=== PATIENT | female | born 1945 | race Caucasian/White ===

== ENCOUNTER 2022-03-02 09:37 | Outpatient (CLI) | payer MEDICARE, SELFPAY ==
--- NOTE | ~2022-03-02 | US_ITS ---
EXAMINATION: US FNA w image guidance DATE: 03/02/2022 10:35 INDICATION: Left thyroid nodule TECHNIQUE: A time-out was performed to verify the patient's name, date of , and procedure to be performed . The procedure and its benefits and risks were discussed with the patient. Risks specifically discus sed included bleeding and infection. The patient understood the risks and agreed to proceed. The neck was prepped and draped in the usual sterile manner. 3 mL 1% lidocaine was used for local anesthesia . 6 passes were made with a 25G needle into the lesion. Appropriate needle location was documented with continuous sonographic guidance. A sterile bandage was applied. There were no immediate compli cations. FINDINGS: Grayscale ultrasound images demonstrate biopsy needles advanced into a 1.8 x 1.7 x 1.8 cm solid heter ogeneous isoechoic hypoechoic mass with smooth and ill-defined margins and with shadowing coarse calc ification (TI-RADS 4) at the inferior left thyroid. IMPRESSION: 1. Successful ultrasound-guided fine needle aspiration of a 1.8 cm TI RADS 4 left thyroid mass. Reviewed, dictated and finalized at location [facility]. IMPRESSION: 1. Successful ultrasound-guided fine needle aspiration of a 1.8 cm TI RADS 4 l eft thyroid mass.
== END 2022-03-02 09:38 | disposition home or self-care (01) ==
LOC: ANHIMG 09:43
PROVIDERS: PCP Internal Medicine; Visit Provider Otolaryngology
DX: E04.2 Nontoxic multinodular goiter (principal)
CPT/HCPCS: 10005; 88173; 88305

== ENCOUNTER 2023-04-12 14:05 | Outpatient (CLI) | payer MEDICARE, SELFPAY ==
--- NOTE | 2023-04-13 12:51 | WPDPFTINT ---
PFT Procedure Performed PFT Procedure Performed Spirometry with Pre/Post Bronchodilator Plethysmography (Lung Vol) Diffusing Cap (DLCO) Flow Vol Loop PFT Interpretation This is a pulmonary function test with pre and post-bronchodilator spirometry, plethysmography and diffusing capacity. The test was performed and results interpreted in accordance with the 2019 and 2005 ATS/ERS Task Force guidelines respectively using the Global Lung Function Initiative-2012 reference equations. Patient demonstrated good effort and cooperation. Reproducibility criteria were met. The quality of the pre bronchodilator spirometry maneuver was Grade A and post bronchodilator spirometry maneuver was Grade A. Of note the patient was only able to perform 1 acceptable plethysmography maneuver. Findings: Spirometry: There is decreased maximal expiratory airflow at all lung volumes with a concave expiratory flow tracing. The contour the inspiratory flow tracing is normal. The pre bronchodilator FVC is 2.44 L, 99% predicted. The pre bronchodilator FEV1 is 1.24 L, 66% predicted. The pre bronchodilator FEV1: FVC ratio is 51%. The post bronchodilator FVC is 2.49 L, representing a 2% increase. The post bronchodilator FEV1 is 1.35 L, representing a 9% increase. The post bronchodilator FEV1: FVC ratio is 54%. Plethysmography: The total lung capacity is 4.88 L, 100% predicted. The functional residual capacity is 1.78 L, 63% predicted. The residual volume is 1.76 L, 75% predicted. Diffusing capacity: The diffusing capacity unadjusted for hemoglobin and carboxyhemoglobin is 9.7, 51% predicted. The diffusing capacity adjusted for alveolar volume is 3.19, 76% predicted. Impression: There is a moderate obstructive abnormality without significant improvement after inhaling a single dose of albuterol. The total lung capacity and residual volume are normal with a decreased functional residual capacity. This is an abnormal but nonspecific lung volume pattern. The diffusing capacity unadjusted for hemoglobin and carboxyhemoglobin is moderately decreased and normalizes when adjusted for alveolar volume. There are no prior studies for comparison
== END 2023-04-12 14:06 | disposition home or self-care (01) ==
PROVIDERS: PCP Internal Medicine; Visit Provider Internal Medicine Pulmonary Disease
DX: R06.09 Other forms of dyspnea (principal); R05.9 Cough, unspecified; D89.9 Disorder involving the immune mechanism, unspecified; T78.40XS Allergy, unspecified, sequela; J84.9 Interstitial pulmonary disease, unspecified; J47.9 Bronchiectasis, uncomplicated; R94.2 Abnormal results of pulmonary function studies
CPT/HCPCS: 94060; 94726; 94729

== ENCOUNTER 2023-05-29 12:14 | Outpatient (CLI) | payer MEDICARE, SELFPAY ==
--- NOTE | ~2023-05-29 | CT_ITS ---
EXAMINATION: CT abdomen pelvis w con DATE: 05/29/2023 13:27 INDICATION: Right lower quadrant abdominal pain for 3 days TECHNIQUE: Computed tomography (CT) of the abdomen and pelvis was performed with 100 CC Omnipaque 350 intravenous contrast. Automated exposure control and iterative reconstruction technique were employe d. Exam dose: 627.45 mGy-cm total exam DLP. COMPARISON: None. FINDINGS: Minimal atelectasis or scarring at the lung bases and peripheral honeycombing, right lower lobe. Borderline heart size. Coronary artery calcification. No pericardial or pleural effusion. Small sliding hiatal hernia. There are 2 large calcified gallstones. No bile duct or pancreatic duct dilatation. No hepatic, pancr eatic or splenic space-occupying mass lesion or splenomegaly. Approximately 11 x 14.7 mm probable right adrenal adenoma. Scattered bilateral renal cysts, the large st approximately 11 mm, on the left. Approximately 2.2 x 2.8 cm calcification is noted within an approximately 2.9 cm dilated bowel struct ure. Differential diagnosis includes gallstone ileus versus much less likely large calcified appendic olith and appendicitis. There are numerous diverticula of the sigmoid and descending and to a lesser extent transverse and ri ght colon. No CT evidence of diverticulitis. No intraperitoneal free air is detected. Small fat containing umbilical hernia. Moderate anterior wedge compression fracture deformity at T11. Likely chronic cupping of the superior vertebral endplate of L5. There is very prominent degenerative change at at the apophyseal joints in the lumbar and lumbosacral area with associated grade 1 anterolisthesis at L4-5. 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 Hurtado telephoned the result to [employer] [employer]. at Dr. Chambers's office on 05/29/2023 at 135 5 hours Reviewed, dictated and finalized at [facility]. Reviewed, dictated and finalized at location B. 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 Hurtado telephoned the result to [employer]. at Dr. Chambers's offi ce on 05/29/2023 at 1355 hours
[2023-05-29 12:59] LABS: Estimated Glomerular Filt Rate > 60
== END 2023-05-29 12:15 | disposition home or self-care (01) ==
PROVIDERS: PCP Internal Medicine; Visit Provider Internal Medicine
DX: R10.9 Unspecified abdominal pain (principal); K80.20 Calculus of gallbladder without cholecystitis without obstruction; K57.30 Diverticulosis of large intestine without perforation or abscess without bleeding; K44.9 Diaphragmatic hernia without obstruction or gangrene; M48.54XA Collapsed vertebra, not elsewhere classified, thoracic region, initial encounter for fracture; M48.56XA Collapsed vertebra, not elsewhere classified, lumbar region, initial encounter for fracture; M47.896 Other spondylosis, lumbar region; M47.897 Other spondylosis, lumbosacral region
CPT/HCPCS: 74177; Q9967

== ENCOUNTER 2024-12-13 12:17 | Inpatient (IN) | payer MEDICARE, SELFPAY ==
[2024-12-13] VITALS (24 sets, daily range): BP systolic 89–114; BP diastolic 54–77; PULSE 80–127; RESP 18–24; TEMP 36.3–36.5; O2SAT 91–99; BMI 31.5
--- NOTE | ~2024-12-13 | XR_ITS ---
XR chest 1V portable 12/13/2024 13:49 Indication: Low oxygen saturation Procedure: AP portable chest Comparison: No prior studies for comparison. Findings: Heart size normal. There is atherosclerosis. Right basilar airspace disease, compatible wit h pneumonia. Small right pleural effusion. Osteopenia. No acute osseous abnormality. No pneumothorax. Impression: 1: Right basilar airspace disease, compatible with pneumonia. Reviewed, dictated and finalized at location B. Impression: 1: Right basilar airspace disease, compatible with pneumonia.
--- NOTE | ~2024-12-13 | XR_ITS ---
XR chest 1V portable Ordering provider: Caleb Kelly MD History: 79 years Female with . Pneumonia . Comparison: December 13, 2024 FINDINGS: MEDIASTINUM: The cardiac silhouette is slightly enlarged. Very Prominent right hilum. Further evaluation advised. Soft tissue density seen in the lower mediastinum suggestive of sliding hiatus hernia unchanged. LUNGS: No effusions or pneumothorax. Opacification in the right lower lobe area suggestive of atelect asis versus pneumonia. Underlying fibrotic changes are not excluded. OTHER: No free air under the diaphragm. IMPRESSION: Right basilar atelectasis versus pneumonia. Prominent right hilum. Further evaluation advised. Reviewed, dictated and finalized at location A.
--- NOTE | ~2024-12-13 | CT_ITS ---
CTA brain carotid Ordering provider: Jonathan Kauffman MD History: . weakness . Comparison: None. Technique: CT angiogram head and neck was performed following timed intravenous injection of contrast . Thin slice axial images and reformatted coronal images were obtained. Three dimensional reformatted images of the brain were also obtained using a [employer] workstation. Radiation reduction technique ut ilized.The dose-length product was 1533.29 mGy-cm. 100 mL Omnipaque 350 was given IV. FINDINGS: HEAD: --ANTERIOR AND MIDDLE CEREBRAL ARTERIES AND BRANCHES: Normal caliber and contour. --INTERNAL CAROTID ARTERIES: Mild atheromatous disease but no significant stenosis. No occlusion. --BASILAR ARTERY AND BRANCHES: Normal caliber and contour. No atheromatous disease. Dominant intracranial left vertebral artery. --POSTERIOR CEREBRAL ARTERIES: Normal caliber and contour --POSTERIOR COMMUNICATING ARTERIES: Not visualized which is probably related to congenital absence or small size. --ANEURYSM: None visualized. --BRAIN: Mild brain atrophy with deep white matter ischemic changes. Otherwise normal. --BONES AND SUPERFICIAL SOFT TISSUES: Normal. --PARANASAL SINUSES AND MASTOIDS: Right maxillary and ethmoid sinus disease. NECK: --RIGHT CERVICAL CAROTID SYSTEM: Normal caliber and contour. Percent stenosis per NASCET criteria is 0%. No carotid dissection. Otherwise, no significant atheromatous disease or stenosis of the cervica l carotid system. --LEFT CERVICAL CAROTID SYSTEM: Mild atheromatous disease of the carotid bulb and proximal internal c arotid artery without significant stenosis. Percent stenosis per NASCET criteria is 0%. No carotid d issection. Otherwise, no significant atheromatous disease or stenosis of the cervical carotid system. --VERTEBRAL ARTERIES: Dominant left vertebral artery. Otherwise, Normal caliber and contour. --VISUALIZED AORTIC ARCH AND BRANCHING VESSELS: Mild atheromatous disease but no significant stenosis . Right atelectasis versus pneumonia in the upper lobes with right pleural effusion. Underlying emphyse matous changes. --SOFT TISSUES: Left Thyroid Nodule. Ultrasound evaluation advised. --CERVICAL SPINE: Age appropriate degenerative changes. Compression fracture of T4 which may be acute or chronic. IMPRESSION: 1. Normal CTA head and neck. Percent stenosis per NASCET criteria is 0%. 2. Right atelectasis versus pneumonia with pleural effusion. Reviewed, dictated and finalized at location A.
--- OUTSIDE RECORDS SUMMARY | 2024-12-13 12:19 | XMS_ITS | Clinical Summary ---
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 Gender Identity Not on file Sexual Orientation [...] 2:07 PM CDT Height 160 cm (5' 3 ) 03/30/2023 2:07 PM CDT Body Mass Index [...] Td or Tdap) 03/04/2026 03/04/2016 Insurance MEDICARE [facility]UE [facility] CHOICE OOS MEDICARE [facility] CHOICE OOS Member Subscriber Plan / Payer ( fective 2008-Present) Name:Leatha Kaba Relation to Subscriber:Self Name:Leatha Kaba Payer ID:[id number] (NAIC) Type:[employer] Address: [address] MEDICARE [facility] Care Teams Bilingual Branch Manager Relationship Specialty Start Date End Date Leydi Chambers MD [address] [facility] [address] [place] [address] PCP - General Internal Medicine 10/08/21
--- OUTSIDE RECORDS SUMMARY | 2024-12-13 12:19 | XMS_ITS | Clinical Summary ---
Author Organization [facility] Address [address] [place] [id number] Care Team Providers Care Tender Coordinator Name Role Phone Unavailable Primary Care Provider [...]
--- OUTSIDE RECORDS SUMMARY | 2024-12-13 12:19 | XMS_ITS | Referral Summary ---
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
--- OUTSIDE RECORDS SUMMARY | 2024-12-13 12:20 | XMS_ITS | CONTINUITY OF CARE DOCUMENT ---
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 Jade Fenton MD LEG PAIN- Abnl [place] below the knee 01/2021 active Jade Fenton MD HTN-12/30 CAROTID NEG completed - Jade Fenton MD Hyperlipidemia active Jade Fenton MD COPD active Jade Fenton MD [...] In-person encounter Office Visit Jade Fenton MD [facility] HTN--echo ef nl, stress test nl, 09/2024 1 - 1 In-person encounter Office Visit Jade Fenton MD [facility] Cough 1 - 1 In-person encounter Office Visit Jade Fenton MD [facility] Mass,esophagus ? seen on CT - work up in progressCardiology examination 0 - 0 In-person encounter Office Visit Gage Munoz MD [facility] 7 - 7 In-person encounter Office Visit Jade Fenton MD [facility] HTN--echo ef nl, stress test nl, 09/2024 1 - 1 In-person encounter Office Visit Jade Fenton MD [facility] Mass,esophagus ? seen on CT - work up in progress 1 - 1 In-person encounter Office Visit Jade Fenton MD [facility] 5 - 1 In-person encounter Office Visit Rodney Hernandez MD [facility] Venous insufficiency 4 - 4 In-person encounter Office Visit Jade Fenton MD [facility] 8 - 8 In-person encounter Office Visit Rodney Hernandez MD [facility] Leg edema, bilateral 9 - 9 In-person encounter Office Visit Jade Fenton MD [facility] Lung mass, - being worked up 1 - 1 In-person encounter Office Visit Jade Fenton MD [facility] HTN--echo ef nl, stress test nl, 09/2024Shortness of breathSARS-associated coronavirus--07/2021 3 - 3 In-person encounter Office Visit Jade Fenton MD [facility] CAD -03/10 Patent stent RCA, 20% lesion LAD EF of 60%, Nl stress nuc 04/2020LEG PAIN- Abnl [place] below the knee 01/2021 6 - 6 In-person encounter Office Visit Jade Fenton MD [facility] 8 - 8 In-person encounter Office Visit Jade Fenton MD [facility] 8 - 8 In-person encounter Office Visit Jade Fenton MD [facility] 8 - 8 In-person encounter Office Visit Jade Fenton MD [facility] 7 - 7 In-person encounter Office Visit Jade Fenton MD [facility] 6 - 6 In-person encounter Office Visit Jade Fenton MD [facility] 9 - 9 In-person encounter Office Visit Jade Fenton MD [facility] COPDARTHRITIS 7 - 7 In-person encounter Office Visit Jade Fenton MD [facility] 2 - 2 In-person encounter Office Visit Jade Fenton MD [facility] 4 - 4 In-person encounter Office Visit Jade Fenton MD [facility] HYPERCHOLESTEROLEMIAHyperlipidemia 9 - 9 In-person encounter Office Visit Jade Fenton MD [facility] BRADYCARDIA, SINUS 0 - 0 In-person encounter Office Visit Jade Fenton MD [facility] 5 - 5 In-person encounter Office Visit Jade Fenton MD [facility] 7 - 7 In-person encounter Office Visit Jade Fenton MD [facility] HTN--echo ef nl, stress test nl, 5CHEST PAIN-01/07 NUC EF 52CAD -03/10 Patent stent RCA, 20% lesion LAD EF of 60%, Nl stress nuc 04/2020HTN-12/30 CAROTID NEG 5 - 5 In-person encounter Office Visit Jade Fenton MD [facility] 4 - 4 In-person encounter Office Visit Jade Fenton MD [facility] 1 - 1 In-person encounter Office Visit Jade Fenton MD [facility] 7 - 7 In-person encounter Office Visit Jade Fenton MD [facility] 2 - 2 In-person encounter Office Visit Jade Fenton MD [facility] 2 - 2 In-person encounter Office Visit Jade Fenton MD [facility] 1 - 2 In-person encounter Office Visit Jade Fenton MD [facility] 9 - 9 In-person encounter Office Visit Jade Fenton MD [facility] 2 - 2 In-person encounter Office Visit Jade Fenton MD [facility] 4 - 4 In-person encounter Office Visit Jade Fenton MD [facility] HTN--echo ef nl, stress test nl, 5CHEST PAIN-01/07 NUC EF 52CAD -03/10 Patent stent RCA, 20% lesion LAD EF of 60%, Nl stress nuc 04/2020TOBACCO ABUSELEG PAIN- Abnl [place] below the knee 01/2021 3 - 3 In-person encounter Office Visit Jade Fenton MD [facility] HYPERCHOLESTEROLEMIA VITAL SIGNS Date Observation Value Provider Body Mass Index (Ratio) 30.35 kg/m2 Dexter Fenton MD blood pressure, diastolic 91 mm[Hg] Nidia Medley blood pressure, systolic 145 mm[Hg] Josette Medley blood pressure, cuff size regular Nidia Medley pulse rate 81 /min Trinidad Kendall s oxygen saturation, oximetry 96 % Trinidad Medley weight E&M 173 [lb_av] Trinidad Kendall s height E&M 63.3 [in_i] Trinidad zhang Body Mass Index (Ratio) 30.18 kg/m2 Dexter Fenton MD blood pressure, diastolic 77 mm[Hg] Coby stern Carey blood pressure, systolic 139 mm[Hg] Nay cruz Carey oxygen saturation, oximetry 94 % [facility] 58 [facility] rate E&M 12 /min [facility] weight E&M 172 [lb_av] [facility] height E&M 63.3 [in_i] [facility] blood pressure, cuff size regular [facility] Body Mass Index (Ratio) 30.11 kg/m2 [...] Fenton MD blood pressure, cuff size regular [facility] blood pressure, diastolic 87 mm[Hg] Ja rret [...] blood pressure, systolic 140 mm[Hg] Jude helloy [place] oxygen saturation, oximetry 98 % Loni Delgado pulse rate 60 /min Loni carrington blood pressure, cuff size large Marina booth [place] respiratory rate E&M 16 /min Fariba vega [...] Merle Lively height E&M 63.3 [in_i] [facility]le [facility] Body Mass Index (Ratio) 29.30 kg/m2 Dexter Fenton MD blood pressure, diastolic 75 mm[Hg] Marina booth Delgado blood pressure, systolic 138 mm[Hg] Jude helle [place] oxygen saturation, oximetry 97 % Loni Delgado pulse rate 76 /min Loni carrington weight E&M 167 [lb_av] Loni carrington respiratory rate E&M 16 /min Fariba Delgado blood pressure, cuff size large Marina Delgado height E&M 63.3 [in_i] Loni Violet carrington Body Mass Index (Ratio) 29.90 kg/m2 Eda rangel Elle blood pressure, diastolic 81 mm[Hg] Li nkLogic blood pressure, systolic 149 mm[Hg] Kelly kLogic blood pressure, cuff size large Ta alec Van blood pressure, diastolic 81 mm[Hg] Ta alec Van blood pressure, systolic 149 mm[Hg] [facility] weight E&M 170.4 [lb_av] Yasmine Weimar respiratory rate E&M 18 /min [facility] oxygen saturation, oximetry 96 % [facility] pulse rate 83 /min [facility] height E&M 63.3 [in_i] [facility] Body Mass Index (Ratio) 30.00 kg/m2 [...] MD blood pressure, diastolic 66 mm[Hg] To [facility] blood pressure, systolic 134 mm[Hg] Ton [facility] oxygen saturation, oximetry 95 % [facility] respiratory rate E&M 16 /min [facility] pulse rate 57 /min [facility] weight E&M 162 [lb_av] [facility] height E&M 63.3 [in_i] [facility] Body Mass Index (Ratio) 28.60 kg/m2 Dexter Fenton MD blood pressure, diastolic 74 mm[Hg] To [facility] blood pressure, systolic 129 mm[Hg] Ton [facility] oxygen saturation, oximetry 96 % [facility] pulse rate 64 /min [facility] respiratory rate E&M 16 /min [facility] weight E&M 163 [lb_av] [facility] height E&M 63.3 [in_i] [facility] Body Mass Index (Ratio) 29.48 kg/m2 Dexter Fenton MD blood pressure, diastolic 85 mm[Hg] To gloria Fenton MD blood pressure, systolic 153 mm[Hg] Ton jose Fenton MD oxygen saturation, oximetry 95 % [facility] respiratory rate E&M 16 /min [facility] pulse rate 60 /min [facility] weight E&M 168 [lb_av] [facility] height E&M 63.3 [in_i] [facility] Body Mass Index (Ratio) 29.83 kg/m2 Dexter [...] Leticia Parr pulse rate 66 /min Janes chauhan weight E&M 86.8 [lb_av] Janes chauhan height E&M 63.3 [in_i] Janes Keen nson Body Mass Index (Ratio) 32.98 kg/m2 Dexter Fenton MD blood pressure, cuff size regular Ke rri Shamirdonna blood pressure, diastolic 94 mm[Hg] Ke rri Shamiroctavioer blood pressure, systolic 157 mm[Hg] Rebeca narayan Yoselyn oxygen saturation, oximetry 94 % Saamra Barksdaledonna respiratory rate E&M 16 /min Samara [...] Aldana oxygen saturation, oximetry 96 % Faye [place] respiratory rate E&M 16 /min Faye Aldana [...] Mass Index (Ratio) 32.81 kg/m2 Asher stone [facility] blood pressure, diastolic 77 mm[Hg] An ludy [facility] blood pressure, systolic 121 mm[Hg] Ane hammads [facility] pulse rate 80 /min Aneatris [facility] oxygen saturation, oximetry 94 % [facility] respiratory rate E&M 16 /min Aneatri s [facility] weight E&M 187 [lb_av] [facility] blood pressure, diastolic 70 mm[Hg] An ludy [facility] blood pressure, systolic 135 mm[Hg] Ane atris [facility] Body Mass Index (Ratio) 34.21 kg/m2 [facility] pulse rate 72 /min [facility] oxygen saturation, oximetry 97 % [facility] respiratory rate E&M 16 /min [facility] weight E&M 195 [lb_av] Adamis [facility] Body Mass Index (Ratio) 33.11 kg/m2 [...] Carvalho Body Mass Index (Ratio) 32.05 kg/m2 Prisclia celina Carvalho blood pressure, diastolic 96 mm[Hg] [...] Celestina O'Chas oxygen saturation, oximetry 93 % [facility] respiratory rate E&M 18 /min [facility] weight E&M 174 [lb_av] Celestina O'[facility]as [...] /min Todd Manacop weight E&M 186 [lb_av] [facility] ALL[facility]GIES Allergy Name Onset Date Reaction Criticality [...] - 1.2 urea nitrogen, blood 13.0 mg/dL [facility] 8[facility] - 23.0 blood glucose, random 87.0 mg/dL [facility] 74.0 - 99.0 red blood cell distribution width, size density 45.8 fL [facility] - immature granulocytes, percentage of total cells, blood 0.2 % [facility] - nucleated red blood cells as percent of blood leukocytes 0.0 % [facility] - red blood cell (erythrocyte) count, per high power field 0.0 10*3/UL [facility] - eosinophils as percent of blood leukocytes 4.4 % [facility] neutrophils as percent of blood leukocytes 59.0 % [facility] - Absolute Neutrophils 3.5 CELLS/UL [facility] 1.5 - 7.8 basophils as percent of blood leukocytes 0.5 % [facility] - Absolute Basophils 0.0 CELLS/UL [facility] [...] 1.0 Bettye Boyer platelet count 242 10*3/mm3 [facility] hematocrit, blood 40.2 % [facility] creatinine, serum 0.54 mg/dL [facility] potassium, serum 4.5 mmol/L [facility] sodium, serum 137 mmol/L [facility] lipoprotein, beta, serum, point, quantitative, calculated 107 mg/dL [facility] cholesterol, serum 191 mg/dL [facility] thyroid stimulating hormone, serum 0.425 u[IU]/mL [facility] alanine aminotransferase (SGPT), serum 35 1/L [facility] aspartate aminotransferase (SGOT), serum 31 1/L [facility] creatinine, serum 0.8 mg/dL [facility] potassium, serum 4.4 mmol/L [facility] sodium, serum 140 mmol/L [facility] platelet count 180 10*3/mm3 [facility] hematocrit, blood 13.9 % [facility] basophils as percent of blood leukocytes 0.4 [...] Normal Absolute Neutrophil count 2615 cells/mcL [facility] ([id number]) Normal platelet count 177 THOUSAND/ UL [facility] [...] MG ORAL TABLET completed po daily - Margueirte Carvalho PROAIR HFA AEROSOL SOLUTION completed 2 [...] Date Observation Value Provider drug [facility] none [facility] passive cigarette sm janet exposure yes [facility] smoking/tobacco cess ation, patient education and counseling yes [facility] number of years as a smoker 60 a [facility], date started 1962 Thanh [...] smoking history, tot al pack/year 53 Thanhnery Elilsi smoking history, tot al pack/day 1 Thanhnery [...] smoking status Current every day smoker R winery Alvin drug use none Gage Munoz MD [...] P danis has been counseled to quit. hTanh Esquivel seatbelt usage 100 % Loni Castle [...] E&M revi ewed - no changes required Jaed Fenton MD seatbelt usage 100 % Sarah [...] required Shaheenolyaadrian Lentz seatbelt usage 100 % [facility] physical exercise, f requency, days per week yes [facility] caffeine use, averag e drinks per day 5+ Tonsha Romero passive cigarette sm janet exposure yes [facility] smoking/tobacco cess ation, patient education and counseling yes [facility] chewing tobacco use no [facility] cigar use no [facility] number of years as a smoker 10 years or m ore [facility] smoking, date started 1963 [facility] smoking history, tot al pack/year 53 [facility] smoking history, tot al pack/day 1 [facility] cigarette use yes [facility] smoking status Current every day smoker T [facility] social history E&M Marital Statu s: L susan with family/friends E thnicity: Smoking History: P danis currently smokes every day. P danis has been counseled to quit. Jade Fenton MD social history reviewed E&M revi ewed - no changes required Abhishek Saini seatbelt usage 100 % [facility], f requency, days per week yes Tonsha Mcallister caffeine use, averag e drinks per day 5+ Tonsha Romero passive cigarette sm janet exposure yes [facility] smoking/tobacco cess ation, patient education and counseling yes [facility] chewing tobacco use no [facility]ons [facility] cigar use no [facility] number of years as a smoker 10 years or m ore [facility] smoking, date started 1962 [facility] smoking history, tot al pack/year 53 [facility] smoking history, tot al pack/day 1 [facility] cigarette use yes [facility] smoking status Current every day smoker T [facility] social history E&M Marital Statu s: L [...] Jade Fenton MD seatbelt usage 100 % [facility] e physical exercise, f requency, days per week yes [facility] alcohol use, average drinks per day none [facility] alcohol use no [facility] caffeine use, averag e drinks per day 5+ [facility] drug use none [facility] smoking/tobacco cess ation, patient education and counseling yes [facility] passive cigarette sm janet exposure yes [facility] chewing tobacco use no [facility] cigar use no [facility] number of years as a smoker 10 years or m ore [facility] smoking, date started 1963 [facility] smoking history, tot al pack/year 53 [facility] smoking history, tot al pack/day 1 [facility] cigarette use yes [facility] smoking status Current every day smoker C janel Jacquelin Underweight no Jade Fenton MD seatbelt usage 100 % [facility] physical exercise, f requency, days per week [...] exercise, f requency, days per week yes Jnaes Parr alcohol use, average drinks per day [...] m ore Janes Parr smoking, date started 1962 Rosamaria flori [...] Samara Topete alcohol use no Samara Orozco [facility] caffeine use, averag e drinks per day 5+ Samara Topete drug use none Samara Orozco [facility] smoking/tobacco cess ation, patient education and counseling yes Samara Topete passive cigarette sm janet exposure yes Samara Topete chewing tobacco use no Samara pineda cigar use no Samara Orozco [facility] number of years as a smoker 10 years or m ore Samara Topete smoking, date started 1962 Samara Topete smoking history, tot al pack/year 53 Samara Topete smoking history, tot al pack/day 1 Samara Topete cigarette use yes Samara Barksdale [facility] smoking status Current every day smoker K [...] no Sybil angelica Keshav cigar use no Jaens Keen jacintoadrian number of years as a [...] use, averag e drinks per day 5+ [facility] passive cigarette sm janet exposure yes [facility] smoking history, tot al pack/year 50 [facility] seatbelt usage 100 % Maximo Marrero RN [...] Payer name Policy type / Coverage type Saxon red green party ID [facility] [id number] [place] Medicare [id number] ADVANCE DIRECTIVES Name Date DISCUSSED - NO DECISION MADE TREATMENT PLAN Date Name Performer [id number],Jade Segovia MD [id number],Thanh Zhang i [id number],SThanh i [id number],Thanh Zhang i [id number],Thanh Zhang i [id number],Thanh Zhang i [id number],Thanh Zhang i [id number],Thanh Zhang i [id number],S, Thanh Ellis i [id number],S, Thanh Ellis i [id number],S, Thanh Ellis i [id number],S, Thanh Ellis i [id number],S, Thanh Ellis i [id number],C,V endous duplex showed venous insufficiency bilaterally. She has crhonic swelling and some numbness. We discussed support stockings vs. venography with IVUS and Venaseal. She would like to try conservative treatment with the stockings and she will let us know if she would like to proceed with further intervention. Rodney Hernandez MD [id number],C, H er updated medication list for this problem includes: Lisinopril 40 Mg Tablet (Lisinopril) ..... Take 1 tablet by mouth every day Atenolol 25 Mg Tablet (Atenolol) ..... Take 1 tablet by mouth every day Rodney Hernandez MD [id number],C,V endous duplex showed venous insufficiency bilaterally. She has crhonic swelling and some numbness. We discussed support stockings vs. venography with IVUS and Venaseal. She would like to try conservative treatment with the stockings and she will let us know if she would like to proceed with further intervention. Rodney Hernandez MD [id number],C,T he Patient was reencouraged to stop smoking. Rodney Hernandez MD [id number],C, H er updated medication list for this problem includes: Simvastatin 40 Mg Tablet (Simvastatin) ..... Take 1 tablet by mouth every day Rodney Hernandez MD [id number],C, B P today: 141/73 P rior BP: [...] by mouth every day Rodney Hernandez MD [id number],B, Jade Fenton MD [id number],B, Jade Fneton MD [id number],B, Jade Fenton MD [id number],S, Thanh Ahmedza i [id number],S, Thanh Ahmedza i [id number],S, Thanh Ahmedza i [id number],S, Thanh Ahmedza i [id number],S, Thanh Ahmedza i [id number],S, Thanh Ahmedza i [id number],S, Thanh Ahmedza i [id number],S, Thanh Ahmedza i [id number],S, Thanh Ahmedza i [id number],B, Thanh Ahmedza i [id number],S, Thanh Ahmedza i [id number],C,T he Patient was reencouraged to stop smoking. Radha Almeida [id number],C, H er updated medication list for this problem includes: Simvastatin 40 Mg Tablet (Simvastatin) ..... Take 1 tablet by mouth every day aRdha Almeida [id number],C, B P today: 149/81 P rior BP: [...] 1 tablet once a day Radha Maravillamagy [id number],C,P t denies any chest pain. Her updated medication list for this problem includes: Atenolol 50 Mg Tablet (Atenolol) ..... Take 1 tablet by mouth every day Lisinopril 40 Mg Tablet (Lisinopril) ..... Take 1 tablet by mouth every day Amlodipine 5 Mg Tablet (Amlodipine) ..... Take 1 tablet by mouth once a day Radha Maravillamagy [id number],C,P t complains of leg swelling. Worse in the evening after she stands. She has erythema and pigmentation in both legs, most likely venous insufficiency. Will obtain venous duplex. She had arterial duplex last year in the hospital and we will obtain the results. Depending on the results will proceed to venography with IVUS and Venaseal. Radha Elle [id number],SThanh i [id number],S, Thanh Ellis i [id number],S, Thahn Ellis i [id number],S, Thanh Ellis i [id number],S, Thanh Ellis i [id number],S, Jade Fenton MD [id number],B, Jade Fenton MD [id number],W, Jade Fenton MD [id number],C, Jade Fenton MD [id number],B, Jade Fenton MD [id number],W, Thanh isadora talamantes [id number],S, [facility]h [facility] [id number],S, [facility] [id number],S, [facility] [id number],S, [facility] [id number],S, [facility] [id number],B, Jade Fenton MD [id number],S, Jade Fenton MD [id number],S, Jade Fenton MD [id number],S, Jade Fenton MD [id number],S, Jade Fenton MD [id number],S, Jade Fenton MD [id number],S, Jade Fenton MD Cardiology Jade Fenton MD [...] MD Cardiology: O rders: C XR- PA/Lat ([id number]) Jade Fenton MD Cardiology: H er updated medication list for this problem includes: Atenolol 25 Mg Tablet (Atenolol) ..... Take 1 tablet by mouth every day Lisinopril 40 Mg Tablet (Lisinopril) ..... Take 1 tablet by mouth every day Hydrochlorothiazide 12.5 Mg Capsule (Hydrochlorothiazide) ..... Take 1 capsule by mouth every day Orders: S tress Regadenoson ([id number]) C omplete Echo ([id number]) Jade Fenton MD Cardiology: B P today: [...] mouth every day Orders: S tress Regadenoson ([id number]) C omplete Echo ([id number]) Jade Fenton MD Cardiology:......... ................................. .........................Jade Fenton MD September 17, 2024 4:30 PM Her updated medication list for this problem includes: Atenolol 25 Mg Tablet (Atenolol) ..... Take 1 tablet by mouth every day Lisinopril 40 Mg Tablet (Lisinopril) ..... Take 1 tablet by mouth every day Orders: S tress Regadenoson ([id number]) C omplete Echo ([id number]) Jade Fenton MD Cardiology:Cessation reviewed Ambrocio Esquivel [...] Ahmedzai Cardiology Thanh Ahmedzai Cardiology Thanh Ahmedzai Cardiology:Vendous d uplex showed venous insufficiency [...] 1 tablet by mouth every day Rodney Henrandez MD Telehealth- f/up feb 6 at 11 15- cx nov appt Jade Fenton MD Telehealth- f/up b 6 at 11 15- cx nov appt Jade Fenton MD Telehealth- f/up feb 6 at 11 15- cx nov appt Jade Fenton MD Cardiology Thanh Esquivel Cardiology Thanh Esquivel Cardiology Thanh Ahmedzai Cardiology Thanh Ahmedzai Cardiology Thanh Ahmedzai Cardiology Thanh Ahmedzai [facility] Cardiology:The Patie nt was reencouraged to stop [...] Fenton MD Cardiology Jade Fenton MD Cardiology Jdae Fenton MD Cardiology Jade Fenton MD Cardiology [...] nml. Jade Fenton MD Cardiology Follow up Tonjose randle MD Cardiology Follow up Tonjose randle MD Cardiology Follow up Tonipeewee randle MD Cardiology Follow up Jade randle [...] tablet by mouth daily Orders: E KG ([id number]) BP today: 144/82 P rior BP: 130/74 [...] pressure of 32mmHg. (08/06/2007) Orders: E KG ([id number]) Jade Fenton MD 1 year visit with [...] tatus Complex e/m visit add on Jade Fenton MD completed Complex e/m visit [...] is used Jade Fenton MD completed SNOMED-CT: 132288104 [id number] Current Medications Documented Jade Fenton MD completed SNOMED-CT: 54545007 Physical Exam, Performed: Pulse Exam of Foot Jade Fenton MD completed EKG Jade Fenton MD completed SNOMED-CT: 880065774 977710 Current Medications Documented Jade Fenton MD completed SNOMED-CT: 03875419 Physical Exam, Performed: Pulse Exam of Foot Jade Fenton MD completed SNOMED-CT: 389323868 964021 Current Medications Documented Jade Fenton MD completed Stress EKG Blue Pham MD complet ed Regadenoson, 4 units Jade Fenton MD completed Cardiolite, 2 units Jade Fenton MD completed SPECT Images Blue Pham MD compl eted SNOMED-CT: [id number] Physical Exam, Performed: Pulse Exam of Foot Jade Fenton MD completed SNOMED-CT: 270139235 481222 Current Medications Documented Jade Fenton MD completed EKG Jade Fenton MD completed SNOMED-CT: 421416432 244488 Current Medications Documented Jade Fenton MD completed EKG Jade Fenton MD completed EKG Jade Fenton MD completed EKG Jade Fenton MD completed EKG Jade Fenton MD completed
--- OUTSIDE RECORDS SUMMARY | 2024-12-13 12:20 | XMS_ITS | Clinical Summary ---
Author Organization [facility] Address [address] [place] [address] Care Team Providers Care Oncology Coordinator Name Role Phone Unavailable Primary Care Provider Unavailabl e Source Comments [facility],non-owned Affiliates and Associated Physician Practices is amultiple site organization consisting of ambulatory clinics and hospital sitesin [place], [place], [place] and [place]. This disclosure is being madepursuant to the Care Everywhere program and may not contain all information available regarding this patient. Last updated 18.[facility] [employer] Allergies Active Allergy Reactions Criticality Noted Date [...] age to complete this topic Insurance MEDICARE [facility] Address: [facility] [id number] [place] [address] MEDICARE FOR[facility] Address: [address] [place] [address]
--- OUTSIDE RECORDS SUMMARY | 2024-12-13 12:20 | XMS_ITS | Data Portability ---
Author Organization [facility] Project 2020, Main Office Address [address] [place] [address] Care Team Providers Care Cast Shell Grinder Name Role Phone FRED CHAMBERS Primary Care Provider [phone] JADE IVAN Pull Through Hooker DANNI PATEL [employer] Engineer Assessment Encounter Date Assessment Date Assessment LastModified [...] Not available Lab culture, sputum 2024 025 [facility] (Lab), [address] [place], [address], 11/17/2024 08:38:30 alpha-1-a ntitrypsi n (aat) phenotype , serum 2024 025 [facility] (Lab), [address] [place], [address], 11/20/2024 12:49:26 BNP (B-type natriuret ic peptide), serum or plasma 2024 025 [facility] (Lab), [address] [place], [address], 11/18/2024 17:05:59 ige, total, serum [address] (Lab), [address] [place], [address], 11/26/2024 12:03:08 tb (M tuberculo sis), ifn-gamma silvia, blood [address] (Lab), [address] [place], [address], 11/26/2024 12:03:08 [address] subclasse s 1+2+3+4, serum [address] (Lab), [address] [place], [address], 11/26/2024 12:03:08 respirato ry allergen panel, [facility] A, serum [address] (Lab), [address] [place], [address], 11/26/2024 12:03:09 respirato ry allergen panel - [facility] b [address] (Lab), [address] [place], [address], 11/26/2024 12:03:09 eosinophi ls, quant, blood 2024 025 [facility] (Lab), [address] [place], [address], 11/26/2024 12:03:09 lipid panel, serum 2023 024 [facility] (Lab), [address] [place], [address], 12/06/2024 10:23:53 CBC w/ auto diff 2023 024 [facility] (Lab), [address] [place], [address], 12/06/2024 10:23:52 CMP, serum or plasma 2023 024 [facility] (Lab), [address] [place], [address], 12/06/2024 10:23:54 TSH, serum or plasma 2023 024 [facility] (Lab), [address] [place], [address], 12/06/2024 10:23:55 vitamin D, 25-hydrox y, total, serum [address] (Lab), [address] [place], [address], 07/11/2024 12:01:26 vitamin D3, 25-hydrox y, serum 2023 024 [facility] (Lab), [address] [place], [address], 12/06/2024 10:23:54 lipid panel, serum [address] (Lab), [address] [place], [address], 11/13/2024 07:54:25 CBC w/ auto diff [address] (Lab), [address] [place], [address], 11/13/2024 07:54:25 CMP, serum or plasma [address] (Lab), [address] [place], [address], 11/13/2024 07:54:25 TSH, serum or plasma [address] (Lab), [address] [place], [address], 11/13/2024 07:54:25 vitamin D, 25-hydrox y, total, serum [address] (Lab), [address] [place], [address], 11/13/2024 07:54:25 vitamin D3, 25-hydrox y, serum [address] (Lab), [address] [place], [address], 11/13/2024 07:54:25 Referral pulmonolo gist referral - Please call patient to schedule an appointme nt. Thank you. 2024 025 [email or web address] Michoacano Zavala MD, [address] [place], [address], 11/12/2024 09:31:21 gastroent erologist referral - Please call patient to schedule. 2023 024 [email or web address] Андрей Mackay MD, [address] [facility] [address], [address], [place], [address], 11/13/2024 08:02:06 cardiolog ist referral 2023 024 [place], [address], [address], [place], [address], 07/15/2024 12:43:19 cardiolog ist referral 2023 024 [place] [address] [place], [address], [address], [place], [address], 05/16/2024 16:40:27 Procedures None recorded. Surgeries None recorded. Imaging DEXA, axial skeleton [address] ([facility]), [address] [place], [address], 07/15/2024 10:50:51 CT, abdomen + pelvis, w/o contrast - Please call patient to schedule. [address] ([facility]), [address] [place], [address], 06/11/2024 12:35:11 XR, lumbosacr al spine, 2 or 3 view [address] ([facility]), [address] [place], [address], 12/02/2024 12:14:47 CT, chest, w/o contrast - Please call patient to schedule. [address] ([facility]), [address] [place], [address], 06/19/2024 08:16:02 DEXA, axial skeleton [address] ([facility]), [address] [place], [address], 11/12/2024 13:14:01 Medication Orders esomepraz ole magnesium 40 mg capsule,d elayed release 2024 025 [facility] [address] [facility], [address] [place] [address], [address], 11/07/2024 15:29:15 Airsupra 90 mcg-80 mcg/actua tion HFA aerosol inhaler 2024 025 [facility] [address] In [facility], [address] [place] [address], [address], 11/07/2024 17:33:26 tramadol 50 mg tablet 2023 024 [facility] [address] In [facility], [address] [place] [address], [address], 07/11/2024 12:01:06 cyclobenz aprine 10 mg tablet 2023 024 [facility] [address], [address], 05/16/2024 12:57:11 albuterol sulfate HFA 90 mcg/actua tion aerosol inhaler 2023 024 [facility] [address], [address], 05/16/2024 12:57:10 Patient TargetsNo targets recorded. Patient Instructions Encounter Date Encounter Id Patient Instructions Last Modified By Organization Details Last Modified Time 11/12/2024 [id number] complete PFT w/ post bronchodilator spirometry* - Please call patient to schedule. FRANKIE [id number] w/ Medicare. [facility] Not available 12/02/2024 11:19:04 Reason for Referral Pull Through Hooker Referral for Co ronary arteriosclerosis Referring Physician: Fred Chambers, Internal Medicine, Encounter Date: 05/16/2024 Pull Through Hooker Referral for Co ronary arteriosclerosis Referring Physician: Fred Chambers Internal Medicine, Encounter Date: 07/11/2024 Horse Exerciser Referral for Esophageal mass Please call patient to schedule. Referring Physician: Fred Chambers, Internal Medicine, Encounter Date: 07/11/2024 Pain Management Nurse Referral for C hronic obstructive pulmonary disease Please call patient to schedule an appointment. Thank you. Referring Physician: Fred Chambers, Internal Medicine, Encounter Date: 11/07/2024 Results Created Date Observation Date Name Description Value Unit Range Abnormal Flag Note LastModifiedBy Organization Detail LastModifiedTime 07/11/20 24 07/11/2024 CBC/C OMPLE TE BLD COUNT W/DIF F white blood cells 6.0 x10'3 /uL 4.2-10 .8 Not Available [facility] (Lab) [address] [place], [address], 07/11/2024 10:41:28 07/11/20 24 07/11/2024 CBC/C OMPLE TE BLD COUNT W/DIF F red blood cells 4.46 x10'6 /uL 3.80-5 .20 Not Available [facility] (Lab) [address] [place], [address], 07/11/2024 10:41:28 07/11/20 24 07/11/2024 CBC/C OMPLE TE BLD COUNT W/DIF F hemoglobin 15.1 g/dL 12.0-1 5.6 Not Available [facility] (Lab) [address] [place], [address], 07/11/2024 10:41:28 07/11/20 24 07/11/2024 CBC/C OMPLE TE BLD COUNT W/DIF F hematocrit 43.9 % 35.7-4 5.7 Not Available [facility] (Lab) [address] [place], [address], 07/11/2024 10:41:28 07/11/20 24 07/11/2024 CBC/C OMPLE TE BLD COUNT W/DIF F mean red cell volume 98.4 fL 82.0-9 9.0 Not Available [facility] (Lab) [address] [place], [address], 07/11/2024 10:41:28 07/11/20 24 07/11/2024 CBC/C OMPLE TE BLD COUNT W/DIF F mean red cell hemoglobin 33.9 pg 27.0-3 3.0 high Not Available [facility] (Lab) [address] [place], [address], 07/11/2024 10:41:28 07/11/20 24 07/11/2024 CBC/C OMPLE TE BLD COUNT W/DIF F mean RBC HGB concentratio n 34.4 g/dL 31.0-3 6.0 Not Available [facility] (Lab) [address] [facility], [address], 07/11/2024 10:41:28 07/11/20 24 07/11/2024 CBC/C OMPLE TE BLD COUNT W/DIF F red cell distribution width 12.2 % 11.8-1 5.5 Not Available [facility] (Lab) [address] [place], [address], 07/11/2024 10:41:28 07/11/20 24 07/11/2024 CBC/C OMPLE TE BLD COUNT W/DIF F platelets 194 x10'3 /uL 150-40 0 Not Available [facility] (Lab) [address] [place], [address], 07/11/2024 10:41:28 07/11/20 24 07/11/2024 CBC/C OMPLE TE BLD COUNT W/DIF F mean platelet volume 11.4 fL 9.0-12 .4 Not Available [facility] (Lab) [address] [place], [address], 07/11/2024 10:41:28 07/11/20 24 07/11/2024 CBC/C OMPLE TE BLD COUNT W/DIF F neutrophils 62.6 % 39.0-7 2.0 Not Available [facility] (Lab) [address] [place], [address], 07/11/2024 10:41:28 07/11/20 24 07/11/2024 CBC/C OMPLE TE BLD COUNT W/DIF F lymphocytes 27.7 % 16.0-4 7.0 Not Available [facility] (Lab) [address] [place], [address], 07/11/2024 10:41:28 07/11/20 24 07/11/2024 CBC/C OMPLE TE BLD COUNT W/DIF F monocytes 5.8 % 5.0-12 .0 Not Available [facility] (Lab) [address] [place], [address], 07/11/2024 10:41:28 07/11/20 24 07/11/2024 CBC/C OMPLE TE BLD COUNT W/DIF F eosinophils 3.3 % 1.0-7. 0 Not Available [facility] (Lab) [address] [place], [address], 07/11/2024 10:41:28 07/11/20 24 07/11/2024 CBC/C OMPLE TE BLD COUNT W/DIF F basophils 0.3 % 0.0-2. 0 Not Available [facility] (Lab) [address] [place], [address], 07/11/2024 10:41:28 07/11/20 24 07/11/2024 CBC/C OMPLE TE BLD COUNT W/DIF F immature granulocytes 0.3 % 0.00-0 .50 Not Available [facility] (Lab) [address] [place], [address], 07/11/2024 10:41:28 07/11/20 24 07/11/2024 CBC/C OMPLE TE BLD COUNT W/DIF F neutrophils, absolute count 3.75 x10'3 /uL 1.5-8. 0 Not Available [facility] (Lab) [address] [place], [address], 07/11/2024 10:41:28 07/11/20 24 07/11/2024 CBC/C OMPLE TE BLD COUNT W/DIF F lymphocytes, absolute count 1.66 x10'3 /uL 1.07-3 .43 Not Available [facility] (Lab) [address] [place], [address], 07/11/2024 10:41:28 07/11/20 24 07/11/2024 CBC/C OMPLE TE BLD COUNT W/DIF F monocytes, absolute count 0.35 x10'3 /uL 0.29-0 .99 Not Available [facility] (Lab) [address] [place], [address], 07/11/2024 10:41:28 07/11/20 24 07/11/2024 CBC/C OMPLE TE BLD COUNT W/DIF F eosinophils, absolute count 0.20 x10'3 /uL 0.02-0 .53 Not Available [facility] (Lab) [address] [place], [address], 07/11/2024 10:41:28 07/11/20 24 07/11/2024 CBC/C OMPLE TE BLD COUNT W/DIF F basophils, absolute count 0.02 x10'3 /uL 0.01-0 .08 Not Available [facility] (Lab) [address] [place], [address], 07/11/2024 10:41:28 07/11/20 24 07/11/2024 CBC/C OMPLE TE BLD COUNT W/DIF F immature granulocytes ,absolute 0.02 x10'3 /uL 0.00-0 .05 Not Available [facility] (Lab) [address] [place], [address], 07/11/2024 10:41:28 07/11/20 24 07/11/2024 CBC/C OMPLE TE BLD COUNT W/DIF F nucleated red blood cells 0.0 % -0 Not Available [facility] (Lab) [address] [place], [address], 07/11/2024 10:41:28 07/11/20 24 07/11/2024 CBC/C OMPLE TE BLD COUNT W/DIF F NRBC# 0.00 x10'3 /uL Not Available [facility] (Lab) [address] [place], [address], 07/11/2024 10:41:28 07/11/20 24 07/11/2024 LIPID PANEL cholesterol 186 mg/dL 140-19 9 NIH DARREN NSUS RECOM MENDA TION FOR ALEX STERO L: ADULT CHILD LOW RISK: <200 <170 BORDE RLINE : <200- 239 ----- HIGH RISK: >240 >200 Not Available [facility] (Lab) [address] [place], [address], 07/11/2024 11:33:30 07/11/20 24 07/11/2024 LIPID PANEL triglyceride s 72 mg/dL 0-150 NIH DARREN NSUS REPOR T RECOM MENDA TION FOR TRIGL YCERI MIKEL: ADULT CHILD LOW RISK: <150 ----- BODER LINE: 150-1 99 ----- HIGH RISK: >200 ----- Not Available [facility] (Lab) [address] [place], [address], 07/11/2024 11:33:30 07/11/20 24 07/11/2024 LIPID PANEL HDL cholesterol 89 mg/dL 40- Not Available [facility] (Lab) [address] [place], [address], 07/11/2024 11:33:30 07/11/20 24 07/11/2024 LIPID PANEL [...] WILL NOT BE REPOR NICOLAS. Not Available [facility] (Lab) [address] [place], [address], 07/11/2024 11:33:30 07/11/20 24 07/11/2024 COMPR EHENS ADELINE METAB OLIC PANEL sodium 133 mmol/ L 137-14 5 low Not Available [facility] (Lab) [address] [place], [address], 07/11/2024 11:33:33 07/11/20 24 07/11/2024 COMPR EHENS ADELINE METAB OLIC PANEL potassium 4.0 mmol/ L 3.5-5. 1 Not Available [facility] (Lab) [address] [place], [address], 07/11/2024 11:33:33 07/11/20 24 07/11/2024 COMPR EHENS ADELINE METAB OLIC PANEL chloride 100 mmol/ L 98-107 Not Available [facility] (Lab) [address] [place], [address], 07/11/2024 11:33:33 07/11/20 24 07/11/2024 COMPR EHENS ADELINE METAB OLIC PANEL carbon dioxide 29 mmol/ L 22-30 Not Available [facility] (Lab) [address] [place], [address], 07/11/2024 11:33:33 07/11/20 24 07/11/2024 COMPR EHENS ADELINE METAB OLIC PANEL anion gap 8.0 mmol/ L 14-22 low Not Available [facility] (Lab) [address] [place], [address], 07/11/2024 11:33:33 07/11/20 24 07/11/2024 COMPR EHENS ADELINE METAB OLIC PANEL glucose 98 mg/dL 70-99 Not Available [facility] (Lab) [address] [place], [address], 07/11/2024 11:33:33 07/11/20 24 07/11/2024 COMPR EHENS ADELINE METAB OLIC PANEL BUN 15 mg/dL 8-19 Not Available [facility] (Lab) [address] [place], [address], 07/11/2024 11:33:33 07/11/20 24 07/11/2024 COMPR EHENS ADELINE METAB OLIC PANEL creatinine 0.52 mg/dL 0.66-1 .25 low Not Available [facility] (Lab) [address] [place], [address], 07/11/2024 11:33:33 07/11/20 24 07/11/2024 COMPR EHENS ADELINE METAB OLIC PANEL GFR >60 Refer ence Range : [place] ge GFR Healt hy Adult : >60 [...] calcu lator is avail able on the [facility] websi te: https :[email or web address] boston.[email or web address] zaidi/pr ofess ional s/kdo qi/gf r_cal culat or Not Available [facility] (Lab) [address] [place], [address], 07/11/2024 11:33:33 07/11/20 24 07/11/2024 COMPR EHENS ADELINE METAB OLIC PANEL alkaline phosphatase 64 U/L 38-126 Not Available [facility] (Lab) [address] [place], [address], 07/11/2024 11:33:33 07/11/20 24 07/11/2024 COMPR EHENS ADELINE METAB OLIC PANEL alanine aminotransfe rase 20 U/L 0-35 Not Available [facility] (Lab) [address] [place], [address], 07/11/2024 11:33:33 07/11/20 24 07/11/2024 COMPR EHENS ADELINE METAB OLIC PANEL aspartate aminotransfe rase 25 U/L 15-37 Not Available [facility] (Lab) [address] [place], [address], 07/11/2024 11:33:33 07/11/20 24 07/11/2024 COMPR EHENS ADELINE METAB OLIC PANEL bilirubin, total 0.70 mg/dL 0.20-1 .30 Not Available [facility] (Lab) [address] [place], [address], 07/11/2024 11:33:33 07/11/20 24 07/11/2024 COMPR EHENS ADELINE METAB OLIC PANEL calcium 10.1 mg/dL 8.4-10 .2 Not Available [facility] (Lab) [address] [place], [address], 07/11/2024 11:33:33 07/11/20 24 07/11/2024 COMPR EHENS ADELINE METAB OLIC PANEL total protein 6.8 g/dL 6.3-8. 2 Not Available [facility] (Lab) [address] [place], [address], 07/11/2024 11:33:33 07/11/20 24 07/11/2024 COMPR EHENS ADELINE METAB OLIC PANEL albumin 4.2 g/dL 3.0-4. 4 Not Available [facility] (Lab) [address] [place], [address], 07/11/2024 11:33:33 07/11/20 24 07/11/2024 COMPR EHENS ADELINE METAB OLIC PANEL globulin 2.6 g/dL 2.6-4. 2 Not Available [facility] (Lab) [address] [place], [address], 07/11/2024 11:33:33 07/11/20 24 07/11/2024 COMPR EHENS ADELINE METAB OLIC PANEL A/G ratio 1.6 ratio 1.0-2. 0 Not Available [facility] (Lab) [address] [place], [address], 07/11/2024 11:33:33 07/11/20 24 07/11/2024 VITAM IN D 25-HY DROXY [id number] 35.4 NG/mL 30-100 Vitam in D Statu s: Defic ient: <20 ng/mL Insuf ficie nt: 20-29 ng/mL Suffi cient : 30-10 0 ng/mL Not Available [facility] (Lab) [address] [place], [address], 07/11/2024 11:46:37 07/11/20 24 07/11/2024 TSH W/REF ASHLEY FT4 TSH with reflex free T4 0.355 uIU/m L 0.465- 4.680 low Not Available [facility] (Lab) [address] [facility], [place], [address], 07/11/2024 11:57:32 07/11/20 24 07/11/2024 T4 FREE free T4 1.43 NG/dL 0.78-2 .19 Not Available [facility] (Lab) [address] [facility], [place], [address], 07/11/2024 12:30:17 06/06/20 24 06/06/2024 CT, chest + abdom en, w/o contr ast [facility] [address] [facility] [place] [address] Patien t Name: VAZQUEZ LAINEZ Access ion #: [id number] Sex: F : 1944 8 Dictat [...] med by the techno logist on a [employer] workst ation. Radiat ion Dose Inform ation: [...] signif icant pneumo thorax . Page 1 [facility] [place] [address] [facility] [address] [facility], [place] [address] Patien t Name: VAZQUEZ LAINEZ Access ion #: [id number] Sex: F : 1944 8 Dictat ed By: Femi Perez ms Attend ing Physic suzanne: [facility] Physic suzanne: ARMIDA AGUIRRE Exam Date: 2023 [...] ious pulmon ant nodule s. Page 2 [facility] [place] [address] Patien t Name: VAZQUEZ LAINEZ [place] Access ion #: [id number] Sex: F : 1944 8 Dictat [...] 2023 11:28: 18 AM Page 4 INTERFACE [facility] (Imaging) [address] [place], [address], 06/06/2024 12:31:14 08/28/19 25 08/28/2024 XR, chest , 2 view No observ ation record ed. [email or web address] [facility] [address] [place], [address], 11/04/2024 10:58:17 09/17/19 25 09/17/2024 XR, chest , 2 view No observ ation record ed. [email or web address] [facility] [address] [place], [address], 11/04/2024 10:59:59 12/03/19 25 11/28/2024 compl ete PFT w/ post [facility] hodil ator lisa metry * No observ ation record ed. [email or web address] [facility] ([facility]) [address] [place], [address], 12/04/2024 09:21:24 Result Notes None recorded. 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 Active 2022 Not Available [facility] 3 07:03:27 Bronchiec tasis 15375702 Active 2022 Not Available [facility] 3 07:03:27 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 2022 Not Available [facility] 3 07:03:27 Mild chronic obstructi ve pulmonary disease 263564950 Active 2022 [facility] Available [facility] 3 07:03:27 CT of chest abnormal 21965141794 623717 Active 2022 Not Available [facility] 3 07:03:27 Acute bronchiti s 47495955 Active 2022 Not Available [facility] 3 07:03:27 Skin lesion 13590576 Active 2022 Not Available [facility] 3 07:03:28 Open wound of right ankle 21008753405 264941 Active 2022 Not Available [facility] 3 07:03:27 Lung mass 510487182 Active 2022 Not Available [facility] 3 07:03:27 Edema of lower extremity 832506165 Active 2022 Not Available [facility] 3 07:03:27 Onychomyc osis 579716674 Active 2022 Not Available [facility] 3 07:03:27 Pain of left ankle joint 88140437751 991193 Active 2022 Not Available [facility] 3 07:03:27 Acute urinary tract infection 564095830 Active 2022 Not Available [facility] 3 07:03:27 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 2022 Not Available [facility] 3 07:03:28 Pain in toe 257269763 Active 2022 Not Available [facility] 3 07:03:27 Unable to cut own toenails 764387595 Active 2022 Not Available [facility] 3 07:03:27 Abdominal pain 08344816 Active 2022 Not Available [facility] 3 07:03:27 Gallstone 456672996 Active 2022 Not Available [facility] 3 07:03:27 Cholelith iasis without obstructi on 58644434 Active 2022 Not Available [facility] 3 07:03:28 Bursitis of olecranon of left elbow 00043932779 9101 Active 2022 Fred calix MD [address], [address], [place], [address] , [facility] [employer] [facility] [employer] [facility] 3 11:27:57 Occult blood detected in feces 08314311 Active 2023 Marisela Rivera MA null, [employer] [facility] [employer] [facility] 4 17:12:56 Pain in toe 656304297 Active 2023 Danni Patel DPM [address], [address], [place], [address] , [facility] 4 13:34:06 Low back pain 897771849 Active 2023 Fred calix MD [address], [address], [place], [address] , [facility] [employer] [facility] [employer] [facility] 4 12:44:52 Disorder of eye 411618797 Active 2023 Jessi Whitney null, [facility] 4 11:33:12 Arthritis 9425901 Active 2023 Jessi Devonte null, [facility] 4 11:33:28 CT of abdomen abnormal 36912471598 481064 Active 2023 CELSO Palomares null, [facility] 4 14:47:32 Hypothyro idism 98520441 Active 2023 Travis Alba REGISTERED NURSE CARDIAC null, [facility] 4 10:05:23 Cough 73577084 Active 2023 Travis Alba REGISTERED NURSE CARDIAC null, [place] - [facility] 4 17:11:58 Insomnia 577372207 Active 2024 Fred calix MD [address], [address], [place], [address] , [facility] 5 18:27:24 Cigarette smoker 23531764 Active 2024 Fred calix MD [address], [address], [place], [address] , [facility] 5 15:30:38 Dyspnea on exertion 30136871 Active 2024 Charlee Gomez NP [address], [address], [place], [address] , [facility] 5 12:12:44 Acute low back pain 110757224 Active 2024 Rachael Noel MA null, [facility] 5 14:49:54 Hammer toe 424376258 Active 2017 Not Available [facility] 3 07:03:27 Chronic obstructi ve pulmonary disease 28560111 Active Not Available [facility] 3 07:03:27 Localized , 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 137666265 Active 2021 Not Available [facility] 3 07:03:27 Thyroid nodule 833371622 Active 2021 Not Available [facility] 3 07:03:27 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 Not Available [facility] 3 07:03:27 Vitamin D deficienc y 02462046 Active 2021 Not Available [facility] 3 07:03:27 Onychomyc osis of toenails 094639670 Active 2017 Not Available [facility] 3 07:03:27 Eczema 50731627 Active 2021 Not Available [facility] 3 07:03:27 Coronary arteriosc lerosis 92953946 Active Not Available [facility] 3 07:03:27 Hyperlipi demia 92795212 Active 2021 Not Available [facility] 3 07:03:27 Essential hypertens ion 65190791 Active Not Available [facility] 3 07:03:28 Tinea pedis 7245170 Completed 201802/18/2020 Not Available [facility] 3 04:52:31 Osteoporo sis 94756380 Active 2021 Not Available [facility] 3 07:03:28 Smoker 72537939 Active Not Available [facility] 3 07:03:28 Notes:PFT 11/04/21 FEV1 1.69 L [...] Patel DPM [address], [address], [place], [address], [employer] 08/01/2024 16:30:01 03/28/20 24 Nail Debridement completed Danni Patel DPM [address], [address], [place], [address], [employer] 03/28/2024 13:59:13 01/04/20 24 Medicare Wellness CPT Code, Initial completed Ariel Robins LPN [employer] [facility] Project 2020 01/04/2024 13:04:53 10/12/19 24 Nail Debridement completed Danni Patel DPM [address], [address], [place], [address], [employer] [facility] Project 2020 10/12/2023 13:33:53 05/04/20 23 Nail Debridement completed Danni Patel DPM [address], [address], [place], [address], [facility] 05/04/2023 17:38:45 Cardiac Stent Placement completed Not Available [facility] 10/26/2022 04:42:09 replacement of bilateral knee joints completed Jessi Whitney [employer] [facility] Project 2020 03/27/2024 11:34:13 Imaging Results Imaging Date Name Status LastModified by Organization Details LastModified Time 06/06/2024 CT, chest + abdomen, w/o contrast active [facility]FACE [facility] (Imaging) [address] [place], [address], 06/06/2024 12:31:14 08/28/2024 XR, chest, 2 view completed [address] [place], [address], 11/04/2024 10:58:17 09/17/2024 XR, chest, 2 view completed [address] [place], [address], 11/04/2024 10:59:59 11/28/2024 complete PFT w/ post bronchodilator spirometry* completed anal5 [facility] ([facility] Scheduling) [address] [facility], [address], 12/04/2024 09:21:24 Procedure Notes None recorded. Medical Equipment None Reported. Allergies Allergen ID Allergen Name Allergen Category Reaction Reaction Severity Criticality Documentation Date Start Date Code Code System Note Provider Name and Address Organization Details Recorded Time 91 Plavix medicatio n rash Not available Not available 10/26/2022 55740 2 RxNorm Not Available [facility] 05:07:50 Medications Name Sig Start [...] Updated DateTime 4 160.02 cm 30.3 kg/m2 79860.3 g 98.7 [degF] 67 /min 95 % 95 % 0 163 mm[Hg] 73 mm[Hg] Sandy Leonardo MA [place] - [facility] 2020 4 12:14:13 Date Recorded Body height Body mass index (BMI) Body weight Body temperature Heart rate Oxygen saturation Oxygen saturation in Arterial blood by Pulse oximetry Systolic blood pressure Diastolic blood pressure Provider Name and Address Organization Details Last Updated DateTime 4 160.02 cm 29.4 kg/m2 55458.3 3 g 97.6 [degF] 102 /min 93 % 93 % 138 mm[Hg] 80 mm[Hg] Rachael Noel MA [facility] [employer] [facility] 4 11:29:18 Date Recorded Body height Body mass index (BMI) Body weight Heart rate Respiratory rate Oxygen saturation Oxygen saturation in Arterial blood by Pulse oximetry Systolic blood pressure Diastolic blood pressure Provider Name and Address Organization Details Last Updated DateTime 4 160.02 cm 29.4 kg/m2 23349.3 3 g 65 /min 14 /min 98 % 98 % 172 mm[Hg] 92 mm[Hg] Sherlyn Castellon [employer] [facility] [employer] [facility] 4 11:40:45 Date Recorded Body height Body mass index (BMI) Body weight Heart rate Oxygen saturation Oxygen saturation in Arterial blood by Pulse oximetry Body temperature Systolic blood pressure Diastolic blood pressure Provider Name and Address Organization Details Last Updated DateTime 5 160.02 cm 30.8 kg/m2 00842.0 7 g 69 /min 96 % 96 % 97.7 [degF] 114 mm[Hg] 64 mm[Hg] CELSO Palomares [facility] [employer] [facility] 5 14:57:54 Date Recorded Body height Body mass index (BMI) Body weight Body temperature Heart rate Oxygen saturation Oxygen saturation in Arterial blood by Pulse oximetry Systolic blood pressure Diastolic blood pressure Provider Name and Address Organization Details Last Updated DateTime 5 160.02 cm 31 kg/m2 48580.6 6 g 96.6 [degF] 57 /min 93 % 93 % 116 mm[Hg] 68 mm[Hg] Rachael Noel MA [facility] [employer] [facility] 5 11:56:25 Social History Question Answer Notes LastModified by Organization Details LastModified Time Tobacco Smoking Status Current Every Day Smoker Not Available [facility] 10/26/2022 04:22:06 Do You Have An Advance Directive? Yes MIGRATION.0301 [id number] Information not available 10/26/2022 What Is Your Level Of Alcohol Consumption? None [email or web address] Information not available 01/04/2024 Do You Wear A Helmet When Biking? No Does Not Bike [email or web address] Information not available 01/04/2024 Are You Blind Or Do You Have Difficulty Seeing? Yes MIGRATION.030 224076 Information not available 10/26/2022 What Is Your Level Of Caffeine Consumption? Heavy MIGRATION.030 977101 Information not available 10/26/2022 In The 14 Days Before Symptom Onset, Have You Had Close Contact With A Laboratory-confi rmed COVID-19 While That Case Was Ill? No MIGRATION.030 990064 Information not available 10/26/2022 In The 14 Days Before Symptom Onset, Have You Had Close Contact With A Person Who Is Under Investigation For COVID-19 While That Person Was Ill? No MIGRATION.030 814553 Information not available 10/26/2022 Are You Currently Employed? No Information not available 01/04/2024 Are You Deaf Or Do You Have Serious Difficulty Hearing? No MIGRATION.030 668438 Information not available 10/26/2022 What Type Of Diet Are You Following? REGULAR MIGRATION.030 411069 Information not available 10/26/2022 Do You Or Have You Ever Used E-cigarettes Or Vape? Current User Of Electronic Cigarettes Information not available 11/07/2024 What Is The Highest Grade Or Level Of School You Have Completed Or The Highest Degree You Have Received? [id number] MIGRATION.300026 Information not available 10/26/2022 Do You Have An Electrostatic Air Filter? No Information not available 11/12/2024 What Is Your Occupation? N/a MIGRATION.030 260137 Information not available 10/26/2022 Have There Been Any Changes To Your Family Or Social Situation? No MIGRATION.030 701532 Information not available 10/26/2022 What Is The Fluoride Status Of Your Home? Unknown MIGRATION.030 579897 Information not available 10/26/2022 Are There Any Guns Present In Your Home? Yes [email or web address] Information not available 01/04/2024 Do You Have A Humidifier? Yes Information not available 11/12/2024 Do You Use Insect Repellent Routinely? No MIGRATION.030 031671 Information not available 10/26/2022 Where Do You Live? SingleLevelHouse MIGRATION.030 450460 Information not available 10/26/2022 Presence Of Domestic Violence No [email or web address] Information not available 01/04/2024 Are You Able To Care For Yourself? Yes [email or web address] Information not available 01/04/2024 Are You Blind Or Do Yo Have Difficulty Seeing? No [email or web address] Information not available 01/04/2024 Are You Deaf Or Do You Have Serious Difficulty Hearing? No [email or web address] Information not available 01/04/2024 General Stress Level? Moderate [email or web address] Information not available 01/04/2024 Live Alone Of With Others? Alone [email or web address] Information not available 01/04/2024 Do You Have A Medical Power Of Braiding Machine Tender? Yes MIGRATION.0301 057827 Information not available 10/26/2022 Do You Have Moisture Problems In Your Home? No Information not available 11/12/2024 What Was The Date Of Your Most Recent Tobacco Screening? 11/12/2024 Information not available 11/12/2024 How Many Children Do You Have? 3 Information not available 01/04/2024 Do You Have Any Pets? No MIGRATION.0301 [id number] Information not available 10/26/2022 What Is Your Relationship Status? MIGRATION.0301 477512 Information not available 10/26/2022 Do You Use Your Seat Belt Or Car Seat Routinely? Yes MIGRATION.0301 210365 Information not available 10/26/2022 Do You Have Smoke And Carbon Monoxide Detectors In Your Home? Yes MIGRATION.0301 659035 Information not available 10/26/2022 At What Age Did You Start Smoking Tobacco? 17 MIGRATION.0301 711052 Information not available 10/26/2022 Are You Passively Exposed To Smoke? Yes MIGRATION.0301 274259 Information not available 10/26/2022 Do You Or Have You Ever Used Smokeless Tobacco? Never Used Smokeless Tobacco Information not available 11/07/2024 Are There Any Smokers In Your House? Yes MIGRATION.0301 087624 Information not available 10/26/2022 How Much Tobacco Do You Smoke? 0.5 PPD Down Fom 1ppd Information not available 11/07/2024 Do You Feel Stressed (tense, Restless, Nervous, Or Anxious, Or Unable To Sleep At Night)? [id number] MIGRATION.0301 498074 Information not available 10/26/2022 Do You Use Any Illicit Or Recreational Drugs? No MIGRATION.0301 611203 Information not available 10/26/2022 Do You Use Sunscreen Routinely? Yes MIGRATION.0301 484675 Information not available 10/26/2022 Has Tobacco Cessation Counseling Been Provided? Yes Information not available 01/04/2024 On What Date Was Tobacco Cessation Counseling Provided? 01/04/2024 [email or web address] Information not available 01/04/2024 How Many Years Have You Smoked Tobacco? 60 [email or web address] Information not available 01/04/2024 Have You Recently Traveled Abroad? No MIGRATION.0301 069093 Information not available 10/26/2022 Do You Have Any Dietary Restrictions? No MIGRATION.0301 375305 Information not available 10/26/2022 Do You Or Have You Ever Used Any Other Forms Of Tobacco Or Nicotine? Yes Information not available 11/07/2024 Sex: Female Functional Status Question Answer Note LastModified by Organizat ion Details LastModified Time Do you have difficulty walking or climbing stairs? No MIGRATION.[id number] 026 Information not available 10/26/2022 Do you have transportation difficulties? No MIGRATION.1541223 026 Information not available 10/26/2022 Are you able to walk? YESWOREST MIGRATION.6253274 026 Information not available 10/26/2022 Do you have difficulty doing errands alone? No MIGRATION.6166477 026 Information not available 10/26/2022 Are you able to care for yourself? Yes MIGRATION.9762094 026 Information not available 10/26/2022 Do you have difficulty dressing or bathing? No MIGRATION.3515219 026 Information not available 10/26/2022 What is your exercise level? None MIGRATION.2346750 026 Information not available 10/26/2022 Mental Status Question Answer Note LastModified by Organizat ion Details LastModified Time Do you have difficulty concentrating, remembering or making decisions? No MIGRATION.[id number] 6 Information not available 10/26/2022 Family History Relationship Description Onset Age of this Age Resolved Age Notes LastModified by Organization Details LastModified Time Father Heart disease [email or web address] Not available 02/2023 16:52:03 Medical History Condition Response NERVE DISEASE N BLINDNESS N RHEUMATIC FEVER N KIDNEY STONES N BLADDER PROBLEMS N MRSA N OTHER # 1 Y POLIO N LUNG DISEASE/DISORDER N HISTORY OF DRUG ABUSE N RADIATION / CHEMOTHERAPY N COPD Y Other # 2 Y BLOOD DISEASES N EAR OR HEARING PROBLEMS N MUMPS N SHINGLES N DEPRESSION (INCLUDING POST ) N BOWEL PROBLEMS N STROKE/TIA N ULCERS N BENIGN PROSTATIC [...] N CHRONIC PAIN SYNDROME N HYPOTHYROIDISM N CAROTID BLOCKAGE N CONSTIPATION N BACK / NECK PROBLEMS N HAVE YOU BEEN HOSPITALIZED OR SEEN IN [facility] ER IN THE PAST YEAR ? N ATHEROSCLEROSIS [...] high-dose, quadrivalent, PF 0 completed CELSO Palomares, [facility] 11/07/2024 14:54:55 Influenza, adjuvanted, quadrivalent, PF 2 completed CELSO Palomares, [facility] 11/07/2024 14:54:55 Influenza, adjuvanted, quadrivalent, PF [facility] 14:54:56 RSV, bivalent, protein subunit RSVpreF, diluent reconstituted, 0.5 mL, PF 4 [facility] 11/07/2024 14:55:11 COVID-19, mRNA, LNP-S, PF, bertha-sucrose, 30 mcg/0.3 mL 4 [facility] 11/07/2024 14:55:11 Influenza, high-dose, trivalent, PF 2 completed Not Available [facility] 07/03/2023 07:03:28 Influenza, high-dose, trivalent, PF 9 completed NAHUM PalomaresA lili, [facility] 11/07/2024 14:54:56 Influenza, high-dose, trivalent, PF 8 completed CELSO Palomares, [facility] 11/07/2024 14:54:56 pneumococcal polysaccharide PPV23 7 completed Not Available [facility] 07/03/2023 07:03:28 COVID-19, mRNA, LNP-S, PF, 100 mcg/0.5mL dose or 50 mcg/0.25mL dose 1 completed Maddie Landa RMA lili, [facility] 11/07/2024 14:54:56 COVID-19, mRNA, LNP-S, PF, 100 mcg/0.5mL dose or 50 mcg/0.25mL dose 1 completed Maddie Landa RMA lili, [facility] 11/07/2024 14:54:56 COVID-19, mRNA, LNP-S, PF, 100 mcg/0.5mL dose or 50 mcg/0.25mL dose 1 completed CELSO Palomares, [facility] 11/07/2024 14:54:56 Influenza, high-dose, trivalent, PF 0 completed CELSO Palomares, [employer] 11/07/2024 14:54:56 Influenza, high-dose, trivalent, PF 9 completed Not Available [facility] 07/03/2023 07:03:28 Influenza, high-dose, trivalent, PF 8 completed Not Available [facility] 07/03/2023 07:03:28 Tdap 6 completed Not Available [facility] 07/03/2023 07:03:28 Influenza, high-dose, trivalent, PF 7 completed Not Available [facility] 07/03/2023 07:03:28 Influenza, split virus, trivalent, PF 3 completed CELSO Palomares, [facility] 11/07/2024 14:54:56 Past Encounters Encounter ID Performer Location Encounter Start Date Encounter Closed Date Diagnosis/Indication Diagnosis SNOMED-CT Code Diagnosis ICD10 Code Diagnosis Note [id number] [facility] [address], [address] [address] 02/09/2021 00:00:00 02/09/2021 15:11:47 [id number] [facility] General Surgery [address] [address] 04/20/2021 00:00:00 04/20/2021 13:26:11 [id number] [facility] [address] [address] 05/04/2021 00:00:00 05/04/2021 13:15:37 [id number] [facility] [place] [address] [facility], [address] [address] 06/17/2021 00:00:00 06/17/2021 12:16:46 [id number] [facility] [place] [address] [place] [address], [address] [place] [address] 10/04/2021 00:00:00 10/05/2021 15:45:00 [id number] [facility] [place] [address], [address] [place] [address] 10/14/2021 00:00:00 10/14/2021 13:11:31 [id number] [facility] Internal [facility] [address] [facility] [address] [place] [address] 12/28/2021 00:00:00 02/17/2022 14:00:22 [id number] [facility] [place] [address], [facility] [address] [place] [address] 02/17/2022 00:00:00 02/17/2022 14:34:30 [id number] [facility] [address] [address] 05/03/2022 00:00:00 05/03/2022 12:56:02 [id number] [facility] [place] [address], [facility] [address] [place] [address] 05/30/2022 00:00:00 05/30/2022 11:23:19 [id number] [facility] [address] [address] 08/10/2022 00:00:00 08/10/2022 11:27:05 [id number] [facility] [place] [address], [facility] [address] [place] [address] 10/11/2022 00:00:00 10/11/2022 13:06:37 [id number] Fred calix MD [facility] [address] [facility] [address] [place] [address] 02/07/2023 10:55:01 02/07/2023 12:04:15 Screening - NAD 572413354 Z13.9 C-scope: Cologuard 06/26/18,C ologuard 01/17/2022 : [...] understand ing of the above Skin lesion 56805174 L98 .[address] Mccartney and diagnosed with actinic keratosis, no surgery or procedure was done Coronary arteriosclerosis 78939855 I25.10 ECHO 09/28/2021 : EF 60%PFT 11/04/[address] [facility] 03/14/2022 On amlodipine 5mg dailyOn HCTZOn atenolol 50mg dailyOn lisinopril 40mg dailyGet labs Hyperlipidemia 53267840 E78.5 On simvastati n 40mg dailyGet labs Smoker 46098239 F17.200 Declines any imaging Does wellNow on chantix, given by Dr Ivan [facility] Open wound of right ankle 3930432785 8955524 S91.001A S/p insect biteDr Ellen, next OV 10/03/2022 Vitamin D deficiency 347 95094 E55.9 COVID-19 306115311 U07.1 +ve in 08/19/2021 Does well now Chronic ob structive pulmonary disease 56849902 J44.9 XRay Chest: 12/04/2021 : [facility] ER: EmphysemaN eeds to see Dr Zavala pulmonary, declined see case 01/04/2022 Lung mass 949614726 R91. 8 LDCT 09/28/2021 : Unclear if [...] one year Edema of l ower extremity 464706068 R60.0 Eats a lot of TV dinners and chips, advised to cut back, and elevate her legsShe is to see Dr Hernandez Onychomycosis 583453937 B35.[address] Patel next 06/23/2022 Eruption noted, refill her triamcinol one, add nystatin Thyroid nodule 502976477 E04.1 US thyroid 01/26/2022 : 1.8cm nodule, L lobe ENT Dr Ravinder Gusman 02/15/2022 : Bx to be doneBx 03/02/2022 : NegUS thyroid ordered 02/07/2023 Pain of le ft ankle joint 7905597085 7714303 M25.572 S/p xrays 04/28/2022 Dr Patel 05/30/2022 , next 10/03/2022 Eczema 07817207 L30.9 Not satisfied with care with Dr Patel, will refer to Dr Thomas Neuropathy 551724692 G62 .9 C/o N/T in both her feet, states that she is to see Dr Hernandez, agreeable to start on gabapentin , all side effects explained Allergic rhinitis 653488 04 J30.9 Advised to use flonase and zyrtec, she does have flonase at homeFeels her cough is d/t her allergies Screening mammography 24 042179 Z12.31 [id number] Michoacano Zavala MD [facility] Pulmonolo [facility] [place] [address] [facility] [address] [place] [address] 02/22/2023 13:58:49 02/22/2023 15:21:24 Dyspnea on exertion 18022341 R06.09 R05.9 T78.40XS D89.9 J84.9 J47.9 Interstiti al lung disease 819093249 J84.9 Mild chron ic obstructive pulmonary disease 536392439 J44.9 Smoker 38850287 F17.218 F17.219 Z87.549 [id number] Danni Patel DPM [facility] [address], [address] [place] [address] 05/04/2023 16:45:07 05/04/2023 17:50:28 Dystrophia unguium 75182792 L60.3 Nails 1 through 10 were debrided with sharp mechanical debridemen t without incident. Nails were debrided and greater than 50% length and thickness where needed. Pain in toe 805113161 M7 9.674 M79.675 secondary to above Unable to cut own toenails 848287985 Z74.1 [id number] Fred calix MD [facility] Internal Med [address] , [facility] [place] [address] 05/29/2023 11:50:52 05/29/2023 13:05:18 Abdominal pain 92482893 R10.[address] abd/pelvis , may need [...] that, ER if her symptoms worsen Gallstone 742235294 K80. 20 [id number] Victor Hugo medeiros MD [facility] General Surgery [address] [address] 06/01/2023 11:24:24 06/01/2023 16:08:07 Abdominal pain 60528003 R10.9 Cholelithi asis without obstruction 06169703 K80.20 [id number] Victor Hugo medeiros MD [facility] General Surgery [address] [address] 06/15/2023 11:33:01 06/28/2023 13:53:39 Gallstone 621925841 K80.20 Ileal Gallstone [id number] Victor Hugo medeiros MD [facility] General Surgery [address] [place] [address] 06/29/2023 11:38:48 06/29/2023 17:18:00 [id number] Fred calix MD [facility] Internal Med [facility] [address] [place] [address] 08/08/2023 10:57:57 08/08/2023 11:28:50 Abdominal pain 79035401 R10.[address] abd/pelvis , may need [...] see Dr Mccartney and f/u PRN Gallstone 492980472 K80. [address] Mccartney 06/29/2023 , f/u PRN Screening - NAD 59641072 3 Z13.9 C-scope: Cologuard 06/26/18,C ologuard 01/17/2022 [...] understand ing of the above Skin lesion 35425626 L98 [address] Mccartney and diagnosed with actinic keratosis, no surgery or procedure was done Coronary arteriosclerosis 75304482 I25.10 ECHO 09/28/2021 : EF 60%PFT 11/04/[address] Ivan [facility] 07/24/2023 Dr Hernandez [facility] 03/14/2022 On amlodipine 5mg dailyOn HCTZOn atenolol 50mg dailyOn lisinopril 40mg dailyGet labs Hyperlipidemia 16589306 E78.5 On simvastati n 40mg dailyGet labs Smoker 96677621 F17.200 Declines any imaging Does wellNow on chantix, given by Dr Ivan [facility] Open wound of right ankle 9154383752 9039553 S91.001A S/p insect biteDr Patel Vitamin D deficiency 347 45840 E55.9 COVID-19 617942598 U07.1 +ve in 08/19/2021 Does well now Chronic ob structive pulmonary disease 73849980 J44.9 XRay Chest: 12/04/2021 : [facility] ER: Emphysema Needs to see Dr Zavala pulmonary, declined see case 01/04/2022 PFT 04/12/2023 : Moderate obstructio n, declines referral Lung mass 390822760 R91. 8 LDCT 09/28/2021 : Unclear if [...] case 02/23/2023 Edema of l ower extremity 214821206 R60.0 Eats a lot of TV dinners and chips, advised to cut back, and elevate her legsShe is to see Dr Hernandez Onychomycosis 149408586 B35.[address] Patel, next 08/31/2023 Eruption noted, refill her triamcinol one, add nystatin Thyroid nodule 411697011 E04.1 US thyroid 01/26/2022 : 1.8cm nodule, L lobe ENT Dr Ravinder Gusman 02/15/2022 : Bx to be doneBx 03/02/2022 : NegUS thyroid ordered 02/07/2023 Pain of le ft ankle joint 5996446884 2034824 M25.572 S/p xrays 04/28/2022 Dr Patel 05/30/2022 , next 10/03/2022 Eczema 71973541 L30.9 Not satisfied with care with Dr Patel, will refer to Dr Thomas Neuropathy 616460203 G62 .9 C/o N/T in both her feet, states that she is to see Dr Hernandez, agreeable to start on gabapentin , all side effects explained Allergic rhinitis 098968 04 J30.9 Advised to use flonase and zyrtec, she does have flonase at homeFeels her cough is d/t her allergies Screening mammography 24 827779 Z12.31 Bursitis o f olecranon of left elbow 7036170906 13021 M70.22 Non tender, declines any referrals, 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 thread puller, want to 'leave it alone', notify if worse or any symptoms, she is agreeable to that [id number] Danni Patel DPM [facility] [place] [address] [facility], [address] [place] [address] 10/12/2023 11:02:23 10/12/2023 13:55:45 Dystrophia unguium 27902392 L60.3 Nails 1 through 10 were debrided with sharp mechanical debridemen t without incident. Nails were debrided and greater than 50% length and thickness where needed. Pain in toe 526897135 M7 9.674 M79.675 secondary to above [id number] Fred calix MD [facility] Internal Med [address] [place] [address] 01/04/2024 11:57:38 01/04/2024 12:45:12 Screening - NAD 216725140 Z13.9 C-scope: Cologuard 06/26/18,C ologuard 01/17/2022 : [...] understand ing of the above Abdominal pain 50714513 R10.[address] abd/pelvis , may need [...] see Dr Mccartney and f/u PRN Gallstone 697637214 K80. [address] Mccartney 06/29/2023 , f/u PRN Skin lesion 34523205 L98 [address] Mccartney and diagnosed with actinic keratosis, no surgery or procedure was done Coronary arteriosclerosis 68232868 I25.10 ECHO 09/28/2021 : EF 60%PFT 11/04/[address] Ivan SL 07/24/2023 Dr Hernandez SL 03/14/2022 Dr Hernandez SL 09/15/2023 Not on amlodipine 5mg dailyOn HCTZ 12.5mg daiyOn atenolol 50mg dailyOn lisinopril 40mg dailyGet labs Hyperlipidemia 82360258 E78.5 On simvastati n 40mg dailyGet labs Smoker 72316040 F17.200 Declines any imaging Does wellNow on chantix, given by Dr Ivan SLCan do nicotine gum Open wound of right ankle 1782473438 1089291 S91.001A S/p insect biteDr Ellen Vitamin D deficiency 347 86016 E55.9 COVID-19 844234789 U07.1 +ve in 08/19/2021 Does well now Chronic ob structive pulmonary disease 84197758 J44.9 XRay Chest: 12/04/2021 : [facility] ER: Emphysema Needs to see Dr Zavala pulmonary, declined see case 01/04/2022 PFT 04/12/2023 : Moderate obstructio n, declines referralGe t CT Chest Lung mass 439162059 R91. 8 LDCT 09/28/2021 : Unclear if [...] case 02/23/2023 Edema of l ower extremity 936374823 R60.0 Eats a lot of TV dinners and chips, advised to cut back, and elevate her legsShe is to see Dr Hernandez Onychomycosis 312118740 B35.[address] Patel, next 08/31/2023 Eruption noted, refill her triamcinol one, add nystatin Thyroid nodule 043960858 E04.1 US thyroid 01/26/2022 : 1.8cm nodule, L lobeUS thyroid 12/18/2023 : Next in one year ENT Dr Ravinder Gusman 02/15/2022 : Bx to be doneBx 03/02/2022 : Neg Pain of le ft ankle joint [id number] 3387767 M25.572 S/p xrays 04/28/2022 Dr Patel 05/30/2022 , next 10/03/2022 Eczema 07572796 L30.9 Not satisfied with care with Dr Patel, will refer to Dr Thomas Neuropathy 678240378 G62 .9 C/o N/T in both her feet, states that she is to see Dr Vardi, agreeable to start on gabapentin , all side effects explained Allergic rhinitis 792021 04 J30.9 Advised to use flonase and zyrtec, she does have flonase at homeFeels her cough is d/t her allergies Bursitis o f olecranon of left elbow [id number] 52947 M70.22 Non tender, declines any referrals, 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 thread puller, want to 'leave it alone', notify if worse or any symptoms, she is agreeable to that Screening for osteoporosis 647803162 Z13.820 Low back pain 973996572 M54.50 Feels that she needs to be [...] explained to her Adult heal th examination 779318839 Z00.00 Screening for disorder 249631583 Z13.9 [id number] Danni Patel DPM [facility] Podiatry [place] [address] [facility], [address] [place] [address] 03/28/2024 11:03:59 03/29/2024 08:05:27 Pain in toe 318131099 M79.674 M79.675 secondary to above Dystrophia unguium 42580 009 L60.3 Nails 1 through 10 were debrided with sharp mechanical debridemen t without incident. Nails were debrided and greater than 50% length and thickness where needed. [id number] [facility] Internal Med [facility] [address], [address] [place] [address] 05/16/2024 12:01:18 05/16/2024 12:59:43 Abdominal pain 17488425 R10.[address] abd/pelvis , may need [...] to see Dr Mccartney Screening - NAD 16026510 3 Z13.9 C-scope: Cologuard 06/26/18,C ologuard 01/17/2022 [...] her understand ing of the above Gallstone 394813090 K80. [address] Mccartney 06/29/2023 , f/u PRNSee case 05/14/2024 , will get US liver again, may need to see G Surgery Skin lesion 65831918 L98 [address] Mccartney and diagnosed with actinic keratosis, no surgery or procedure was done Coronary arteriosclerosis 57490814 I25.10 ECHO 09/28/2021 : EF 60%PFT 11/04/[address] Ivan [facility] 07/24/2023 Dr Hernandez [facility] 03/14/2022 Dr Hernandez [facility] 09/15/2023 Not on amlodipine 5mg dailyOn HCTZ 12.5mg daiyOn atenolol 50mg dailyOn lisinopril 40mg dailyGet labs Hyperlipidemia 50052206 E78.5 On simvastati n 40mg dailyGet labs Smoker 63078465 F17.200 Declines any imaging Does wellNow on chantix, given by Dr Ivan SLHVCan do nicotine gumLDCT 02/07/2024 Open wound of right ankle 1215911773 9025436 S91.001A S/p insect biteDr Patel Vitamin D deficiency 347 44745 E55.9 COVID-19 544636818 U07.1 +ve in 08/19/2021 Does well now Chronic ob structive pulmonary disease 94411902 J44.9 On albuterol, renewed 05/16/2024 XRay Chest: 12/04/2021 : [facility] ER: Emphysema Needs to see Dr Zavala pulmonary, declined see case 01/04/2022 PFT 04/12/2023 : Moderate obstructio n, declines referralLD CT 02/07/2024 Lung mass 439660481 R91. 8 LDCT 09/28/2021 : Unclear if [...] case 02/23/2023 Edema of l ower extremity 201331394 R60.0 Eats a lot of TV dinners and chips, advised to cut back, and elevate her legsShe is to see Dr Hernandez Onychomycosis 628808124 B35.[address] Patel, next 08/31/2023 Eruption noted, refill her triamcinol one, add nystatin Thyroid nodule 395871953 E04.1 US thyroid 01/26/2022 : 1.8cm nodule, L lobeUS thyroid 12/18/2023 : Next in one year ENT Dr Ravinder Gusman 02/15/2022 : Bx to be doneBx 03/02/2022 : Neg Pain of le ft ankle joint 4569082089 0682391 M25.572 S/p xrays 04/28/2022 Dr Patel 05/30/2022 , next 10/03/2022 Eczema 46259044 L30.9 Not satisfied with care with Dr Patel, will refer to Dr Thomas Neuropathy 091417394 G62 .9 C/o N/T in both her feet, states that she is to see Dr Hernandez, agreeable to start on gabapentin , all side effects explained Allergic rhinitis 258225 04 J30.9 Advised to use flonase and zyrtec, she does have flonase at homeFeels her cough is d/t her allergies Bursitis o f olecranon of left elbow 9967754510 78669 M70.22 Non tender, declines any referrals, 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 thread puller, want to 'leave it alone', notify if worse or any symptoms, she is agreeable to that Screening for osteoporosis 533540109 Z13.820 Low back pain 068239268 M54.50 Feels that she needs to be [...] can do flexerill as needed Esophageal mass 01713035 [address] Benson 03/30/[address] chest [id number] Fred calix MD [facility] Internal Med [facility] [address] [facility], [address] [place] [address] 07/11/2024 10:54:28 07/11/2024 12:01:37 Abdominal pain 70739155 R10.[address] abd/pelvis , may need [...] needs to see GI Screening - NAD 59287042 3 Z13.9 C-scope: Cologuard 06/26/18,C ologuard 01/17/2022 [...] her understand ing of the above Gallstone 088359927 K80. [address] Mccartney 06/29/2023 , f/u PRNSee case 05/14/2024 , will get US liver again, may need to see G Surgery Skin lesion 66262017 L98 .[address] Mccartney and diagnosed with actinic keratosis, no surgery or procedure was done Coronary arteriosclerosis 58912063 I25.10 ECHO 09/28/2021 : EF 60%PFT 11/04/[address] Ivan SL 07/24/2023 Dr Hernandez SL 03/14/2022 Dr Hernandez SL 09/15/2023 Not on amlodipine 5mg dailyOn HCTZ 12.5mg daiyOn atenolol 50mg dailyOn lisinopril 40mg dailyGet labs Hyperlipidemia 39159371 E78.5 On simvastati n 40mg dailyGet labs Smoker 45542095 F17.200 Declines any imaging Does wellNow on chantix, given by Dr Ivan SLHVCan do nicotine gumLDCT 02/07/2024 Open wound of right ankle 7378620840 8121361 S91.001A S/p insect biteDr Patel Vitamin D deficiency 347 07170 E55.9 COVID-19 300315943 U07.1 +ve in 08/19/2021 Does well now Chronic ob structive pulmonary disease 66769363 J44.9 On albuterol, renewed 05/16/2024 XRay Chest: 12/04/2021 : [facility] ER: Emphysema Needs to see Dr Zavala pulmonary, declined see case 01/04/2022 PFT 04/12/2023 : Moderate obstructio n, declines referralLD CT 02/07/2024 Lung mass 516281906 R91. 8 LDCT 09/28/2021 : Unclear if [...] case 02/23/2023 Edema of l ower extremity 696763518 R60.0 Eats a lot of TV dinners and chips, advised to cut back, and elevate her legsShe is to see Dr Hernandez Onychomycosis 757564986 B35.[address] Patel, next 08/31/2023 Eruption noted, refill her triamcinol one, add nystatin Thyroid nodule 959358928 E04.1 US thyroid 01/26/2022 : 1.8cm nodule, L lobeUS thyroid 12/18/2023 : Next in one year ENT Dr Ravinder Gusman 02/15/2022 : Bx to be doneBx 03/02/2022 : Neg Pain of le ft ankle joint 7218191926 6102519 M25.572 S/p xrays 04/28/2022 Dr Patel, next apt 08/01/2024 Eczema 78756258 L30.9 Not satisfied with care with Dr Patel, will refer to Dr Thomas Neuropathy 461286411 G62 .9 C/o N/T in both her feet, states that she is to see Dr Hernandez, agreeable to start on gabapentin , all side effects explained Allergic rhinitis 143988 04 J30.9 Advised to use flonase and zyrtec, she does have flonase at homeFeels her cough is d/t her allergies Bursitis o f olecranon of left elbow 0555787869 59454 M70.22 Non tender, declines any referrals, 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 thread 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3 Nails 1 through 10 were debrided with sharp mechanical debridemen t without incident. Nails were debrided and greater than 50% length and thickness where needed. Pain in toe 130625875 M7 9.674 M79.675 secondary to above Unable to cut own toenails 988296128 Z74.1 [id number] Fred calix MD [facility] Internal Med [facility] [address] [facility], [address] [place] [address] 11/07/2024 14:46:41 11/07/2024 15:43:55 Abdominal pain 21398033 R10.[address] abd/pelvis , may need [...] for EGD as per her history in [facility] t on nexium 40mg daily and see if this will helpShe has not wanted any CT A/P today Chronic ob structive pulmonary disease 56538682 J44.9 On albuterol, renewed 05/16/2024 XRay Chest: 12/04/2021 : [facility] ER: Emphysema Needs to see Dr Sally borges, declined see case 01/04/2022 PFT 04/12/2023 : Moderate obstructio n, declines referralLD CT 02/07/2024 OV 11/07/2024 :Has noted a cough, is agreeable to see pulmonary now, referred to Dr Shepherd give airsupra instead of albuterol Lung mass 845200926 R91. 8 LDCT 09/28/2021 : Unclear if [...] Has an apt with GI Esophageal mass 81860375 [address] Benson 03/30/2024 CT C/A/P 06/06/2024 Needs to see GI referred but she states that she will 'think' about it OV 11/07/2024 : Now has a GI apt on 12/12/2024 Cigarette smoker 2369527 7 F17.210 1 PPD and also vapesAdvis ed to quit!Get a referral to Dr Zavala pulmonary [id number] Charlee Gomez, ESTEPHANIA [facility] Pulmonolo gy [address] [place] [address] 11/12/2024 11:27:18 11/15/2024 14:57:48 Chronic obstructive pulmonary disease 85056324 J44.9 J43.9 Use Albuterol inhaler as neededCAT- [...] use of Albuterol- severe symptoms ER Bronchiectasis 26429319 J47.9 Dyspnea on exertion 6084 5006 R06.09 Lab work todayCAT-2 4Mmrc-3PFT for baselineAw are to use Albuterol inhaler as needed-ok to use when sobEncoura ge patient to remain activefoll ow-up once testing is complete-s ooner for any changes in breathing and increase use of inhaler Smoker 64382193 F17.200 Patient is a smoker and has [...] 05/16/2024 1 [place] Leatha E Sendy [id number] 65 Leatha Ethal Sendy 05/16/2024 2 [place] [id number] Leatha E Sendy [id number] Leatha Ethal Sendy 07/11/2024 1 [place] Leatha E Sendy [id number] 65 Leatha Ethal Sendy 07/11/2024 2 [place] [id number] Leatha E Sendy [id number] 13 Leatha Ethal Sendy 08/01/2024 1 [place] Leatha E Sendy [id number] 65 Leatha Ethal Sendy 08/01/2024 2 [place] [id number] Leatha E Sendy [id number] 13 Leatha Ethal Sendy 11/07/2024 1 [place] Leatha E Sendy [id number] 65 Leatha Ethal Sendy 11/07/2024 2 [place] [id number] Leatha E Sendy [id number] 13 Leatha Ethal Sendy 11/12/2024 1 [place] Leatha E Sendy [id number] 65 Leatha Ethal Sendy 11/12/2024 2 [place] [id number] Leatha E Sendy [id number] 13 Leatha Ethal Sendy Notes Date Note [...] N/T in elo feetShe also sees a receiving worker now for foot nail fungusShe also has [...] pain in the Murtuza MD Trish [address], [address], [place], [address], [place] [facility] 05/27/2024 19:03:54 07/11/2024 text/html [...] N/T in elo feetShe also sees a receiving worker now for foot nail fungusShe also has [...] Chambers MD [address], [address], [place], [address], [employer] 07/15/2024 19:20:03 08/01/2024 text/html . Patient is a 79-year-old female she returns for routine foot care she denies any new complaints and would like her nails cut as she has difficulty cutting them in her nails are painful. Danni Patel DPM [address], [address], [place], [address], [facility] 08/01/2024 16:30:30 11/07/2024 text/html 03/30/17Here to establish [...] N/T in elo feetShe also sees a receiving worker now for foot nail fungusShe also has [...] Chambers MD [address], [address], [place], [address], [facility] [employer] 12/06/2024 10:29:32 11/12/2024 text/html COPDReported bypatient.Severity:use s [...] Gomez NP [address], [address], [place], [address], [place] [facility] 11/12/2024 15:10:36 OBGyn Episode No OBEpisode recorded.
--- NOTE | 2024-12-13 12:35 | ECG_ITS ---
Test Date: 2024-12-13 12:40:11 Measurements Intervals [place] Rate: 127 P: 0 FL: 0 QRS: 10 QRSD: 81 T: 44 QT: 277 QTc: 403 Interpretive Statements ATRIAL FIBRILLATION WITH RAPID VENTRICULAR RESPONSE VOLTAGE CRITERIA FOR LVH CONSIDER INFERIOR INFARCT, AGE INDETERMINATE NONSPECIFIC ST & T-WAVE ABNORMALITY- ANTEROLATERAL LEADS BASELINE ARTIFACT- I, II, III, V1-V2 ABNORMAL ECG No previous ECG available for comparison Electronically Signed On 12-13-2024 12:56:06 CDT by Rudi Smith D.O.
--- NOTE | 2024-12-13 12:45 | PC.NURSE ---
this Rn gets vitals on patient in triage and notes patients O2 in 86-87% on RA. pt is no cyanotic or in resp. distress. denies sob and states they have COPD but doesn't wear O2 or take any daily medications. notified hemodialysis charge nurse and ER provider and applied 3L NC which brings patient up to 92%
[2024-12-13 13:07] LABS: Hematocrit 43.2 % (37.0-47.0); Hemoglobin 14.3 g/dL (12.0-15.0); Mean Corpuscular HGB Conc 33.1 g/dl (32-36); Mean Corpuscular Hemoglobin 32.2 pg (26-34); Mean Corpuscular Volume 97.3 fl (80-100); Mean Platelet Volume 12.2 fl (7.4-10.4); Platelet Count Result 214 k/mm3 (150-375); Red Blood Count 4.44 M/mm3 (4.2-5.4); Red Cell Distribution Width 12.8 % (11.5-14.5); White Blood Count 15.9 K/mm3 (4.5-10.0)
[2024-12-13 13:17] LABS: Alanine Aminotransferase 22 U/L (6-35); Albumin Level 3.6 g/dL (3.5-5.1); Alkaline Phosphatase 70 U/L (38-126); Anion Gap 9 mmol/L (4-12); Aspartate Amino Transferase 27 U/L (14-36); Bilirubin,Total 1.3 mg/dL (0.2-1.3); Blood Urea Nitrogen 36 mg/dL (7-17); Calcium 10.1 mg/dL (8.4-10.2); Carbon Dioxide 24 mmol/L (22-30); Chloride 97 mmol/L (98-107); Estimated Glomerular Filt Rate > 60; Glucose 129 mg/dL (65-110); INR 1.2; Potassium 3.9 mmol/L (3.4-5.0); Prothrombin Time 15.2 Seconds (11.1-14.7); Sodium 130 mmol/L (137-145)
[2024-12-13 13:27] LABS: Partial Thromboplastin Time 27.8 Seconds (22.3-36.8)
[2024-12-13 13:33] LABS: Band Neutrophils Percent 13 % (0-6); Lymphocytes Absolute Manual 0.79 K/mm3 (1.1-4.5); Monocytes Absolute Manual 0.31 K/mm3 (0.1-0.90); Monocytes Percent Manual 2 % (3-9); Neutrophils Absolute Manual 14.78 K/mm3 (1.7-7.2); Neutrophils Percent Manual 80 % (46-73); Platelet Estimate Adequate (Adequate); Schistocytes None Seen; Total Cells Counted 100
[2024-12-13 13:34] LABS: NT Pro B Type Natriuretic Pept 3730 pg/mL (19.9-100); Troponin I 0.107 ng/mL (0.000-0.034)
[2024-12-13 14:06] LABS: Influenza A QL RT-PCR Negative (Negative); Influenza B QL RT-PCR Negative (Negative); RSV RNA, RT-PCR Negative (Negative); SARS-CoV-2 RNA PCR Negative (Negative)
--- OUTSIDE RECORDS SUMMARY | 2024-12-13 14:59 | XMS_ITS | Clinical Summary ---
Author Organization [facility] Address [address] [place] [address] Care Team Providers Care Location Analyst Name Role Phone Unavailable Primary Care Provider [...]
--- OUTSIDE RECORDS SUMMARY | 2024-12-13 14:59 | XMS_ITS | Clinical Summary ---
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 Gender Identity Not on file Sexual Orientation [...] Td or Tdap) 03/04/2026 03/04/2016 Insurance MEDICARE [facility] BLUE [facility] CHOICE OOS MEDICARE [facility] CHOICE OOS Member Subscriber Plan / Payer ( fective 2008-Present) Name:Leatha Kaba Relation to Subscriber:Self Name:Leatha Kaba Payer ID:[id number] (NAIC) Type:[employer] Address: [address] MEDICARE [facility] Care Teams Servicer Relationship Specialty Start Date End Date Leydi Chambers MD [address] [facility] [address] [place] [address] PCP - General Internal Medicine 10/08/21
--- OUTSIDE RECORDS SUMMARY | 2024-12-13 14:59 | XMS_ITS | Referral Summary ---
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
--- OUTSIDE RECORDS SUMMARY | 2024-12-13 14:59 | XMS_ITS | Clinical Summary ---
Author Organization [facility] Address [address] [place] [address] Care Team Providers Care Cone Operator Name Role Phone Unavailable Primary Care Provider Unavailabl e Source Comments [facility],non-owned Affiliates and Associated Physician Practices is amultiple site organization consisting of ambulatory clinics and hospital sitesin [place], [place], [place]. This disclosure is being madepursuant to the Care Everywhere program and may not contain all information available regarding this patient. Last updated 18.[facility] [email or web address] Allergies Active Allergy Reactions Criticality Noted Date [...] age to complete this topic Insurance [facility]ICARE [facility]
--- OUTSIDE RECORDS SUMMARY | 2024-12-13 14:59 | XMS_ITS | CONTINUITY OF CARE DOCUMENT ---
Author Name lena paredes Address Unknown Organization [facility] Address [address] [address] [place] [address] Phone [phone] Care Team Providers Care Bus Greaser Name Role Phone Eliceo SIMPSON, Jade Unavailable FRED TELLO MD Unavailable FRED TELLO MD Unavailable [phone] PROBLEMS Condition Status Date Provider Notes HTN--echo [...] In-person encounter Office Visit Jade Fenton MD [facility] HTN--echo ef nl, stress test nl, 09/2024 1 - 1 In-person encounter Office Visit Jade Fenton MD [facility] Cough 1 - 1 In-person encounter Office Visit Jade Fenton MD [facility] Mass,esophagus ? seen on CT - work up in progressCardiology examination 0 - 0 In-person encounter Office Visit Gage Munoz MD [facility] 7 - 7 In-person encounter Office Visit Jade Fenton MD [facility] HTN--echo ef nl, stress test nl, 09/2024 1 - 1 In-person encounter Office Visit Jade Fenton MD [facility] Mass,esophagus ? seen on CT - work up in progress 1 - 1 In-person encounter Office Visit Jade Fenton MD [facility] 5 - 1 In-person encounter Office Visit Rodney Hernandez MD [facility] Venous insufficiency 4 - 4 In-person encounter Office Visit Jade Fenton MD [facility] 8 - 8 In-person encounter Office Visit Rodney Hernandez MD [facility] Leg edema, bilateral 9 - 9 In-person encounter Office Visit Jade Fenton MD [facility] Lung mass, - being worked up 1 - 1 In-person encounter Office Visit Jade Fenton MD [facility] HTN--echo ef nl, stress test nl, 09/2024Shortness of breathSARS-associated coronavirus--07/2021 3 - 3 In-person encounter Office Visit Jade Fenton MD [facility] CAD -03/10 Patent stent RCA, 20% lesion LAD EF of 60%, Nl stress nuc 04/2020LEG PAIN- Abnl [place] below the knee 01/2021 6 - 6 In-person encounter Office Visit Jade Fenton MD [facility] 8 - 8 In-person encounter Office Visit Jade Fenton MD [facility] 8 - 8 In-person encounter Office Visit Jade Fenton MD [facility] 8 - 8 In-person encounter Office Visit Jade Fenton MD [facility] 7 - 7 In-person encounter Office Visit Jade Fenton MD [facility] 6 - 6 In-person encounter Office Visit Jade Fenton MD [facility] 9 - 9 In-person encounter Office Visit Jade Fenton MD [facility] COPDARTHRITIS 7 - 7 In-person encounter Office Visit Jade Fenton MD [facility] 2 - 2 In-person encounter Office Visit Jade Fenton MD [facility] 4 - 4 In-person encounter Office Visit Jade Fenton MD [facility] HYPERCHOLESTEROLEMIAHyperlipidemia 9 - 9 In-person encounter Office Visit Jade Fenton MD [facility] BRADYCARDIA, SINUS 0 - 0 In-person encounter Office Visit Jade Fenton MD [facility] 5 - 5 In-person encounter Office Visit Jade Fenton MD [facility] 7 - 7 In-person encounter Office Visit Jade Fenton MD [facility] HTN--echo ef nl, stress test nl, 5CHEST PAIN-01/07 NUC EF 52CAD -03/10 Patent stent RCA, 20% lesion LAD EF of 60%, Nl stress nuc 04/2020HTN-12/30 CAROTID NEG 5 - 5 In-person encounter Office Visit Jade Fenton MD [facility] 4 - 4 In-person encounter Office Visit Jade Fenton MD [facility] 1 - 1 In-person encounter Office Visit Jade Fenton MD [facility] 7 - 7 In-person encounter Office Visit Jade Fenton MD [facility] 2 - 2 In-person encounter Office Visit Jade Fenton MD [facility] 2 - 2 In-person encounter Office Visit Jade Fenton MD [facility] 1 - 2 In-person encounter Office Visit Jade Fenton MD [facility] 9 - 9 In-person encounter Office Visit Jade Fenton MD [facility] 2 - 2 In-person encounter Office Visit Jade Fenton MD [facility] 4 - 4 In-person encounter Office Visit Jade Fenton MD [facility] HTN--echo ef nl, stress test nl, 5CHEST PAIN-01/07 NUC EF 52CAD -03/10 Patent stent RCA, 20% lesion LAD EF of 60%, Nl stress nuc 04/2020TOBACCO ABUSELEG PAIN- Abnl [place] below the knee 01/2021 3 - 3 In-person encounter Office Visit Jade Fenton MD [facility] HYPERCHOLESTEROLEMIA VITAL SIGNS Date Observation Value [...] cruz Carey oxygen saturation, oximetry 94 % [facility] 58 [facility]min [facility] respiratory rate E&M 12 /min [facility] weight E&M 172 [lb_av] [facility] height E&M 63.3 [in_i] [facility] blood pressure, cuff size regular [facility] Body Mass Index (Ratio) 30.11 kg/m2 Dexter [...] Fenton MD blood pressure, cuff size regular [facility] blood pressure, diastolic 87 mm[Hg] Ja rret blood pressure, systolic 158 mm[Hg] Jar ret pulse rate 84 /min Michael respiratory rate E&M 16 /min Michael oxygen saturation, oximetry 95 % Michael weight E&M 173 [lb_av] Michael height E&M 63.3 [in_i] Michael Body Mass Index (Ratio) 30.53 kg/m2 Dexter Fenton MD oxygen saturation, oximetry 96 % Thanh Esquivle pulse rate 63 /min Thanh Esquivel blood pressure, diastolic 89 mm[Hg] Ambrocio Esquivel blood pressure, systolic 168 mm[Hg] Rocío nery Esquivel weight E&M 174 [lb_av] Thanh Mar[place] Body Mass Index (Ratio) 28.95 kg/m2 Dexter Fenton MD blood pressure, diastolic 76 mm[Hg] Marina booth Delgado blood pressure, systolic 140 mm[Hg] Jude helloy [place] oxygen saturation, oximetry 98 % Loni Delgado pulse rate 60 /min Loni carrington blood pressure, cuff size large Marina booth [place] respiratory rate E&M 16 /min Fariba vega [...] Merle Lively height E&M 63.3 [in_i] [facility] Body [facility] Index (Ratio) 29.30 kg/m2 Dexter Fenton MD blood pressure, diastolic 75 mm[Hg] Marina booth Delgado blood pressure, systolic 138 mm[Hg] Jude helle [place] oxygen saturation, oximetry 97 % Loni Delgado [...] alec Van blood pressure, systolic 149 mm[Hg] [facility] weight E&M 170.4 [lb_av] Yasmine Os[place] respiratory rate E&M 18 /min [facility] oxygen saturation, oximetry 96 % [facility] pulse rate 83 /min [facility] height E&M 63.3 [in_i] [facility] Body Mass Index (Ratio) 30.00 kg/m2 Dexter [...] MD blood pressure, diastolic 66 mm[Hg] To [facility] blood pressure, systolic 134 mm[Hg] Ton [facility] oxygen saturation, oximetry 95 % [facility] respiratory rate E&M 16 /min [facility] pulse rate 57 /min [facility] weight E&M 162 [lb_av] [facility] height E&M 63.3 [in_i] [facility] Body Mass Index (Ratio) 28.60 kg/m2 Dexter Fenton MD blood pressure, diastolic 74 mm[Hg] To [facility] blood pressure, systolic 129 mm[Hg] Ton [facility] oxygen saturation, oximetry 96 % [facility] pulse rate 64 /min [facility] respiratory rate E&M 16 /min [facility] weight E&M 163 [lb_av] [facility] height E&M 63.3 [in_i] [facility] Body Mass Index (Ratio) 29.48 kg/m2 Dexter Fenton MD blood pressure, diastolic 85 mm[Hg] To gloria Fenton MD blood pressure, systolic 153 mm[Hg] Ton jose Fenton MD oxygen saturation, oximetry 95 % [facility] respiratory rate E&M 16 /min [facility] pulse rate 60 /min [facility] weight E&M 168 [lb_av] [facility] height E&M 63.3 [in_i] [facility] Body Mass Index (Ratio) 29.83 kg/m2 Dexter [...] Aldana oxygen saturation, oximetry 96 % Faye Marlow respiratory rate E&M 16 /min Faye Aldana [...] Mass Index (Ratio) 32.81 kg/m2 [facility]her [address] [facility] blood pressure, diastolic 77 mm[Hg] An ludy [facility] blood pressure, systolic 121 mm[Hg] Ane hammads [facility] pulse rate 80 /min Aneatris [facility] oxygen saturation, oximetry 94 % [facility] respiratory rate E&M 16 /min Aneatri s [facility] weight E&M 187 [lb_av] [facility] blood pressure, diastolic 70 mm[Hg] An ludy [facility] blood pressure, systolic 135 mm[Hg] Ane atris [facility] Body Mass Index (Ratio) 34.21 kg/m2 [facility] pulse rate 72 /min [facility] oxygen saturation, oximetry 97 % [facility] respiratory rate E&M 16 /min [facility] weight E&M 195 [lb_av] Adamis [facility] Body Mass Index (Ratio) 33.11 kg/m2 [...] Celestina O'Chas oxygen saturation, oximetry 93 % [facility] respiratory rate E&M 18 /min [facility] weight E&M 174 [lb_av] [...] /min Todd Manacop weight E&M 186 [lb_av] [facility] ALL[facility] Allergy Name Onset Date Reaction Criticality [...] - 1.2 urea nitrogen, blood 13.0 mg/dL [facility] 8.[facility] - 23.0 blood glucose, random 87.0 mg/dL [facility] 74.0 - 99.0 red blood cell distribution width, size density 45.8 fL [facility] - immature granulocytes, percentage of total cells, blood 0.2 % [facility] - nucleated red blood cells as percent of blood leukocytes 0.0 % [facility] - red blood cell (erythrocyte) count, per high power field 0.0 10*3/UL [facility] - eosinophils as percent of blood leukocytes 4.4 % [facility] neutrophils as percent of blood leukocytes 59.0 % [facility] - Absolute Neutrophils 3.5 CELLS/UL [facility] 1.5 - 7.8 basophils as percent of blood leukocytes 0.5 % [facility] - Absolute Basophils 0.0 CELLS/UL [facility] [...] 1.0 Bettye Boyer platelet count 242 10*3/mm3 [facility] hematocrit, blood 40.2 % [facility] creatinine, serum 0.54 mg/dL [facility] potassium, serum 4.5 mmol/L [facility] sodium, serum 137 mmol/L [facility] lipoprotein, beta, serum, point, quantitative, calculated 107 mg/dL [facility] cholesterol, serum 191 mg/dL [facility] thyroid stimulating hormone, serum 0.425 u[IU]/mL [facility] alanine aminotransferase (SGPT), serum 35 1/L [facility] aspartate aminotransferase (SGOT), serum 31 1/L [facility] creatinine, serum 0.8 mg/dL [facility] potassium, serum 4.4 mmol/L [facility] sodium, serum 140 mmol/L [facility] platelet count 180 10*3/mm3 [facility] hematocrit, blood 13.9 % [facility] basophils as percent of blood leukocytes [...] Normal Absolute Neutrophil count 2615 cells/mcL [facility] ([id number]) Normal platelet count 177 THOUSAND/ UL [facility] [...] - 05/23 Thanh Esquivel CHANTIX STARTING MONTH DLAIA 0.5 MG X 11 & 1 MG [...] Date Observation Value Provider drug use none [facility] passive cigarette sm janet exposure yes [facility] smoking/tobacco cess ation, patient education and counseling yes [facility] number of years as a smoker 60 a [facility], date started 1962 Thanh Elmore poppy [...] smoking status Current every day smoker R denery Alvin drug use none Gage Munoz MD [...] P danis has been counseled to quit. Fasrhad Lentz social history reviewed E&M revi ewed - no changes required Shaheenolyaadrian eLntz seatbelt usage 100 % [facility] physical exercise, f requency, days per week yes [facility] caffeine use, averag e drinks per day 5+ Tonsha Romero passive cigarette sm janet exposure yes [facility] smoking/tobacco cess ation, patient education and counseling yes [facility] chewing tobacco use no [facility] cigar use no [facility] number of years as a smoker 10 years or m ore [facility] smoking, date started 1963 [facility] smoking history, tot al pack/year 53 [facility] smoking history, tot al pack/day 1 [facility] cigarette use yes [facility] smoking status Current every day smoker [facility] social history E&M Marital Statu s: L susan with family/friends E thnicity: Smoking History: P danis currently smokes every day. P danis has been counseled to quit. Jade Fenton MD social history reviewed E&M revi ewed - no changes required Abhishek Saini seatbelt usage 100 % [facility], f requency, days per week yes Tonsha [place] caffeine use, averag e drinks per day 5+ Tonsha Romero passive cigarette sm janet exposure yes [facility] smoking/tobacco cess ation, patient education and counseling yes [facility] chewing tobacco use no Tons M [facility] cigar use no [facility] number of years as a smoker 10 years or m ore [facility] smoking, date started 1962 [facility] smoking history, tot al pack/year 53 [facility] smoking history, tot al pack/day 1 [facility] cigarette use yes [facility] smoking status Current every day smoker T [facility] social history E&M Marital Statu s: [...] Jade Fenton MD seatbelt usage 100 % [facility] e physical exercise, f requency, days per week yes [facility] alcohol use, average drinks per day none [facility] alcohol use no [facility] caffeine use, averag e drinks per day 5+ [facility] drug use none [facility] smoking/tobacco cess ation, patient education and counseling yes [facility] passive cigarette sm janet exposure yes [facility] chewing tobacco use no [facility] cigar use no [facility] number of years as a smoker 10 years or m ore [facility] smoking, date started 1963 [facility] smoking history, tot al pack/year 53 [facility] smoking history, tot al pack/day 1 [facility] cigarette use yes [facility] smoking status Current every day smoker C janel Jacquelin Underweight no Jade Fenton MD seatbelt usage 100 % [facility] physical exercise, f requency, days per [...] Samara Topete alcohol use no Samara Orozco [facility] caffeine use, averag e drinks per day 5+ Samara Topete drug use none Samara Orozco [facility] smoking/tobacco cess ation, patient education and counseling yes Samara Topete passive cigarette sm janet exposure yes Samara Topete chewing tobacco use no Samara pineda cigar use no Samara Orozco [facility] number of years as a smoker 10 years or m ore Samara Topete smoking, date started 1962 Samara Topete smoking history, tot al pack/year 53 Samara Topete smoking history, tot al pack/day 1 Samara Topete cigarette use yes Samara [facility] smoking status Current every day smoker [...] use, averag e drinks per day 5+ [facility] passive cigarette sm janet exposure yes [facility] smoking history, tot al pack/year 50 [facility] seatbelt usage 100 % Maximo Marrero RN drug use no Maximo Marrero RN passive cigarette sm janet exposure no Maximo Marrero RN smoking/tobacco cess ation, patient education and counseling yes Jade Fenton MD chewing tobacco use no Maximo moses RN cigar use no Maximo Marrero RN smoking history, tot al pack/day 1 Maximo Marrero RN smoking history, tot al pack/year 49 Maximo aMrrero RN cigarette use yes Maximo Marrero RN [...] Payer name Policy type / Coverage type [place] red green party ID [facility] [id number] [place] [employer] Medicare [id number] ADVANCE DIRECTIVES Name Date DISCUSSED - NO DECISION MADE TREATMENT PLAN Date Name Performer [id number],Jade Segovia MD [id number],Thanh Zhang i [id number],SThanh i [id number],Thanh Zhang i [id number],Thanh Zhang i [id number],Thanh Zhang i [id number],Thanh Zhang i [id number],Thanh Zhang i [id number],S, Thanh Ellis i [id number],S, Thanh Ellis i [id number],S, Thanh Ellis i [id number],S, Thanh Ellis i [id number],S, Thanh Ellis i [id number],C,V endous duplex showed venous insufficiency bilaterally. She has crhonic swelling and some numbness. We discussed support stockings vs. venography with IVUS and Venaseal. She would like to try conservative treatment with the stockings and she will let us know if she would like to proceed with further intervention. Rodney Hernandez MD [id number],C, H er updated medication list for this problem includes: Lisinopril 40 Mg Tablet (Lisinopril) ..... Take 1 tablet by mouth every day Atenolol 25 Mg Tablet (Atenolol) ..... Take 1 tablet by mouth every day Rodney Hernandez MD [id number],C,V endous duplex showed venous insufficiency bilaterally. She has crhonic swelling and some numbness. We discussed support stockings vs. venography with IVUS and Venaseal. She would like to try conservative treatment with the stockings and she will let us know if she would like to proceed with further intervention. Rodney Hernandez MD [id number],C,T he Patient was reencouraged to stop smoking. Rodney Hernandez MD [id number],C, H er updated medication list for this problem includes: Simvastatin 40 Mg Tablet (Simvastatin) ..... Take 1 tablet by mouth every day Rodney Hernandez MD [id number],C, B P today: 141/73 P rior BP: [...] by mouth every day Rodney Hernandez MD [id number],B, Jade Fenton MD [id number],B, Jade Fenton MD [id number],B, Jade Fenton MD [id number],S, Thanh Ahmedza i [id number],S, Thanh Ahmedza i [id number],S, Thanh Ahmedza i [id number],S, Thanh Ahmedza i [id number],S, Thanh Ahmedza i [id number],S, Thanh Ahmedza i [id number],S, Thanh Ahmedza i [id number],S, Thanh Ahmedza i [id number],S, Thanh Ahmedza i [id number],B, Thanh Ahmedza i [id number],S, Thanh Ahmedza i [id number],C,T he Patient was reencouraged to stop smoking. Radha Almeida [id number],C, H er updated medication list for this problem includes: Simvastatin 40 Mg Tablet (Simvastatin) ..... Take 1 tablet by mouth every day Radha Almeida [id number],C, B P today: 149/81 P rior BP: [...] ..... 1 tablet once a day Radha Maravillaamgy [id number],C,P t denies any chest pain. Her updated medication list for this problem includes: Atenolol 50 Mg Tablet (Atenolol) ..... Take 1 tablet by mouth every day Lisinopril 40 Mg Tablet (Lisinopril) ..... Take 1 tablet by mouth every day Amlodipine 5 Mg Tablet (Amlodipine) ..... Take 1 tablet by mouth once a day Radha Maravillamagy [id number],C,P t complains of leg swelling. Worse in the evening after she stands. She has erythema and pigmentation in both legs, most likely venous insufficiency. Will obtain venous duplex. She had arterial duplex last year in the hospital and we will obtain the results. Depending on the results will proceed to venography with IVUS and Venaseal. Radha Elle [id number],SThanh i [id number],S, Thanh Ellis i [id number],S, Thanh Ellis i [id number],S, Thanh Ellis i [id number],S, Thanh Ellis i [id number],S, Jade Fenton MD [id number],B, Jade Fenton MD [id number],W, Jade Fenton MD [id number],C, Jade Fenton MD [id number],B, Jade Fenton MD [id number],W, Thanh isadora talamantes [id number],S, [facility] [id number],S, [facility] [id number],S, [facility] [id number],S, [facility] [id number],S, [facility] [id number],B, Jade Fenton MD [id number],S, Jade Fenton MD [id number],S, Jade Fenton MD [id number],S, Jade Fenton MD [id number],S, Jade Fenton MD [id number],S, Jade Fenton MD [id number],S, Jade Fenton MD Cardiology Jade Fenton MD [...] MD Cardiology: O rders: C XR- PA/Lat (CPT-33799) Jade Fenton MD Cardiology: H er updated medication list for this problem includes: Atenolol 25 Mg Tablet (Atenolol) ..... Take 1 tablet by mouth every day Lisinopril 40 Mg Tablet (Lisinopril) ..... Take 1 tablet by mouth every day Hydrochlorothiazide 12.5 Mg Capsule (Hydrochlorothiazide) ..... Take 1 capsule by mouth every day Orders: S tress Regadenoson (CPT-00820) C omplete Echo (97900) Jade Fenton MD Cardiology: B P today: [...] mouth every day Orders: S tress Regadenoson (CPT-83838) C omplete Echo (40629) Jade Fenton MD Cardiology:......... ................................. .........................Jade Fenton MD September 17, 2024 4:30 PM Her updated medication list for this problem includes: Atenolol 25 Mg Tablet (Atenolol) ..... Take 1 tablet by mouth every day Lisinopril 40 Mg Tablet (Lisinopril) ..... Take 1 tablet by mouth every day Orders: S tress Regadenoson (CPT-27752) C omplete Echo (02243) Jade Fenton MD Cardiology:Cessation reviewed Ambrocio Esquivel [...] Cardiology Thanh Ahmedzai Cardiology Thanh Ahmedzai [facility] Cardiology:The Patie nt was reencouraged to stop [...] 1.0 (01/25/2013) T SH: 0.425 (11/22/2011) Jade eFnton MD follow up : H er updated [...] tablet by mouth daily Orders: E KG (CPT-67097) BP today: 144/82 P rior BP: 130/74 [...] pressure of 32mmHg. (08/06/2007) Orders: E KG (CPT-20650) Jade Fenton MD 1 year visit with [...] is used Jade Fenton MD completed SNOMED-CT: 976840760 [id number] Current Medications Documented Jade Fenton MD completed SNOMED-CT: 53445109 Physical Exam, Performed: Pulse Exam of Foot Jade Fenton MD completed EKG Jade Fenton MD completed SNOMED-CT: 188035462 399569 Current Medications Documented Jade Fenton MD completed SNOMED-CT: 81109934 Physical Exam, Performed: Pulse Exam of Foot Jade Fenton MD completed SNOMED-CT: 502506378 231613 Current Medications Documented Jade Fenton MD completed Stress EKG Blue Pham MD complet ed Regadenoson, 4 units Jade Fenton MD completed Cardiolite, 2 units Jade Fenton MD completed SPECT Images Blue Pham MD compl eted SNOMED-CT: 92052984 Physical Exam, Performed: Pulse Exam of Foot Jade Fenton MD completed SNOMED-CT: 642300983 375453 Current Medications Documented Jade Fenton MD completed EKG Jade Fenton MD completed SNOMED-CT: 850399572 615383 Current Medications Documented Jade Fenton MD completed EKG Jade Fenton MD completed EKG Jade Fenton MD completed EKG Jade Fenton MD completed EKG Jade Fenton MD completed
--- NOTE | 2024-12-13 15:18 | ED_ITS ---
HPI - General Adult General Chief complaint: Unspecified Stated complaint: cant walk Time Seen by Provider: 12/13/24 14:22 History of Present Illness HPI narrative: 79-year-old female presenting to the emergency department for evaluation for worsening cough and congestion that is been ongoing for greater than 1 week. Patient is a smoker and does have history of COPD but is not on oxygen. Patient does follow-up with pulmonology. Patient has had a follow-up with [facility] but felt her symptoms were worsening. Related Data Home Medications ?Medication ?Instructions ?Recorded ?Confirmed ?Last Taken ?Type albuterol sulfate 90 mcg/actuation 1 inh inhalation Q4-6H PRN 09/30/24 12/13/24 12/13/24 15:30 History breath activated powder inhaler shortness of breath 1 inh atenolol 25 mg tablet 25 mg PO DAILY 09/30/24 12/13/24 12/12/24 09:00 History 25 mg cetirizine 10 mg capsule 10 mg PO DAILY PRN allergic 09/30/24 12/13/24 12/12/24 09:00 History symptoms 10 mg ergocalciferol (vitamin D2) 50 mcg 50 mcg PO DAILY 09/30/24 12/13/24 12/12/24 09:00 History (2,000 unit) capsule 50 mcg hydrochlorothiazide 12.5 mg capsule 12.5 mg PO DAILY 09/30/24 12/13/24 12/11/24 09:00 History 12.5 mg lisinopril 40 mg tablet 40 mg PO DAILY 09/30/24 12/13/24 12/12/24 09:00 History 40 mg psyllium husk 0.4 gram capsule 0.4 g PO DAILY 09/30/24 12/13/24 12/12/24 17:00 History (Daily Fiber) 0.4 grams simvastatin 40 mg tablet 40 mg PO DAILY 09/30/24 12/13/24 12/12/24 09:00 History 40 mg aspirin 81 mg tablet,delayed 81 mg PO DAILY 12/03/24 12/13/24 12/12/24 09:00 History release (Adult Low Dose Aspirin) 81 mg Allergies Allergy/AdvReac Type Severity Reaction Status Date / Time clopidogrel (From Plavix) Allergy Mild Rash Verified 12/13/24 15:33 Review of Systems 2 Review of Systems: All systems reviewed & are unremarkable except as noted in HPI and below [facility] Family History Family History (Updated 09/30/24 @ 15:22 by Martha Wong MA) Father Heart disease Social History Social History (Updated 09/30/24 @ 15:22 by Martha Wong MA) Smoking packs per day: 0.5 Smoking cigarettes per day: 10.0 Years smoked: 60 Smoking pack-years: 30.00 Smoking status: Current every day smoker Tobacco type: cigarettes Alcohol intake: never Substance use: never Substance use type: does not use Do You Feel Safe in your Home?: Yes Lack of Transportation: No Lack of Food: Never True Current Housing: I Have Housing Concerned About Future Housing: No Difficulty Paying Gas/Electric Bills: No Difficulty Paying for Meds: No Currently Unemployed: No Education: Decline to Answer Difficulty w/ Childcare or Family Care: No Living arrangements: with family Spiritual care concerns: No Exam 2 Narrative: APPEARANCE: Well appearing, no pain, no distress, well-nourished. HEAD: normocephalic, atraumatic. EYES: PERRLA/EOMI, conjunctivae clear. NOSE: Normal no drainage EARS:TMS clear with good light reflex. THROAT: Pharynx clear, no exudate. NECK: Supple. No adenopathy, no masses. RESPIRATORY: Airway patent, respirations nonlabored. Clear to auscultation bilaterally, no rales, rhonchi, wheezing. CARDIOVASCULAR: Regular rate and rhythm without murmurs rubs or gallops. ABDOMINAL: Soft, nontender, nondistended, normal bowel sounds MUSCULOSKELETAL: Moves all extremities. Strength/ROM intact, No edema, No calf tenderness. NEURO: Alert. Cranial nerves II through XII intact. Good gait. Good coordination SKIN: Warm, dry. Normal Color Course Vital Signs Vital signs: Vital Signs Temperature 97.7 F 12/13/24 12:31 Pulse Rate 115 H 12/13/24 12:31 Respiratory Rate 18 12/13/24 12:31 Blood Pressure 100/54 L 12/13/24 12:31 Pulse Oximetry 92 12/13/24 12:31 Temperature 97.4 F L 12/13/24 19:19 Pulse Rate 80 12/13/24 20:56 Respiratory Rate 20 12/13/24 20:56 Blood Pressure 111/61 12/13/24 19:19 Pulse Oximetry 94 04/18/25 20:56 Oxygen Delivery Nasal Cannula 12/13/24 20:56 Oxygen Flow Rate 2 12/13/24 20:56 Fraction of Inspired Oxygen 28 12/13/24 20:56 Medical Decision Making MDM Narrative Medical decision making narrative: 79-year-old female present to the emergency department for evaluation for worsening cough congestion has been ongoing for the last 10 days. Patient denies any prior history CHF or atrial fibrillation. Patient is an AFib with RVR with heart rate 90-127. Patient does have some lower extremity edema. Chest x-ray shows no evidence of pulmonary edema but does show evidence of pneumonia. Does have history of COPD. Patient was treated with albuterol to help with her shortness of breath along with being started on Rocephin and azithromycin, blood cultures were also ordered. Patient is being treated with a small bolus of fluids along with a dose 5 mg of IV Lopressor. Patient does have a mildly elevated troponin and elevated BNP at 3700. I feel the troponin is related to her AFib with RVR. Patient will not be aggressively diuresed in the emergency department until she is improved blood pressure. Case was discussed with hospitalist patient will be admitted to the IMU. Patient was not treated with the 30 mL/kg IV fluids due to potential fluid overload. Differential Diagnosis Differential Diagnosis: Pneumonia, COVID, RSV, influenza, CHF, AFib with RVR Vital Signs Vital Signs: Vital Signs Temperature 97.7 F 12/13/24 12:31 Pulse Rate 115 H 12/13/24 12:31 Respiratory Rate 18 12/13/24 12:31 Blood Pressure 100/54 L 12/13/24 12:31 Pulse Oximetry 92 12/13/24 12:31 Temperature 97.4 F L 12/13/24 19:19 Pulse Rate 80 12/13/24 20:56 Respiratory Rate 20 12/13/24 20:56 Blood Pressure 111/61 12/13/24 19:19 Pulse Oximetry 94 12/13/24 20:56 Oxygen Delivery Nasal Cannula 12/13/24 20:56 Oxygen Flow Rate 2 12/13/24 20:56 Fraction of Inspired Oxygen 28 12/13/24 20:56 Lab Data Lab results reviewed: Yes I reviewed the patient's lab results. 12/13/24 13:02 12/13/24 13:02 Labs: Lab Results 12/13/24 12/13/24 12/13/24 Range/Units 13:02 13:23 15:51 WBC 15.9 H (4.5-10.0) K/mm3 RBC 4.44 (4.2-5.4) M/mm3 Hgb 14.3 (12.0-15.0) g/dL Hct 43.2 (37.0-47.0) % MCV 97.3 (80-100) fl MCH 32.2 (26-34) pg MCHC 33.1 (32-36) g/dl RDW 12.8 (11.5-14.5) % Plt Count 214 (150-375) k/mm3 MPV 12.2 H (7.4-10.4) fl Immature Gran % (Auto) Not Reportable Neut % (Auto) Not Reportable Lymph % (Auto) Not Reportable [place] % (Auto) Not Reportable Eos % (Auto) Not Reportable Baso % (Auto) Not Reportable Lymph # (Auto) Not Reportable [place] # (Auto) Not Reportable Eos # (Auto) Not Reportable Baso # (Auto) Not Reportable Abs Immat Gran (auto) Not Reportable Absolute Neuts (auto) Not Reportable Absolute Nucleated RBC Not Reportable Total Counted 100 Neutrophils % (Manual) 80 H (46-73) % Band Neutrophils % 13 H (0-6) % Lymphocytes % (Manual) 5.0 L (18-44) % Monocytes % (Manual) 2 L (3-9) % Nucleated RBC % Not Reportable Abs Neuts (Manual) 14.78 H (1.7-7.2) K/mm3 Abs Lymphs (Manual) 0.79 L (1.1-4.5) K/mm3 Abs Monocytes (Manual) 0.31 (0.1-0.90) K/mm3 Platelet Estimate Adequate (Adequate) Schistocytes None seen PT 15.2 H (11.1-14.7) Seconds INR 1.2 APTT 27.8 (22.3-36.8) Seconds Sodium 130 L (137-145) mmol/L Potassium 3.9 (3.4-5.0) mmol/L Chloride 97 L (98-107) mmol/L Carbon Dioxide 24 (22-30) mmol/L Anion Gap 9 (4-12) mmol/L BUN 36 H (7-17) mg/dL Creatinine 0.66 L (0.7-1.0) mg/dL Estim Creat Clear Calc Not Reportable Estimated GFR > 60 (59 - ) Glucose 129 H (65-110) mg/dL Calcium 10.1 (8.4-10.2) mg/dL Total Bilirubin 1.3 (0.2-1.3) mg/dL AST 27 (14-36) U/L ALT 22 (6-35) U/L Alkaline Phosphatase 70 (38-126) U/L Troponin I 0.107 H* 0.092 H* (0.000-0.034) ng/mL NT-Pro-B Natriuret Pep 3730 H (19.9-100) pg/mL Total Protein 7.0 (6.3-8.2) g/dL Albumin 3.6 (3.5-5.1) g/dL Influenza A (RT-PCR) Negative (Negative) Influenza B (RT-PCR) Negative (Negative) RSV (RT-PCR) Negative (Negative) SARS-CoV-2 RNA (RT-PCR) Negative (Negative) Imaging Data Radiologist's impression: Impressions Chest X-Ray 12/13/24 13:50 Impression: 1: Right basilar airspace disease, compatible with pneumonia. Head/Neck CTA 12/13/24 15:25 IMPRESSION: 1. Normal CTA head and neck. Percent stenosis per NASCET criteria is 0%. 2. Right atelectasis versus pneumonia with pleural effusion. Critical Care Time Critical Care Time Critical Care Time: Yes Total Critical Care Time: 35 Discharge Plan Discharge Clinical Impression: COPD (chronic obstructive pulmonary disease), Pneumonia, Atrial fibrillation with rapid ventricular response Patient Disposition: Still a Patient Condition: Serious
[2024-12-13] MEDS: ALBUTEROL SULFATE NEB 2.5 MG/3 ML INH 5 MG INHALATION (15:30)
--- NOTE | 2024-12-13 15:41 | ECG_ITS ---
Test Date: 2024-12-13 15:50:19 Measurements Intervals [place] Rate: 123 P: 0 OR: 0 QRS: 3 QRSD: 79 T: 52 QT: 286 QTc: 410 Interpretive Statements ATRIAL FIBRILLATION WITH RAPID VENTRICULAR RESPONSE VOLTAGE CRITERIA FOR LVH CONSIDER INFERIOR INFARCT, AGE INDETERMINATE BASELINE ARTIFACT- II, III, AVR, AVL, AVF ABNORMAL ECG Compared to ECG 12/13/2024 12:40:11 NO SIGNIFICANT CHANGE Electronically Signed On 12-13-2024 15:52:30 CDT by Rudi Smith D.O.
[2024-12-13] MEDS: METOPROLOL TARTRATE INJ 5 MG/5 ML VIAL IV PUSH (15:59)
[2024-12-13] MEDS: methylPREDNISolone SOD SUCC 125 MG VIAL IV PUSH (15:59)
[2024-12-13] MEDS: LACTATED RINGERS 1,000 ML 500 ML IV CONT (15:59)
[2024-12-13] MEDS: AZITHROMYCIN 500 MG/NS 250 ML 500 MG/250 ML BAG 250 MG IVPB (16:01)
--- NOTE | 2024-12-13 16:35 | ADMGEN ---
This patient, Leatha Kaba, was admitted to IMU Room 201-01 @ 1635. Patient/family oriented to hospital policies and general routines including ID bracelet, bed and alarms, visiting hours, pain management, procedures, bathroom and other care routines, personal items, smoking policy, room service/diet, and visiting hours. Information on how to activate the Rapid Response Team has been discussed. Patient/Family are encouraged to report perceived risks to care and to ask questions if they do not understand what they are told or what they should do.
[2024-12-13 16:38] LABS: Troponin I 0.092 ng/mL (0.000-0.034)
--- NOTE | 2024-12-13 17:07 | P.HP_ITS ---
H&P: HPI History of Present Illness Date/Time: 12/13/24 17:07 Chief Complaint: Shortness of breath Narrative: 79-year-old female, she is unsure for past medical history, past medical history of COPD and smoker presents the hospital with shortness of breath. Patient states that she takes a water pill however she does not know what it is or why she does. Per the patient's son she she is brought into emergency room yesterday for acute lower back pain was sent home. Today the patient complains of severe shortness of breath and lower extremity edema. HPI is limited. On bedside exam patient looks extremely uncomfortable, tachypneic with shallow breaths. In the ED the patient has leukocytosis at 15.9, sodium of 130, troponin of 0.107 followed by 0.092, influenza A/B RSV and COVID negative. Chest x-ray shows right basilar airspace disease compatible with pneumonia, CTA brain carotid shows no acute process. AFib with RVR rate of 123. Given IV metoprolol on needing. And antibiotics for pneumonia Review of Systems Review of Systems: HPI limited due to mental status [facility] Family History Family History (Updated 09/30/24 @ 15:22 by Martha Wong MA) Father Heart disease Social History Social History (Updated 09/30/24 @ 15:22 by Martha Wong MA) Smoking packs per day: 0.5 Smoking cigarettes per day: 10.0 Years smoked: 60 Smoking pack-years: 30.00 Smoking status: Current every day smoker Tobacco type: cigarettes Alcohol intake: never Substance use: never Substance use type: does not use Do You Feel Safe in your Home?: Yes Lack of Transportation: No Lack of Food: Never True Current Housing: I Have Housing Concerned About Future Housing: No Difficulty Paying Gas/Electric Bills: No Difficulty Paying for Meds: No Currently Unemployed: No Education: Decline to Answer Difficulty w/ Childcare or Family Care: No Living arrangements: with family Spiritual care concerns: No Meds Home Medications and Allergies Home Medications ?Medication ?Instructions ?Recorded ?Confirmed ?Type albuterol sulfate 90 mcg/actuation 1 inh inhalation Q4-6H PRN 09/30/24 12/13/24 History breath activated powder inhaler shortness of breath atenolol 25 mg tablet 25 mg PO DAILY 09/30/24 12/13/24 History cetirizine 10 mg capsule 10 mg PO DAILY PRN allergic 09/30/24 12/13/24 History symptoms ergocalciferol (vitamin D2) 50 mcg 50 mcg PO DAILY 09/30/24 12/13/24 History (2,000 unit) capsule hydrochlorothiazide 12.5 mg capsule 12.5 mg PO DAILY 09/30/24 12/13/24 History lisinopril 40 mg tablet 40 mg PO DAILY 09/30/24 12/13/24 History psyllium husk 0.4 gram capsule 0.4 g PO DAILY 09/30/24 12/13/24 History (Daily Fiber) simvastatin 40 mg tablet 40 mg PO DAILY 09/30/24 12/13/24 History aspirin 81 mg tablet,delayed 81 mg PO DAILY 12/03/24 12/13/24 History release (Adult Low Dose Aspirin) Allergies Allergy/AdvReac Type Severity Reaction Status Date / Time clopidogrel (From Plavix) Allergy Mild Rash Verified 12/13/24 15:33 Vital Signs Vital Signs - 24 hr 12/13/24 12:31 12/13/24 13:15 12/13/24 13:17 Temperature 97.7 F Pulse Rate 115 H Respiratory Rate 18 20 Blood Pressure 100/54 L Pulse Oximetry 92 93 92 Oxygen Delivery Nasal Cannula Oxygen Flow Rate 2 2 12/13/24 13:18 12/13/24 13:19 12/13/24 13:30 Temperature Pulse Rate 124 H 127 H 105 H Respiratory Rate 20 23 H Blood Pressure 104/69 94/59 L Pulse Oximetry 93 93 Oxygen Delivery Oxygen Flow Rate 12/13/24 13:45 12/13/24 14:00 12/13/24 14:15 Temperature Pulse Rate 112 H 107 H 126 H Respiratory Rate 22 H 24 H 23 H Blood Pressure 114/77 90/58 L 90/60 L Pulse Oximetry 97 95 94 Oxygen Delivery Oxygen Flow Rate 12/13/24 14:17 12/13/24 14:19 12/13/24 15:31 Temperature Pulse Rate 109 H 110 H 83 Respiratory Rate 23 H 24 H 20 Blood Pressure 89/54 L 99/65 L Pulse Oximetry 95 95 Oxygen Delivery Oxygen Flow Rate 12/13/24 15:40 12/13/24 15:59 12/13/24 16:35 Temperature 97.4 F L Pulse Rate 111 H 121 H 107 H Respiratory Rate 24 H 20 Blood Pressure 107/65 103/60 Pulse Oximetry 99 91 Oxygen Delivery Oxygen Flow Rate Exam Narrative: General: Mild distress, appears stated age. HEENT: normocephalic, atraumatic. Mucous membranes moist. EOMI, PERRLA, bilateral sclera anicteric, no conjunctival injection. Neck supple without JVD, lymphadenopathy, or bruit. Respiratory: clear to ascultation bilaterally. No rales/rhonic/wheezes. Tachypneic shallow breathing Cardiovascular: Regular rate and rhythm, normal S1-S2 upon ascultation. No murmurs, rubs, or clicks. PMI is nondisplaced, capillary refill less than 3 second. Abdomen: Soft, round, no pulsatile masses, nondistended and nontender. No rebound, no guarding. No CVA tenderness, no hepatosplenomegaly. Bowel sounds present to all four quadrants. No high pitch or tinkling sounds, resonant to percussion. Extremities: No cyanosis, clubbing, or edema present. Pulses are palpable 2/2. Active ROM to all four extremities. Neuro: Alert and orientated x 4. PERRLA. Cranial nerves 2-12 intact without focal deficit. Skin: Warm, dry, and intact, without rash, erythema, or lesion. Psych: pleasant, cooperative, normal speech, normal affect, no hallucinations, no dysarthia H&P: Results Labs Labs: Short CBC 12/13/24 Range/Units 13:02 WBC 15.9 H (4.5-10.0) K/mm3 Hgb 14.3 (12.0-15.0) g/dL Hct 43.2 (37.0-47.0) % Plt Count 214 (150-375) k/mm3 BMP 12/13/24 13:02 Sodium 130 L Potassium 3.9 Chloride 97 L Carbon Dioxide 24 BUN 36 H Creatinine 0.66 L Glucose 129 H Calcium 10.1 Cardiac Enzymes 12/13/24 12/13/24 Range/Units 13:02 15:51 Troponin I 0.107 H* 0.092 H* (0.000-0.034) ng/mL Liver Function 12/13/24 Range/Units 13:02 Total Bilirubin 1.3 (0.2-1.3) mg/dL AST 27 (14-36) U/L ALT 22 (6-35) U/L Alkaline Phosphatase 70 (38-126) U/L Albumin 3.6 (3.5-5.1) g/dL Assessment and Plan Assessment and plan (1) Pneumonia: Code(s): J18.9 - Pneumonia, unspecified organism Status: Acute Assessment and Plan: 500 ml bolus given ED On Rocephin and azithromycin Incentive spirometer Wean oxygen as able (2) Acute respiratory failure: Code(s): J96.00 - Acute respiratory failure, unspecified whether with hypoxia or hypercapnia Status: Acute Assessment and Plan: Secondary to above Wean oxygen as able 20 IV Lasix x1 Echocardiogram BNP pending (3) Atrial fibrillation with rapid ventricular response: Code(s): I48.91 - Unspecified atrial fibrillation Status: Acute Assessment and Plan: Likely secondary to infection Improved with 500 cc fluid bolus in ED Telemetry monitoring Restart atenolol Blood cultures pending (4) COPD (chronic obstructive pulmonary disease): Code(s): J44.9 - Chronic obstructive pulmonary disease, unspecified Status: Acute Assessment and Plan: Restart home inhaler IV Solu-Medrol given in ED P.o. prednisone (5) Hyperlipidemia: Code(s): E78.5 - Hyperlipidemia, unspecified Status: Acute Assessment and Plan: Restart statin (6) Hypertension: Code(s): I10 - Essential (primary) hypertension Status: Acute Assessment and Plan: Holding lisinopril and hydrochlorothiazide due to soft blood pressures Re-evaluate in a.m. IV Lasix x1 Quality VTE Prophylaxis VTE prophylaxis: mechanical ordered and pharmacologic ordered Hospitalist MIPS Advance Care Plan I have confirmed that the patient's Advanced Care Plan is present, code status is documented, or surrogate decision maker is listed in patient medical record.: Yes Medication Reconciliation I have utilized all available resources to obtain, update and review the patients current medications (includes all prescriptions, OTC, herbals, cannabis, and nutritional supplements).: Yes
[2024-12-13] MEDS: atenoloL 25 MG TABLET PO (19:07)
[2024-12-13] MEDS: ACETAMINOPHEN 325 MG TABLET 650 MG PO (19:08)
[2024-12-13 19:34] LABS: Troponin I 0.065 ng/mL (0.000-0.034)
[2024-12-13] MEDS: ALBUTEROL SULFATE NEB 2.5 MG/3 ML INH INHALATION (20:44)
[2024-12-13] MEDS: guaiFENesin/DEXTROMETHORPHAN 10 ML UDC PO (20:50)
[2024-12-13] MEDS: FUROSEMIDE INJ 40 MG/4 ML VIAL 20 MG IV PUSH (20:50)
[2024-12-14] VITALS (29 sets, daily range): BP systolic 96–131; BP diastolic 56–83; PULSE 66–98; RESP 16–20; TEMP 36.4–36.8; O2SAT 91–100
[2024-12-14] MEDS: guaiFENesin/DEXTROMETHORPHAN 10 ML UDC PO ×6 (01:00→23:17)
[2024-12-14] MEDS: ALBUTEROL SULFATE NEB 2.5 MG/3 ML INH INHALATION ×4 (02:03→19:16)
[2024-12-14 04:29] LABS: Basophils Percent Auto 0.2 % (0.2-1.2); Eosinophils Absolute Auto 0.1 K/mm3 (0-0.3); Eosinophils Percent Auto 0.4 % (0-4.4); Hematocrit 38.1 % (37.0-47.0); Hemoglobin 12.2 g/dL (12.0-15.0); Immature Granulocyte Absolute 0.05 K/mm3 (0.00-0.031); Immature Granulocyte Percent A 0.4 % (0-0.5); Lymphocytes Absolute Auto 0.63 K/mm3 (0.9-3.2); Lymphocytes Percent Auto 4.8 % (18.3-44.2); Mean Corpuscular Hemoglobin 32.4 pg (26-34); Mean Corpuscular Volume 101.1 fl (80-100); Mean Platelet Volume 12.6 fl (7.4-10.4); Monocytes Absolute Auto 0.3 K/mm3 (0.1-0.6); Monocytes Percent Auto 2.6 % (2.6-8.5); Neutrophils Absolute Auto 12.1 K/mm3 (1.3-6.7); Neutrophils Percent Auto 91.6 % (45.5-73.1); Platelet Count Result 173 k/mm3 (150-375); Red Blood Count 3.77 M/mm3 (4.2-5.4); Red Cell Distribution Width 12.9 % (11.5-14.5); White Blood Count 13.2 K/mm3 (4.5-10.0)
[2024-12-14 04:36] LABS: Anion Gap 10 mmol/L (4-12); Blood Urea Nitrogen 42 mg/dL (7-17); Calcium 9.4 mg/dL (8.4-10.2); Carbon Dioxide 21 mmol/L (22-30); Chloride 99 mmol/L (98-107); Estimated CRCL calculation 61 ml/min; Estimated Glomerular Filt Rate > 60; Glucose 149 mg/dL (65-110); Potassium 3.9 mmol/L (3.4-5.0); Sodium 130 mmol/L (137-145)
[2024-12-14] MEDS: predniSONE 20 MG TABLET 40 MG PO (08:29)
[2024-12-14] MEDS: ACETAMINOPHEN 325 MG TABLET 650 MG PO ×2 (08:43→17:34)
[2024-12-14] MEDS: atenoloL 25 MG TABLET PO (08:43)
[2024-12-14] MEDS: SIMVASTATIN 20 MG TABLET 40 MG PO (08:43)
[2024-12-14] MEDS: ASPIRIN 81 MG ENTERIC TABLET PO (08:43)
--- NOTE | 2024-12-14 11:14 | PM.CNCAR ---
Assessment and Plan Assessment and plan (1) Atrial fibrillation with rapid ventricular response: Code(s): I48.91 - Unspecified atrial fibrillation Status: Acute Plan Acute hypoxemic resp failure improving with O2 likely related to pneumonia vs CHF Chronic diastolic heart failure HTN AF RVR Plan Treatment of underlying pneumonia per primary Rate control with atenolol Add Lasix 20 mg IV BID Cont lisinopril OAC for AFib eliquis 5 mg BID History of Present Illness History of Present Illness Consult date/time: 12/14/24 11:14 Reason For Visit: COPD, Pneumonia, AFib with RVR Narrative: 79-Yrs female presented to hospital with progressive SOB and LE swelling. SOB sever present at rest and mild activity. Symptoms are chronic and getting worse over last few weeks. LE is also chronic and has abby worse both sides. No chest pain fever or chills. She takes water pill. on arrivalt o ED noted to have leukocytosis and possible pneumonia. seh was noted to have A fib RVR 8 Review of Systems Review of Systems: All systems reviewed & are unremarkable except as noted in HPI and below PMFSH Family History Family History (Updated 09/30/24 @ 15:22 by Martha Wong MA) Father Heart disease Social History Social History (Updated 09/30/24 @ 15:22 by Martha Wong MA) Smoking packs per day: 0.5 Smoking cigarettes per day: 10.0 Years smoked: 60 Smoking pack-years: 30.00 Smoking status: Current every day smoker Tobacco type: cigarettes Alcohol intake: never Substance use: never Substance use type: does not use Do You Feel Safe in your Home?: Yes Lack of Transportation: No Lack of Food: Never True Current Housing: I Have Housing Concerned About Future Housing: No Difficulty Paying Gas/Electric Bills: No Difficulty Paying for Meds: No Currently Unemployed: No Education: Decline to Answer Difficulty w/ Childcare or Family Care: No Living arrangements: with family Spiritual care concerns: No Meds Home Medications and Allergies Home Medications ?Medication ?Instructions ?Recorded ?Confirmed ?Type albuterol sulfate 90 mcg/actuation 1 inh inhalation Q4-6H PRN 09/30/24 12/13/24 History breath activated powder inhaler shortness of breath atenolol 25 mg tablet 25 mg PO DAILY 09/30/24 12/13/24 History cetirizine 10 mg capsule 10 mg PO DAILY PRN allergic 09/30/24 12/13/24 History symptoms ergocalciferol (vitamin D2) 50 mcg 50 mcg PO DAILY 09/30/24 12/13/24 History (2,000 unit) capsule hydrochlorothiazide 12.5 mg capsule 12.5 mg PO DAILY 09/30/24 12/13/24 History lisinopril 40 mg tablet 40 mg PO DAILY 09/30/24 12/13/24 History psyllium husk 0.4 gram capsule 0.4 g PO DAILY 09/30/24 12/13/24 History (Daily Fiber) simvastatin 40 mg tablet 40 mg PO DAILY 09/30/24 12/13/24 History aspirin 81 mg tablet,delayed 81 mg PO DAILY 12/03/24 12/13/24 History release (Adult Low Dose Aspirin) Allergies Allergy/AdvReac Type Severity Reaction Status Date / Time clopidogrel (From Plavix) Allergy Mild Rash Verified 12/13/24 15:33 Vital Signs Vital Signs - 24 hr 12/13/24 12:31 12/13/24 13:15 12/13/24 13:17 Temperature 36.5 C Pulse Rate 115 H Respiratory Rate 18 20 Blood Pressure 100/54 L Pulse Oximetry 92 93 92 Oxygen Delivery Nasal Cannula Oxygen Flow Rate 2 2 Fraction of Inspired Oxygen 12/13/24 13:18 12/13/24 13:19 12/13/24 13:30 Temperature Pulse Rate 124 H 127 H 105 H Respiratory Rate 20 23 H Blood Pressure 104/69 94/59 L Pulse Oximetry 93 93 Oxygen Delivery Oxygen Flow Rate Fraction of Inspired Oxygen 12/13/24 13:45 12/13/24 14:00 12/13/24 14:15 Temperature Pulse Rate 112 H 107 H 126 H Respiratory Rate 22 H 24 H 23 H Blood Pressure 114/77 90/58 L 90/60 L Pulse Oximetry 97 95 94 Oxygen Delivery Oxygen Flow Rate Fraction of Inspired Oxygen 12/13/24 14:17 12/13/24 14:19 12/13/24 15:31 Temperature Pulse Rate 109 H 110 H 83 Respiratory Rate 23 H 24 H 20 Blood Pressure 89/54 L 99/65 L Pulse Oximetry 95 95 Oxygen Delivery Oxygen Flow Rate Fraction of Inspired Oxygen 12/13/24 15:40 12/13/24 15:59 12/13/24 16:35 Temperature 36.3 C L Pulse Rate 111 H 121 H 107 H Respiratory Rate 24 H 20 Blood Pressure 107/65 103/60 Pulse Oximetry 99 91 Oxygen Delivery Oxygen Flow Rate Fraction of Inspired Oxygen 12/13/24 17:29 12/13/24 18:00 12/13/24 19:07 Temperature Pulse Rate 100 107 H Respiratory Rate Blood Pressure Pulse Oximetry 98 Oxygen Delivery Nasal Cannula Oxygen Flow Rate 2 Fraction of Inspired Oxygen 12/13/24 19:19 12/13/24 20:00 12/13/24 20:50 Temperature 36.3 C L Pulse Rate 105 H 80 105 H Respiratory Rate 20 20 Blood Pressure 111/61 Pulse Oximetry 91 91 Oxygen Delivery Nasal Cannula Oxygen Flow Rate 2 Fraction of Inspired Oxygen 12/13/24 20:54 12/13/24 20:56 12/13/24 22:00 Temperature Pulse Rate 98 80 82 Respiratory Rate 20 20 Blood Pressure Pulse Oximetry 94 Oxygen Delivery Nasal Cannula Oxygen Flow Rate 2 Fraction of Inspired Oxygen 28 12/14/24 00:00 12/14/24 00:15 12/14/24 00:15 Temperature 36.4 C L Pulse Rate 74 72 74 Respiratory Rate 20 20 Blood Pressure 96/56 L Pulse Oximetry 100 100 Oxygen Delivery Nasal Cannula Oxygen Flow Rate 2 Fraction of Inspired Oxygen 12/14/24 00:30 12/14/24 02:00 12/14/24 02:03 Temperature Pulse Rate 78 73 76 Respiratory Rate 20 20 Blood Pressure Pulse Oximetry 97 Oxygen Delivery Nasal Cannula Oxygen Flow Rate 1 Fraction of Inspired Oxygen 12/14/24 02:14 12/14/24 03:37 12/14/24 04:00 Temperature Pulse Rate 80 66 85 Respiratory Rate 20 Blood Pressure Pulse Oximetry 96 Oxygen Delivery Nasal Cannula Oxygen Flow Rate 1 Fraction of Inspired Oxygen 12/14/24 04:00 12/14/24 06:00 12/14/24 07:42 Temperature 36.4 C 36.8 C Pulse Rate 78 70 96 Respiratory Rate 16 20 Blood Pressure 99/57 L 101/65 Pulse Oximetry 92 94 Oxygen Delivery Oxygen Flow Rate Fraction of Inspired Oxygen 12/14/24 08:00 12/14/24 08:00 12/14/24 08:05 Temperature Pulse Rate 83 Respiratory Rate Blood Pressure Pulse Oximetry 94 92 Oxygen Delivery Nasal Cannula Nasal Cannula Oxygen Flow Rate 1 2 Fraction of Inspired Oxygen 12/14/24 08:05 12/14/24 08:13 12/14/24 08:43 Temperature Pulse Rate 95 88 77 Respiratory Rate 18 18 Blood Pressure Pulse Oximetry Oxygen Delivery Oxygen Flow Rate Fraction of Inspired Oxygen 12/14/24 10:00 Temperature Pulse Rate 86 Respiratory Rate Blood Pressure Pulse Oximetry Oxygen Delivery Oxygen Flow Rate Fraction of Inspired Oxygen Exam Narrative: General: Mild distress, appears stated age. HEENT: normocephalic, atraumatic. Mucous membranes moist. EOMI, PERRLA, bilateral sclera anicteric, no conjunctival injection. Neck supple without JVD, lymphadenopathy, or bruit. Respiratory: clear to ascultation bilaterally. No rales/rhonic/wheezes. Tachypneic shallow breathing Cardiovascular: Regular rate and rhythm, normal S1-S2 upon ascultation. No murmurs, rubs, or clicks. PMI is nondisplaced, capillary refill less than 3 second. Abdomen: Soft, round, no pulsatile masses, nondistended and nontender. No rebound, no guarding. No CVA tenderness, no hepatosplenomegaly. Bowel sounds present to all four quadrants. No high pitch or tinkling sounds, resonant to percussion. Extremities: No cyanosis, clubbing, or edema present. Pulses are palpable 2/2. Active ROM to all four extremities. Neuro: Alert and orientated x 4. PERRLA. Cranial nerves 2-12 intact without focal deficit. Skin: Warm, dry, and intact, without rash, erythema, or lesion. Psych: pleasant, cooperative, normal speech, normal affect, no hallucinations, no dysarthia Const: General: comfortable and no acute distress Other: Able to lie flat HENMT: Face/Nose/Sinus: Normal nares present and no epistaxis Mouth: Yes moist mucous membranes Eyes: Sclera: sclerae normal Pupils: Equal, round and reactive pupils present Neck: Neck: supple and no JVD Carotids: no bruits Resp: Auscultation: crackles bilateral at the base, wheezes expiratory wheezes and diminished lung sounds Other: No chest wall tenderness Cardio: Rate: regular rate Rhythm: regular rhythm Heart sounds: no gallops, no murmurs and no rubs GI: GI Palp: Yes Soft to palpation and No Tenderness to palpation present (GI) Auscultation: normal bowel sounds Skin: General skin exam: normal color, rashes and/or lesions noted and no erythema Other: Warm Neuro: Cranial nerves: Yes Equal, round and reactive pupils present Speech: normal speech Other: No obvious focal deficit or facial asymmetry Extrem: General: no edema Other: Normal capillary refills Intact distal pulses. Results Labs and Meds 12/14/24 03:38 12/14/24 03:38 Lab results: Cardiac Enzymes 12/13/24 12/13/24 12/13/24 Range/Units 13:02 15:51 19:01 AST 27 (14-36) U/L Troponin I 0.107 H* 0.092 H* 0.065 H* D (0.000-0.034) ng/mL Coagulation 12/13/24 Range/Units 13:02 PT 15.2 H (11.1-14.7) Seconds APTT 27.8 (22.3-36.8) Seconds CBC 12/13/24 12/14/24 Range/Units 13:02 03:38 WBC 15.9 H 13.2 H (4.5-10.0) K/mm3 RBC 4.44 3.77 L (4.2-5.4) M/mm3 Hgb 14.3 12.2 (12.0-15.0) g/dL Hct 43.2 38.1 (37.0-47.0) % Plt Count 214 173 (150-375) k/mm3 Lymph # (Auto) Not Reportable 0.63 L [place] # (Auto) Not Reportable 0.3 Eos # (Auto) Not Reportable 0.1 Baso # (Auto) Not Reportable 0.0 Comprehensive Metabolic Panel 12/13/24 12/14/24 Range/Units 13:02 03:38 Sodium 130 L 130 L (137-145) mmol/L Potassium 3.9 3.9 (3.4-5.0) mmol/L Chloride 97 L 99 (98-107) mmol/L Carbon Dioxide 24 21 L (22-30) mmol/L BUN 36 H 42 H (7-17) mg/dL Creatinine 0.66 L 0.60 L (0.7-1.0) mg/dL Glucose 129 H 149 H (65-110) mg/dL Calcium 10.1 9.4 (8.4-10.2) mg/dL AST 27 (14-36) U/L ALT 22 (6-35) U/L Alkaline Phosphatase 70 (38-126) U/L Total Protein 7.0 (6.3-8.2) g/dL Albumin 3.6 (3.5-5.1) g/dL Intake and Output 12/13/24 12/14/24 12/14/24 23:59 07:59 15:59 Intake Total 1250 200 200 Output Total 120 700 300 Balance 1130 -500 -100 Intake: IV 1250 Lactated Ringers 1,000 ml @ 500 1000 mls/hr IV CONT .Q2H STA Rx#: [id number] Azithromycin 500 mg/Ns 250 ml 250 500 mg In 250 ml @ 250 mls/hr IVPB ONCE STA Rx#:[id number] Oral 200 200 Output: Urine 120 Catheter Urine 700 300 External/Condom 700 300 Other: Number of Bowel Movements Today 1 Patient Weight 12/14/24 23:59 Weight 80.2 kg
[2024-12-14] MEDS: AZITHROMYCIN 500 MG/NS 250 ML 500 MG/250 ML BAG 250 MG IVPB (15:21)
--- NOTE | 2024-12-14 16:25 | P.PNIM_ITS ---
Progress Note: A&P Assessment and Plan (1) Pneumonia: Code(s): J18.9 - Pneumonia, unspecified organism Status: Acute Assessment and Plan: 500 ml bolus given ED On Rocephin and azithromycin Incentive spirometer Wean oxygen as able (2) Acute respiratory failure: Code(s): J96.00 - Acute respiratory failure, unspecified whether with hypoxia or hypercapnia Status: Acute Assessment and Plan: Secondary to above Wean oxygen as able 20 IV Lasix x1 Echocardiogram BNP pending (3) Atrial fibrillation with rapid ventricular response: Code(s): I48.91 - Unspecified atrial fibrillation Status: Acute Assessment and Plan: Likely secondary to infection Improved with 500 cc fluid bolus in ED Telemetry monitoring Restart atenolol Blood cultures pending (4) COPD (chronic obstructive pulmonary disease): Code(s): J44.9 - Chronic obstructive pulmonary disease, unspecified Status: Acute Assessment and Plan: Restart home inhaler IV Solu-Medrol given in ED P.o. prednisone (5) Hyperlipidemia: Code(s): E78.5 - Hyperlipidemia, unspecified Status: Acute Assessment and Plan: Restart statin (6) Hypertension: Code(s): I10 - Essential (primary) hypertension Status: Acute Assessment and Plan: Holding lisinopril and hydrochlorothiazide due to soft blood pressures Re-evaluate in a.m. IV Lasix x1 Plan patient presented with shortness of breath is found to have atrial fibrillation seen by crime lab technician and started patient on Atenolol rate is trending down and anticoagulated with Eliquis, cardiac ECHO is oredered. Patient with long history of smoking presented with shortness of breath and cough chest x-ray shows pneumonia most likely community-acquired will start the patient on Rocephin and azithromycin will monitor. Patient's son is present in the room gave updates Subjective Date/time seen: 12/14/24 16:25 Interval history: Chief Complaint: Shortness of breath H&P-Narrative: 79-year-old female, she is unsure for past medical history, past medical history of COPD and smoker presents the hospital with shortness of breath. Patient states that she takes a water pill however she does not know what it is or why she does. Per the patient's son she she is brought into emergency room yesterday for acute lower back pain was sent home. Today the patient complains of severe shortness of breath and lower extremity edema. HPI is limited. On bedside exam patient looks extremely uncomfortable, tachypneic with shallow breaths. In the ED the patient has leukocytosis at 15.9, sodium of 130, troponin of 0.107 followed by 0.092, influenza A/B RSV and COVID negative. Chest x-ray shows right basilar airspace disease compatible with pneumonia, CTA brain carotid shows no acute process. AFib with RVR rate of 123. Given IV metoprolol on needing. And antibiotics for pneumonia. patient presented with shortness of breath is found to have atrial fibrillation seen by crime lab technician and started patient on Atenolol rate is trending down and anticoagulated with Eliquis, cardiac ECHO is oredered. Patient with long history of smoking presented with shortness of breath and cough chest x-ray shows pneumonia most likely community-acquired will start the patient on Rocephin and azithromycin will monitor. Patient's son is present in the room gave updates Review of Systems Review of Systems: HPI limited due to mental status Exam Narrative: Patient is comfortable, NAD HEENT: eyes are clear and none icteric LUNGS: Bilateral fair entry with rhonchi HEART: Irregularly irregular ABD: BS+, Soft and nontender Lower extremities: no edema SKIN: nonjaundiced Neuro: grossly intact. Objective Data Vital Signs Vital Signs: Vital Signs - 24 hr 12/13/24 16:35 12/13/24 17:29 12/13/24 18:00 Temperature 36.3 C L Pulse Rate 107 H 100 Respiratory Rate 20 Blood Pressure 103/60 Pulse Oximetry 91 98 Oxygen Delivery Nasal Cannula Oxygen Flow Rate 2 Fraction of Inspired Oxygen 12/13/24 19:07 12/13/24 19:19 12/13/24 20:00 Temperature 36.3 C L Pulse Rate 107 H 105 H 80 Respiratory Rate 20 Blood Pressure 111/61 Pulse Oximetry 91 Oxygen Delivery Oxygen Flow Rate Fraction of Inspired Oxygen 12/13/24 20:50 12/13/24 20:54 12/13/24 20:56 Temperature Pulse Rate 105 H 98 80 Respiratory Rate 20 20 20 Blood Pressure Pulse Oximetry 91 94 Oxygen Delivery Nasal Cannula Nasal Cannula Oxygen Flow Rate 2 2 Fraction of Inspired Oxygen 28 12/13/24 22:00 12/14/24 00:00 12/14/24 00:15 Temperature 36.4 C L Pulse Rate 82 74 72 Respiratory Rate 20 Blood Pressure 96/56 L Pulse Oximetry 100 Oxygen Delivery Oxygen Flow Rate Fraction of Inspired Oxygen 12/14/24 00:15 12/14/24 00:30 12/14/24 02:00 Temperature Pulse Rate 74 78 73 Respiratory Rate 20 20 Blood Pressure Pulse Oximetry 100 97 Oxygen Delivery Nasal Cannula Nasal Cannula Oxygen Flow Rate 2 1 Fraction of Inspired Oxygen 12/14/24 02:03 12/14/24 02:14 12/14/24 03:37 Temperature Pulse Rate 76 80 66 Respiratory Rate 20 20 Blood Pressure Pulse Oximetry 96 Oxygen Delivery Nasal Cannula Oxygen Flow Rate 1 Fraction of Inspired Oxygen 12/14/24 04:00 12/14/24 04:00 12/14/24 06:00 Temperature 36.4 C Pulse Rate 85 78 70 Respiratory Rate 16 Blood Pressure 99/57 L Pulse Oximetry 92 Oxygen Delivery Oxygen Flow Rate Fraction of Inspired Oxygen 12/14/24 07:42 12/14/24 08:00 12/14/24 08:00 Temperature 36.8 C Pulse Rate 96 83 Respiratory Rate 20 Blood Pressure 101/65 Pulse Oximetry 94 94 Oxygen Delivery Nasal Cannula Oxygen Flow Rate 1 Fraction of Inspired Oxygen 12/14/24 08:05 12/14/24 08:05 12/14/24 08:13 Temperature Pulse Rate 95 88 Respiratory Rate 18 18 Blood Pressure Pulse Oximetry 92 Oxygen Delivery Nasal Cannula Oxygen Flow Rate 2 Fraction of Inspired Oxygen 12/14/24 08:43 12/14/24 10:00 12/14/24 11:20 Temperature 36.8 C Pulse Rate 77 86 93 Respiratory Rate 18 Blood Pressure 120/65 Pulse Oximetry 92 Oxygen Delivery Oxygen Flow Rate Fraction of Inspired Oxygen 12/14/24 14:16 12/14/24 14:27 12/14/24 16:00 Temperature 36.6 C Pulse Rate 84 85 84 Respiratory Rate 18 18 18 Blood Pressure 131/77 Pulse Oximetry 91 Oxygen Delivery Oxygen Flow Rate Fraction of Inspired Oxygen Intake/Output Intake/Output: Intake & Output 12/11/24 12/12/24 12/13/24 12/14/24 23:59 23:59 23:59 23:59 Intake Total 1300 640 Output Total 120 1000 Balance 1180 -360 Meds/Results Medications: Active Medications Generic Name Dose Route Start Last Admin Trade Name Freq PRN Reason Stop Dose Admin Acetaminophen 650 mg 12/13/24 18:08 12/14/24 08:43 Acetaminophen 325 Mg Tablet PO 650 mg Q4H PRN Administration Mild Pain (1-3) or Fever Albuterol 2.5 mg 12/13/24 20:00 12/14/24 14:15 Albuterol Sulfate Neb 2.5 Mg/3 Ml Inh INHALATION 2.5 mg Q6HRT TATY Administration Albuterol 1 puff 12/13/24 19:17 Albuterol Sulfate (*Sp) Aerosol 1 Puff INHALATION Q4-6H PRN shortness of breath Apixaban 5 mg 12/14/24 21:00 Apixaban 5 Mg Tablet PO Q12HR TATY Atenolol 25 mg 12/13/24 17:30 12/14/24 08:43 Atenolol 25 Mg Tablet PO 25 mg DAILY TATY Administration Furosemide 20 mg 12/14/24 17:00 Furosemide Inj 40 Mg/4 Ml Vial IV PUSH BID TATY Guaifenesin/Dextromethorphan 10 ml 12/13/24 21:00 12/14/24 13:21 Guaifenesin/Dextromethorphan 10 Ml Udc PO 10 ml Q4H TATY Administration Ceftriaxone Sodium 1 gm in 50 mls @ 100 mls/hr 12/14/24 15:00 12/14/24 15:21 Rocephin 1 Gm/Ns 50 Ml IVPB 100 mls/hr Q24H TATY Administration Azithromycin 500 mg in 250 mls @ 250 mls/hr 12/14/24 16:00 12/14/24 15:21 Zithromax IVPB 250 mls/hr Q24H TATY Administration Perflutren Lipid Microsphere 0 ml 12/13/24 19:52 Perflutren Lipid Microspheres 1.5 Ml Vial Diluted To 10 Ml Total Volume IV PUSH 12/16/24 19:53 ONCE PRN adequate visualization Protocol Prednisone 40 mg 12/14/24 08:00 12/14/24 08:29 Prednisone 20 Mg Tablet PO 12/19/24 07:59 40 mg DAILY@0800 TATY Administration Simvastatin 40 mg 12/14/24 09:00 12/14/24 08:43 Simvastatin 20 Mg Tablet PO 40 mg DAILY TATY Administration Radiology Results: ITS Impressions Chest X-Ray 12/13/24 13:50 Impression: 1: Right basilar airspace disease, compatible with pneumonia. Head/Neck CTA 12/13/24 15:25 IMPRESSION: 1. Normal CTA head and neck. Percent stenosis per NASCET criteria is 0%. 2. Right atelectasis versus pneumonia with pleural effusion. Labs Labs: Laboratory Results - last 24 hr 12/13/24 12/13/24 12/14/24 15:51 19:01 03:38 WBC 13.2 H RBC 3.77 L Hgb 12.2 Hct 38.1 MCV 101.1 H MCH 32.4 MCHC 32.0 RDW 12.9 Plt Count 173 MPV 12.6 H Immature Gran % (Auto) 0.4 Neut % (Auto) 91.6 H Lymph % (Auto) 4.8 L [place] % (Auto) 2.6 Eos % (Auto) 0.4 Baso % (Auto) 0.2 Lymph # (Auto) 0.63 L [place] # (Auto) 0.3 Eos # (Auto) 0.1 Baso # (Auto) 0.0 Abs Immat Gran (auto) 0.05 H Absolute Neuts (auto) 12.1 H Absolute Nucleated RBC 0.000 Nucleated RBC % 0.0 Sodium 130 L Potassium 3.9 Chloride 99 Carbon Dioxide 21 L Anion Gap 10 BUN 42 H Creatinine 0.60 L Estim Creat Clear Calc 61 Estimated GFR > 60 Glucose 149 H Calcium 9.4 Troponin I 0.092 H* 0.065 H* D Quality VTE Prophylaxis VTE prophylaxis: mechanical ordered and pharmacologic ordered
[2024-12-14] MEDS: FUROSEMIDE INJ 40 MG/4 ML VIAL 20 MG IV PUSH (17:34)
--- NOTE | 2024-12-14 19:53 | ECHO_ITS ---
Patient Info Name: Leatha Kaba Age: 79 years : 1945 Gender: Female Ht: 62 in Wt: 172 lbs BSA: 1.88 m2 HR: 70 bpm BP: 99 / 75 mmHg Heart Rhythm: Atrial Fibrillation Technical Quality: Fair Exam Date: 12/14/2024 11:59 AM Exam Location: Echo Lab Patient Status: Inpatient Admit Date: 12/13/2024 Staff Ordering Physician: Meghan Wing APRN Coding Spec: Theodora Norris RDCS Attending Provider: Clemencia Hermosillo MD Referring Physician: Maciej GRAHAM; Exam Type: CA echo doppler color flow Study Info Indications - Pedal edema Complete two-dimensional, color flow and Doppler transthoracic echocardiogram is performed. Summary 1. Complete two-dimensional, color flow and Doppler transthoracic echocardiogram is performed. 2. Left ventricular systolic function is normal, estimated at 60-65%. 3. There is mildly increased left ventricular wall thickness. 4. The left ventricular diastolic function is abnormal. 5. There is mild tricuspid valve regurgitation. 6. No pulmonary hypertension, estimated pulmonary arterial systolic pressure is 29 mmHg. Left Ventricle Left ventricular chamber dimension is normal. Left ventricular systolic function is normal, estimated at 60-65%. There is mildly increased left ventricular wall thickness. Left ventricular septal wall motion is normal. The left ventricular diastolic function is abnormal. Right Ventricle Right ventricular chamber dimension is normal. Right ventricular systolic function is normal. Left Atria Left atrial chamber dimension is normal. Right Atria Right atrial chamber dimension is normal. Aortic Valve The aortic valve is trileaflet. There is no aortic valve sclerosis. There is no aortic valve stenosis. There is no aortic valve regurgitation. Pulmonic Valve The pulmonic valve is normal. There is no pulmonic valve stenosis. There is no pulmonic regurgitation. Mitral Valve The mitral valve has normal leaflets. There is no mitral valve stenosis. There is no mitral valve regurgitation. Tricuspid Valve The tricuspid valve leaflets are normal. There is no significant tricuspid valve stenosis. There is mild tricuspid valve regurgitation. No pulmonary hypertension, estimated pulmonary arterial systolic pressure is 29 mmHg. Pericardium/Pleural The pericardium appears normal. There is no pericardial effusion. Inferior Vena Cava Normal inferior vena cava with >50% collapse upon inspiration consistent with normal right atrial pressure, 5 mmHg. Aorta The aortic root size at the sinus of Valsalva is normal. The prox ascending aorta size is normal. Left Ventricular Outflow Tract Name Value Normal LVOT 2D LVOT Diameter 2.1 cm LVOT Doppler LVOT Peak Gradient 7 mmHg LVOT Mean Gradient 4 mmHg LVOT VTI 23 cm LVOT VTI/AV VTI Ratio 1.4 LVOT Stroke Volume 80 ml LVOT CO 18.5 l/min LVOT CI 9.9 l/min/m2 Pulmonic Valve Name Value Normal RVOT Doppler RVOT Peak Gradient 1 mmHg PV Doppler PV Peak Gradient 2 mmHg Mitral Valve Name Value Normal MV Doppler MV Decel [place] 551 cm/s2 MV PHT 46 ms MV Area (PHT) 4.8 cm2 4.0-5.0 MV Diastolic Function MV E Peak Velocity 87 cm/s MV A Peak Velocity 1 cm/s MV E/A 60.6 MV Decel Time 159 ms MV Annular TDI MV E/e' (Septal) 10.0 <=8.0 MV E/e' (Lateral) 7.7 <=8.0 MV E/e' (Average) 8.9 Tricuspid Valve Name Value Normal TV Regurgitation Doppler TR Peak Velocity 243 cm/s TR Peak Gradient 24 mmHg Estimated PAP/RSVP RA Pressure 5 mmHg <=5 PA Systolic Pressure 29 mmHg <36 RV Systolic Pressure 29 mmHg <36 Aortic Valve Name Value Normal AV Doppler AV Peak Velocity 95 cm/s AV Peak Gradient 4 mmHg AV Mean Gradient 2 mmHg AV VTI 17 cm AV Area (Cont Eq VTI) 4.6 cm2 >=3.0 AV Area (Cont Eq Andres) 4.8 cm2 AV Regurgitation 2D LVOT Area 3.4 cm2 Ventricles Name Value Normal LV Dimensions 2D/MM IVS Diastolic Thickness (2D) 1.2 cm 0.6-1.0 LVID Diastole (2D) 3.9 cm 3.8-5.2 LVIW Diastolic Thickness (2D) 0.9 cm 0.6-0.9 LVID Systole (2D) 2.6 cm 2.2-3.5 LVOT Diameter 2.1 cm LV Mass (2D Cubed) 131.43 g 67.00-162.00 LV Mass Index (2D Cubed) 70 g/m2 43-95 Relative Wall Thickness (2D) 0.48 LV Fractional Shortening/Ejection Fraction 2D/MM LV Fractional Shortening (2D) 32 % 27-45 LV EF (2D Teicholz) 61 % 54-74 LV Diastolic Volume (4C MOD) 113 ml LV EF (4C MOD) 68 % LV Diastolic Volume (2C MOD) 114 ml LV EF (2C MOD) 73 % LV Diastolic Volume (BP MOD) 117 ml 46-106 LV Diastolic Volume Index (BP MOD) 62 ml/m2 29-61 LV Systolic Volume (BP MOD) 34 ml 14-42 LV Systolic Volume Index (BP MOD) 18 ml/m2 8-24 LV EF (BP MOD) 71 % 54-74 LV Diastolic Length (4C) 7.7 cm LV Systolic Length (4C) 5.5 cm LV Stroke Volume (4C MOD) 77 ml Atria Name Value Normal LA Dimensions LA Volume (4C A-L) 55 ml LA Volume (BP A-L) 59 ml RA Dimensions RA Area (4C) 14.7 cm2 <=18.0 Report Signatures
[2024-12-14] MEDS: APIXABAN 5 MG TABLET PO (20:42)
[2024-12-15] VITALS (20 sets, daily range): BP systolic 122–151; BP diastolic 73–87; PULSE 85–113; RESP 16–20; TEMP 36.4–36.9; O2SAT 91–96
[2024-12-15] MEDS: ALBUTEROL SULFATE NEB 2.5 MG/3 ML INH INHALATION ×3 (01:03→20:20)
[2024-12-15] MEDS: MELATONIN 5 MG TABLET PO ×2 (02:43→20:43)
[2024-12-15 09:36] LABS: Hemoglobin 13.3 g/dL (12.0-15.0); Mean Corpuscular HGB Conc 33.3 g/dl (32-36); Mean Corpuscular Hemoglobin 32.6 pg (26-34); Mean Platelet Volume 11.9 fl (7.4-10.4); Platelet Count Result 224 k/mm3 (150-375); Red Blood Count 4.08 M/mm3 (4.2-5.4); Red Cell Distribution Width 12.8 % (11.5-14.5); White Blood Count 15.1 K/mm3 (4.5-10.0)
[2024-12-15] MEDS: guaiFENesin/DEXTROMETHORPHAN 10 ML UDC PO ×3 (09:37→20:43)
[2024-12-15] MEDS: FUROSEMIDE INJ 40 MG/4 ML VIAL 20 MG IV PUSH ×2 (09:37→16:00)
[2024-12-15] MEDS: atenoloL 25 MG TABLET PO (09:38)
[2024-12-15] MEDS: SIMVASTATIN 20 MG TABLET 40 MG PO (09:38)
[2024-12-15] MEDS: APIXABAN 5 MG TABLET PO ×2 (09:38→20:43)
[2024-12-15] MEDS: predniSONE 20 MG TABLET 40 MG PO (09:41)
[2024-12-15 09:47] LABS: Anion Gap 10 mmol/L (4-12); Blood Urea Nitrogen 37 mg/dL (7-17); Calcium 9.4 mg/dL (8.4-10.2); Carbon Dioxide 27 mmol/L (22-30); Chloride 97 mmol/L (98-107); Estimated CRCL calculation 78 ml/min; Estimated Glomerular Filt Rate > 60; Glucose 137 mg/dL (65-110); Magnesium 2.2 mg/dL (1.6-2.3); Potassium 3.6 mmol/L (3.4-5.0); Sodium 134 mmol/L (137-145)
--- NOTE | 2024-12-15 11:36 | PM.PNCARD ---
Progress Note: A&P Assessment and Plan (1) Atrial fibrillation with rapid ventricular response: Code(s): I48.91 - Unspecified atrial fibrillation Status: Acute Plan Acute hypoxemic resp failure improving with O2 likely related to pneumonia vs CHF Chronic diastolic heart failure HTN AF RVR Plan Treatment of underlying pneumonia per primary Rate control with atenolol Change Lasix to 40 mg p.o. daily DC hydrochlorothiazide Cont lisinopril Eliquis 5 mg BID Subjective Date/time seen: 12/15/24 11:36 Interval history: No acute events Review of Systems Review of Systems: All systems reviewed & are unremarkable except as noted in HPI and below Exam Narrative: General: Mild distress, appears stated age. Respiratory: clear to ascultation bilaterally. No rales/rhonic/wheezes. Tachypneic shallow breathing Cardiovascular: Regular rate and rhythm, normal S1-S2 upon ascultation. No murmurs, rubs, or clicks. PMI is nondisplaced, capillary refill less than 3 second. Abdomen: Soft, round, no pulsatile masses, nondistended and nontender. No rebound, no guarding. No CVA tenderness, no hepatosplenomegaly. Bowel sounds present to all four quadrants. No high pitch or tinkling sounds, resonant to percussion. Extremities: No cyanosis, clubbing, or edema present. Pulses are palpable 2/2. Active ROM to all four extremities. Neuro: Alert and orientated x 4. PERRLA. Cranial nerves 2-12 intact without focal deficit. Skin: Warm, dry, and intact, without rash, erythema, or lesion. Psych: pleasant, cooperative, normal speech, normal affect, no hallucinations, no dysarthia Objective Data Vital Signs Vital Signs: Vital Signs - 24 hr 12/14/24 12:00 12/14/24 12:00 12/14/24 14:00 Temperature Pulse Rate 83 98 Respiratory Rate Blood Pressure Pulse Oximetry 91 Oxygen Delivery Nasal Cannula Oxygen Flow Rate 1 Fraction of Inspired Oxygen 12/14/24 14:16 12/14/24 14:27 12/14/24 16:00 Temperature 36.6 C Pulse Rate 84 85 84 Respiratory Rate 18 18 18 Blood Pressure 131/77 Pulse Oximetry 91 Oxygen Delivery Oxygen Flow Rate Fraction of Inspired Oxygen 12/14/24 16:00 12/14/24 16:00 12/14/24 18:00 Temperature Pulse Rate 86 83 Respiratory Rate Blood Pressure Pulse Oximetry 91 Oxygen Delivery Nasal Cannula Oxygen Flow Rate 1 Fraction of Inspired Oxygen 12/14/24 19:16 12/14/24 19:16 12/14/24 19:25 Temperature Pulse Rate 85 79 Respiratory Rate 18 18 Blood Pressure Pulse Oximetry 91 Oxygen Delivery Nasal Cannula Oxygen Flow Rate 1 Fraction of Inspired Oxygen 12/14/24 19:55 12/14/24 20:00 12/14/24 20:00 Temperature 36.6 C Pulse Rate 88 98 Respiratory Rate 18 Blood Pressure 118/83 Pulse Oximetry 92 92 Oxygen Delivery Nasal Cannula Oxygen Flow Rate 1 Fraction of Inspired Oxygen 12/14/24 22:00 12/14/24 23:21 12/14/24 23:59 Temperature 36.5 C Pulse Rate 83 94 Respiratory Rate 20 Blood Pressure 130/82 Pulse Oximetry 92 92 Oxygen Delivery Nasal Cannula Oxygen Flow Rate 1 Fraction of Inspired Oxygen 12/15/24 00:00 12/15/24 01:03 12/15/24 01:15 Temperature Pulse Rate 96 89 91 Respiratory Rate 18 18 Blood Pressure Pulse Oximetry Oxygen Delivery Oxygen Flow Rate Fraction of Inspired Oxygen 12/15/24 02:00 12/15/24 04:00 12/15/24 04:00 Temperature 36.5 C Pulse Rate 101 H 94 94 Respiratory Rate 20 Blood Pressure 122/73 Pulse Oximetry 91 Oxygen Delivery Oxygen Flow Rate Fraction of Inspired Oxygen 12/15/24 05:54 12/15/24 07:25 12/15/24 08:00 Temperature 36.9 C Pulse Rate 103 H 92 Respiratory Rate 18 Blood Pressure 140/80 Pulse Oximetry 96 93 Oxygen Delivery Nasal Cannula Oxygen Flow Rate 1 Fraction of Inspired Oxygen 12/15/24 08:26 Temperature Pulse Rate 85 Respiratory Rate 18 Blood Pressure Pulse Oximetry Oxygen Delivery Oxygen Flow Rate Fraction of Inspired Oxygen Intake/Output Intake/Output: Intake & Output 12/12/24 12/13/24 12/14/24 12/15/24 23:59 23:59 23:59 23:59 Intake Total 1300 1180 540 Output Total 120 2000 700 Balance 1180 -820 -160 Meds/Results Medications: Active Medications Generic Name Dose Route Start Last Admin Trade Name Freq PRN Reason Stop Dose Admin Acetaminophen 650 mg 12/13/24 18:08 12/14/24 17:34 Acetaminophen 325 Mg Tablet PO 650 mg Q4H PRN Administration Mild Pain (1-3) or Fever Albuterol 2.5 mg 12/13/24 20:00 12/15/24 08:26 Albuterol Sulfate Neb 2.5 Mg/3 Ml Inh INHALATION 2.5 mg Q6HRT TATY Administration Albuterol 1 puff 12/13/24 19:17 Albuterol Sulfate (*Sp) Aerosol 1 Puff INHALATION Q4-6H PRN shortness of breath Apixaban 5 mg 12/14/24 21:00 12/15/24 09:38 Apixaban 5 Mg Tablet PO 5 mg Q12HR TATY Administration Atenolol 25 mg 12/13/24 17:30 12/15/24 09:38 Atenolol 25 Mg Tablet PO 25 mg DAILY ATTY Administration Furosemide 20 mg 12/14/24 17:00 12/15/24 09:37 Furosemide Inj 40 Mg/4 Ml Vial IV PUSH 20 mg BID TATY Administration Guaifenesin/Dextromethorphan 10 ml 12/13/24 21:00 12/15/24 09:37 Guaifenesin/Dextromethorphan 10 Ml Udc PO 10 ml Q4H TATY Administration Ceftriaxone Sodium 1 gm in 50 mls @ 100 mls/hr 12/14/24 15:00 12/14/24 15:51 Rocephin 1 Gm/Ns 50 Ml IVPB Infused Q24H TATY Infusion Azithromycin 500 mg in 250 mls @ 250 mls/hr 12/14/24 16:00 12/14/24 16:21 Zithromax IVPB Infused Q24H TATY Infusion Melatonin 5 mg 12/15/24 02:35 12/15/24 02:43 Melatonin 5 Mg Tablet PO 5 mg HS TATY Administration Perflutren Lipid Microsphere 0 ml 12/13/24 19:52 Perflutren Lipid Microspheres 1.5 Ml Vial Diluted To 10 Ml Total Volume IV PUSH 12/16/24 19:53 ONCE PRN adequate visualization Protocol Prednisone 40 mg 12/14/24 08:00 12/15/24 09:41 Prednisone 20 Mg Tablet PO 12/19/24 07:59 40 mg DAILY@0800 TATY Administration Simvastatin 40 mg 12/14/24 09:00 12/15/24 09:38 Simvastatin 20 Mg Tablet PO 40 mg DAILY TATY Administration Radiology Results: ITS Impressions Chest X-Ray 12/13/24 13:50 Impression: 1: Right basilar airspace disease, compatible with pneumonia. Head/Neck CTA 12/13/24 15:25 IMPRESSION: 1. Normal CTA head and neck. Percent stenosis per NASCET criteria is 0%. 2. Right atelectasis versus pneumonia with pleural effusion. Labs Labs: Laboratory Results - last 24 hr 12/15/24 09:29 WBC 15.1 H RBC 4.08 L Hgb 13.3 Hct 40.0 MCV 98.0 MCH 32.6 MCHC 33.3 RDW 12.8 Plt Count 224 MPV 11.9 H Sodium 134 L Potassium 3.6 Chloride 97 L Carbon Dioxide 27 Anion Gap 10 BUN 37 H Creatinine 0.46 L Estim Creat Clear Calc 78 Estimated GFR > 60 Glucose 137 H Calcium 9.4 Magnesium 2.2
[2024-12-15] MEDS: AZITHROMYCIN 500 MG/NS 250 ML 500 MG/250 ML BAG 250 MG IVPB (15:59)
[2024-12-15] MEDS: ACETAMINOPHEN 325 MG TABLET 650 MG PO ×2 (16:00→22:37)
--- NOTE | 2024-12-15 17:08 | P.PNIM_ITS ---
Progress Note: A&P Assessment and Plan (1) Pneumonia: Code(s): J18.9 - Pneumonia, unspecified organism Status: Acute Assessment and Plan: 500 ml bolus given ED On Rocephin and azithromycin Incentive spirometer Wean oxygen as able (2) Acute respiratory failure: Code(s): J96.00 - Acute respiratory failure, unspecified whether with hypoxia or hypercapnia Status: Acute Assessment and Plan: Secondary to above Wean oxygen as able 20 IV Lasix x1 Echocardiogram BNP pending (3) Atrial fibrillation with rapid ventricular response: Code(s): I48.91 - Unspecified atrial fibrillation Status: Acute Assessment and Plan: Likely secondary to infection Improved with 500 cc fluid bolus in ED Telemetry monitoring Restart atenolol Blood cultures pending (4) COPD (chronic obstructive pulmonary disease): Code(s): J44.9 - Chronic obstructive pulmonary disease, unspecified Status: Acute Assessment and Plan: Restart home inhaler IV Solu-Medrol given in ED P.o. prednisone (5) Hyperlipidemia: Code(s): E78.5 - Hyperlipidemia, unspecified Status: Acute Assessment and Plan: Restart statin (6) Hypertension: Code(s): I10 - Essential (primary) hypertension Status: Acute Assessment and Plan: Holding lisinopril and hydrochlorothiazide due to soft blood pressures Re-evaluate in a.m. IV Lasix x1 Plan patient presented with shortness of breath is found to have atrial fibrillation seen by director decision support and started patient on Atenolol rate is trending down and anticoagulated with Eliquis, cardiac ECHO showed normal LV function with abnormal diastolic dysfunction, most likely patient is have acute on chronic diastaltic CHF and patient is being diuresed and her clinical symptoms are improving, Patient with long history of smoking presented with shortness of breath and cough chest x-ray shows pneumonia most likely community-acquired started the patient on Rocephin and azithromycin will monitor. Patient nurse is present. Subjective Date/time seen: 12/15/24 17:08 Interval history: Chief Complaint: Shortness of breath H&P-Narrative: 79-year-old female, she is unsure for past medical history, past medical history of COPD and smoker presents the hospital with shortness of breath. Patient states that she takes a water pill however she does not know what it is or why she does. Per the patient's son she she is brought into emergency room yesterday for acute lower back pain was sent home. Today the patient complains of severe shortness of breath and lower extremity edema. HPI is limited. On bedside exam patient looks extremely uncomfortable, tachypneic with shallow breaths. In the ED the patient has leukocytosis at 15.9, sodium of 130, troponin of 0.107 followed by 0.092, influenza A/B RSV and COVID negative. Chest x-ray shows right basilar airspace disease compatible with pneumonia, CTA brain carotid shows no acute process. AFib with RVR rate of 123. Given IV metoprolol on needing. And antibiotics for pneumonia. patient presented with shortness of breath is found to have atrial fibrillation seen by director decision support and started patient on Atenolol rate is trending down and anticoagulated with Eliquis, cardiac ECHO showed normal LV function with abnormal diastolic dysfunction, most likely patient is have acute on chronic diastaltic CHF and patient is being diuresed and her clinical symptoms are improving, Patient with long history of smoking presented with shortness of breath and cough chest x-ray shows pneumonia most likely community-acquired started the patient on Rocephin and azithromycin will monitor. Patient nurse is present. Review of Systems Review of Systems: HPI limited due to mental status Exam Narrative: Patient is comfortable, NAD HEENT: eyes are clear and none icteric LUNGS: Bilateral fair entry with rhonchi and rales HEART: Irregularly irregular ABD: BS+, Soft and nontender Lower extremities: no edema SKIN: nonjaundiced Neuro: grossly intact. Objective Data Vital Signs Vital Signs: Vital Signs - 24 hr 12/14/24 18:00 12/14/24 19:16 12/14/24 19:16 Temperature Pulse Rate 83 85 Respiratory Rate 18 Blood Pressure Pulse Oximetry 91 Oxygen Delivery Nasal Cannula Oxygen Flow Rate 1 Fraction of Inspired Oxygen 24 12/14/24 19:25 12/14/24 19:55 12/14/24 20:00 Temperature 36.6 C Pulse Rate 79 88 Respiratory Rate 18 18 Blood Pressure 118/83 Pulse Oximetry 92 92 Oxygen Delivery Nasal Cannula Oxygen Flow Rate 1 Fraction of Inspired Oxygen 12/14/24 20:00 12/14/24 22:00 12/14/24 23:21 Temperature 36.5 C Pulse Rate 98 83 94 Respiratory Rate 20 Blood Pressure 130/82 Pulse Oximetry 92 Oxygen Delivery Oxygen Flow Rate Fraction of Inspired Oxygen 12/14/24 23:59 12/15/24 00:00 12/15/24 01:03 Temperature Pulse Rate 96 89 Respiratory Rate 18 Blood Pressure Pulse Oximetry 92 Oxygen Delivery Nasal Cannula Oxygen Flow Rate 1 Fraction of Inspired Oxygen 12/15/24 01:15 12/15/24 02:00 12/15/24 04:00 Temperature 36.5 C Pulse Rate 91 101 H 94 Respiratory Rate 18 20 Blood Pressure 122/73 Pulse Oximetry 91 Oxygen Delivery Oxygen Flow Rate Fraction of Inspired Oxygen 12/15/24 04:00 12/15/24 05:54 12/15/24 07:25 Temperature 36.9 C Pulse Rate 94 103 H 92 Respiratory Rate 18 Blood Pressure 140/80 Pulse Oximetry 96 Oxygen Delivery Oxygen Flow Rate Fraction of Inspired Oxygen 12/15/24 08:00 12/15/24 08:00 12/15/24 08:26 Temperature Pulse Rate 103 H 85 Respiratory Rate 18 Blood Pressure Pulse Oximetry 93 Oxygen Delivery Nasal Cannula Oxygen Flow Rate 1 Fraction of Inspired Oxygen 12/15/24 10:00 12/15/24 11:05 12/15/24 11:23 Temperature Pulse Rate 113 H Respiratory Rate Blood Pressure Pulse Oximetry Oxygen Delivery Nasal Cannula Nasal Cannula Oxygen Flow Rate 1 1 Fraction of Inspired Oxygen 12/15/24 12:00 12/15/24 12:00 12/15/24 12:00 Temperature 36.9 C Pulse Rate 103 H 102 H Respiratory Rate 18 Blood Pressure 141/81 H Pulse Oximetry 93 95 Oxygen Delivery Nasal Cannula Oxygen Flow Rate 1 Fraction of Inspired Oxygen Intake/Output Intake/Output: Intake & Output 12/12/24 12/13/24 12/14/24 12/15/24 23:59 23:59 23:59 23:59 Intake Total 1300 1180 740 Output Total 120 2000 700 Balance 1180 -820 40 Meds/Results Medications: Active Medications Generic Name Dose Route Start Last Admin Trade Name Freq PRN Reason Stop Dose Admin Acetaminophen 650 mg 12/13/24 18:08 12/15/24 16:00 Acetaminophen 325 Mg Tablet PO 650 mg Q4H PRN Administration Mild Pain (1-3) or Fever Albuterol 2.5 mg 12/13/24 20:00 12/15/24 14:47 Albuterol Sulfate Neb 2.5 Mg/3 Ml Inh INHALATION Not Given Q6HRT TATY Albuterol 1 puff 12/13/24 19:17 Albuterol Sulfate (*Sp) Aerosol 1 Puff INHALATION Q4-6H PRN shortness of breath Apixaban 5 mg 12/14/24 21:00 12/15/24 09:38 Apixaban 5 Mg Tablet PO 5 mg Q12HR TATY Administration Atenolol 25 mg 12/13/24 17:30 12/15/24 09:38 Atenolol 25 Mg Tablet PO 25 mg DAILY TATY Administration Furosemide 20 mg 12/14/24 17:00 12/15/24 16:00 Furosemide Inj 40 Mg/4 Ml Vial IV PUSH 20 mg BID TATY Administration Guaifenesin/Dextromethorphan 10 ml 12/13/24 21:00 12/15/24 15:59 Guaifenesin/Dextromethorphan 10 Ml Udc PO 10 ml Q4H TATY Administration Ceftriaxone Sodium 1 gm in 50 mls @ 100 mls/hr 12/14/24 15:00 12/15/24 15:59 Rocephin 1 Gm/Ns 50 Ml IVPB 100 mls/hr Q24H TATY Administration Azithromycin 500 mg in 250 mls @ 250 mls/hr 12/14/24 16:00 12/15/24 15:59 Zithromax IVPB 250 mls/hr Q24H TATY Administration Melatonin 5 mg 12/15/24 02:35 12/15/24 02:43 Melatonin 5 Mg Tablet PO 5 mg HS TATY Administration Perflutren Lipid Microsphere 0 ml 12/13/24 19:52 Perflutren Lipid Microspheres 1.5 Ml Vial Diluted To 10 Ml Total Volume IV PUSH 12/16/24 19:53 ONCE PRN adequate visualization Protocol Prednisone 40 mg 12/14/24 08:00 12/15/24 09:41 Prednisone 20 Mg Tablet PO 12/19/24 07:59 40 mg DAILY@0800 TATY Administration Simvastatin 40 mg 12/14/24 09:00 12/15/24 09:38 Simvastatin 20 Mg Tablet PO 40 mg DAILY TATY Administration Radiology Results: ITS Impressions Chest X-Ray 12/13/24 13:50 Impression: 1: Right basilar airspace disease, compatible with pneumonia. Head/Neck CTA 12/13/24 15:25 IMPRESSION: 1. Normal CTA head and neck. Percent stenosis per NASCET criteria is 0%. 2. Right atelectasis versus pneumonia with pleural effusion. Labs Labs: Laboratory Results - last 24 hr 12/15/24 09:29 WBC 15.1 H RBC 4.08 L Hgb 13.3 Hct 40.0 MCV 98.0 MCH 32.6 MCHC 33.3 RDW 12.8 Plt Count 224 MPV 11.9 H Sodium 134 L Potassium 3.6 Chloride 97 L Carbon Dioxide 27 Anion Gap 10 BUN 37 H Creatinine 0.46 L Estim Creat Clear Calc 78 Estimated GFR > 60 Glucose 137 H Calcium 9.4 Magnesium 2.2 Quality VTE Prophylaxis VTE prophylaxis: mechanical ordered and pharmacologic ordered
[2024-12-16] VITALS (16 sets, daily range): BP systolic 109–146; BP diastolic 65–94; PULSE 71–117; RESP 16–20; TEMP 36.2–36.5; O2SAT 90–99
[2024-12-16] MEDS: ALBUTEROL SULFATE NEB 2.5 MG/3 ML INH INHALATION ×2 (02:25→08:49)
[2024-12-16 04:29] LABS: Hematocrit 37.1 % (37.0-47.0); Hemoglobin 12.1 g/dL (12.0-15.0); Mean Corpuscular HGB Conc 32.6 g/dl (32-36); Mean Corpuscular Hemoglobin 31.8 pg (26-34); Mean Corpuscular Volume 97.4 fl (80-100); Mean Platelet Volume 12.3 fl (7.4-10.4); Platelet Count Result 211 k/mm3 (150-375); Red Blood Count 3.81 M/mm3 (4.2-5.4); Red Cell Distribution Width 12.8 % (11.5-14.5); White Blood Count 13.2 K/mm3 (4.5-10.0)
[2024-12-16] MEDS: guaiFENesin/DEXTROMETHORPHAN 10 ML UDC PO ×2 (04:43→08:41)
[2024-12-16 04:50] LABS: Anion Gap 4 mmol/L (4-12); Blood Urea Nitrogen 27 mg/dL (7-17); Calcium 8.7 mg/dL (8.4-10.2); Carbon Dioxide 29 mmol/L (22-30); Chloride 98 mmol/L (98-107); Estimated CRCL calculation 79 ml/min; Estimated Glomerular Filt Rate > 60; Glucose 111 mg/dL (65-110); Magnesium 2.1 mg/dL (1.6-2.3); Potassium 3.5 mmol/L (3.4-5.0); Sodium 131 mmol/L (137-145)
[2024-12-16] MEDS: atenoloL 25 MG TABLET PO (08:41)
[2024-12-16] MEDS: SIMVASTATIN 20 MG TABLET 40 MG PO (08:41)
[2024-12-16] MEDS: APIXABAN 5 MG TABLET PO (08:41)
[2024-12-16] MEDS: predniSONE 20 MG TABLET 40 MG PO (08:41)
[2024-12-16] MEDS: FUROSEMIDE 20 MG TABLET PO (09:20)
--- NOTE | 2024-12-16 11:15 | PM.PNCARD ---
Progress Note: A&P Assessment and Plan (1) Atrial fibrillation with rapid ventricular response: Code(s): I48.91 - Unspecified atrial fibrillation Status: Acute Plan Acute hypoxemic resp failure improving with O2 likely related to pneumonia vs CHF Chronic diastolic heart failure HTN AF RVR Plan Treatment of underlying pneumonia per primary Rate control with atenolol. Intermittent RVR with rates in the 110-120bpm range. She is asymptomatic. Can up titrate atenolol if need be but anticipate her HR will improve with ongoing treatment of pneumonia. Continue Lasix 40 mg p.o. daily Will order ANGELIQUE [email or web address] Cont lisinopril Eliquis 5 mg BID Follow up with her established java golden gate developer, Dr. Fenton Echo shows normal LV function with diastolic dysfunction. No significant valvular abnormalities. Cardiology will sign off please call with questions. Subjective Date/time seen: 12/16/24 11:15 Interval history: Cardiology follow up visit She feels well today and has no specific complaints. She is eager to go home. Denies any shortness of breath. States her swelling has improved significantly Review of Systems Review of Systems: All systems reviewed & are unremarkable except as noted in HPI and below Exam Const: General: comfortable and no acute distress Other: Able to lie flat HENMT: Face/Nose/Sinus: Normal nares present and no epistaxis Mouth: Yes moist mucous membranes Eyes: Sclera: sclerae normal Pupils: Equal, round and reactive pupils present Neck: Neck: supple and no JVD Carotids: no bruits Resp: Auscultation: crackles, wheezes expiratory wheezes and diminished lung sounds Other: No chest wall tenderness Cardio: Rate: tachycardic Rhythm: regular rhythm Heart sounds: no gallops, no murmurs and no rubs GI: Auscultation: normal bowel sounds Skin: General skin exam: normal color, rashes and/or lesions noted and no erythema Other: Warm Neuro: Cranial nerves: Yes Equal, round and reactive pupils present Speech: normal speech Other: No obvious focal deficit or facial asymmetry Extrem: General: edema (mild bilateral pretibial edema) Other: Normal capillary refills Intact distal pulses. Objective Data Vital Signs Vital Signs: Vital Signs - 24 hr 12/15/24 11:23 12/15/24 12:00 12/15/24 12:00 Temperature Pulse Rate 103 H Respiratory Rate Blood Pressure Pulse Oximetry 93 Oxygen Delivery Nasal Cannula Nasal Cannula Oxygen Flow Rate 1 1 Fraction of Inspired Oxygen 12/15/24 12:00 12/15/24 14:00 12/15/24 16:00 Temperature 36.9 C 36.8 C Pulse Rate 102 H 102 H 93 Respiratory Rate 18 18 Blood Pressure 141/81 H 143/73 H Pulse Oximetry 95 93 Oxygen Delivery Oxygen Flow Rate Fraction of Inspired Oxygen 12/15/24 16:00 12/15/24 16:00 12/15/24 18:00 Temperature Pulse Rate 101 H 89 Respiratory Rate Blood Pressure Pulse Oximetry 93 Oxygen Delivery Nasal Cannula Oxygen Flow Rate 1 Fraction of Inspired Oxygen 12/15/24 20:00 12/15/24 20:00 12/15/24 20:00 Temperature 36.4 C Pulse Rate 104 H 100 100 Respiratory Rate 16 18 Blood Pressure 151/87 H Pulse Oximetry 93 93 Oxygen Delivery Nasal Cannula Oxygen Flow Rate 1 Fraction of Inspired Oxygen 24 12/15/24 20:20 12/15/24 20:26 12/15/24 20:30 Temperature Pulse Rate 87 Respiratory Rate 18 18 Blood Pressure Pulse Oximetry 93 Oxygen Delivery Nasal Cannula Oxygen Flow Rate 1 Fraction of Inspired Oxygen 12/15/24 22:00 12/16/24 00:00 12/16/24 00:00 Temperature 36.4 C L Pulse Rate 105 H 80 104 H Respiratory Rate 16 16 Blood Pressure 146/81 H Pulse Oximetry 99 99 Oxygen Delivery Nasal Cannula Oxygen Flow Rate 1 Fraction of Inspired Oxygen 12/16/24 00:00 12/16/24 02:00 12/16/24 02:25 Temperature Pulse Rate 104 H 100 81 Respiratory Rate 18 Blood Pressure Pulse Oximetry Oxygen Delivery Oxygen Flow Rate Fraction of Inspired Oxygen 12/16/24 02:35 12/16/24 04:00 12/16/24 04:00 Temperature 36.2 C L Pulse Rate 85 71 114 H Respiratory Rate 18 20 20 Blood Pressure 109/65 Pulse Oximetry 94 94 Oxygen Delivery Nasal Cannula Oxygen Flow Rate 1 Fraction of Inspired Oxygen 24 12/16/24 04:00 12/16/24 05:09 12/16/24 07:50 Temperature 36.5 C Pulse Rate 114 H 102 H 117 H Respiratory Rate 16 Blood Pressure 127/94 H Pulse Oximetry 95 Oxygen Delivery Oxygen Flow Rate Fraction of Inspired Oxygen 12/16/24 08:00 12/16/24 08:00 12/16/24 08:41 Temperature Pulse Rate 107 H 105 H Respiratory Rate Blood Pressure Pulse Oximetry 90 Oxygen Delivery Nasal Cannula Oxygen Flow Rate 1 Fraction of Inspired Oxygen 12/16/24 08:52 12/16/24 08:53 12/16/24 09:00 Temperature Pulse Rate 91 Respiratory Rate 20 Blood Pressure Pulse Oximetry 95 92 Oxygen Delivery Nasal Cannula Nasal Cannula Oxygen Flow Rate 1 1 Fraction of Inspired Oxygen 12/16/24 09:02 12/16/24 10:00 12/16/24 10:00 Temperature Pulse Rate 109 H 82 Respiratory Rate 20 Blood Pressure Pulse Oximetry 93 Oxygen Delivery Room Air Oxygen Flow Rate Fraction of Inspired Oxygen Intake/Output Intake/Output: Intake & Output 12/13/24 12/14/24 12/15/24 12/16/24 23:59 23:59 23:59 23:59 Intake Total 1300 1180 1240 490 Output Total 120 2000 1500 375 Balance 1180 -820 -260 115 Meds/Results Medications: Active Medications Generic Name Dose Route Start Last Admin Trade Name Freq PRN Reason Stop Dose Admin Acetaminophen 650 mg 12/13/24 18:08 12/15/24 22:37 Acetaminophen 325 Mg Tablet PO 650 mg Q4H PRN Administration Mild Pain (1-3) or Fever Albuterol 2.5 mg 12/13/24 20:00 12/16/24 08:49 Albuterol Sulfate Neb 2.5 Mg/3 Ml Inh INHALATION 2.5 mg Q6HRT TATY Administration Albuterol 1 puff 12/13/24 19:17 Albuterol Sulfate (*Sp) Aerosol 1 Puff INHALATION Q4-6H PRN shortness of breath Apixaban 5 mg 12/14/24 21:00 12/16/24 08:41 Apixaban 5 Mg Tablet PO 5 mg Q12HR TATY Administration Atenolol 25 mg 12/13/24 17:30 12/16/24 08:41 Atenolol 25 Mg Tablet PO 25 mg DAILY TATY Administration Furosemide 20 mg 12/16/24 09:00 12/16/24 09:20 Furosemide 20 Mg Tablet PO 20 mg BID TATY Administration Guaifenesin/Dextromethorphan 10 ml 12/13/24 21:00 12/16/24 08:41 Guaifenesin/Dextromethorphan 10 Ml Udc PO 10 ml Q4H TATY Administration Ceftriaxone Sodium 1 gm in 50 mls @ 100 mls/hr 12/14/24 15:00 12/15/24 16:29 Rocephin 1 Gm/Ns 50 Ml IVPB Infused Q24H TATY Infusion Azithromycin 500 mg in 250 mls @ 250 mls/hr 12/14/24 16:00 12/15/24 16:59 Zithromax IVPB Infused Q24H TATY Infusion Melatonin 5 mg 12/15/24 02:35 12/15/24 20:43 Melatonin 5 Mg Tablet PO 5 mg HS TATY Administration Perflutren Lipid Microsphere 0 ml 12/13/24 19:52 Perflutren Lipid Microspheres 1.5 Ml Vial Diluted To 10 Ml Total Volume IV PUSH 12/16/24 19:53 ONCE PRN adequate visualization Protocol Prednisone 40 mg 12/14/24 08:00 12/16/24 08:41 Prednisone 20 Mg Tablet PO 12/19/24 07:59 40 mg DAILY@0800 TATY Administration Simvastatin 40 mg 12/14/24 09:00 12/16/24 08:41 Simvastatin 20 Mg Tablet PO 40 mg DAILY TATY Administration Radiology Results: ITS Impressions Head/Neck CTA 12/13/24 15:25 IMPRESSION: 1. Normal CTA head and neck. Percent stenosis per NASCET criteria is 0%. 2. Right atelectasis versus pneumonia with pleural effusion. Chest X-Ray 12/16/24 09:34 IMPRESSION: Right basilar atelectasis versus pneumonia. Prominent right hilum. Further evaluation advised. Labs Labs: Laboratory Results - last 24 hr 12/16/24 03:48 WBC 13.2 H RBC 3.81 L Hgb 12.1 Hct 37.1 MCV 97.4 MCH 31.8 MCHC 32.6 RDW 12.8 Plt Count 211 MPV 12.3 H Sodium 131 L Potassium 3.5 Chloride 98 Carbon Dioxide 29 Anion Gap 4 BUN 27 H D Creatinine 0.45 L Estim Creat Clear Calc 79 Estimated GFR > 60 Glucose 111 H Calcium 8.7 Magnesium 2.1
--- NOTE | 2024-12-16 13:20 | PC.NURSE ---
Notified Dr Kelly that patient is leaving AMA. PT alert and oriented. IV removed intact.
--- NOTE | 2024-12-16 13:26 | P.DS_ITS ---
DS: Admitting Diagnosis Discharge Date 12/17/24 AMA Admitting Diagnosis Shortness of breath DS: Discharge Diagnosis Discharge Diagnosis (1) Pneumonia: Code(s): J18.9 - Pneumonia, unspecified organism Status: Acute Assessment and Plan: 500 ml bolus given ED On Rocephin and azithromycin Incentive spirometer Wean oxygen as able (2) Acute respiratory failure: Code(s): J96.00 - Acute respiratory failure, unspecified whether with hypoxia or hypercapnia Status: Acute Assessment and Plan: Secondary to above Wean oxygen as able 20 IV Lasix x1 Echocardiogram BNP pending (3) Atrial fibrillation with rapid ventricular response: Code(s): I48.91 - Unspecified atrial fibrillation Status: Acute Assessment and Plan: Likely secondary to infection Improved with 500 cc fluid bolus in ED Telemetry monitoring Restart atenolol Blood cultures pending (4) COPD (chronic obstructive pulmonary disease): Code(s): J44.9 - Chronic obstructive pulmonary disease, unspecified Status: Acute Assessment and Plan: Restart home inhaler IV Solu-Medrol given in ED P.o. prednisone (5) Hyperlipidemia: Code(s): E78.5 - Hyperlipidemia, unspecified Status: Acute Assessment and Plan: Restart statin (6) Hypertension: Code(s): I10 - Essential (primary) hypertension Status: Acute Assessment and Plan: Holding lisinopril and hydrochlorothiazide due to soft blood pressures Re-evaluate in a.m. 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 Patient nurse is present. 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 Patient nurse is present. patient chest x-ray showed prominent right hilum. Further evaluation advised. As patient has long history of smoking and concerning for malignancy, CT scan of chest was ordered however patient left AMA. Time Spent with Patient Time attestation: Total time spent providing and/or coordinating discharge services: Exam 2 Narrative: AMA DS: Data Data Completed and Pending Labs on day of discharge: Labs from last 24 hours 12/16/24 03:48 WBC 13.2 H RBC 3.81 L Hgb 12.1 Hct 37.1 MCV 97.4 MCH 31.8 MCHC 32.6 RDW 12.8 Plt Count 211 MPV 12.3 H Sodium 131 L Potassium 3.5 Chloride 98 Carbon Dioxide 29 Anion Gap 4 BUN 27 H D Creatinine 0.45 L Estim Creat Clear Calc 79 Estimated GFR > 60 Glucose 111 H Calcium 8.7 Magnesium 2.1 Preliminary micro results at discharge 12/13/24 15:31 Blood Culture - Preliminary Blood 12/13/24 15:32 Blood Culture - Preliminary Blood Discharge Plan Discharge Consulting providers: Madhu Terry Patient Disposition: Left Against Medical Advice Discharge Instructions: AMA Patient Instructions: Aspirin (By mouth), Apixaban (By mouth), Heart Failure (DC), A-fib (Atrial Fibrillation) (DC), COPD (Chronic Obstructive Pulmonary Disease) (DC), Pneumonia (DC) Patient Language: Maltese Discharge Medications: No Action albuterol sulfate 90 mcg/actuation aerosol powdr breath activated 1 inh inhalation Q4-6H PRN (Reason: shortness of breath) atenolol 25 mg tablet 25 mg PO DAILY cetirizine 10 mg capsule 10 mg PO DAILY PRN (Reason: allergic symptoms) hydrochlorothiazide 12.5 mg capsule 12.5 mg PO DAILY Patient Comments: Pt states she takes this Monday, Monday, and Monday lisinopril 40 mg tablet 40 mg PO DAILY simvastatin 40 mg tablet 40 mg PO DAILY ergocalciferol (vitamin D2) 50 mcg (2,000 unit) capsule 50 mcg PO DAILY psyllium husk [Daily Fiber] 0.4 gram capsule 0.4 g PO DAILY aspirin [Adult Low Dose Aspirin] 81 mg tablet,delayed release (DR/EC) 81 mg PO DAILY Date of admission: 12/13/24 16:33 Primary Care Provider: Trish,Nicolas Admitting Provider: Clemencia Hermosillo Attending physician on admission: Clemencia Hermosillo Condition: Stable
== END 2024-12-16 13:24 | disposition left against medical advice (07) | DRG 193 ==
LOC: ANHED 15:36 → ANHIMU 16:08
PROVIDERS: Family Medicine; Nurse Practitioner Gerontology; Admitting Provider Internal Medicine; Emergency Provider Emergency Medicine; PCP Internal Medicine; Visit Provider Family Medicine
DX: J18.9 Pneumonia, unspecified organism (principal); I50.33 Acute on chronic diastolic (congestive) heart failure; J96.01 Acute respiratory failure with hypoxia; J44.0 Chronic obstructive pulmonary disease with (acute) lower respiratory infection; I11.0 Hypertensive heart disease with heart failure; I48.91 Unspecified atrial fibrillation; E78.5 Hyperlipidemia, unspecified; F17.210 Nicotine dependence, cigarettes, uncomplicated; Z20.822 Contact with and (suspected) exposure to COVID-19; Z79.51 Long term (current) use of inhaled steroids; Z79.82 Long term (current) use of aspirin; Z79.899 Other long term (current) drug therapy; Z88.8 Allergy status to other drugs, medicaments and biological substances
CPT/HCPCS: 36415; 70496; 70498; 71045; 80048; 80053; 83735; 83880; 84484; 85025; 85027; 85610; 85730; 87040; 87637; 93005; 93306; 94640; 96365; 96368; 96375; 97161; 97165; 99285; A9270; G0378; J0456; J0696; J1938; J2919; J7120; J7512; Q9967

== ENCOUNTER 2025-01-30 01:47 | Day surgery (SDC) | payer MEDICARE, SELFPAY ==
[2024-12-03 15:57] VITALS: BMI 32.5
--- OUTSIDE RECORDS SUMMARY | 2024-12-12 00:40 | XMS_ITS | Data Portability ---
Author Organization [facility] [employer], Main Office Address [address] [place] [address] Care Team Providers Care Nut Cracker Name Role Phone FRED CHAMBRES Primary Care Provider JADE IVAN Installation And Service Technician DANNI PATEL Infantry Assaultman Assessment Encounter Date Assessment Date Assessment LastModified by Organization Details LastModified Time 05/16/2024 05/16/2024 09/27/2023: TSH 0.198L Not available 05/15/2024 18:41:50 07/11/2024 07/11/2024 09/27/2023: TSH 0.198L Not available 07/10/2024 18:16:04 11/12/2024 11/12/2024 Time spent with patient included: preparing to see patient by reviewing tests, obtaining and reviewing history, medical examination and evaluation, counseling and educating the patient, ordering medications and tests, documenting clinical information in EHR, independently interpreting results and communicating results to the patient for a total of 48 minutes. [email or web address] Not available 11/12/2024 12:52:05 Plan of Treatment Reminders Order Date Submit Date Provider Last Modified By Organization Details Last Modified Time Details Appointments Any 15 2024 10:00A M Fred herrera MD Not available Not available Not available Lab culture, sputum 2024 025 [facility] (Lab), [address] [place], [address], 11/17/2024 08:38:30 alpha-1-a ntitrypsi n (aat) phenotype , serum 2024 025 [facility] (Lab), [address] [place], [address], 11/20/2024 12:49:26 BNP (B-type natriuret ic peptide), serum or plasma 2024 025 [facility] (Lab), [address] [place], [address], 11/18/2024 17:05:59 ige, total, serum [address] (Lab), [address] [place], [address], 11/26/2024 12:03:08 tb (M tuberculo sis), ifn-gamma silvia, blood [address] (Lab), [address] [place], [address], 11/26/2024 12:03:08 [address] s 1+2+3+4, serum [address] (Lab), [address] [place], [address], 11/26/2024 12:03:08 respirato ry allergen panel, [facility] A, serum [address] (Lab), [address] [place], [address], 11/26/2024 12:03:09 respirato ry allergen panel - [facility] b [address] (Lab), [address] [place], [address], 11/26/2024 12:03:09 eosinophi ls, quant, blood 2024 025 [facility] (Lab), [address] [place], [address], 11/26/2024 12:03:09 lipid panel, serum 2023 024 [facility] (Lab), [address] [place], [address], 12/06/2024 10:23:53 CBC w/ auto diff 2023 024 [facility] (Lab), [address] [place], [address], 12/06/2024 10:23:52 CMP, serum or plasma 2023 024 [facility] (Lab), [address] [place], [address], 12/06/2024 10:23:54 TSH, serum or plasma 2023 024 [facility] (Lab), [address] [place], [address], 12/06/2024 10:23:55 vitamin D, 25-hydrox y, total, serum [address] (Lab), [address] [place], [address], 07/11/2024 12:01:26 vitamin D3, 25-hydrox y, serum 2023 024 [facility] (Lab), [address] [place], [address], 12/06/2024 10:23:54 lipid panel, serum [address] (Lab), [address] [place], [address], 11/13/2024 07:54:25 CBC w/ auto diff [address] (Lab), [address] [place], [address], 11/13/2024 07:54:25 CMP, serum or plasma [address] (Lab), [address] [place], [address], 11/13/2024 07:54:25 TSH, serum or plasma [address] (Lab), [address] [place], [address], 11/13/2024 07:54:25 vitamin D, 25-hydrox y, total, serum [address] (Lab), [address] [place], [address], 11/13/2024 07:54:25 vitamin D3, 25-hydrox y, serum [address] (Lab), [address] [place], [address], 11/13/2024 07:54:25 Referral pulmonolo gist referral - Please call patient to schedule an appointme nt. Thank you. 2024 025 [email or web address] Michoacano Zavala MD, [address] [place], [address], 11/12/2024 09:31:21 gastroent erologist referral - Please call patient to schedule. 2023 024 [email or web address] Андрей Mackay MD, [address] [facility] [address], [place], [address], 11/13/2024 08:02:06 cardiolog ist referral 2023 024 [email or web address] [place], [address], [address], [place], [address], 07/15/2024 12:43:19 cardiolog ist referral 2023 024 [email or web address] [id number] [place], [address], [address], [place], [address], 05/16/2024 16:40:27 Procedures None recorded. Surgeries None recorded. Imaging DEXA, axial skeleton [address] ([facility]), [address] [place], [address], 07/15/2024 10:50:51 CT, abdomen + pelvis, w/o contrast - Please call patient to schedule. [address] ([facility]), [address] [place], [address], 06/11/2024 12:35:11 XR, lumbosacr al spine, 2 or 3 view [address] ([facility]), [address] [place], [address], 12/02/2024 12:14:47 CT, chest, w/o contrast - Please call patient to schedule. [address] ([facility]), [address] [place], [address], 06/19/2024 08:16:02 DEXA, axial skeleton [address] ([facility]), [address] [place], [address], 11/12/2024 13:14:01 Medication Orders esomepraz ole magnesium 40 mg capsule,d elayed release 2024 025 [facility] [address] [facility], [address] [place] [address], [address], 11/07/2024 15:29:15 Airsupra 90 mcg-80 mcg/actua tion HFA aerosol inhaler 2024 025 [facility] [address] [facility], [address] [place] [address], [address], 11/07/2024 17:33:26 tramadol 50 mg tablet 2023 024 [facility] [address] [facility], [address] [place] [address], [address], 07/11/2024 12:01:06 cyclobenz aprine 10 mg tablet 2023 024 [facility] [address], [address], 05/16/2024 12:57:11 albuterol sulfate HFA 90 mcg/actua tion aerosol inhaler 2023 024 [facility] [address], [address], 05/16/2024 12:57:10 Patient TargetsNo targets recorded. Patient Instructions Encounter Date Encounter Id Patient Instructions Last Modified By Organization Details Last Modified Time 11/12/2024 [id number] complete PFT w/ post bronchodilator spirometry* - Please call patient to schedule. FRANKIE [id number] w/ Medicare. [facility] Not available 12/02/2024 11:19:04 Reason for Referral Installation And Service Technician Referral for Co ronary arteriosclerosis Referring Physician: Fred Chambers, Internal Medicine, Encounter Date: 05/16/2024 Installation And Service Technician Referral for Co ronary arteriosclerosis Referring Physician: Fred Chambers Internal Medicine, Encounter Date: 07/11/2024 Data Processing Specialist Referral for Esophageal mass Please call patient to schedule. Referring Physician: Fred Chambers, Internal Medicine, Encounter Date: 07/11/2024 Weight Reducing Technician Referral for C hronic obstructive pulmonary disease Please call patient to schedule an appointment. Thank you. Referring Physician: Fred Chambers, Internal Medicine, Encounter Date: 11/07/2024 Results Created Date Observation Date Name Description Value Unit Range Abnormal Flag Note LastModifiedBy Organization Detail LastModifiedTime 07/11/20 24 07/11/2024 CBC/C OMPLE TE BLD COUNT W/DIF F white blood cells 6.0 x10'3 /uL 4.2-10 .8 Not Available [facility] (Lab) [address] [place], [address], 07/11/2024 10:41:28 07/11/20 24 07/11/2024 CBC/C OMPLE TE BLD COUNT W/DIF F red blood cells 4.46 x10'6 /uL 3.80-5 .20 Not Available [facility] (Lab) [address] [place], [address], 07/11/2024 10:41:28 07/11/20 24 07/11/2024 CBC/C OMPLE TE BLD COUNT W/DIF F hemoglobin 15.1 g/dL 12.0-1 5.6 Not Available [facility] (Lab) [address] [place], [address], 07/11/2024 10:41:28 07/11/20 24 07/11/2024 CBC/C OMPLE TE BLD COUNT W/DIF F hematocrit 43.9 % 35.7-4 5.7 Not Available [facility] (Lab) [address] [place], [address], 07/11/2024 10:41:28 07/11/20 24 07/11/2024 CBC/C OMPLE TE BLD COUNT W/DIF F mean red cell volume 98.4 fL 82.0-9 9.0 Not Available [facility] (Lab) [address] [place], [address], 07/11/2024 10:41:28 07/11/20 24 07/11/2024 CBC/C OMPLE TE BLD COUNT W/DIF F mean red cell hemoglobin 33.9 pg 27.0-3 3.0 high Not Available [facility] (Lab) [address] [place], [address], 07/11/2024 10:41:28 07/11/20 24 07/11/2024 CBC/C OMPLE TE BLD COUNT W/DIF F mean RBC HGB concentratio n 34.4 g/dL 31.0-3 6.0 Not Available [facility] (Lab) [address] [facility], [place], [address], 07/11/2024 10:41:28 07/11/20 24 07/11/2024 CBC/C OMPLE TE BLD COUNT W/DIF F red cell distribution width 12.2 % 11.8-1 5.5 Not Available [facility] (Lab) [address] [place], [address], 07/11/2024 10:41:28 07/11/20 24 07/11/2024 CBC/C OMPLE TE BLD COUNT W/DIF F platelets 194 x10'3 /uL 150-40 0 Not Available [facility] (Lab) [address] [place], [address], 07/11/2024 10:41:28 07/11/20 24 07/11/2024 CBC/C OMPLE TE BLD COUNT W/DIF F mean platelet volume 11.4 fL 9.0-12 .4 Not Available [facility] (Lab) [address] [place], [address], 07/11/2024 10:41:28 07/11/20 24 07/11/2024 CBC/C OMPLE TE BLD COUNT W/DIF F neutrophils 62.6 % 39.0-7 2.0 Not Available [facility] (Lab) [address] [place], [address], 07/11/2024 10:41:28 07/11/20 24 07/11/2024 CBC/C OMPLE TE BLD COUNT W/DIF F lymphocytes 27.7 % 16.0-4 7.0 Not Available [facility] (Lab) [address] [place], [address], 07/11/2024 10:41:28 07/11/20 24 07/11/2024 CBC/C OMPLE TE BLD COUNT W/DIF F monocytes 5.8 % 5.0-12 .0 Not Available [facility] (Lab) [address] [place], [address], 07/11/2024 10:41:28 07/11/20 24 07/11/2024 CBC/C OMPLE TE BLD COUNT W/DIF F eosinophils 3.3 % 1.0-7. 0 Not Available [facility] (Lab) [address] [place], [address], 07/11/2024 10:41:28 07/11/20 24 07/11/2024 CBC/C OMPLE TE BLD COUNT W/DIF F basophils 0.3 % 0.0-2. 0 Not Available [facility] (Lab) [address] [place], [address], 07/11/2024 10:41:28 07/11/20 24 07/11/2024 CBC/C OMPLE TE BLD COUNT W/DIF F immature granulocytes 0.3 % 0.00-0 .50 Not Available [facility] (Lab) [address] [place], [address], 07/11/2024 10:41:28 07/11/20 24 07/11/2024 CBC/C OMPLE TE BLD COUNT W/DIF F neutrophils, absolute count 3.75 x10'3 /uL 1.5-8. 0 Not Available [facility] (Lab) [address] [place], [address], 07/11/2024 10:41:28 07/11/20 24 07/11/2024 CBC/C OMPLE TE BLD COUNT W/DIF F lymphocytes, absolute count 1.66 x10'3 /uL 1.07-3 .43 Not Available [facility] (Lab) [address] [place], [address], 07/11/2024 10:41:28 07/11/20 24 07/11/2024 CBC/C OMPLE TE BLD COUNT W/DIF F monocytes, absolute count 0.35 x10'3 /uL 0.29-0 .99 Not Available [facility] (Lab) [address] [place], [address], 07/11/2024 10:41:28 07/11/20 24 07/11/2024 CBC/C OMPLE TE BLD COUNT W/DIF F eosinophils, absolute count 0.20 x10'3 /uL 0.02-0 .53 Not Available [facility] (Lab) [address] [place], [address], 07/11/2024 10:41:28 07/11/20 24 07/11/2024 CBC/C OMPLE TE BLD COUNT W/DIF F basophils, absolute count 0.02 x10'3 /uL 0.01-0 .08 Not Available [facility] (Lab) [address] [place], [address], 07/11/2024 10:41:28 07/11/20 24 07/11/2024 CBC/C OMPLE TE BLD COUNT W/DIF F immature granulocytes ,absolute 0.02 x10'3 /uL 0.00-0 .05 Not Available [facility] (Lab) [address] [place], [address], 07/11/2024 10:41:28 07/11/20 24 07/11/2024 CBC/C OMPLE TE BLD COUNT W/DIF F nucleated red blood cells 0.0 % -0 Not Available [facility] (Lab) [address] [place], [address], 07/11/2024 10:41:28 07/11/20 24 07/11/2024 CBC/C OMPLE TE BLD COUNT W/DIF F NRBC# 0.00 x10'3 /uL Not Available [facility] (Lab) [address] [place], [address], 07/11/2024 10:41:28 07/11/20 24 07/11/2024 LIPID PANEL cholesterol 186 mg/dL 140-19 9 [facility] DARREN NSUS RECOM MENDA TION FOR ALEX STERO L: ADULT CHILD LOW RISK: <200 <170 BORDE RLINE : <200- 239 ----- HIGH RISK: >240 >200 Not Available [facility] (Lab) [address] [place], [address], 07/11/2024 11:33:30 07/11/20 24 07/11/2024 LIPID PANEL triglyceride s 72 mg/dL 0-150 [facility] DARREN NSUS REPOR T RECOM MENDA TION FOR TRIGL YCERI MIKEL: ADULT CHILD LOW RISK: <150 ----- BODER LINE: 150-1 99 ----- HIGH RISK: >200 ----- Not Available [facility] (Lab) [address] [place], [address], 07/11/2024 11:33:30 07/11/20 24 07/11/2024 LIPID PANEL HDL cholesterol 89 mg/dL 40- Not Available [facility] (Lab) [address] [place], [address], 07/11/2024 11:33:30 07/11/20 24 07/11/2024 LIPID PANEL LDL cholesterol, calculated 83 mg/dL 0-130 NIH DARREN NSUS REPOR T RECOM MENDA TIONS FOR LDL: ADULT CHILD LOW RISK <130 <110 (OPTI MAL LDL) <100 ----- BORDE RLINE : 130-1 59 ----- HIGH RISK: >160 >130 A TRIGL YCERI DE RESUL T >400 INVAL IDATE S THE CALCU LATIO N FOR LDL FRACT IONAT ION - THE LDL RESUL T WILL NOT BE REPOR NICOLAS. Not Available [facility] (Lab) [address] [place], [address], 07/11/2024 11:33:30 07/11/20 24 07/11/2024 COMPR EHENS ADELINE METAB OLIC PANEL sodium 133 mmol/ L 137-14 5 low Not Available [facility] (Lab) [address] [place], [address], 07/11/2024 11:33:33 07/11/20 24 07/11/2024 COMPR EHENS ADELINE METAB OLIC PANEL potassium 4.0 mmol/ L 3.5-5. 1 Not Available [facility] (Lab) [address] [place], [address], 07/11/2024 11:33:33 07/11/20 24 07/11/2024 COMPR EHENS ADELINE METAB OLIC PANEL chloride 100 mmol/ L 98-107 Not Available [facility] (Lab) [address] [place], [address], 07/11/2024 11:33:33 07/11/20 24 07/11/2024 COMPR EHENS ADELINE METAB OLIC PANEL carbon dioxide 29 mmol/ L 22-30 Not Available [facility] (Lab) [address] [place], [address], 07/11/2024 11:33:33 07/11/20 24 07/11/2024 COMPR EHENS ADELINE METAB OLIC PANEL anion gap 8.0 mmol/ L 14-22 low Not Available [facility] (Lab) [address] [place], [address], 07/11/2024 11:33:33 07/11/20 24 07/11/2024 COMPR EHENS ADELINE METAB OLIC PANEL glucose 98 mg/dL 70-99 Not Available [facility] (Lab) [address] [place], [address], 07/11/2024 11:33:33 07/11/20 24 07/11/2024 COMPR EHENS ADELINE METAB OLIC PANEL BUN 15 mg/dL 8-19 Not Available [facility] (Lab) [address] [place], [address], 07/11/2024 11:33:33 07/11/20 24 07/11/2024 COMPR EHENS ADELINE METAB OLIC PANEL creatinine 0.52 mg/dL 0.66-1 .25 low Not Available [facility] (Lab) [address] [place], [address], 07/11/2024 11:33:33 07/11/20 24 07/11/2024 COMPR EHENS ADELINE METAB OLIC PANEL GFR >60 Refer ence Range : [place] ge GFR Healt hy Adult : >60 mL/mi n/1.7 3 m2 Chron ic Kidne y Disea se: 15-60 mL/mi n/1.7 3 m2 Kidne y Failu re: <15/m L/min /1.73 m2 www.n iddk. nih.g ov The MDRD study equat ion has not been valid ated in child rosalino <18 years of age; pregn ant women ; the elder ly >85 years of age; or in some racia l or ethni c subgr oups, such as Hispa nics. Outsi de the valid ated karime eters , estim ated GFR is less accur ate, requi ring clini mabel judgm ent on a case- by-ca se basis . Clini mabel inter preta tion for other races and ages must be made by the clini eileen. The MDRD study equat ion has not been valid ated for the evalu ation of serum creat inine relat ed to nutri nicolas l statu s or medic ation usage . For perso ns <18 years of age, a pedia tric GFR calcu lator is avail able on the [facility] websi te: https ://elena boston.marian zaidi/pr ofess ional s/kdo qi/gf r_cal culat or Not Available [facility] (Lab) [address] [place], [address], 07/11/2024 11:33:33 07/11/20 24 07/11/2024 COMPR EHENS ADELINE METAB OLIC PANEL alkaline phosphatase 64 U/L 38-126 Not Available [facility] (Lab) [address] [place], [address], 07/11/2024 11:33:33 07/11/20 24 07/11/2024 COMPR EHENS ADELINE METAB OLIC PANEL alanine aminotransfe rase 20 U/L 0-35 Not Available [facility] (Lab) [address] [place], [address], 07/11/2024 11:33:33 07/11/20 24 07/11/2024 COMPR EHENS ADELINE METAB OLIC PANEL aspartate aminotransfe rase 25 U/L 15-37 Not Available [facility] (Lab) [address] [place], [address], 07/11/2024 11:33:33 07/11/20 24 07/11/2024 COMPR EHENS ADELINE METAB OLIC PANEL bilirubin, total 0.70 mg/dL 0.20-1 .30 Not Available [facility] (Lab) [address] [place], [address], 07/11/2024 11:33:33 07/11/20 24 07/11/2024 COMPR EHENS ADELINE METAB OLIC PANEL calcium 10.1 mg/dL 8.4-10 .2 Not Available [facility] (Lab) [address] [place], [address], 07/11/2024 11:33:33 07/11/20 24 07/11/2024 COMPR EHENS ADELINE METAB OLIC PANEL total protein 6.8 g/dL 6.3-8. 2 Not Available [facility] (Lab) [address] [place], [address], 07/11/2024 11:33:33 07/11/20 24 07/11/2024 COMPR EHENS ADELINE METAB OLIC PANEL albumin 4.2 g/dL 3.0-4. 4 Not Available [facility] (Lab) [address] [place], [address], 07/11/2024 11:33:33 07/11/20 24 07/11/2024 COMPR EHENS ADELINE METAB OLIC PANEL globulin 2.6 g/dL 2.6-4. 2 Not Available [facility] (Lab) [address] [place], [address], 07/11/2024 11:33:33 07/11/20 24 07/11/2024 COMPR EHENS AEDLINE METAB OLIC PANEL A/G ratio 1.6 ratio 1.0-2. 0 Not Available [facility] (Lab) [address] [place], [address], 07/11/2024 11:33:33 07/11/20 24 07/11/2024 VITAM IN D 25-HY DROXY vd25oh 35.4 NG/mL 30-100 Vitam in D Statu s: Defic ient: <20 ng/mL Insuf ficie nt: 20-29 ng/mL Suffi cient : 30-10 0 ng/mL Not Available [facility] (Lab) [address] [place], [address], 07/11/2024 11:46:37 07/11/20 24 07/11/2024 TSH W/REF ASHLEY FT4 TSH with reflex free T4 0.355 uIU/m L 0.465- 4.680 low Not Available [facility] (Lab) [address] [facility], [place], [address], 07/11/2024 11:57:32 07/11/20 24 07/11/2024 T4 FREE free T4 1.43 NG/dL 0.78-2 .19 Not Available [facility] (Lab) [address] [facility], [place], [address], 07/11/2024 12:30:17 06/06/20 24 06/06/2024 CT, chest + abdom en, w/o contr ast [facility] [address] [facility] [address] [phone] Patien t Name: VAZQUEZ LAINEZ Access ion #: [id number] Sex: F : 1944 8 Dictat ed By: Femi Perez ms Attend ing Physic suzanne: ARMIDA AGUIRRE Orderi Physic suzanne: ARMIDA AGUIRRE Exam Date: 2023 10:40 AM Exam Name: CT CHEST ABDOME N PELVIS WO Admitt ing Diagno sis(es ): EXAM: CT CHEST ABDOME N PELVIS WO Histor y: Abdomi nal pain, esopha geal mass Compar sari Study: CT scan of the chest dated 2023, CT scan of the abdome n pelvis perfor med on 2022. TECHNI QUE: Multid etecto r CT of the chest, abdome n and pelvis was perfor med from lower neck to pubic symphy sis withou t the use of intrav enous contra st. Sanchez l and sagitt al multip lanar reform ats were perfor med by the techno logist on a [employer] workst ation. Radiat ion Dose Inform ation: CT Dose: CTDI volume is 11.1 mGy. Dose-l ength produc t is 736.8 mGy*cm FINDIN GS: The examin ation is limite d withou t intrav enous contra st. Lower neck: Enlarg ed thyroi d with partia lly calcif ied left thyroi d nodule . Possib le right thyroi d nodule . Lungs: Centri lobula r emphys chauncey is noted. Parase ptal emphys chauncey in the lower lobes. No suspic ious pulmon ant nodule s or mass. Heart/ Vascul ar Struct ures: Normal heart size. No perica rdial effusi on. Sanchez ry artery calcif icatio ns. Athero sclero tic calcif icatio ns in the thorac ic aorta. Normal calibe r main pulmon ant artery . Pleura : No pleura l effusi on or signif icant pneumo thorax . Page 1 [facility] [place] [address] [facility] [address] [facility], [place] [address] Patien t Name: VAZQUEZ LAINEZ Access ion #: [id number] Sex: F : 1944 8 Dictat ed By: Femi Perez ms Attend ing Physic suzanne: [facility] Physic suzanne: ARMIDA AGUIRRE Exam Date: 2023 10:40 AM Exam Name: CT CHEST ABDOME N PELVIS WO Admitt ing Diagno sis(es ): Lymph Nodes: Mildly promin ent medias tinal lymph nodes for exampl e precar inal lymph node measur es 1.0 cm in short axis. Esopha austin: There is thicke collette of the gastro esopha geal juncti on. Liver: The liver is normal in size. Non-co ntrast appear ance of liver. Gallbl adder and Biliar y Tree: Gallst ones. No biliar y ductal dilata tion. Spleen : Unrema rkable . Pancre as: Unrema rkable . Adrena l Glands : Stable right and left adrena l low attenu ating lesion s compat ible with adenom as, measur ing 1.6 cm on the right and 0.8 cm on the left. Kidney s: Subcen timete r right and left renal cysts. No renal calcul i or hydron ephros is. Urinar y bladde r: Unrema rkable . Bowel: Aside from the wall thicke collette of the gastro esopha geal juncti on, the stomac h is decomp ressed and not furthe r evalua nicolas in the absenc e of enteri c contra st. Some of the small bowel loops are comple tely decomp ressed and this limits the evalua tion for any underl moris lesion . No abnorm ally dilate d small bowel loops. Sigmoi d divert iculos is withou t acute divert iculit is. The append ix is visual ized and is normal in calibe r. Perito neum: No ascite s or pneumo perito neum. Lympha denopa thy: No enlarg ed lymph nodes. Vascul ature: The visual ized abdomi nal aorta is normal in size and calibe r. Evalua tion of the vascul ar struct ures is limite d due to lack of intrav enous contra st. Pelvic Organs : Uterus and adnexa l struct ures are unrema rkable . Muscul oskele shelly: No acute osseou s abnorm ality. Grade 1 maddie listhe sis at L4-L5. Severe bilate ral facet arthro kendra at L4-L5. Soft tissue s: Unrema rkable . IMPRES JULITO: Limite d evalua tion withou t intrav enous contra st. 1. Pulmon ant emphys chauncey. No suspic ious pulmon ant nodule s. Page 2 [facility] [place] [address] Patien t Name: VAZQUEZ LAINEZ [place] Access ion #: [id number] Sex: F : 1944 8 Dictat ed By: Femi Perez ms Attend ing Physic suzanne: CRISTIAN SALGADO Physic suzanne: ARMIDA AGUIRRE Exam Date: 2023 10:40 AM Exam Name: CT CHEST ABDOME N PELVIS WO Admitt ing Diagno sis(es ): 2. Multin odular thyroi d. Thyroi d nodule s were evalua nicolas on prior dedica nicolas neck ultras ound from 2023. Please see that separa te report . 3. Thicke collette of the gastro esopha geal juncti on. This could be relate d to the presen ce of the hiatal hernia . An underl moris lesion is not exclud ed. Endosc opy may be perfor med for furthe r evalua tion if clinic ally mahesh valenzuela. 4. Mildly promin ent medias tinal lymph nodes, nonspe cific. 5. Divert iculos is withou t acute divert iculit is. 6. Multip le gallst ones. 7. Stable bilate ral adrena l adenom as. All CT scans at this medica l facili ty are perfor med using dose modula tion techni ques as approp riate to a perfor med exam includ ing the follow ing: Darren valenzuela exposu re contro l was utiliz ed; adjust ment of the MA and/or KV accord ing to patien t size; and use of iterat adeline recons tructi on techni que. Electr onical ly Signed by: Femi Perez ms at 2023 11:28: 18 AM Page 4 INTERFACE [facility] (Imaging) [address] [place], [address], 06/06/2024 12:31:14 08/28/19 25 08/28/2024 XR, chest , 2 view No observ ation record ed. [email or web address] [facility] [address] [place], [address], 11/04/2024 10:58:17 09/17/19 25 09/17/2024 XR, chest , 2 view No observ ation record ed. [email or web address] [facility] [address] [place], [address], 11/04/2024 10:59:59 12/03/19 25 11/28/2024 compl ete [facility] at[facility] lisa metry * No observ ation record ed. [email or web address] [facility] ([employer]) [address] [place], [address], 12/04/2024 09:21:24 Result Notes None recorded. 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 Active 2022 Not Available [facility] 3 07:03:27 Mild chronic obstructi ve pulmonary disease 265663122 Active 2022 Not Available [facility] 3 07:03:27 CT of chest abnormal 25610389475 317702 Active 2022 Not Available [facility] 3 07:03:27 Acute bronchiti s 47789977 Active 2022 Not Available [facility] 3 07:03:27 Skin lesion 44371166 Active 2022 Not Available [facility] 3 07:03:28 Open wound of right ankle 35345794254 596964 Active 2022 Not Available [facility] 3 07:03:27 Lung mass 567924416 Active 2022 Not Available [facility] 3 07:03:27 Edema of lower extremity 220351699 Active 2022 Not Available [facility] 3 07:03:27 Onychomyc osis 392109284 Active 2022 Not Available [facility] 3 07:03:27 Pain of left ankle joint 30164564837 943654 Active 2022 Not Available [facility] 3 07:03:27 Acute urinary tract infection 326683836 Active 2022 Not Available [facility] 3 07:03:27 Dystrophi a unguium 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 Active 2022 Not Available [facility] 3 07:03:28 Pain in toe 616067359 Active 2022 Not Available [facility] 3 07:03:27 Unable to cut own toenails 735247918 Active 2022 Not Available [facility] 3 07:03:27 Abdominal pain 34913343 Active 2022 Not Available [facility] 3 07:03:27 Gallstone 266957285 Active 2022 Not Available [facility] 3 07:03:27 Cholelith iasis without obstructi on 94007509 Active 2022 Not Available [facility] 3 07:03:28 Bursitis of olecranon of left elbow 16340371006 9101 Active 2022 Fred calix MD [address], [address], [place], [address] , [facility] [employer] [facility] [employer] [facility] 3 11:27:57 Occult blood detected in feces 35827164 Active 2023 Marisela Rivera MA null, [employer] [facility] [employer] [facility] 4 17:12:56 Pain in toe 895597481 Active 2023 Danni Patel DPM [address], [address], [place], [address] , [facility] 4 13:34:06 Low back pain 271932304 Active 2023 Fred calix MD [address], [address], [place], [address] , [facility] [employer] [facility] [employer] 4 12:44:52 Disorder of eye 497504250 Active 2023 Jessi Whitney null, [facility] 4 11:33:12 Arthritis 4765811 Active 2023 Jessi Devonte null, [facility] 4 11:33:28 CT of abdomen abnormal [id number] 209322 Active 2023 CELSO Palomares null, [facility] 4 14:47:32 Hypothyro idism 63191095 Active 2023 Travis Alba FI[employer] ENGINE OPERATOR null, [facility] 4 10:05:23 Cough 55992263 Active 2023 Travis Alba FI[employer] ENGINE OPERATOR null, MD - [facility] 4 17:11:58 Insomnia 324118119 Active 2024 Fred calix MD [address], [address], [place], [address] , [facility] 5 18:27:24 Cigarette smoker 66037985 Active 2024 Fred calix MD [address], [address], [place], [address] , [facility] 5 15:30:38 Dyspnea on exertion 64275201 Active 2024 Charlee Gomez NP [address], [address], [place], [address] , [facility] 5 12:12:44 Acute low back pain 694215504 Active 2024 Rachael Noel MA null, [facility] 5 14:49:54 Hammer toe 249875995 Active 2017 Not Available [facility] 3 07:03:27 Chronic obstructi ve pulmonary disease 03036683 Active Not Available [facility] 3 07:03:27 Localized , 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 625522994 Active 2021 Not Available [facility] 3 07:03:27 Thyroid nodule 491555845 Active 2021 Not Available [facility] 3 07:03:27 Hyperthyr oidism 76782502 Active 2021 Not Available [facility] 3 07:03:27 Vitamin D deficienc y 13334285 Active 2021 Not Available [facility] 3 07:03:27 Onychomyc osis of toenails 216618166 Active 2017 Not Available [facility] 3 07:03:27 Eczema 04457451 Active 2021 Not Available [facility] 3 07:03:27 Coronary arteriosc lerosis 99467566 Active Not Available [facility] 3 07:03:27 Hyperlipi demia 32509022 Active 2021 Not Available [facility] 3 07:03:27 Essential hypertens ion 94954898 Active Not Available [facility] 3 07:03:28 Tinea pedis 6701223 Completed 201802/18/2020 Not Available [facility] 3 04:52:31 Osteoporo sis 89376170 Active 2021 Not Available [facility] 3 07:03:28 Smoker 49794862 Active Not Available [facility] 3 07:03:28 Notes:PFT 11/04/21 FEV1 1.69 L (91%), BD 170 mL = 11% PFT 04/12/23 FEV1 1.35 L (72%), BD 110 mL = 9% PFT 11/04/21 FEV1 1.23 L (74%), BD 40 mL = 3% Medical History: COVID infection 07/2021 Rhinosinusitis Eosinophils 180/uL Nicotine use Mild COPD ILD with traction bronchiectasis Bilateral thyroid nodules Hyperthyroidism Hyperlipidemia Hypertension EF 60% Mild RVE Mild SENA Mild TR RVSP 28 mmHg CAD Esophageal mass Cholelithiasis Bilateral PVD Vit D deficiency Lumbar osteopenia Hip osteoporosis T4, T11 fractures Osteoarthritis Right hammer toe Onychomycosis Procedure History: T&A 1952 Coronary artery stent placement 2012 Back seborrheic keratosis excision 2020 Left benign thyroid nodule biopsy 2021 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 Procedures Surgical History Date Name Laterality Status Provider Name and Address Organization Details Recorded Time 08/01/20 24 Nail Debridement completed Danni Patel DPM [address], [address], [place], [address], [email or web address] 08/01/2024 16:30:01 03/28/20 24 Nail Debridement completed Danni Patel DPM [address], [place], [address], [employer] 03/28/2024 13:59:13 01/04/20 24 Medicare Wellness CPT Code, Initial completed Ariel Robins LPN [employer] [facility] [employer] 01/04/2024 13:04:53 10/12/19 24 Nail Debridement completed Danni Patel DPM [address], [address], [place], [address], [employer] [facility] [employer] 10/12/2023 13:33:53 05/04/20 23 Nail Debridement completed Danni Patel DPM [address], [place], [address], [employer] 05/04/2023 17:38:45 Cardiac Stent Placement completed Not Available [facility] 10/26/2022 04:42:09 replacement of bilateral knee joints completed Jessi Whitney [employer] [facility] [employer] 03/27/2024 11:34:13 Imaging Results Imaging Date Name Status LastModified by Organization Details LastModified Time 06/06/2024 CT, chest + abdomen, w/o contrast active INTERFACE [facility] (Imaging) [address] [place], [address], 06/06/2024 12:31:14 08/28/2024 XR, chest, 2 view completed [address] [place], [address], 11/04/2024 10:58:17 09/17/2024 XR, chest, [address] view [address] [place], [address], 11/04/2024 10:59:59 11/28/2024 complete PFT w/ post bronchodilator spirometry* completed anal5 [facility] (One Call Scheduling) [address] [facility], [place], [address], 12/04/2024 09:21:24 Procedure Notes None recorded. Medical Equipment None Reported. Allergies Allergen ID Allergen Name Allergen Category Reaction Reaction Severity Criticality Documentation Date Start Date Code Code System Note Provider Name and Address Organization Details Recorded Time 91 Plavix medicatio n rash Not available Not available 10/26/2022 41436 2 RxNorm Not Available [facility] 05:07:50 Medications Name Sig Start Date Stop Date Status Note LastModified by Organization Details LastModified Time cyclobenz aprine 10 mg tablet TAKE 1 TABLET BY MOUTH AT BEDTIME, NO ALCOHOL, DRIVING OR USING WITH SEDATING MEDICATI ONS active Not Available Not Available No t Available amoxicill in 500 mg capsule Take 1 capsule 3 times a day by oral route. 03/11 completed Not Available Not Available Not Available terbinafi ne HCl 1 % topical cream APPLY TO THE AFFECTED AND SURROUND ING AREAS OF SKIN AND TOENAILS BY TOPICAL ROUTE ONCE DAILY 02/22 completed Not Available Not Available Not Available trazodone 50 mg tablet TAKE 1 TABLET BY MOUTH EVERY DAY NEEDED FOR 90 DAYS active Not Available Not Available No t Available cetirizin e 10 mg tablet TAKE 1 TABLET BY MOUTH EVERY DAY NEEDED 2024 active Not Available Not Available Not Avai lable azithromy fausto 250 mg tablet TAKE 2 TABLETS (500 MG) BY ORAL ROUTE ONCE DAILY FOR 1 DAY THEN 1 TABLET (250 MG) BY ORAL ROUTE ONCE DAILY FOR 4 DAYS 11/07 completed Not Available Not Available Not Available nicotine (polacril ex) 2 mg gum CHEW 1 PIECE OF GUM 4 TIMES A DAY NEEDED 11/07 completed Not Available Not Available Not Available ofloxacin 0.3 % eye drops 02/22 completed Not Available Not Available Not Available lisinopri l 20 mg tablet Take 1 tablet(s ) every day by oral route. active Not Available Not Available No t Available alendrona te 70 mg tablet PLEASE SEE ATTACHED FOR DETAILED DIRECTIO NS 02/22 completed Not Available Not Available Not Available atenolol 25 mg tablet TAKE 1 TABLET BY MOUTH EVERY DAY active Not Available Not Available No t Available amlodipin e 5 mg tablet TAKE 1 TABLET BY MOUTH EVERY DAY 02/22 completed Not Available Not Available Not Available ciproflox acin 500 mg tablet TAKE 1 TABLET BY MOUTH TWICE A DAY FOR 7 DAYS. 08/08 completed Not Available Not Available Not Available sulfameth oxazole 800 mg-trimet hoprim 160 mg tablet Take 1 tablet every 12 hours by oral route for 7 days. 08/08 completed Not Available Not Available Not Available tramadol 50 mg tablet PLEASE SEE ATTACHED FOR DETAILED DIRECTIO NS active Not Available Not Available No t Available triamcino lone acetonide 0.1 % topical cream APPLY TO AFFECTED AREA TWICE A DAY IN THE MORNING AND IN THE EVENING 02/22 completed Not Available Not Available Not Available simvastat in 40 mg tablet TAKE 1 TABLET BY MOUTH EVERY DAY active Not Available Not Available No t Available ketorolac 0.5 % eye drops 02/22 completed Not Available Not Available Not Available Celebrex 200 mg capsule Take 1 capsule twice a day by oral route. active Not Available Not Available No t Available meloxicam 7.5 mg tablet TAKE ONE TABLET BY MOUTH TWICE A DAY NEEDED WITH FOOD active Not Available Not Available No t Available oxycodone -acetamin ophen 5 mg-325 mg tablet 08/08 completed Not Available Not Available Not Available bupropion HCl 100 mg tablet active Not Available Not Available No t Available famotidin e 20 mg tablet active Not Available Not Available Not Available gemfibroz il 600 mg tablet Take 1 tablet twice a day by oral route. active Not Available Not Available No t Available hydrocodo ne 7.5 mg-acetam inophen 325 mg tablet active Not Available Not Available Not Available cephalexi n 500 mg capsule TAKE 1 CAPSULE BY MOUTH EVERY 6 HOURS DIRECTED FOR 7 DAYS 12/06 completed Not Available Not Available Not Available simvastat in 20 mg tablet Take 1 tablet every day by oral route. 09/28 completed Not Available Not Available Not Available esomepraz ole magnesium 40 mg capsule,d elayed release TAKE 1 CAPSULE BY MOUTH EVERY DAY NEEDED active Not Available Not Available No t Available triamcino lone acetonide 0.1 % topical ointment APPLY A THIN LAYER TO THE AFFECTED AREA(S) BY TOPICAL ROUTE 2 TIMES PER DAY active Not Available Not Available No t Available nystatin 100,000 unit/gram topical cream APPLY TO AFFECTED AREA TWICE A DAY IN THE MORNING AND IN THE EVENING 02/22 completed Not Available Not Available Not Available clotrimaz ole-betam ethasone 1 %-0.05 % topical cream APPLY TO THE AFFECTED AND SURROUND ING AREAS OF SKIN of foot BY TOPICAL ROUTE 2 TIMES PER DAY IN THE MORNING AND EVENING FOR 2 WEEKS active Not Available Not Available No t Available lisinopri l 10 mg tablet active Not Available Not Available Not Available hydrochlo rothiazid e 12.5 mg capsule TAKE 1 CAPSULE BY MOUTH EVERY DAY active Not Available Not Available No t Available nystatin- triamcino lone 100,000 unit/g-0. 1 % topical cream APPLY TO THE AFFECTED AREA(S) BY TOPICAL ROUTE 2 TIMES PER DAY IN THEMORNI NG AND EVENING active Not Available Not Available No t Available lisinopri l 30 mg tablet active Not Available Not Available Not Available gabapenti n 300 mg capsule Take 1 capsule every day by oral route for 90 days. 02/22 completed Not Available Not Available Not Available diclofena c sodium 75 mg tablet,de layed release active Not Available Not Available Not Available cephalexi n 500 mg tablet Take 1 tablet every 6 hours by oral route as directed for 7 days. 12/06 completed Not Available Not Available Not Available mupirocin 2 % topical ointment APPLY A SMALL AMOUNT TO THE AFFECTED AREA right ankle wound BY TOPICAL ROUTE 3 TIMES PER DAY active Not Available Not Available No t Available gabapenti n 100 mg capsule Take 3 capsules every day by oral route for 90 days. 12/05 completed Not Available Not Available Not Available ergocalci ferol (vitamin D2) 1,250 mcg (50,000 unit) capsule TAKE 1 CAPSULE EVERY WEEK BY ORAL ROUTE. 05/03 completed Not Available Not Available Not Available levofloxa fausto 750 mg tablet TAKE 1 TABLET BY MOUTH EVERY DAY FOR 7 DAYS 08/08 completed Not Available Not Available Not Available methylpre dnisolone 4 mg tablets in a dose pack TAKE 6 TABLETS ON DAY 1 DIRECTED ON PACKAGE AND DECREASE BY 1 TAB EACH DAY FOR A TOTAL OF 6 DAYS 11/07 completed Not Available Not Available Not Available albuterol sulfate HFA 90 mcg/actua tion aerosol inhaler INHALE 1 PUFF BY MOUTH EVERY 4 HOURS NEEDED FOR 3 MONTHS active Not Available Not Available No t Available Cipro 250 mg tablet Take 1 tablet twice a day by oral route for 5 days. 04/30 completed Not Available Not Available Not Available lisinopri l 40 mg tablet TAKE 1 TABLET BY MOUTH EVERY DAY active Not Available Not Available No t Available fluticaso ne propionat e 50 mcg/actua tion nasal spray,juni pension SPRAY 1 SPRAY INTO EACH NOSTRIL EVERY DAY FOR 30 DAYS 05/16 completed Not Available Not Available Not Available atenolol 50 mg tablet TAKE 1 TABLET BY MOUTH EVERY DAY 08/08 completed Not Available Not Available Not Available amoxicill in 875 mg-potass ium clavulana te 125 mg tablet Take 1 tablet every 12 hours by oral route for 10 days. 11/07 completed Not Available Not Available Not Available neomycin 3.5 mg/g-poly myxin B 10,000 unit/g-de xameth 0.1 % eye oint 08/08 completed Not Available Not Available Not Available Laxative (bisacody l) 5 mg tablet,de layed release TAKE ALL 6 TABLETS BY MOUTH AT 8 AM ON 03/25 completed Not Available Not Available Not Available Wellbutri n XL 150 mg 24 hr tablet, extended release Take 1 tablet every day by oral route. 12/[address] Ivan Not Available Not Available Not Available Jantoven 2 mg tablet active Not Available Not Available Not Available Jantoven 3 mg tablet active Not Available Not Available Not Available Fish Oil 02/22 completed Not Available Not Available Not Available Vitamin D active Not Available Not Michaelle ilable Not Available varenicli ne tartrate 1 mg tablet TAKE 1 TABLET BY MOUTH ONCE A DAY DIRECTED 12/28 completed Not Available Not Available Not Available Chantix 05/03 completed 09/22/[address] Ivan SL and f/u in 6 months Not Available Not Available Not Available hydrochlo rothiazid e 12.5 mg tablet Take 1 tablet every day by oral route. 05/[address] Ivan cardiolo gy Not Available Not Available Not Available Symbicort 80 mcg-4.5 mcg/actua tion HFA aerosol inhaler Inhale 2 puffs twice a day by inhalati on route for 30 days. active Not Available Not Available No t Available aspirin 81 mg effervesc ent tablet Take 1 tablet every day by oral route. 01/22 completed Not Available Not Available Not Available Gavilyte- C 240 gram-22.7 2 gram-6.72 gram-5.84 gram oral solution MIX WITH LIQUID AND DRINK 1/2 OF JUG AT 5PM ON 03/25 AND THE OTHER 1/2 OF JUG AT 5AM ON 03/26 completed Not Available Not Available Not Available Prolia 60 mg/mL subcutane ous syringe Inject 1 mL by subcutan eous route. 02/10 completed Not Available Not Available Not Available Vitamin D2 active Not Available Not Available Not Available Xarelto 2.5 mg tablet Take 1 tablet twice a day by oral route. 05/03 completed [facility] started this Dr Ivan 03/09/20 21 Not Available Not Available Not Available Airsupra 90 mcg-80 mcg/actua tion HFA aerosol inhaler Two inhalati ons every 20 minutes as needed for up to 3 doses (6 inhalati ons total) 2024 active Not Available Not Available Not Avai lable Vitals Date Recorded Body height Body mass index (BMI) Body weight Body temperature Heart rate Oxygen saturation Oxygen saturation in Arterial blood by Pulse oximetry Pain severity - 0-10 verbal numeric rating [Score] - Reported Systolic blood pressure Diastolic blood pressure Provider Name and Address Organization Details Last Updated DateTime 4 160.02 cm 30.3 kg/m2 90575.3 g 98.7 [degF] 67 /min 95 % 95 % 0 163 mm[Hg] 73 mm[Hg] Sandy Leonardo [place] [facility] [employer] 4 12:14:13 Date Recorded Body height Body mass index (BMI) Body weight Body temperature Heart rate Oxygen saturation Oxygen saturation in Arterial blood by Pulse oximetry Systolic blood pressure Diastolic blood pressure Provider Name and Address Organization Details Last Updated DateTime 4 160.02 cm 29.4 kg/m2 24557.3 3 g 97.6 [degF] 102 /min 93 % 93 % 138 mm[Hg] 80 mm[Hg] Rachael Noel MA [facility] [employer] [facility] 4 11:29:18 Date Recorded Body height Body mass index (BMI) Body weight Heart rate Respiratory rate Oxygen saturation Oxygen saturation in Arterial blood by Pulse oximetry Systolic blood pressure Diastolic blood pressure Provider Name and Address Organization Details Last Updated DateTime 4 160.02 cm 29.4 kg/m2 96142.3 3 g 65 /min 14 /min 98 % 98 % 172 mm[Hg] 92 mm[Hg] Sherlyn Castellon [employer] [facility] [employer] [facility] 4 11:40:45 Date Recorded Body height Body mass index (BMI) Body weight Heart rate Oxygen saturation Oxygen saturation in Arterial blood by Pulse oximetry Body temperature Systolic blood pressure Diastolic blood pressure Provider Name and Address Organization Details Last Updated DateTime 5 160.02 cm 30.8 kg/m2 85597.0 7 g 69 /min 96 % 96 % 97.7 [degF] 114 mm[Hg] 64 mm[Hg] CELSO Palomares [facility] [employer] [facility] 5 14:57:54 Date Recorded Body height Body mass index (BMI) Body weight Body temperature Heart rate Oxygen saturation Oxygen saturation in Arterial blood by Pulse oximetry Systolic blood pressure Diastolic blood pressure Provider Name and Address Organization Details Last Updated DateTime 5 160.02 cm 31 kg/m2 52231.6 6 g 96.6 [degF] 57 /min 93 % 93 % 116 mm[Hg] 68 mm[Hg] Rachael Noel MA [facility] [employer] [facility] 5 11:56:25 Social History Question Answer Notes LastModified by Organization Details LastModified Time Tobacco Smoking Status Current Every Day Smoker Not Available [facility] 10/26/2022 04:22:06 Do You Have An Advance Directive? Yes [id number] Information not available 10/26/2022 What Is Your Level Of Alcohol Consumption? None [email or web address] Information not available 01/04/2024 Do You Wear A Helmet When Biking? No Does Not Bike [email or web address] Information not available 01/04/2024 Are You Blind Or Do You Have Difficulty Seeing? Yes [id number] Information not available 10/26/2022 What Is Your Level Of Caffeine Consumption? Heavy [email or web address].[id number] Information not available 10/26/2022 In The 14 Days Before Symptom Onset, Have You Had Close Contact With A Laboratory-confi rmed COVID-19 While That Case Was Ill? No [id number] Information not available 10/26/2022 In The 14 Days Before Symptom Onset, Have You Had Close Contact With A Person Who Is Under Investigation For COVID-19 While That Person Was Ill? No [email or web address].[id number] Information not available 10/26/2022 Are You Currently Employed? No Information not available 01/04/2024 Are You Deaf Or Do You Have Serious Difficulty Hearing? No [id number] Information not available 10/26/2022 What Type Of Diet Are You Following? REGULAR [email or web address].[id number] Information not available 10/26/2022 Do You Or Have You Ever Used E-cigarettes Or Vape? Current User Of Electronic Cigarettes Information not available 11/07/2024 What Is The Highest Grade Or Level Of School You Have Completed Or The Highest Degree You Have Received? [id number] [id number] Information not available 10/26/2022 Do You Have An Electrostatic Air Filter? No Information not available 11/12/2024 What Is Your Occupation? N/a [email or web address] [id number] Information not available 10/26/2022 Have There Been Any Changes To Your Family Or Social Situation? No [email or web address].[id number] Information not available 10/26/2022 What Is The Fluoride Status Of Your Home? Unknown [email or web address] [id number] Information not available 10/26/2022 Are There Any Guns Present In Your Home? Yes [email or web address] Information not available 01/04/2024 Do You Have A Humidifier? Yes Information not available 11/12/2024 Do You Use Insect Repellent Routinely? No [email or web address] [id number] Information not available 10/26/2022 Where Do You Live? [place]House [email or web address].030 [id number] Information not available 10/26/2022 Presence Of Domestic Violence No [email or web address] Information not available 01/04/2024 Are You Able To Care For Yourself? Yes [email or web address] Information not available 01/04/2024 Are You Blind Or Do Yo Have Difficulty Seeing? No [email or web address] Information not available 01/04/2024 Are You Deaf Or Do You Have Serious Difficulty Hearing? No [email or web address] Information not available 01/04/2024 General Stress Level? Moderate [email or web address] Information not available 01/04/2024 Live Alone Of With Others? Alone [email or web address] Information not available 01/04/2024 Do You Have A Medical Power Of Control Room Supervisor? Yes [id number] Information not available 10/26/2022 Do You Have Moisture Problems In Your Home? No Information not available 11/12/2024 What Was The Date Of Your Most Recent Tobacco Screening? 11/12/2024 Information not available 11/12/2024 How Many Children Do You Have? 3 [email or web address] Information not available 01/04/2024 Do You Have Any Pets? No [email or web address].[id number] [id number] Information not available 10/26/2022 What Is Your Relationship Status? [email or web address].[id number] [id number] Information not available 10/26/2022 Do You Use Your Seat Belt Or Car Seat Routinely? Yes [id number] [id number] Information not available 10/26/2022 Do You Have Smoke And Carbon Monoxide Detectors In Your Home? Yes [email or web address].[id number] [id number] Information not available 10/26/2022 At What Age Did You Start Smoking Tobacco? 17 [email or web address].0301 [id number] Information not available 10/26/2022 Are You Passively Exposed To Smoke? Yes [email or web address].0301 [id number] Information not available 10/26/2022 Do You Or Have You Ever Used Smokeless Tobacco? Never Used Smokeless Tobacco Information not available 11/07/2024 Are There Any Smokers In Your House? Yes [email or web address].[id number] [id number] Information not available 10/26/2022 How Much Tobacco Do You Smoke? 0.5 PPD Down Fom 1ppd Information not available 11/07/2024 Do You Feel Stressed (tense, Restless, Nervous, Or Anxious, Or Unable To Sleep At Night)? [id number] [email or web address].0301 [id number] Information not available 10/26/2022 Do You Use Any Illicit Or Recreational Drugs? No [email or web address].0301 [id number] Information not available 10/26/2022 Do You Use Sunscreen Routinely? Yes [id number].[id number] Information not available 10/26/2022 Has Tobacco Cessation Counseling Been Provided? Yes [email or web address] Information not available 01/04/2024 On What Date Was Tobacco Cessation Counseling Provided? 01/04/2024 [email or web address] Information not available 01/04/2024 How Many Years Have You Smoked Tobacco? 60 [email or web address] Information not available 01/04/2024 Have You Recently Traveled Abroad? No MIGRATION.0301 [id number] Information not available 10/26/2022 Do You Have Any Dietary Restrictions? No MIGRATION.0301 [id number] Information not available 10/26/2022 Do You Or Have You Ever Used Any Other Forms Of Tobacco Or Nicotine? Yes Information not available 11/07/2024 Sex: Female Functional Status Question Answer Note LastModified by Organizat ion Details LastModified Time Do you have difficulty walking or climbing stairs? No [id number] [id number] Information not available 10/26/2022 Do you have transportation difficulties? No MIGRATION.[id number] 026 Information not available 10/26/2022 Are you able to walk? YESWOREST MIGRATION.[id number] 026 Information not available 10/26/2022 Do you have difficulty doing errands alone? No MIGRATION.[id number] 026 Information not available 10/26/2022 Are you able to care for yourself? Yes MIGRATION.[id number] 026 Information not available 10/26/2022 Do you have difficulty dressing or bathing? No MIGRATION.[id number] 026 Information not available 10/26/2022 What is your exercise level? None MIGRATION.[id number] 026 Information not available 10/26/2022 Mental Status Question Answer Note LastModified by Organizat ion Details LastModified Time Do you have difficulty concentrating, remembering or making decisions? No [id number].[id number] 6 Information not available 10/26/2022 Family History Relationship Description Onset Age of this Age Resolved Age Notes LastModified by Organization Details LastModified Time Father Heart disease [email or web address] Not available 02/2023 16:52:03 Medical History Condition Response NERVE DISEASE N BLINDNESS N RHEUMATIC FEVER N KIDNEY STONES N BLADDER PROBLEMS N MRSA N OTHER # 1 Y POLIO N LUNG DISEASE/DISORDER N HISTORY OF DRUG ABUSE N RADIATION / CHEMOTHERAPY N COPD Y Other # 2 Y BLOOD DISEASES N EAR OR HEARING PROBLEMS N MUMPS N SHINGLES N BOWEL PROBLEMS N DEPRESSION (INCLUDING POST ) N STROKE/TIA N ULCERS N BENIGN PROSTATIC HYPERPLASIA N MEASLES N HYPOTENSION N MYOCARDIAL INFARCTION N OBESITY N GERD/NAUSEA N ANEURYSM N URINARY/BLADDER/KIDNEY PROBLEMS N CORONARY ARTERY DISEASE (CAD) Y ADDICTION CONCERNS N Impotence N ENDOMETRIOSIS N USE OF BLOOD THINNERS N SKIN PROBLEMS N GASTROINTESTINAL DISORDER N PERIPHERAL VASCULAR DISEASE N MUSCLE,JOINT OR BONE PROBLEMS N GASTROINTESTINAL BLEEDING N BLOOD CLOTS N ASTHMA N CATARACTS N ERECTILE DYSFUNCTION N VARICOSITIES N GI PROBLEMS N Low Testosterone N INFERTILITY N AIDS/HIV N CHEMOTHERAPY / RADIATION N LIVER DISEASE N MALE HYPOGONADISM N HYPERTENSION Y Deficiency Y TOURETTE'S N ANXIETY DISORDER N BLOOD TRANSFUSION N ANEMIA/BLOOD DISORDER Y CHRONIC EAR INFECTIONS N BRONCHITIS N TUBERCULOSIS N GLAUCOMA N FOOT PROBLEM N DIVERTICULITIS N SLEEP APNEA N CHICKENPOX N INFECTIOUS DISEASE N PROSTATE N HEART ARRHYTHMIA N INSOMNIA N HIGH CHOLESTEROL / HYPERLIPIDEMIA Y EYE PROBLEMS Y HYPERTHYROIDISM N EDEMA N CHRONIC PAIN SYNDROME N HYPOTHYROIDISM N CONSTIPATION N CAROTID BLOCKAGE N BACK / NECK PROBLEMS N HAVE YOU BEEN HOSPITALIZED OR SEEN IN [facility] IN THE PAST YEAR ? N ATHEROSCLEROSIS N BREAST PROBLEMS N DIALYSIS N ECZEMA Y OSTEOPOROSIS Y ARTHRITIS Y APPENDICITIS N DIABETES, TYPE N BAD TEETH N ENT N HEARTBURN / REFLUX N AUTISM SPECTRUM DISORDER (ASD) N HEPATITIS / LIVER DISEASE N GOUT N SLEEP DISORDER N ALZHEIMER'S DISEASE N Brain Problems N DEMENTIA N HERPES N SEIZURES/EPILEPSY N HEADACHES/MIGRAINES N VASCULAR DISEASE N PACEMAKER N Blood Disorder N DIZZINESS N HEART DISEASE/HEART PROBLEMS N KIDNEY DISEASE N MULTIPLE SCLEROSIS N CANCER: SPECIFY N CARDIAC ARRHYTHMIA N ATRIAL FIBRILLATION N Gall Stones N PULMONARY EMBOLISM N AUTOIMMUNE DISEASE N Gynecological HistoryNo gynecological history recorded. Obstetrics History GPAL:G 0 P 0 0 0 0 Immunizations Vaccine Type Date Status Note Provider Nam e and Address Organization Details Recorded Time Influenza, high-dose, quadrivalent, PF 0 completed CELSO Palomares, [employer] 11/07/2024 14:54:55 Influenza, adjuvanted, quadrivalent, PF 2 completed CELSO Palomares, [facility] 11/07/2024 14:54:55 Influenza, adjuvanted, quadrivalent, PF 1 [facility]/07/2024 14:54:56 RSV, bivalent, protein subunit RSVpreF, diluent reconstituted, 0.5 mL, PF 4 completed [facility] 11/07/2024 14:55:11 COVID-19, mRNA, LNP-S, PF, bertha-sucrose, 30 mcg/0.3 mL 4 completed [facility] 11/07/2024 14:55:11 Influenza, high-dose, trivalent, PF 2 completed Not Available [facility] 07/03/2023 07:03:28 Influenza, high-dose, trivalent, PF 9 completed NAHUM PalomaresA lili, [facility] 11/07/2024 14:54:56 Influenza, high-dose, trivalent, PF 8 completed CELSO Palomares, [facility] 11/07/2024 14:54:56 pneumococcal polysaccharide PPV23 7 completed Not Available [facility] 07/03/2023 07:03:28 COVID-19, mRNA, LNP-S, PF, 100 mcg/0.5mL dose or 50 mcg/0.25mL dose 1 completed Maddie Landa RMA lili, [facility] 11/07/2024 14:54:56 COVID-19, mRNA, LNP-S, PF, 100 mcg/0.5mL dose or 50 mcg/0.25mL dose 1 completed Maddie Landa RMA lili, [facility] 11/07/2024 14:54:56 COVID-19, mRNA, LNP-S, PF, 100 mcg/0.5mL dose or 50 mcg/0.25mL dose 1 completed CELSO Palomares, [employer] 11/07/2024 14:54:56 Influenza, high-dose, trivalent, PF 0 completed CELSO Palomares, [facility] [employer] 11/07/2024 14:54:56 Influenza, high-dose, trivalent, PF 9 completed Not Available [facility] 07/03/2023 07:03:28 Influenza, high-dose, trivalent, PF 8 completed Not Available [facility] 07/03/2023 07:03:28 Tdap 6 completed Not Available [facility] 07/03/2023 07:03:28 Influenza, high-dose, trivalent, PF 7 completed Not Available [facility] 07/03/2023 07:03:28 Influenza, split virus, trivalent, PF 3 completed CELSO Palomares, [employer] 11/07/2024 14:54:56 Past Encounters Encounter ID Performer Location Encounter Start Date Encounter Closed Date Diagnosis/Indication Diagnosis SNOMED-CT Code Diagnosis ICD10 Code Diagnosis Note [id number] [facility] [address], [address] [address] 02/09/2021 00:00:00 02/09/2021 15:11:47 [id number] [facility] General Surgery [address] [address] 04/20/2021 00:00:00 04/20/2021 13:26:11 [id number] [facility] General Surgery [address] [address] 05/04/2021 00:00:00 05/04/2021 13:15:37 [id number] [facility] [place] [address] [facility], [address] [address] 06/17/2021 00:00:00 06/17/2021 12:16:46 [id number] [facility] [place] [address] [place] [address], [address] [place] [address] 10/04/2021 00:00:00 10/05/2021 15:45:00 [id number] [facility] [place] [address], [address] [place] [address] 10/14/2021 00:00:00 10/14/2021 13:11:31 [id number] [facility] Internal Med [place] [address] [facility] [address] [place] [address] 12/28/2021 00:00:00 02/17/2022 14:00:22 [id number] [facility] [place] [address], [facility] 4 [place] [address] 02/17/2022 00:00:00 02/17/2022 14:34:30 [id number] [facility] Internal [facility] [place] [address] [address] 05/03/2022 00:00:00 05/03/2022 12:56:02 [id number] [facility] [place] [address], [facility] 4 [place] [address] 05/30/2022 00:00:00 05/30/2022 11:23:19 [id number] [facility] Internal [facility] [place] [address] [address] 08/10/2022 00:00:00 08/10/2022 11:27:05 [id number] [facility] [place] [address], [facility] 4 [place] [address] 10/11/2022 00:00:00 10/11/2022 13:06:37 [id number] Fred calix MD [facility] Internal [facility] [place] [address] [facility] [address] [place] [address] 02/07/2023 10:55:01 02/07/2023 12:04:15 Screening - NAD [id number] Z13.9 C-scope: Cologuard 06/26/18,C ologuard 01/17/2022 : Neg Mammogram: 10/27/17: NegMammogr am: 12/14/18: NegMammogr am: 01/14/2022 : NegOrdered 02/07/2023 DEXA: 01/14/2022 : OP, see message 01/31/2022 , now on fosamax weekly PAP: not doing Get yearly flu shotUTD Tdap 03/04/16,a nd UTD pneumovax 23 05/22/2007 , declines any PVC #13shingle s vaccine, get this.UTD on COVID 19 vaccine RTC in 4 monthswith labsER if worseshe did verbalize her understand ing of the above Skin lesion 75232828 L98 [address] Mccartney and diagnosed with actinic keratosis, no surgery or procedure was done Coronary arteriosclerosis 46679441 I25.10 ECHO 09/28/2021 : EF 60%PFT 11/04/[address] [facility] 03/14/2022 On amlodipine 5mg dailyOn HCTZOn atenolol 50mg dailyOn lisinopril 40mg dailyGet labs Hyperlipidemia 16721715 E78.5 On simvastati n 40mg dailyGet labs Smoker 25165936 F17.200 Declines any imaging Does wellNow on chantix, given by Dr Ivan [facility] Open wound of right ankle [id number] 5675318 S91.001A S/p insect biteDr Ellen, next OV 10/03/2022 Vitamin D deficiency 347 32585 E55.9 COVID-19 823963473 U07.1 +ve in 08/19/2021 Does well now Chronic ob structive pulmonary disease 07385957 J44.9 XRay Chest: 12/04/2021 : [facility] ER: EmphysemaN eeds to see Dr Zavala pulmonary, declined see case 01/04/2022 Lung mass [id number] R91. 8 LDCT 09/28/2021 : Unclear if in the LLB or esophagus See case on 09/29/2021 She states she saw Dr Benson in [place] who said that she had no mass, get records and she did sign a ERNESTO today 12/28/2021 Addendum: 02/17/2022 10/28/2021 : Dr Marcelino Brasher U No longer noted on repeat CT on 10/28/2021 , f/u PRNDo LDCT in one year Edema of l ower extremity 663000077 R60.0 Eats a lot of TV dinners and chips, advised to cut back, and elevate her legsShe is to see Dr Hernandez Onychomycosis 707877891 B35.[address] Patel next 06/23/2022 Eruption noted, refill her triamcinol one, add nystatin Thyroid nodule 989886179 E04.1 US thyroid 01/26/2022 : 1.8cm nodule, L lobe ENT Dr Ravinder Gusman 02/15/2022 : Bx to be doneBx 03/02/2022 : NegUS thyroid ordered 02/07/2023 Pain of le ft ankle joint 7004348455 7475494 M25.572 S/p xrays 04/28/2022 Dr Patel 05/30/2022 , next 10/03/2022 Eczema 60783456 L30.9 Not satisfied with care with Dr Patel, will refer to Dr Thomas Neuropathy 027130723 G62 .9 C/o N/T in both her feet, states that she is to see Dr Hernandez, agreeable to start on gabapentin , all side effects explained Allergic rhinitis 483097 04 J30.9 Advised to use flonase and zyrtec, she does have flonase at homeFeels her cough is d/t her allergies Screening mammography 24 030508 Z12.31 [id number] Michoacano Zavala MD [facility] Pulmonolo gy [place] [address] [facility] 15 [place] [address] 02/22/2023 13:58:49 02/22/2023 15:21:24 Dyspnea on exertion 31164293 R06.09 R05.9 T78.40XS D89.9 J84.9 J47.9 Interstiti al lung disease 231838471 J84.9 Mild chron ic obstructive pulmonary disease 717786115 J44.9 Smoker 48748558 F17.218 F17.219 Z87.932 [id number] Danni Patel DPM [facility] [address], [address] [place] [address] 05/04/2023 16:45:07 05/04/2023 17:50:28 Dystrophia unguium 92750186 L60.3 Nails 1 through 10 were debrided with sharp mechanical debridemen t without incident. Nails were debrided and greater than 50% length and thickness where needed. Pain in toe 178146333 M7 9.674 M79.675 secondary to above Unable to cut own toenails 868847965 Z74.1 [id number] Fred calix MD [facility] Internal Med aMrtha [address] [facility] [place] [address] 05/29/2023 11:50:52 05/29/2023 13:05:18 Abdominal pain 94937722 R10.[address] abd/pelvis , may need to go to the ER Addendum: 05/29/2023 :CT noted, needs to see Dr Mccartney, patient did leave radiology inspite of stat hold and call Addendum: Did speak with Dr Mccartney, he will see her this , patient has no ride to see him tomorrowHe did want her to take levaquin, not augmentin, will send for that, ER if her symptoms worsen Gallstone [id number] K80. 20 [id number] Victor Hugo medeiros MD [facility] General Surgery [address] [address] 06/01/2023 11:24:24 06/01/2023 16:08:07 Abdominal pain 50686588 R10.9 Cholelithi asis without obstruction 38036322 K80.20 [id number] Victor Hugo medeiros MD [facility] General Surgery [address] [address] 06/15/2023 11:33:01 06/28/2023 13:53:39 Gallstone 322244446 K80.20 Ileal Gallstone [id number] Victor Hugo medeiros MD [facility] General Surgery [address] [place] [address] 06/29/2023 11:38:48 06/29/2023 17:18:00 [id number] Fred calix MD [facility] Internal Med [facility] [address] [place] [address] 08/08/2023 10:57:57 08/08/2023 11:28:50 Abdominal pain 69566676 R10.[address] abd/pelvis , may need to go to the ER Addendum: 05/29/2023 :CT noted, needs to see Dr Mccartney, patient did leave radiology inspite of stat hold and call Addendum: Did speak with Dr Mccartney, he will see her this , patient has no ride to see him tomorrowHe did want her to take levaquin, not augmentin, will send for that, ER if her symptoms worsen OV 08/08/2023 : Did see Dr Mccartney and f/u PRN Gallstone [id number] K80. [address] Mccartney 06/29/2023 , f/u PRN Screening - NAD 15187225 3 Z13.9 C-scope: Cologuard 06/26/18,C ologuard 01/17/2022 : Neg Mammogram: 10/27/17: NegMammogr am: 12/14/18: NegMammogr am: 01/14/2022 : NegMammogr am: 02/15/2023 : Neg DEXA: 01/14/2022 : OP, see message 01/31/2022 , now on fosamax weekly PAP: not doing Get yearly flu shotUTD Tdap 03/04/16,a nd UTD pneumovax 23 05/22/2007 , declines any PVC #13shingle s vaccine, get this.UTD on COVID 19 vaccineCan do RSV vaccine RTC in 4 monthswith labsER if worseshe did verbalize her understand ing of the above Skin lesion 07222164 L98 [address] Mccartney and diagnosed with actinic keratosis, no surgery or procedure was done Coronary arteriosclerosis 48381355 I25.10 ECHO 09/28/2021 : EF 60%PFT 11/04/[address] Ivan [facility] 07/24/2023 Dr Hernandez [facility] 03/14/2022 On amlodipine 5mg dailyOn HCTZOn atenolol 50mg dailyOn lisinopril 40mg dailyGet labs Hyperlipidemia 54413198 E78.5 On simvastati n 40mg dailyGet labs Smoker 82777781 F17.200 Declines any imaging Does wellNow on chantix, given by Dr Ivan [facility] Open wound of right ankle 8469686457 8322026 S91.001A S/p insect biteDr Patel Vitamin D deficiency 347 39614 E55.9 COVID-19 095694940 U07.1 +ve in 08/19/2021 Does well now Chronic ob structive pulmonary disease 74772873 J44.9 XRay Chest: 12/04/2021 : [facility] ER: Emphysema Needs to see Dr Zavala pulmonary, declined see case 01/04/2022 PFT 04/12/2023 : Moderate obstructio n, declines referral Lung mass 915245586 R91. 8 LDCT 09/28/2021 : Unclear if in the LLB or esophagus See case on 09/29/2021 She states she saw Dr Benson in [place] who said that she had no mass, get records and she did sign a ERNESTO today 12/28/2021 Addendum: 02/17/2022 10/28/2021 : Dr Benson [place] U No longer noted on repeat CT on 10/28/2021 , f/u PRNDo LDCT in one year LDCT 02/15/2023 : Mass in esophagus, needs to get EGD, see case 02/23/2023 Edema of l ower extremity 404841674 R60.0 Eats a lot of TV dinners and chips, advised to cut back, and elevate her legsShe is to see Dr Hernandez Onychomycosis 026022753 B35.[address] Patel, next 08/31/2023 Eruption noted, refill her triamcinol one, add nystatin Thyroid nodule 498443233 E04.1 US thyroid 01/26/2022 : 1.8cm nodule, L lobe ENT Dr Ravinder Gusman 02/15/2022 : Bx to be doneBx 03/02/2022 : NegUS thyroid ordered 02/07/2023 Pain of le ft ankle joint 0986036170 7165779 M25.572 S/p xrays 04/28/2022 Dr Patel 05/30/2022 , next 10/03/2022 Eczema 65652676 L30.9 Not satisfied with care with Dr Patel, will refer to Dr Thomas Neuropathy 290384671 G62 .9 C/o N/T in both her feet, states that she is to see Dr Hernandez, agreeable to start on gabapentin , all side effects explained Allergic rhinitis 639144 04 J30.9 Advised to use flonase and zyrtec, she does have flonase at homeFeels her cough is d/t her allergies Screening mammography 24 747509 Z12.31 Bursitis o f olecranon of left elbow 1865667750 46209 M70.22 Non tender, declines any referrals, 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 Nails were debrided and greater than 50% length and thickness where needed. Pain in toe 470910420 M7 9.674 M79.675 secondary to above [id number] Fred calix MD [facility] Internal Med [place] [address] [place] [address] 01/04/2024 11:57:38 01/04/2024 12:45:12 Screening - NAD 818321395 Z13.9 C-scope: Cologuard 06/26/18,C ologuard 01/17/2022 : Neg Mammogram: 10/27/17: NegMammogr am: 12/14/18: NegMammogr am: 01/14/2022 : NegMammogr am: 02/15/2023 : NegDecline d any more mammogram 01/04/2024 , advised to do SBE DEXA: 01/14/2022 : OP, see message 01/31/2022 , now on fosamax weekly PAP: not doing Get yearly flu shotUTD Tdap 03/04/16,a nd UTD pneumovax 23 05/22/2007 , declines any PVC #13shingle s vaccine, get this.UTD on COVID 19 vaccineCan do RSV vaccine RTC in 4 monthswith labsER if worseshgary and her daughter Merle did verbalize her understand ing of the above Abdominal pain 85730674 R10.[address] abd/pelvis , may need to go to the ER Addendum: 05/29/2023 :CT noted, needs to see Dr Mccartney, patient did leave radiology inspite of stat hold and call Addendum: Did speak with Dr Mccartney, he will see her this , patient has no ride to see him tomorrowHe did want her to take levaquin, not augmentin, will send for that, ER if her symptoms worsen OV 08/08/2023 : Did see Dr Mccartney and f/u PRN Gallstone [id number] K80. [address] Mccartney 06/29/2023 , f/u PRN Skin lesion 95123120 L98 [address] Mccartney and diagnosed with actinic keratosis, no surgery or procedure was done Coronary arteriosclerosis 30025639 I25.10 ECHO 09/28/2021 : EF 60%PFT 11/04/[address] Ivan [facility] 07/24/2023 Dr Hernandez SL 03/14/2022 Dr Hernandez SL 09/15/2023 Not on amlodipine 5mg dailyOn HCTZ 12.5mg daiyOn atenolol 50mg dailyOn lisinopril 40mg dailyGet labs Hyperlipidemia 84996106 E78.5 On simvastati n 40mg dailyGet labs Smoker 53867958 F17.200 Declines any imaging Does wellNow on chantix, given by Dr Ivan SLCan do nicotine gum Open wound of right ankle 1511190791 5965355 S91.001A S/p insect biteDr Ellen Vitamin D deficiency 347 44658 E55.9 COVID-19 686316548 U07.1 +ve in 08/19/2021 Does well now Chronic ob structive pulmonary disease 85789707 J44.9 XRay Chest: 12/04/2021 : [facility] ER: Emphysema Needs to see Dr Zavala pulmonary, declined see case 01/04/2022 PFT 04/12/2023 : Moderate obstructio n, declines referralGe t CT Chest Lung mass 580282925 R91. 8 LDCT 09/28/2021 : Unclear if in the LLB or esophagus See case on 09/29/2021 She states she saw Dr Benson in [place] who said that she had no mass, get records and she did sign a ERNESTO today 12/28/2021 Addendum: 02/17/2022 10/28/2021 : Dr Benson Wash U No longer noted on repeat CT on 10/28/2021 , f/u PRNDo LDCT in one year LDCT 02/15/2023 : Mass in esophagus, needs to get EGD, see case 02/23/2023 Edema of l ower extremity 466783856 R60.0 Eats a lot of TV dinners and chips, advised to cut back, and elevate her legsShe is to see Dr Hernandez Onychomycosis 367023803 B35.[address] Patel, next 08/31/2023 Eruption noted, refill her triamcinol one, add nystatin Thyroid nodule 203827726 E04.1 US thyroid 01/26/2022 : 1.8cm nodule, L lobeUS thyroid 12/18/2023 : Next in one year ENT Dr Ravinder Gusman 02/15/2022 : Bx to be doneBx 03/02/2022 : Neg Pain of le ft ankle joint 5207524999 5576993 M25.572 S/p xrays 04/28/2022 Dr Patel 05/30/2022 , next 10/03/2022 Eczema 69093257 L30.9 Not satisfied with care with Dr Patel, will refer to Dr Thomas Neuropathy 808815880 G62 .9 C/o N/T in both her feet, states that she is to see Dr Vardi, agreeable to start on gabapentin , all side effects explained Allergic rhinitis 208773 04 J30.9 Advised to use flonase and zyrtec, she does have flonase at homeFeels her cough is d/t her allergies Bursitis o f olecranon of left elbow 3694559975 40993 M70.22 Non tender, declines any referrals, 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, want to 'leave it alone', notify if worse or any symptoms, she is agreeable to that Screening for osteoporosis 022362266 Z13.820 Low back pain 388655104 M54.50 Feels that she needs to be on a 'muscle relaxer', no LBP now, just a dull ache in the R and L SIJ area, feels it could be 'sciatica' , No N/T or weakness in the legs or loss of bowel or bladder control, declines any Xrays or PT referrals, will send for cyclobenza osmany 10mg po daily PRN, all side effects explained to her Adult heal th examination 478700540 Z00.00 Screening for disorder 620978456 Z13.9 [id number] Danni Patel DPM [facility] Podiatry [place] [address] [facility], [address] [place] [address] 03/28/2024 11:03:59 03/29/2024 08:05:27 Pain in toe 313929370 M79.674 M79.675 secondary to above Dystrophia unguium 90089 009 L60.3 Nails 1 through 10 were debrided with sharp mechanical debridemen t without incident. Nails were debrided and greater than 50% length and thickness where needed. [id number] [facility] Internal Med [facility] [address], [address] [place] [address] 05/16/2024 12:01:18 05/16/2024 12:59:43 Abdominal pain 04119358 R10.[address] abd/pelvis , may need to go to the ER Addendum: 05/29/2023 :CT noted, needs to see Dr Mccartney, patient did leave radiology inspite of stat hold and call Addendum: Did speak with Dr Mccartney, he will see her this Thursday, patient has no ride to see him tomorrowHe did want her to take levaquin, not augmentin, will send for that, ER if her symptoms worsen OV 08/08/2023 : Did see Dr Mccartney and f/u PRNOV 05/16/2024 : Get CT C/A/P may need to see Dr Mccartney Screening - NAD 64159825 3 Z13.9 C-scope: Cologuard 06/26/18,C ologuard 01/17/2022 : Neg Mammogram: 10/27/17: NegMammogr am: 12/14/18: NegMammogr am: 01/14/2022 : NegMammogr am: 02/15/2023 : NegDecline d any more mammogram 01/04/2024 , advised to do SBE DEXA: 01/14/2022 : OP, see message 01/31/2022 , now on fosamax weekly PAP: not doing Get yearly flu shotUTD Tdap 03/04/16,a nd UTD pneumovax 23 05/22/2007 , declines any PVC #13shingle s vaccine, get this.UTD on COVID 19 vaccineCan do RSV vaccine RTC in 4 monthswith labsER if worseshe and her daughter Merle did verbalize her understand ing of the above Gallstone 883339125 K80. [address] Mccartney 06/29/2023 , f/u PRNSee case 05/14/2024 , will get US liver again, may need to see [facility] Skin lesion 59118323 L98 [address] Mccartney and diagnosed with actinic keratosis, no surgery or procedure was done Coronary arteriosclerosis 84373335 I25.10 ECHO 09/28/2021 : EF 60%PFT 11/04/[address] Ivan [facility] 07/24/2023 Dr Hernandez [facility] 03/14/2022 Dr Hernandez [facility] 09/15/2023 Not on amlodipine 5mg dailyOn HCTZ 12.5mg daiyOn atenolol 50mg dailyOn lisinopril 40mg dailyGet labs Hyperlipidemia [id number] E78.5 On simvastati n 40mg dailyGet labs Smoker 27404863 F17.200 Declines any imaging Does wellNow on chantix, given by Dr Iavn SLHVCan do nicotine gumLDCT 02/07/2024 Open wound of right ankle [id number] 0487222 S91.001A S/p insect biteDr Patel Vitamin D deficiency 347 53625 E55.9 COVID-19 942182120 U07.1 +ve in 08/19/2021 Does well now Chronic ob structive pulmonary disease 73288451 J44.9 On albuterol, renewed 05/16/2024 XRay Chest: 12/04/2021 : [facility] ER: Emphysema Needs to see Dr Zavala pulmonary, declined see case 01/04/2022 PFT 04/12/2023 : Moderate obstructio n, declines referralLD CT 02/07/2024 Lung mass 941008560 R91. 8 LDCT 09/28/2021 : Unclear if in the LLB or esophagus See case on 09/29/2021 She states she saw Dr Benson in [place] who said that she had no mass, get records and she did sign a ERNESTO today 12/28/2021 Addendum: 02/17/2022 10/28/2021 : Dr Benson Wash U No longer noted on repeat CT on 10/28/2021 , f/u PRNDo LDCT in one year LDCT 02/15/2023 : Mass in esophagus, needs to get EGD, see case 02/23/2023 Edema of l ower extremity 318905029 R60.0 Eats a lot of TV dinners and chips, advised to cut back, and elevate her legsShe is to see Dr Hernandez Onychomycosis 078727698 B35.[address] Patel, next 08/31/2023 Eruption noted, refill her triamcinol one, add nystatin Thyroid nodule 953716472 E04.1 US thyroid 01/26/2022 : 1.8cm nodule, L lobeUS thyroid 12/18/2023 : Next in one year ENT Dr Ravinder Gusman 02/15/2022 : Bx to be doneBx 03/02/2022 : Neg Pain of le ft ankle joint [id number] 7130904 M25.572 S/p xrays 04/28/2022 Dr Patel 05/30/2022 , next 10/03/2022 Eczema 81169017 L30.9 Not satisfied with care with Dr Patel, will refer to Dr Thomas Neuropathy 099336182 G62 .9 C/o N/T in both her feet, states that she is to see Dr Hernandez, agreeable to start on gabapentin , all side effects explained Allergic rhinitis 096637 04 J30.9 Advised to use flonase and zyrtec, she does have flonase at homeFeels her cough is d/t her allergies Bursitis o f olecranon of left elbow [id number] 64953 M70.22 Non tender, declines any referrals, 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, want to 'leave it alone', notify if worse or any symptoms, she is agreeable to that Screening for osteoporosis 718900467 Z13.820 Low back pain 480766751 M54.50 Feels that she needs to be on a 'muscle relaxer', no LBP now, just a dull ache in the R and L SIJ area, feels it could be 'sciatica' , No N/T or weakness in the legs or loss of bowel or bladder control, declines any Xrays or PT referrals, will send for cyclobenza osmany 10mg po daily PRN, all side effects explained to her OV 05/16/2024 : Get xrays now, ER if worse, can do flexerill as needed Esophageal mass 19446235 [address] Benson 03/30/[address] chest [id number] Fred calix MD [facility] [address] [facility], [address] [place] [address] 07/11/2024 10:54:28 07/11/2024 12:01:37 Abdominal pain 25950933 R10.[address] abd/pelvis , may need to go to the ER Addendum: 05/29/2023 :CT noted, needs to see Dr Mccartney, patient did leave radiology inspite of stat hold and call Addendum: Did speak with Dr Mccartney, he will see her this , patient has no ride to see him tomorrowHe did want her to take levaquin, not augmentin, will send for that, ER if her symptoms worsen OV 08/08/2023 : Did see Dr Mccartney and f/u PRNOV 05/16/2024 : Get CT C/A/P may need to see Dr Mccartney CT A/P 06/06/2204 : GE junction thickening , needs to see GI Screening - NAD 48026551 3 Z13.9 C-scope: Cologuard 06/26/18,C ologuard 01/17/2022 : Neg Mammogram: 10/27/17: NegMammogr am: 12/14/18: NegMammogr am: 01/14/2022 : NegMammogr am: 02/15/2023 : NegDecline d any more mammogram 01/04/2024 , advised to do SBE DEXA: 01/14/2022 : OP, see message 01/31/2022 , now on fosamax weekly PAP: not doing Get yearly flu shotUTD Tdap 03/04/16,a nd UTD pneumovax 23 05/22/2007 , declines any PVC #13shingle s vaccine, get this.UTD on COVID 19 vaccineCan do RSV vaccine Handicap parking filled out 07/11/2024 RTC in 6 months as per her wisheswith labsER if worseshe and her daughter Merle did verbalize her understand ing of the above Gallstone 316040268 K80. [address] Mccartney 06/29/2023 , f/u PRNSee case 05/14/2024 , will get US liver again, may need to see G Surgery Skin lesion 64467988 L98 [address] Mccartney and diagnosed with actinic keratosis, no surgery or procedure was done Coronary arteriosclerosis 73665140 I25.10 ECHO 09/28/2021 : EF 60%PFT 11/04/[address] Ivan SL 07/24/2023 Dr Hernandez SL 03/14/2022 Dr Hernandez SL 09/15/2023 Not on amlodipine 5mg dailyOn HCTZ 12.5mg daiyOn atenolol 50mg dailyOn lisinopril 40mg dailyGet labs Hyperlipidemia 90789402 E78.5 On simvastati n 40mg dailyGet labs Smoker 06124365 F17.200 Declines any imaging Does wellNow on chantix, given by Dr Ivan SLHVCan do nicotine gumLDCT 02/07/2024 Open wound of right ankle [id number] 8231385 S91.001A S/p insect biteDr Patel Vitamin D deficiency 347 34286 E55.9 COVID-19 271043470 U07.1 +ve in 08/19/2021 Does well now Chronic ob structive pulmonary disease 08365623 J44.9 On albuterol, renewed 05/16/2024 XRay Chest: 12/04/2021 : [facility] ER: Emphysema Needs to see Dr Zavala pulmonary, declined see case 01/04/2022 PFT 04/12/2023 : Moderate obstructio n, declines referralLD CT 02/07/2024 Lung mass 224072441 R91. 8 LDCT 09/28/2021 : Unclear if in the LLB or esophagus See case on 09/29/2021 She states she saw Dr Benson in [place] who said that she had no mass, get records and she did sign a ERNESTO today 12/28/2021 Addendum: 02/17/2022 10/28/2021 : Dr Benson Wash U No longer noted on repeat CT on 10/28/2021 , f/u PRNDo LDCT in one year LDCT 02/15/2023 : Mass in esophagus, needs to get EGD, see case 02/23/2023 Edema of l ower extremity 076837038 R60.0 Eats a lot of TV dinners and chips, advised to cut back, and elevate her legsShe is to see Dr Hernandez Onychomycosis 705564140 B35.[address] Patel, next 08/31/2023 Eruption noted, refill her triamcinol one, add nystatin Thyroid nodule 779705853 E04.1 US thyroid 01/26/2022 : 1.8cm nodule, L lobeUS thyroid 12/18/2023 : Next in one year ENT Dr Ravinder Gusman 02/15/2022 : Bx to be doneBx 03/02/2022 : Neg Pain of le ft ankle joint 8280620266 6485349 M25.572 S/p xrays 04/28/2022 Dr Patel, next apt 08/01/2024 Eczema 17384609 L30.9 Not satisfied with care with Dr Patel, will refer to Dr Thomas Neuropathy 958208477 G62 .9 C/o N/T in both her feet, states that she is to see Dr Hernandez, agreeable to start on gabapentin , all side effects explained Allergic rhinitis 695144 04 J30.9 Advised to use flonase and zyrtec, she does have flonase at homeFeels her cough is d/t her allergies Bursitis o f olecranon of left elbow 3965897265 39440 M70.22 Non tender, declines any referrals, 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, want to 'leave it alone', notify if worse or any symptoms, she is agreeable to that Screening for osteoporosis 264853341 Z13.820 Low back pain 405965530 M54.50 Feels that she needs to be on a 'muscle relaxer', no LBP now, just a dull ache in the R and L SIJ area, feels it could be 'sciatica' , No N/T or weakness in the legs or loss of bowel or bladder control, declines any Xrays or PT referrals, will send for cyclobenza osmany 10mg po daily PRN, all side effects explained to her OV 05/16/2024 : Get xrays now, ER if worse, can do flexerill as needed OV 07/11/2024 : Does well today, takes flexerill as neededWill start on tramadol as she does have 'days' when she cannot tolerate the pain in the lower back, she denies any N/T or weakness in the legs, no loss of bowel or bladder control Esophageal mass 57488398 [address] Benson 03/30/2024 CT C/A/P 06/06/2024 Needs to see GI referred but she states that she will 'think' about it [id number] Danni Patel DPM [facility] Pod[facility] [address], [address] [place] [address] 08/01/2024 11:29:42 08/23/2024 14:38:09 Dystrophia unguium 81066084 L60.3 Nails 1 through 10 were debrided with sharp mechanical debridemen t without incident. Nails were debrided and greater than 50% length and thickness where needed. Pain in toe 340581244 M7 9.674 M79.675 secondary to above Unable to cut own toenails 343959567 Z74.1 [id number] Fred calix MD [facility] [address] [facility], [address] [place] [address] 11/07/2024 14:46:41 11/07/2024 15:43:55 Abdominal pain 37354284 R10.[address] abd/pelvis , may need to go to the ER Addendum: 05/29/2023 :CT noted, needs to see Dr Mccartney, patient did leave radiology inspite of stat hold and call Addendum: Did speak with Dr Mccartney, he will see her this , patient has no ride to see him tomorrowHe did want her to take levaquin, not augmentin, will send for that, ER if her symptoms worsen OV 08/08/2023 : Did see Dr Mccartney and f/u PRNOV 05/16/2024 : Get CT C/A/P may need to see Dr Mccartney CT A/P 06/06/2204 : GE junction thickening , needs to see GI OV 11/07/2024 : See CT A/P, needs to be seen by GI for the esophageal thickening Is to see GI in 12/12/2024 for EGD as per her history in [facility] t on nexium 40mg daily and see if this will helpShe has not wanted any CT A/P today Chronic ob structive pulmonary disease 28092396 J44.9 On albuterol, renewed 05/16/2024 XRay Chest: 12/04/2021 : [facility] ER: Emphysema Needs to see Dr Sally borges, declined see case 01/04/2022 PFT 04/12/2023 : Moderate obstructio n, declines referralLD CT 02/07/2024 OV 11/07/2024 :Has noted a cough, is agreeable to see pulmonary now, referred to Dr Shepherd give airsupra instead of albuterol Lung mass 901988223 R91. 8 LDCT 09/28/2021 : Unclear if in the LLB or esophagus See case on 09/29/2021 She states she saw Dr Benson in [place] who said that she had no mass, get records and she did sign a ERNESTO today 12/28/2021 Addendum: 02/17/2022 10/28/2021 : Dr Benson Wash U No longer noted on repeat CT on 10/28/2021 , f/u PRNDo LDCT in one year LDCT 02/15/2023 : Mass in esophagus, needs to get EGD, see case 02/23/2023 OV 11/07/2024 : Has an apt with GI Esophageal mass 49764389 [address] Benson 03/30/2024 CT C/A/P 06/06/2024 Needs to see GI referred but she states that she will 'think' about it OV 11/07/2024 : Now has a GI apt on 12/12/2024 Cigarette smoker 6474713 7 F17.210 1 PPD and also vapesAdvis ed to quit!Get a referral to Dr Zavala pulmonary [id number] Charlee Gomez, [place] [facility] [address] [place] [address] 11/12/2024 11:27:18 11/15/2024 14:57:48 Chronic obstructive pulmonary disease 81960214 J44.9 J43.9 Use Albuterol inhaler as neededCAT- 24PFT orderRevie wed labs from last year-no eosinophil s, no severe allergies, Alpha 1 negative and CXR negativeDu e to hx of smoking will consider Lung scan-does not want to do right nowEncoura ge to maintain vaccines when dueF/u with PMD for any new labsF/u with me in 3 months-gabe l call if needs Albuterol (has some at home)Aware to call if any changes in symptoms or increase in use of Albuterol- severe symptoms ER Bronchiectasis 77806700 J47.9 Dyspnea on exertion 6084 5006 R06.09 Lab work todayCAT-2 4Mmrc-3PFT for baselineAw are to use Albuterol inhaler as needed-ok to use when sobEncoura ge patient to remain activefoll ow-up once testing is complete-s ooner for any changes in breathing and increase use of inhaler Smoker 68508104 F17.200 Patient is a smoker and has been counseled to quit. We discussed the many reasons to quit smoking. We discussed the various methods of smoking cessation, .Total time with patient counseling patient * minutes. Health Concerns Section Related Observation LastModified by Organization Detai ls LastModified Time None Recorded Concern Status LastModified by Organization Details LastModified Time None Recorded Advance Directives Directive Y: Payers Encounter Date Sequence Insurance Name Policy Number Policy Sy Covered Member ID Sy Member ID Guarantor Name 05/16/2024 1 [place] Leatha E Sendy [id number] Leatha Ethal Sendy 05/16/2024 2 [place] [id number] Leatha E Sendy [id number] Leatha Ethal Sendy 07/11/2024 1 [place] Leatha E Sendy [id number] Leatha Ethal Sendy 07/11/2024 2 [place] [id number] Leatha E Sendy [id number] Leatha Ethal Sendy 08/01/2024 1 [place] Leatha E Sendy [id number] Leatha Ethal Sendy 08/01/2024 2 [place] [id number] Leatha E Sendy [id number] Leatha Ethal Sendy 11/07/2024 1 [place] Leatha E Sendy [id number] Leatha Ethal Sendy 11/07/2024 2 [place] [id number] Leatha E Sendy [id number] Leatha Ethal Sendy 11/12/2024 1 [place] Leatha E Sendy [id number] 65 Leatha Ethal Sendy 11/12/2024 2 [place] [id number] Leatha E Sendy [id number] Leatha Ethal Sendy Notes Date Note Type Note Provider Name and Address Organization Details Recorded Time 05/16/2024 text/html 03/30/17Here to establish carePast Hx:HTNHLDReviewed social, surgical and family historyHere to get labs and review the above, she states that she has a spot on the groin on the R side.She feels that it does get sore and red and there was some d/c.No fevers, chills.She also wants to discuss getting her c-scope, mammogram and DEXA.She also wants to check moles on her faceOV 08/08/17:Here for her routine apt, she did do the labs on 07/13/17, she did also see Dr Clark for a R groin abscessShe also has had neuropathy since a 'long time', wants a pill, c/o N/T in elo feetShe also sees a program support clerk now for foot nail fungusShe also has some pain in the right ribs when she leaned over her rocking chair, feels sore, can take a deep breathOV 12/05/17:Here for her routine aptShe states that she is doing well at this time, she did do the labs and feels that she is doing very well OV 06/05/18:Here for her 6 month aptShe states that she does also want a flu shotShe did do the labs on 05/29/18 OV 12/04/18:Here for her 6 month aptShe states that she is doing wellNo recent labsShe declined a MWV today OV 06/04/19:Here for her routine aptShe feels wellNo recent labs since 12/14/18OV 01/23/2020:Here for her routine aptShe feels wellShe did do the labsShe does have some L shoulder pain, states that she was painting and noted the pain in the shoulderShe states that she has this for 6 months or Jefferson N/T or weakness in the L shoulderShe is RHD OV 04/08/2020:ACV:Here with a lesion on the L thigh, it has gotten bigger and is rough and catches to her clothesNot tenderOV 09/08/2020:Here for her routine aptShe is doing very wellShe does have her adult children who come to her house and who do not wear masksShe has done the labsOV 12/28/2021:Here for her routine apt, she is doing wellShe has no recent labsOV 05/03/2022:Here for her f/u aptRoxy feels well but did 'stump' her L ankle on her dresser, now has swelling and pain, she did go to the ER and get xraysShe has done her labsOV 08/10/2022:Here for her f/u apt, does well, but she does have a nagging cough, non productive, no fevers or chills, no chest pain or SOB, no wheezing noted, no new labs OV 02/07/2023: Here for her f/u apt, she is doing well today, she does need to do her labs OV 05/29/2023: ACV: C/o Abd pain, located in the lower abdomen, no N/V or diarrhea, no constipation, no fevers or chills, no blood in urine or stool, normal appetite, no UTI symptoms, no LBP OV 08/08/2023: Here for her f/u apt, she is doing well today, does have a swelling over the L elbow, no acute trauma that she can remember, no pain, no redness OV 01/04/2024: Here for her f/u apt, she is doing very well today, no recent labs OV 05/16/2024: Here for ACV, feels that the GB pain has returned, c/o pain in the Murtuza MD Trish [address] [facility], [address], [address], [place], [address], [place] [facility] 05/27/2024 19:03:54 07/11/2024 text/html 03/30/17Here to establish carePast Hx:HTNHLDReviewed social, surgical and family historyHere to get labs and review the above, she states that she has a spot on the groin on the R side.She feels that it does get sore and red and there was some d/c.No fevers, chills.She also wants to discuss getting her c-scope, mammogram and DEXA.She also wants to check moles on her faceOV 08/08/17:Here for her routine apt, she did do the labs on 07/13/17, she did also see Dr Clark for a R groin abscessShe also has had neuropathy since a 'long time', wants a pill, c/o N/T in elo feetShe also sees a program support clerk now for foot nail fungusShe also has some pain in the right ribs when she leaned over her rocking chair, feels sore, can take a deep breathOV 12/05/17:Here for her routine aptShe states that she is doing well at this time, she did do the labs and feels that she is doing very well OV 06/05/18:Here for her 6 month aptShe states that she does also want a flu shotShe did do the labs on 05/29/18 OV 12/04/18:Here for her 6 month aptShe states that she is doing wellNo recent labsShe declined a MWV today OV 06/04/19:Here for her routine aptShe feels wellNo recent labs since 12/14/18OV 01/23/2020:Here for her routine aptShe feels wellShe did do the labsShe does have some L shoulder pain, states that she was painting and noted the pain in the shoulderShe states that she has this for 6 months or Jefferson N/T or weakness in the L shoulderShe is RHD OV 04/08/2020:ACV:Here with a lesion on the L thigh, it has gotten bigger and is rough and catches to her clothesNot tenderOV 09/08/2020:Here for her routine aptShe is doing very wellShe does have her adult children who come to her house and who do not wear masksShe has done the labsOV 12/28/2021:Here for her routine apt, she is doing wellShe has no recent labsOV 05/03/2022:Here for her f/u aptShe feels well but did 'stump' her L ankle on her dresser, now has swelling and pain, she did go to the ER and get xraysShe has done her labsOV 08/10/2022:Here for her f/u apt, does well, but she does have a nagging cough, non productive, no fevers or chills, no chest pain or SOB, no wheezing noted, no new labs OV 02/07/2023: Here for her f/u apt, she is doing well today, she does need to do her labs OV 05/29/2023: ACV: C/o Abd pain, located in the lower abdomen, no N/V or diarrhea, no constipation, no fevers or chills, no blood in urine or stool, normal appetite, no UTI symptoms, no LBP OV 08/08/2023: Here for her f/u apt, she is doing well today, does have a swelling over the L elbow, no acute trauma that she can remember, no pain, no redness OV 01/04/2024: Here for her f/u apt, she is doing very well today, no recent labs OV 05/16/2024: Here for ACV, feels that the GB pain has returned, c/o pain in the OV 07/11/2024: Here for her f/u apt, she is doing well today Fred Chambers MD [address], [address], [place], [address], [employer] 07/15/2024 19:20:03 08/01/2024 text/html . Patient is a 79-year-old female she returns for routine foot care she denies any new complaints and would like her nails cut as she has difficulty cutting them in her nails are painful. Danni Patel DPM [address], [address], [place], [address], [employer] 08/01/2024 16:30:30 11/07/2024 text/html 03/30/17Here to establish carePast Hx:HTNHLDReviewed social, surgical and family historyHere to get labs and review the above, she states that she has a spot on the groin on the R side.She feels that it does get sore and red and there was some d/c.No fevers, chills.She also wants to discuss getting her c-scope, mammogram and DEXA.She also wants to check moles on her faceOV 08/08/17:Here for her routine apt, she did do the labs on 07/13/17, she did also see Dr Clark for a R groin abscessShe also has had neuropathy since a 'long time', wants a pill, c/o N/T in elo feetShe also sees a program support clerk now for foot nail fungusShe also has some pain in the right ribs when she leaned over her rocking chair, feels sore, can take a deep breathOV 12/05/17:Here for her routine aptShe states that she is doing well at this time, she did do the labs and feels that she is doing very well OV 06/05/18:Here for her 6 month aptShe states that she does also want a flu shotShe did do the labs on 05/29/18 OV 12/04/18:Here for her 6 month aptShe states that she is doing wellNo recent labsShe declined a MWV today OV 06/04/19:Here for her routine aptShe feels wellNo recent labs since 12/14/18OV 01/23/2020:Here for her routine aptShe feels wellShe did do the labsShe does have some L shoulder pain, states that she was painting and noted the pain in the shoulderShe states that she has this for 6 months or Jefferson N/T or weakness in the L shoulderShe is RHD OV 04/08/2020:ACV:Here with a lesion on the L thigh, it has gotten bigger and is rough and catches to her clothesNot tenderOV 09/08/2020:Here for her routine aptShe is doing very wellShe does have her adult children who come to her house and who do not wear masksShe has done the labsOV 12/28/2021:Here for her routine apt, she is doing wellShe has no recent labsOV 05/03/2022:Here for her f/u aptShe feels well but did 'stump' her L ankle on her dresser, now has swelling and pain, she did go to the ER and get xraysShe has done her labsOV 08/10/2022:Here for her f/u apt, does well, but she does have a nagging cough, non productive, no fevers or chills, no chest pain or SOB, no wheezing noted, no new labs OV 02/07/2023: Here for her f/u apt, she is doing well today, she does need to do her labs OV 05/29/2023: ACV: C/o Abd pain, located in the lower abdomen, no N/V or diarrhea, no constipation, no fevers or chills, no blood in urine or stool, normal appetite, no UTI symptoms, no LBP OV 08/08/2023: Here for her f/u apt, she is doing well today, does have a swelling over the L elbow, no acute trauma that she can remember, no pain, no redness OV 01/04/2024: Here for her f/u apt, she is doing very well today, no recent labs OV 05/16/2024: Here for ACV, feels that the GB pain has returned, c/o pain in the OV 07/11/2024: Here for her f/u apt, she is doing well today OV 11/07/2024: Here for her apt for abdominal pain, no N/V or diarrhea, no fevers or chills, no blood in urine or stool, states that her appetite is now normal Fred Chambers MD [address], [address], [place], [address], [facility] [employer] 12/06/2024 10:29:32 11/12/2024 text/html COPDReported bypatient.Severity:use s nebulizer/inhaler an average of 7 times/week lately Onset/Timing:chronic: slowly much worse Context:cigarette smoking; recurrent bronchopulmonary infections Modifying Factors:relieved with bronchodilator; worse with cigarette smoking; worse in a supine position; worse with exertion Associated Symptoms:no snoring; no excessive daytime sleepiness; no arousals from sleep; no decrease in exercise capacity; no coughing up sputum; no fever; no wheezing; no weight loss; no depression;dyspnea exertional;decrease in exercise capacity;fatigue;cough ing up sputum clear / white and frothy;cough looseNotes:1/2 ppd 60 yearslast pft-03/2020 Charlee Gomez NP [address], [address], [place], [address], [place] [facility] 11/12/2024 15:10:36 OBGyn Episode No OBEpisode recorded.
--- OUTSIDE RECORDS SUMMARY | 2024-12-12 00:40 | XMS_ITS | CONTINUITY OF CARE DOCUMENT ---
Author Name lena paredes Address Unknown Organization [facility] Address [address] [place] [address] Phone [phone] Care Team Providers Care Manufacturing Storeperson Name Role Phone Eliceo SIMPSON, Jade Unavailable FRED TELLO MD Unavailable FRED TELLO MD Unavailable PROBLEMS Condition Status Date Provider Notes HTN--echo ef nl, stress test nl, 09/2024 active Thanh Marroquinzavinita CHEST PAIN-01/07 NUC EF 52 completed - Jade hrust MD CAD -03/10 Patent stent RCA, 20% lesion LAD EF of 60%, Nl stress nuc 04/2020 active Jade Fenton MD HYPERCHOLESTEROLEMIA completed - Jade Fenton MD BRADYCARDIA, SINUS completed - Jade Fenton MD TOBACCO ABUSE active ? Jade Fenton MD LEG PAIN- Abnl [place] below the knee 01/2021 active Jade Fenton MD HTN-12/30 CAROTID NEG completed - Jade Fenton MD Hyperlipidemia active Jaed Fenton MD COPD active Jade Fenton MD ARTHRITIS active Jade Fenton MD Shortness of breath active Jade Fenton MD SARS-associated coronavirus--07/2021 active Jade Fenton MD Lung mass, - being worked up completed 202 09/29/03 - Jade Fenton MD Leg edema, bilateral active Radha bhatti Venous insufficiency active Rodney Hernandez MD Mass,esophagus ? seen on CT - work up in progress completed - Jade Fenton MD Cardiology examination active Thanh Ahmedzavinita Cough active Thanh Ahmedzai ENCOUNTERS Date Type Provider Location Encounter Diag nosis 4 - 4 In-person encounter Office Visit Jade Fenton MD [facility] HTN--echo ef nl, stress test nl, 09/2024 1 - 1 In-person encounter Office Visit Jade Fenton MD [facility] Cough 1 - 1 In-person encounter Office Visit Jade Fenton MD [facility] Mass,esophagus ? seen on CT - work up in progressCardiology examination 0 - 0 In-person encounter Office Visit Gage Munoz MD [facility] 7 - 7 In-person encounter Office Visit Jade Fenton MD [facility] HTN--echo ef nl, stress test nl, 09/2024 1 - 1 In-person encounter Office Visit Jade Fenton MD [facility] Mass,esophagus ? seen on CT - work up in progress 1 - 1 In-person encounter Office Visit Jade Fenton MD [facility] 5 - 1 In-person encounter Office Visit Rodney Hernandez MD [facility] Venous insufficiency 4 - 4 In-person encounter Office Visit Jade Fenton MD [facility] 8 - 8 In-person encounter Office Visit Rodney Hernandez MD [facility] Leg edema, bilateral 9 - 9 In-person encounter Office Visit Jade Fenton MD [facility] Lung mass, - being worked up 1 - 1 In-person encounter Office Visit Jade Fenton MD [facility] HTN--echo ef nl, stress test nl, 09/2024Shortness of breathSARS-associated coronavirus--07/2021 3 - 3 In-person encounter Office Visit Jade Fenton MD [facility] CAD -03/10 Patent stent RCA, 20% lesion LAD EF of 60%, Nl stress nuc 04/2020LEG PAIN- Abnl [place] below the knee 01/2021 6 - 6 In-person encounter Office Visit Jade Fenton MD [facility] 8 - 8 In-person encounter Office Visit Jade Fenton MD [facility] 8 - 8 In-person encounter Office Visit Jade Fenton MD [facility] 8 - 8 In-person encounter Office Visit Jade Fenton MD [facility] 7 - 7 In-person encounter Office Visit Jade Fenton MD [facility] 6 - 6 In-person encounter Office Visit Jade Fenton MD [facility] 9 - 9 In-person encounter Office Visit Jade Fenton MD [facility] COPDARTHRITIS 7 - 7 In-person encounter Office Visit Jade Fenton MD [facility] 2 - 2 In-person encounter Office Visit Jade Fenton MD [facility] 4 - 4 In-person encounter Office Visit Jade Fenton MD [facility] HYPERCHOLESTEROLEMIAHyperlipidemia 9 - 9 In-person encounter Office Visit Jade Fenton MD [facility] BRADYCARDIA, SINUS 0 - 0 In-person encounter Office Visit Jade Fenton MD [facility] 5 - 5 In-person encounter Office Visit Jade Fenton MD [facility] 7 - 7 In-person encounter Office Visit Jade Fenton MD [facility] HTN--echo ef nl, stress test nl, 5CHEST PAIN-01/07 NUC EF 52CAD -03/10 Patent stent RCA, 20% lesion LAD EF of 60%, Nl stress nuc 04/2020HTN-12/30 CAROTID NEG 5 - 5 In-person encounter Office Visit Jade Fenton MD [facility] 4 - 4 In-person encounter Office Visit Jade Fenton MD [facility] 1 - 1 In-person encounter Office Visit Jade Fenton MD [facility] 7 - 7 In-person encounter Office Visit Jade Fenton MD [facility] 2 - 2 In-person encounter Office Visit Jade Fenton MD [facility] 2 - 2 In-person encounter Office Visit Jade Fenton MD [facility] 1 - 2 In-person encounter Office Visit Jade Fenton MD [facility] 9 - 9 In-person encounter Office Visit Jade Fenton MD [facility] 2 - 2 In-person encounter Office Visit Jade Fenton MD [facility] 4 - 4 In-person encounter Office Visit Jade Fenton MD [facility] HTN--echo ef nl, stress test nl, 5CHEST PAIN-01/07 NUC EF 52CAD -03/10 Patent stent RCA, 20% lesion LAD EF of 60%, Nl stress nuc 04/2020TOBACCO ABUSELEG PAIN- Abnl [place] below the knee 01/2021 3 - 3 In-person encounter Office Visit Jade Fenton MD [facility] HYPERCHOLESTEROLEMIA VITAL SIGNS Date Observation Value Provider Body Mass Index (Ratio) 30.35 kg/m2 Dexter Fenton MD blood pressure, diastolic 91 mm[Hg] Nidia Medley blood pressure, systolic 145 mm[Hg] Josette Medley blood pressure, cuff size regular Nidia Medley pulse rate 81 /min Trinidad Kendall s oxygen saturation, oximetry 96 % Trinidad Medley weight E&M 173 [lb_av] Triniadd Kendall s height E&M 63.3 [in_i] Trinidad zhang Body Mass Index (Ratio) 30.18 kg/m2 Dexter Fenton MD blood pressure, diastolic 77 mm[Hg] Coby stern Carey blood pressure, systolic 139 mm[Hg] Nay cruz Carey oxygen saturation, oximetry 94 % [facility] respiratory rate E&M 12 /min [facility] weight E&M 172 [lb_av] [facility] height E&M 63.3 [in_i] [facility] blood pressure, cuff size regular [facility] Body Mass Index (Ratio) 30.11 kg/m2 Dexter Fenton MD blood pressure, diastolic 86 mm[Hg] Li [facility] blood pressure, systolic 128 mm[Hg] Kelly [facility]Logic blood pressure, cuff size regular Shaheen Hancock blood pressure, diastolic 86 mm[Hg] Ta bitha Hancock blood pressure, systolic 128 mm[Hg] Tab itha Santi oxygen saturation, oximetry 94 % Becka Hancock pulse rate 70 /min Becka Santi weight E&M 171.6 [lb_av] Becka Santi height E&M 63.3 [in_i] Becka Santi respiratory rate E&M 12 /min Becka Santi Body Mass Index (Ratio) 29.83 kg/m2 Kemar Munoz MD blood pressure, cuff size regular Ja rret blood pressure, diastolic 88 mm[Hg] Ja rret blood pressure, systolic 146 mm[Hg] Jar ret pulse rate 72 /min Michael respiratory rate E&M 16 /min Michael oxygen saturation, oximetry 95 % weight E&M 170 [lb_av] Michael height E&M 63.3 [in_i] Michael Body Mass Index (Ratio) 30.35 kg/m2 Dexter Fenton MD blood pressure, cuff size regular [facility] blood pressure, diastolic 87 mm[Hg] Ja rret blood pressure, systolic 158 mm[Hg] Jar ret pulse rate 84 /min Michael respiratory rate E&M 16 /min Michael oxygen saturation, oximetry 95 % Michael weight E&M 173 [lb_av] Michael height E&M 63.3 [in_i] Michael Body Mass Index (Ratio) 30.53 kg/m2 Dexter Fenton MD oxygen saturation, oximetry 96 % Thanh Esquivel pulse rate 63 /min Thanh Esquivel blood pressure, diastolic 89 mm[Hg] Ambrocio Esquivel blood pressure, systolic 168 mm[Hg] Rocío nery Esquivel weight E&M 174 [lb_av] Thanh Marroquingrace Body Mass Index (Ratio) 28.95 kg/m2 Dexter Fenton MD blood pressure, diastolic 76 mm[Hg] Marina booth Delgado blood pressure, systolic 140 mm[Hg] Jude helloy [place] oxygen saturation, oximetry 98 % Loni Delgado pulse rate 60 /min Loni carrington blood pressure, cuff size large Marina booth [place] respiratory rate E&M 16 /min Fariba vega Delgado weight E&M 165 [lb_av] Ines Lisethbobgary height E&M 63.3 [in_i] Loni carrington Body Mass Index (Ratio) 29.33 kg/m2 Rodney Hernandez MD blood pressure, cuff size regular Tr acy Lively blood pressure, diastolic 73 mm[Hg] Tr acy Lively blood pressure, systolic 141 mm[Hg] Tra cy Lively oxygen saturation, oximetry 94 % Merle Lively pulse rate 59 /min Merle Lively weight E&M 167.2 [lb_av] Merle Lively height E&M 63.3 [in_i] [facility] (Ratio) 29.30 kg/m2 Dexter Fenton MD blood pressure, diastolic 75 mm[Hg] Marian booth Delgado blood pressure, systolic 138 mm[Hg] Jude helle [place] oxygen saturation, oximetry 97 % Loni Delgado pulse rate 76 /min Loni carrington weight E&M 167 [lb_av] Loni carrington respiratory rate E&M 16 /min Fariba Delgado blood pressure, cuff size large Marina Delgado height E&M 63.3 [in_i] Loni Violet carrington Body Mass Index (Ratio) 29.90 kg/m2 Eda rangel lEle blood pressure, diastolic 81 mm[Hg] Li nkLogic blood pressure, systolic 149 mm[Hg] Kelly kLogic blood pressure, cuff size large Ta alec Van blood pressure, diastolic 81 mm[Hg] Ta alec Van blood pressure, systolic 149 mm[Hg] [facility] weight E&M 170.4 [lb_av] Yasmine Lehi respiratory rate E&M 18 /min [facility] oxygen saturation, oximetry 96 % [facility] pulse rate 83 /min [facility] height E&M 63.3 [in_i] [facility] Body Mass Index (Ratio) 30.00 kg/m2 Dexter Fenton MD blood pressure, diastolic 64 mm[Hg] Yumiko Pires blood pressure, systolic 126 mm[Hg] Warren Pires oxygen saturation, oximetry 98 % Jonna Pires pulse rate 54 /min Jonna figueredo respiratory rate E&M 16 /min Jeannette Pires weight E&M 171 [lb_av] Jonna figueredo blood pressure, cuff size regular Yumiko Pires height E&M 63.3 [in_i] Jonna Willy terell Body Mass Index (Ratio) 29.48 kg/m2 Dexter Fenton MD blood pressure, cuff size large Po Greene blood pressure, diastolic 80 mm[Hg] Po Greene blood pressure, systolic 140 mm[Hg] Ranjeet Greene oxygen saturation, oximetry 96 % Christian Greene respiratory rate E&M 18 /min Christian Greene pulse rate 84 /min Christian Greene weight E&M 168 [lb_av] Christian Greene height E&M 63.3 [in_i] Christian Greene Body Mass Index (Ratio) 29.12 kg/m2 Dexter Fenton MD blood pressure, diastolic 78 mm[Hg] Li nkLogic blood pressure, systolic 130 mm[Hg] Kelly kLogic blood pressure, cuff size regular Cy ntanupama Fenton blood pressure, diastolic 78 mm[Hg] Cy ntanupama Fenton blood pressure, systolic 130 mm[Hg] Aure brown Fenton pulse rate 56 /min Sarahbrown [place] oxygen saturation, oximetry 95 % Sarahbrown Fenton respiratory rate E&M 16 /min Sarah Fenton weight E&M 166 [lb_av] Sarahbrown [place] height E&M 63.3 [in_i] Sarah Campbel l Body Mass Index (Ratio) 28.77 kg/m2 Dexter Fenton MD blood pressure, cuff size regular Ke rri Sanjayuenenfdonna blood pressure, diastolic 80 mm[Hg] Ke rri Gruenenfeldnorm blood pressure, systolic 110 mm[Hg] Rebeca ri Yoselyn oxygen saturation, oximetry 96 % Samara Yoselyn respiratory rate E&M 16 /min Samara Krishna rios pulse rate 57 /min Samara Pam huddlestoner weight E&M 164 [lb_av] Samara Pam huddlestoner height E&M 63.3 [in_i] Samara Damarineearline lder Body Mass Index (Ratio) 28.42 kg/m2 Dexter Fenton MD blood pressure, diastolic 66 mm[Hg] To [facility] blood pressure, systolic 134 mm[Hg] Ton [facility] oxygen saturation, oximetry 95 % [facility] respiratory rate E&M 16 /min [facility] pulse rate 57 /min [facility] weight E&M 162 [lb_av] [facility] height E&M 63.3 [in_i] [facility] Body Mass Index (Ratio) 28.60 kg/m2 Dexter Fenton MD blood pressure, diastolic 74 mm[Hg] To [facility] blood pressure, systolic 129 mm[Hg] Ton [facility] oxygen saturation, oximetry 96 % [facility] pulse rate 64 /min [facility] respiratory rate E&M 16 /min [facility] weight E&M 163 [lb_av] [facility] height E&M 63.3 [in_i] [facility] Body Mass Index (Ratio) 29.48 kg/m2 Dexter Fenton MD blood pressure, diastolic 85 mm[Hg] To gloria Fenton MD blood pressure, systolic 153 mm[Hg] Ton jose Fenton MD oxygen saturation, oximetry 95 % [facility] respiratory rate E&M 16 /min [facility] pulse rate 60 /min [facility] weight E&M 168 [lb_av] [facility] height E&M 63.3 [in_i] [facility] Body Mass Index (Ratio) 29.83 kg/m2 Dexter Fenton MD oxygen saturation, oximetry 94 % Jade Fenton MD pulse rate 79 /min Jade Fenton MD blood pressure, diastolic 80 mm[Hg] To gloria Fenton MD blood pressure, systolic 130 mm[Hg] Kojo Fenton MD weight E&M 170 [lb_av] Jade Fenton MD height E&M 63.3 [in_i] Jade Fenton MD Body Mass Index (Ratio) 29.48 kg/m2 Dexter Fenton MD oxygen saturation, oximetry 96 % Chastity Jacquelin blood pressure, diastolic 74 mm[Hg] Ch astity Jacquelin blood pressure, systolic 142 mm[Hg] Vandana stity Jacquelin respiratory rate E&M 16 /min Chastit y Jacquelin pulse rate 65 /min Chastity Jacquelin weight E&M 168 [lb_av] Chastity Jacquelin height E&M 63.3 [in_i] Chastity Jacquelin Body Mass Index (Ratio) 30.53 kg/m2 Dexter Fenton MD blood pressure, diastolic 84 mm[Hg] Da tammie Marlen blood pressure, systolic 138 mm[Hg] Dac ia Marlen oxygen saturation, oximetry 96 % Cee Marlen respiratory rate E&M 16 /min Cee V oss pulse rate 57 /min Cee Marlen weight E&M 174 [lb_av] Cee Marlen height E&M 63.3 [in_i] Cee Marlen Body Mass Index (Ratio) 15.23 kg/m2 Dexter Fenton MD blood pressure, diastolic 85 mm[Hg] Aleksandra Parr blood pressure, systolic 174 mm[Hg] Alesia Parr oxygen saturation, oximetry 94 % Janes Parr respiratory rate E&M 18 /min Leticia Parr pulse rate 66 /min Janes chuahan weight E&M 86.8 [lb_av] Janes chauhan height E&M 63.3 [in_i] Janes Keen nson Body Mass Index (Ratio) 32.98 kg/m2 Dexter Fenton MD blood pressure, cuff size regular Ke rri Shamirdonna blood pressure, diastolic 94 mm[Hg] Ke rri Shamiroctavioer blood pressure, systolic 157 mm[Hg] Rebeca narayan Yoselyn oxygen saturation, oximetry 94 % Samara Barksdaledonna respiratory rate E&M 16 /min Samara Keller gabriel pulse rate 54 /min Samara Sanjaypasqualehenrikgary lder weight E&M 188 [lb_av] Samara Mtzhenrikgary lder height E&M 63.3 [in_i] Samara Pam huddleston blood pressure, resting Yes Nury tara Solomon height E&M 63.3 [in_i] Ines Juanito blood pressure, diastolic 79 mm[Hg] Quinn oreilly Katya blood pressure, systolic 167 mm[Hg] Carmenza page Aldana pulse rate 62 /min Faye [place] oxygen saturation, oximetry 96 % Faye [place] respiratory rate E&M 16 /min Faye Aldana Body Mass Index (Ratio) 33.16 kg/m2 Fran wade [place] weight E&M 189.0 [lb_av] Faye Aldana blood pressure, diastolic 79 mm[Hg] Aleksandra Parr blood pressure, systolic 141 mm[Hg] Alesia Parr pulse rate 58 /min Janes chauhan oxygen saturation, oximetry 95 % Janes Parr respiratory rate E&M 16 /min Leticia Parr Body Mass Index (Ratio) 32.21 kg/m2 Nadia Parr weight E&M 183.6 [lb_av] Janes monsivais Body Mass Index (Ratio) 32.81 kg/m2 [facility] blood pressure, diastolic 77 mm[Hg] An [facility] blood pressure, systolic 121 mm[Hg] Ane [facility]ads [facility] pulse rate 80 /min [facility]atris [facility] oxygen saturation, oximetry 94 % [facility] respiratory rate E&M 16 /min [facility]neatri s [facility] weight E&M 187 [lb_av] [facility] pressure, diastolic 70 mm[Hg] An ludy [facility] blood pressure, systolic 135 mm[Hg] Ane atris [facility] Body Mass Index (Ratio) 34.21 kg/m2 [facility] pulse rate 72 /min [facility] oxygen saturation, oximetry 97 % [facility] respiratory rate E&M 16 /min [facility] weight E&M 195 [lb_av] [facility] Body Mass Index (Ratio) 33.11 kg/m2 Priscila Carvalho blood pressure, tolic, second observation 93 mm[Hg] Margueritecate Carvalho blood pressure, syst olic, second observation 146 mm[Hg] Marguerite Carvalho blood pressure, diastolic 93 mm[Hg] Na trish Carvalho blood pressure, systolic 146 mm[Hg] Loida Carvalho pulse rate 69 /min Marguerite Carvalho oxygen saturation, oximetry 97 % Marguerite Carvalho respiratory rate E&M 16 /min Marguerite Carvalho weight E&M 188 [lb_av] Marguerite Carvalho Body Mass Index (Ratio) 32.05 kg/m2 Priscila celina Carvalho blood pressure, diastolic 96 mm[Hg] Na trish Carvalho blood pressure, systolic 150 mm[Hg] Loida leida Carvalho pulse rate 61 /min Marguerite Carvalho oxygen saturation, oximetry 97 % Marguerite Carvalho respiratory rate E&M 16 /min Marguerite Carvalho weight E&M 182 [lb_av] Marguerite Carvalho Body Mass Index (Ratio) 30.85 kg/m2 Ariel ph [place] blood pressure, diastolic 82 mm[Hg] Cheyenne seph [place] blood pressure, systolic 144 mm[Hg] Darrell eph [place] pulse rate 65 /min Todd [place] oxygen saturation, oximetry 98 % Todd [place] respiratory rate E&M 16 /min Todd [place] height E&M 63.3 [in_i] Todd [place] weight E&M 175.2 [lb_av] Todd [place] Body Mass Index (Ratio) 31.50 kg/m2 Maximo Marrero RN blood pressure, diastolic 74 mm[Hg] Jacinto Marrero RN blood pressure, systolic 130 mm[Hg] Maximo Marrero RN pulse rate 65 /min Maximo Marrero RN oxygen saturation, oximetry 94 % Maximo Marrero RN respiratory rate E&M 18 /min Maximo aguirre RN weight E&M 180 [lb_av] Maximo Marrero RN height E&M 63.5 [in_i] Maximo Marrero RN blood pressure, diastolic 69 mm[Hg] Jacinto Marrero RN blood pressure, systolic 125 mm[Hg] Maximo Marrero RN pulse rate 63 /min Maximo Marrero RN oxygen saturation, oximetry 97 % Maximo Marrero RN respiratory rate E&M 14 /min Maximo aguirre RN weight E&M 173 [lb_av] Maximo Marrero RN blood pressure, diastolic 70 mm[Hg] Cheyenne seph [place] blood pressure, systolic 128 mm[Hg] Darrell eph [place] pulse rate 71 /min Todd [place] oxygen saturation, oximetry 95 % Todd [place] respiratory rate E&M 20 /min Todd [place] weight E&M 177 [lb_av] Todd [place] blood pressure, diastolic 64 mm[Hg] Aleksandra mccarthy [place] blood pressure, systolic 124 mm[Hg] Alesia piña [place] pulse rate 76 /min Celestina [place] oxygen saturation, oximetry 93 % [facility] [place] respiratory rate E&M 18 /min [facility] [place] weight E&M 174 [lb_av] Celestina [place] oxygen saturation, oximetry 94 % Marie Blunt blood pressure, diastolic 78 mm[Hg] He ather Blunt blood pressure, systolic 137 mm[Hg] Hea ther Blunt pulse rate 70 /min Marie Blunt respiratory rate E&M 18 /min Marie Blunt weight E&M 178 [lb_av] Marie Blunt weight E&M 189 [lb_av] Todd [place] blood pressure, diastolic, right arm 76 m m[Hg] Todd [place] blood pressure, systolic, right arm 122 m m[Hg] Todd [place] blood pressure, diastolic 76 mm[Hg] Cheyenne seph [place] blood pressure, systolic 122 mm[Hg] Darrell eph [place] pulse rate 63 /min Todd [place] oxygen saturation, oximetry 95 % Todd [place] respiratory rate E&M 16 /min Todd [place] blood pressure, diastolic 70 mm[Hg] Cheyenne seph [place] blood pressure, systolic 118 mm[Hg] Darrell eph [place] pulse rate 64 /min Todd [place] respiratory rate E&M 16 /min Todd [place] oxygen saturation, oximetry 96 % Todd [place] weight E&M 190 [lb_av] Todd [place] blood pressure, diastolic 78 mm[Hg] Cheyenne seph [place] blood pressure, systolic 143 mm[Hg] Darrell eph [place] pulse rate 64 /min Todd [place] oxygen saturation, oximetry 97 % Todd [place] respiratory rate E&M 16 /min Todd [place] weight E&M 186 [lb_av] [facility] ALL[facility] Allergy Name Onset Date Reaction Criticality Status PLAVIX Low Criticality active RESULTS Date Observation Value Provider Reference Range Interpretation Location thyroid stimulating hormone, serum 0.504 ??IU/ML [facility] 0.270 - 4.200 very low density lipoproteins 17.8 mg/dL [facility] 5.0 - 40.0 LDL/HDL (low-density lipoprotein/high-den sity lipoprotein) ratio 1.3 RATIO [facility] - lipoprotein, beta, serum, point, quantitative, calculated 112.2 (?) [facility] 0.0 - 100.0 High HDL cholesterol, serum 87.0 mg/dL [facility] 45.0 - 65.0 High cholesterol, serum 217.0 mg/dL [facility] 0.0 - 200.0 High triglyceride, serum, fasting 89.0 mg/dL [facility] 0.0 - 150.0 anion gap, serum 11.8 [facility] - albumin/globulin ratio, serum 1.5 g/dL [facility] 1.1 - 2.5 globulin, serum 2.8 [facility] 2.3 - 3.8 urea nitrogen/creatinine ratio, serum 26.0 [facility] - Estimated Glomerular Filtration Rate (calc) 128.5 (?) [facility] 59.0 - chloride, serum 99.2 mmol/L [facility] 98.0 - 107.0 potassium, serum 4.6 mmol/L [facility] 3.5 - 5.1 sodium, serum 139.0 mmol/L [facility] 136.0 - 145.0 creatinine, serum 0.5 mg/dL [facility] 0.5 - 1.0 carbon dioxide, venous blood 28.0 mmol/L [facility] 23.0 - 31.0 albumin, serum 4.1 g/dL [facility] 3.5 - 5.2 calcium, serum 9.8 mg/dL [facility] 8.6 - 10.2 aspartate aminotransferase (SGOT), serum 19.0 1/L [facility] 0.0 - 32.0 alkaline phosphatase, serum 52.0 1/L [facility] 40.0 - 130.0 alanine aminotransferase (SGPT), serum 23.0 1/L [facility] 0.0 - 33.0 protein, total, serum 6.9 g/dL [facility] 6.6 - 8.7 bilirubin, serum, total 0.3 mg/dL [facility] 0.0 - 1.2 urea nitrogen, blood [facility].0 mg[facility] - 23.0 blood glucose, random 87.0 mg/dL [facility] 74.0 - 99.0 red blood cell distribution width, size density 45.8 fL [facility] - immature granulocytes, percentage of total cells, blood 0.2 % [facility] - nucleated red blood cells as percent of blood leukocytes 0.0 % [facility] - red blood cell (erythrocyte) count, per high power field 0.0 10*3/UL [facility] - eosinophils as percent of blood leukocytes 4.4 % [facility] neutrophils as percent of blood leukocytes 59.0 % [facility] - Absolute Neutrophils 3.5 CELLS/UL [facility] 1.5 - 7.8 basophils as percent of blood leukocytes 0.5 % [facility] - Absolute Basophils 0.0 CELLS/UL [facility] 0.0 - 0.2 monocytes as percent of blood leukocytes 7.4 % [facility] - Absolute Monocytes 0.4 CELLS/UL [facility] 0.2 - 1.0 lymphocytes as percent of blood leukocytes 28.5 % [facility] - Absolute Lymphocytes 1.7 CELLS/UL [facility] 0.9 - 3.9 mean platelet volume 12.2 (?) [facility] - platelet count 211.0 THOUSAND/ UL [facility] 100.0 - 400.0 mean corpuscular hemoglobin concentration, RBC 33.3 G/DL [facility] 31.0 - 38.0 mean corpuscular hemoglobin, RBC 33.6 pg [facility] 25.0 - 35.0 mean corpuscular volume, RBC 100.9 fL [facility] 75.0 - 100.0 High hematocrit, blood 45.0 % [facility] 35.0 - 55.0 hemoglobin, blood 15.0 g/dL [facility] 11.5 - 16.5 erythrocyte count, whole blood 4.5 MILLION/U L [facility] 3.5 - 5.5 hemoglobin A1C, blood, as % of total hemoglobin 5.7 % [facility] 4.0 - 5.6 High platelet count 230 10*3/mm3 Bettye Boyer hematocrit, blood 38.4 % Bettye Boyer international normalized ratio (INR) 1.0 Bettye Boyer blood glucose, random 93 mg/dL Bettye Boyer creatinine, serum 0.56 mg/dL Bettye Boyer urea nitrogen, blood 20 mg/dL Bettye Boyer potassium, serum 4.8 mmol/L Bettye Boyer sodium, serum 137 mmol/L Bettye Boyer international normalized ratio (INR) 1.0 Bettye Boyer platelet count 242 10*3/mm3 [facility] hematocrit, blood 40.2 % [facility] creatinine, serum 0.54 mg/dL [facility] potassium, serum 4.5 mmol/L [facility] sodium, serum 137 mmol/L [facility] lipoprotein, beta, serum, point, quantitative, calculated 107 mg/dL [facility] cholesterol, serum 191 mg/dL [facility] thyroid stimulating hormone, serum 0.425 u[IU]/mL [facility] alanine aminotransferase (SGPT), serum 35 1/L [facility] aspartate aminotransferase (SGOT), serum 31 1/L [facility] creatinine, serum 0.8 mg/dL [facility] potassium, serum 4.4 mmol/L [facility] sodium, serum 140 mmol/L [facility] platelet count 180 10*3/mm3 [facility] hematocrit, blood 13.9 % [facility] basophils as percent of blood leukocytes 0.4 % [facility] Normal eosinophils as percent of blood leukocytes 4.2 % [facility] Normal monocyte count, blood 6.2 % [facility] Normal lymphocyte count, blood 36.9 % [facility] Normal neutrophils as percent of blood leukocytes 52.3 % [facility] Normal basophils, absolute, manual 20 cells/mcL [facility] (0-200) Normal eosinophils, absolute, manual 210 cells/mcL [facility] (15-500) Normal monocytes, absolute, manual 310 cells/mcL [facility] (200-950) Normal lymphocytes, absolute 1845 CELLS/UL [facility] (850-3900) Normal Absolute Neutrophil count 2615 cells/mcL [facility] (6972-0455) Normal platelet count 177 THOUSAND/ UL [facility] (140-400) Normal red blood cell distribution width 12.5 % [facility] (11.0-15.0) Normal mean corpuscular hemoglobin concentration, RBC 34.2 G/DL [facility] (32.0-36.0) Normal mean corpuscular hemoglobin, RBC 34.2 pg [facility] (27.0-33.0) High mean corpuscular volume, RBC 100.0 fL [facility] (80.0-100.0) Normal hematocrit, blood 40.8 % [facility] (35.0-45.0) Normal hemoglobin electrophoresis, blood 14.0 [facility] (11.7-15.5) Normal erythrocyte (RBC) count 4.08 MILLION/U L [facility] (3.80-5.10) Normal leukocyte (white blood cells) count, blood 5.0 THOUSAND/ UL [facility] (3.8-10.8) Normal alanine aminotransferase (SGPT), serum 16 1/L [facility] (6-40) Normal aspartate aminotransferase (SGOT), serum 17 1/L [facility] (10-35) Normal alkaline phosphatase, serum 56 1/L [facility] (33-130) Normal bilirubin, serum, total 0.4 mg/dL [facility] (0.2-1.2) Normal albumin/globulin ratio, serum 1.9 (calc) [facility] (1.0-2.1) Normal globulins, serum, total 2.2 G/DL (CALC) [facility] (2.2-3.9) Normal albumin, serum 4.2 g/dL [facility] (3.6-5.1) Normal protein, total, serum 6.4 g/dL [facility] (6.2-8.3) Normal calcium, serum 9.6 mg/dL [facility] (8.6-10.2) Normal carbon dioxide, venous blood 27 mmol/L [facility] (21-33) Normal chloride, serum 106 mmol/L [facility] (98-110) Normal potassium, serum 4.9 mmol/L [facility] (3.5-5.3) Normal sodium, serum 140 mmol/L [facility] (135-146) Normal urea nitrogen/creatinine ratio, serum 19 (calc) [facility] (6-22) Normal Estimated Glomerular Filtration Rate (calc) >60 mL/min/1. 73m2 [facility] (> OR = 60) Normal creatinine, serum 0.59 mg/dL [facility] (0.60-1.18) Low urea nitrogen, blood 11 mg/dL [facility] (7-25) Normal blood glucose, random 91 mg/dL [facility] (65-99) Normal cholesterol/HDL ratio, serum, percent 2.1 (calc) [facility] (< OR = 5.0) Normal LDL cholesterol, serum 73 MG/DL (CALC) [facility] (<130) Normal triglyceride, serum, fasting 53 mg/dL [facility] (<150) Normal HDL cholesterol, serum 75 mg/dL [facility] (> OR = 46) Normal cholesterol, serum 159 mg/dL [facility] (125-200) Normal HISTORY OF MEDICATION USE Medication Status Instructions Dates Provider Indications Com ments Medrol (Dalia) 4 mg tablets,dose pack active As per package instructions 09/17 Thanh Esquivel simvastatin 40 mg tablet active TAKE 1 TABLET BY MOUTH EVERY DAY 09/17 Brianna Ruple atenolol 25 mg tablet active TAKE 1 TABLET BY MOUTH EVERY DAY Brianna Ruple atenolol 25 mg tablet completed Take 1 tablet by mouth once a day - Samara Topete hydrochlorothiazide 12.5 mg capsule active TAKE 1 CAPSULE BY MOUTH EVERY DAY 10/24 Michael simvastatin 40 mg tablet completed Take 1 tablet by mouth once a day 03/30 - 09/17 Brianna Hipolito lisinopril 40 mg tablet active TAKE 1 TABLET BY MOUTH EVERY DAY 10/10 Thanh Esquivel simvastatin 40 mg tablet completed TAKE 1 TABLET BY MOUTH EVERY DAY 12/09 - 03/30 Samara Topete varenicline 1 mg tablet completed Take 1 tablet by mouth once a day as directed 09/07 - 09/02 Thanh Esquivel atenolol 25 mg tablet completed TAKE 1 TABLET BY MOUTH EVERY DAY - Samara Topete lisinopril 20 mg tablet completed TAKE 1 TABLET BY MOUTH EVERY DAY - 10/10 Tara Varela Xarelto 2.5 mg tablet active 1 tablet by mouth twice a day 03/09 Jade Fenton MD amlodipine 5 mg tablet completed Take 1 tablet by mouth once a day 09/24 - 05/23 Thanh Esquivel CHANTIX STARTING MONTH DALIA 0.5 MG X 11 & 1 MG X 42 ORAL TABLET completed One Pack. Take as directed. 09/24 - 03/09 Sarah Fenton CHANTIX CONTINUING MONTH DALIA 1 MG ORAL TABLET completed One pack. Take as directed 09/24 - 03/09 Sarah Fenton hydrochlorothiazide 12.5 mg capsule completed 1 tablet once a day 01/23 - 10/24 Michael Del Cid WELLBUTRIN XL 150 MG ORAL TABLET EXTENDED RELEASE 24 HOUR completed One tablet once daily 09/23 - 01/23 Jade Fenton MD CALCIUM CARBONATE 600 MG ORAL TABLET completed ONE TAB BY MOUTH DAILY - Cee Gee simvastatin 40 mg tablet completed Take 1 tablet by mouth once a day 12/20 - 12/09 Thanh Esquivel CITRACAL MAXIMUM TABLET completed as directed 09/10 - Samara Topete WELLBUTRIN 100 MG ORAL TABLET completed ONE TAB. DAILY 09/06 - 09/10 Ines Juanito LACKEY CONTINUING MONTH DALIA 1 MG ORAL TABLET completed One pack. Take as directed 12/10 - Marycruz Gamboa AMOXICILLIN 875 MG ORAL TABLET completed po bid x 1 week - Marguerite Carvalho PEPCID 20 MG ORAL TABLET completed po daily - Marguerite Carvalho PROAIR HFA AEROSOL SOLUTION completed 2 puff upto 4 times a day 11/06 - 05/14 Maximo Marrero RN ALEVE TABLET completed 2 tablets by mouth in the morning and 1 tablet in the evening 11/26 - Marguerite Carvalho Fish Oil 300-1,000 mg capsule,delayed release(DR/EC) active 1 capsule by mouth once a day Christian Greene ASPIRIN EC LO-DOSE TABLET DELAYED RELEASE active 1 tablet by mouth once a day Christian Greene GEMFIBROZIL 600 MG ORAL TABLET completed 1 tablet by mouth twice daily - 01/07 Nadia Garay RN SIMVASTATIN 20 MG ORAL TABLET completed 1 tablet by mouth daily 11/26 - 09/11 Sorin Mattson RN lisinopril 40 mg tablet completed One tablet once daily 01/17 - Jade Fenton MD increased from 30mg atenolol 50 mg tablet completed ONE TAB. DAILY - Samara Topete SOCIAL HISTORY Date Observation Value Provider [facility] sm janet exposure yes [facility] smoking/tobacco cess ation, patient education and counseling yes [facility] number of years as a smoker 60 a [facility], date started [facility] Thanh Elmore poppy smoking history, tot al pack/year 53 Thanh Ellisi smoking history, tot al pack/day 1 Thanh Marroquinzai cigarette use yes Thanh Marroquinzai smoking status Current every day smoker R luz marina Marroquinzai drug use none Thanh Marroquinzai alcohol use no Thanh Marroquinzai passive cigarette sm janet exposure yes Thanh angelazai smoking/tobacco cess ation, patient education and counseling yes Thanh Marroquinzai chewing tobacco use no Thanh Morameg edzai cigar use no Thanhnery Marroquinzai number of years as a smoker 60 a Thanhnery Ellisi smoking, date started 1962 Thanh A scout smoking history, tot al pack/year 53 Thanhnery Ellisi smoking history, tot al pack/day 1 Thanhnery Ellisi cigarette use yes Thanhnery Marroquinzai smoking status Current every day smoker R luz marina isadoravinita drug use none Thanh Ellisi alcohol use no Thanh Marroquinzai passive cigarette sm janet exposure yes Thanhnery Marroquinzai smoking/tobacco cess ation, patient education and counseling yes Thanh Marroquinzai chewing tobacco use no Thanh Morameg edzai cigar use no Thanhnery Marroquinzai number of years as a smoker 60 a Thanh Marroquinzai smoking, date started 1962 Thanh A edza smoking history, tot al pack/year 53 Thanhnery Marroquinzai smoking history, tot al pack/day 1 Thanhnery Marroquinzai cigarette use yes Thanhnery Marroquinzai smoking status Current every day smoker R monery Alvin drug use none Gage Munoz MD alcohol use no Gage Munoz MD passive cigarette sm janet exposure yes Gage Munoz MD smoking/tobacco cess ation, patient education and counseling yes Gage Munoz MD chewing tobacco use no Gage pagan MD cigar use no Gage Munoz MD number of years as a smoker 60 a Gage Munoz MD smoking, date started 1963 Gage Munoz MD smoking history, tot al pack/year 53 Gage Munoz MD smoking history, tot al pack/day 1 Gage Munoz MD cigarette use yes Gage Carrington smoking status Current every day smoker U mariola Munoz MD drug use none Thanh Esquivel alcohol use no Thanh Esquivel passive cigarette sm janet exposure yes Thanh Esquivel smoking/tobacco cess ation, patient education and counseling yes Thanh Esquivel chewing tobacco use no Thanh mcwilliams cigar use no Thanh Esquivel number of years as a smoker 60 a Thanh Esquivel smoking, date started 1963 Thanh webster smoking history, tot al pack/year 53 Thanh Esquivel smoking history, tot al pack/day 1 Thanh Esquivel cigarette use yes Thanh Esquivel smoking status Current every day smoker R luz marina Esquivel social history reviewed E&M revi ewed - no changes required Thanh Esquivel social history E&M Marital Statu s: L susan with family/friends E thnicity: Smoking History: P danis currently smokes every day. P danis has been counseled to quit. Thanh Esquivel seatbelt usage 100 % Loni Castle and Exercise counseling yes Loni Danny physical exercise, f requency, days per week yes Loni Delgado caffeine use, averag e drinks per day 5+ Loni Delgado passive cigarette sm janet exposure yes Loni Delgado smoking/tobacco cess ation, patient education and counseling yes Loni Delgado chewing tobacco use no Loni Delgado cigar use no Loni carrington number of years as a smoker 60 a Loni Delgado smoking, date started 1962 Rajiv Sheppard smoking history, tot al pack/year 53 Loni Delgado smoking history, tot al pack/day 1 Loni Delgado cigarette use yes Loni Green nd smoking status Current every day smoker M leif Danny social history reviewed E&M revi ewed - no changes required Jade Fenton MD social history reviewed E&M revi ewed - no changes required Rodney Hernandez MD seatbelt usage 100 % Loni Castle and Exercise counseling yes Loni Delgado physical exercise, f requency, days per week yes Loni Delgado caffeine use, averag e drinks per day 5+ Loni Delgado passive cigarette sm janet exposure yes Loni Delgado smoking/tobacco cess ation, patient education and counseling yes Loni Delgado chewing tobacco use no Loni Delgado cigar use no Loni carrington number of years as a smoker 60 a Loni Delgado smoking, date started 1962 Rajiv Sheppard smoking history, tot al pack/year 53 Loni Delgado smoking history, tot al pack/day 1 Loni Delgado cigarette use yes Loni Green nd smoking status Current every day smoker Meg Delgado social history reviewed E&M revi ewed - no changes required Thanh Esquivel social history E&M Marital Statu s: L susan with family/friends E thnicity: Smoking History: P atient currently smokes every day. Rodney Hernandez MD social history reviewed E&M revi ewed - no changes required Rodney Hernandez MD number of years as a smoker 60 a Yasmine Lew smoking history, tot al pack/day 1 Yasmine Vipin cigarette use yes Yasmine Vipin smoking status Current every day smoker Dylon bertrand Lew Exercise counseling yes Grant Pires social history reviewed E&M revi ewed - no changes required Thanh Esquivel social history E&M Marital Statu s: L susan with family/friends E thnicity: Smoking History: P atient currently smokes every day. Thanh Esquivel social history reviewed E&M revi ewed - no changes required Thanh Esquivel smoking history, tot al pack/day 20 Christian Greene cigarette use yes Christian zhang smoking status Current every day smoker T wendy Greene social history E&M Marital Statu s: L susan with family/friends E thnicity: Smoking History: P atient currently smokes every day. P atient has been counseled to quit. Jade Fenton MD social history reviewed E&M revi ewed - no changes required Jade Fenton MD seatbelt usage 100 % Sarah busby physical exercise, f requency, days per week yes Sarah Fenton caffeine use, averag e drinks per day 5+ Sarah Fenton passive cigarette sm janet exposure yes Sarah Fenton smoking/tobacco cess ation, patient education and counseling yes Sarah Fenton chewing tobacco use no Sarah Fenton cigar use no Sarahramírez Bradley l number of years as a smoker 10 years or m ore Sarah Fenton smoking, date started 1962 Kris Fenton smoking history, tot al pack/year 53 Sarah Fenton smoking history, tot al pack/day 1 Sarah Fenton cigarette use yes Sarah Fernie ll smoking status Current every day smoker C gemmaramírez Eliceo social history E&M Marital Statu s: L susan with family/friends E thnicity: Smoking History: P danis currently smokes every day. P danis has been counseled to quit. Abhishek Phan social history reviewed E&M revi ewed - no changes required Abhishek Phan seatbelt usage 100 % Samara moon physical exercise, f requency, days per week yes Samara Topete caffeine use, averag e drinks per day 5+ Samara Topete passive cigarette sm janet exposure yes Samara Topete smoking/tobacco cess ation, patient education and counseling yes Samara Topete chewing tobacco use no Samara pineda cigar use no Samara barker number of years as a smoker 10 years or m ore Samara Topete smoking, date started 1963 Samara Topete smoking history, tot al pack/year 53 Samara Topete smoking history, tot al pack/day 1 Samara Lucillenorm cigarette use yes Samara thompson smoking status Current every day smoker Nadeen Topete social history E&M Marital Statu s: L susan with family/friends E thnicity: Smoking History: P atkaitlin currently smokes every day. P danis has been counseled to quit. Farshad Lentz social history reviewed E&M revi ewed - no changes required Shaheenolyaadrian Lentz seatbelt usage 100 % [facility] physical exercise, f requency, days per week yes [facility] caffeine use, averag e drinks per day 5+ Tonsha Romero passive cigarette sm janet exposure yes [facility] smoking/tobacco cess ation, patient education and counseling yes [facility] chewing tobacco use no [facility] cigar use no [facility] number of years as a smoker 10 years or m ore [facility] smoking, date started 1963 [facility] smoking history, tot al pack/year 53 [facility] smoking history, tot al pack/day 1 [facility] cigarette use yes [facility] smoking status Current every day smoker T [facility] social history E&M Marital Statu s: L susan with family/friends E thnicity: Smoking History: P danis currently smokes every day. P danis has been counseled to quit. Jade Fenton MD social history reviewed E&M revi ewed - no changes required Abhishek Saini seatbelt usage 100 % [facility], f requency, days per week yes Tonsha [place] caffeine use, averag e drinks per day 5+ Tonsha Romero passive cigarette sm janet exposure yes [facility] smoking/tobacco cess ation, patient education and counseling yes [facility] chewing tobacco use no Tons [facility] cigar use no [facility] number of years as a smoker 10 years or m ore [facility] smoking, date started 1962 [facility] smoking history, tot al pack/year 53 [facility] smoking history, tot al pack/day 1 [facility] cigarette use yes [facility] smoking status Current every day smoker T [facility] social history E&M Marital Statu s: L susan with family/friends E thnicity: Smoking History: P atient currently smokes every day. P atient has been counseled to quit. Jade Fenton MD seatbelt usage 100 % Jade Fenton MD physical exercise, f requency, days per week yes Jade Fenton MD caffeine use, averag e drinks per day 5+ Jade Fenton MD passive cigarette sm janet exposure yes Jade Fenton MD smoking/tobacco cess ation, patient education and counseling yes Jade Fenton MD chewing tobacco use no Jade hurst MD cigar use no Jade Fenton MD number of years as a smoker 10 years or m ore Jade Fenton MD smoking, date started 1962 Jade Fenton MD smoking history, tot al pack/year 53 Jade Fenton MD smoking history, tot al pack/day 1 Jade Fenton MD cigarette use yes Jade Carrington smoking status Current every day smoker T ben Fenton MD social history reviewed E&M revi ewed - no changes required Jade Fenton MD social history reviewed E&M revi ewed - no changes required Jade Fenton MD social history E&M Marital Statu s: L susan with family/friends E thnicity: Smoking History: P atient currently smokes every day. P atient has been counseled to quit. Jade Fenton MD social history reviewed E&M revi ewed - no changes required Jade Fenton MD seatbelt usage 100 % [facility] e physical exercise, f requency, days per week yes [facility] alcohol use, average drinks per day none [facility] alcohol use no [facility] caffeine use, averag e drinks per day 5+ [facility] drug use none [facility] smoking/tobacco cess ation, patient education and counseling yes [facility] passive cigarette sm janet exposure yes [facility] chewing tobacco use no [facility] cigar use no [facility] number of years as a smoker 10 years or m ore [facility] smoking, date started 1963 [facility] smoking history, tot al pack/year 53 [facility] smoking history, tot al pack/day 1 [facility] cigarette use yes [facility] smoking status Current every day smoker C janel Jacquelin Underweight no Jade Fenton MD seatbelt usage 100 % [facility] physical exercise, f requency, days per week yes Cee Marlen alcohol use, average drinks per day none Cee Marlen alcohol use no Cee Marlen caffeine use, averag e drinks per day 5+ Cee Marlen drug use none Cee Marlen smoking/tobacco cess ation, patient education and counseling yes Cee Marlen passive cigarette sm janet exposure yes Cee Marlen chewing tobacco use no Cee Vo ss cigar use no Cee Marlen number of years as a smoker 10 years or m ore Cee Marlen smoking, date started 1963 Cee Marlen smoking history, tot al pack/year 53 Cee Marlen smoking history, tot al pack/day 1 Cee Marlen cigarette use yes Cee Marlen smoking status Current every day smoker D accruz Gee Underweight yes Jade Fenton MD number of grandchildren Jade Fenton MD T ben Fenton MD social history reviewed E&M revi ewed - no changes required Jade Fenton MD seatbelt usage 100 % Janes Nix physical exercise, f requency, days per week yes Janes Parr alcohol use, average drinks per day none Janes Parr alcohol use no JanesJoellen Lopeze gissel caffeine use, averag e drinks per day 5+ Janes Parr drug use none JanesJoellen Lopeze gissel smoking/tobacco cess ation, patient education and counseling yes Janes Lopezenson passive cigarette sm janet exposure yes JanesJoellen Lopezenson chewing tobacco use no NadiaClaire Lopezenson cigar use no Janes Osmani gissel number of years as a smoker 10 years or m ore aJnes Parr smoking, date started 1962 Rosamaria flori Parr smoking history, tot al pack/year 53 Janes Parr smoking history, tot al pack/day 1 Janes Parr cigarette use yes Janes John loi smoking status Current every day smoker M Liz Parr social history reviewed E&M revi ewed - no changes required Jade Fenton MD seatbelt usage 100 % Samara moon physical exercise, f requency, days per week yes Samara Topete alcohol use, average drinks per day none Samara Topete alcohol use no Samara Orozco [facility] caffeine use, averag e drinks per day 5+ Samara Topete drug use none Samara Orozco [facility] smoking/tobacco cess ation, patient education and counseling yes Samara Topete passive cigarette sm janet exposure yes Samara Topete chewing tobacco use no Samara pineda cigar use no Samara Orozco [facility] number of years as a smoker 10 years or m ore Samara Topete smoking, date started 1962 Samara Topete smoking history, tot al pack/year 53 Samara Topete smoking history, tot al pack/day 1 Samara Topete cigarette use yes Samara [place] [facility] smoking status Current every day smoker K ryan Gracepasqualehenrikoctavionorm smoking history, tot al pack/year 53 Sorin Mattson RN seatbelt usage 100 % [place] [employer] physical exercise, f requency, days per week yes Ines Juanito alcohol use, average drinks per day none Ines Solomon alcohol use no Ines Solomon caffeine use, averag e drinks per day 5+ Ines Solomon drug use none Ines Solomon smoking/tobacco cess ation, patient education and counseling yes Ines Solomon passive cigarette sm janet exposure yes Ines Solomon chewing tobacco use no Ines Solomon cigar use no Ines Solomon number of years as a smoker 10 years or m ore Ines Bluntann smoking, date started 1962 Ivonne Solomon smoking history, tot al pack/year 51 Ines Solomon smoking history, tot al pack/day 1 Ines Solomon cigarette use yes Ines Solomon smoking status Current every day smoker Meg Solomon social history reviewed E&M revi ewed - no changes required Ines Solomon social history reviewed E&M revi ewed - no changes required Jade Fenton MD number of grandchildren Jade Ortega MD Quinn Aldana social history reviewed E&M revi ewed - no changes required Jade Fenton MD seatbelt usage 100 % Janes Nix physical exercise, f requency, days per week yes Janes Lopezenson alcohol use, average drinks per day none Janes Parr alcohol use no Janes Keen jacintoadrian caffeine use, averag e drinks per day 5+ Janes Lopezenson drug use none Janes Osmani gissel smoking/tobacco cess ation, patient education and counseling yes Janes Lopezenson passive cigarette sm janet exposure yes Janes Parr chewing tobacco use no Sybil angelica Keshav cigar use no Janes Keen jacintoadrian number of years as a smoker 10 years or m ore Janes Parr smoking, date started 1963 Rosamaria flori Parr smoking history, tot al pack/year 51 Janes Lopezenson smoking history, tot al pack/day 1 Janes Lopezenson cigarette use yes Janes John loi smoking status Current every day smoker Meg Liz Parr smoking/tobacco cess ation, patient education and counseling yes Jade Fenton MD social history reviewed E&M revi ewed - no changes required Marycruz Gamboa smoking status Current every day smoker Ramírez Gamboa social history reviewed E&M revi ewed - no changes required Jade Fenton MD social history reviewed E&M reviewed Jade Fenton MD smoking/tobacco cess ation, patient education and counseling yes Jade Fenton MD smoking history, tot al pack/year 51 Marguerite Deven smoking/tobacco cess ation, patient education and counseling yes Jade Fenton MD smoking history, tot al pack/year 50 Marguerite Deven smoking history, tot al pack/year 50 Maximo Marrero RN smoking/tobacco cess ation, patient education and counseling yes Jade Fenton MD drug use none Jade Fenton MD social history reviewed E&M reviewed Jade Fenton MD caffeine use, averag e drinks per day 5+ [facility] passive cigarette sm janet exposure yes [facility] smoking history, tot al pack/year 50 [facility] seatbelt usage 100 % Maximo Marrero RN drug use no Maximo Marrero RN passive cigarette sm janet exposure no Maximo Marrero RN smoking/tobacco cess ation, patient education and counseling yes Jade Fenton MD chewing tobacco use no Maximo moses RN cigar use no Maximo Marrero RN smoking history, tot al pack/day 1 Maximo Marrero RN smoking history, tot al pack/year 49 Maximo Marrero RN cigarette use yes Maximo Marrero RN smoking, date started 1963 Maximo Jim reardon RN smoking status current every day smoker J coby Marrero RN social history reviewed E&M reviewed Maximo Marrero RN smoking/tobacco cess ation, patient education and counseling yes Jade Fenton MD social history reviewed E&M reviewed Maximo Marrero RN smoking/tobacco cess ation, patient education and counseling yes Jade Fenton MD social history reviewed E&M reviewed Jade Fenton MD social history reviewed E&M reviewed Jade Fenton MD smoking/tobacco cess ation, patient education and counseling yes Jade Fenton MD social history reviewed E&M reviewed Jade Fenton MD smoking/tobacco cess ation, patient education and counseling yes Jade Fenton MD drug use none Jade Fenton MD social history reviewed E&M reviewed Jade Fenton MD social history reviewed E&M reviewed Maximo Marrero RN social history E&M Marital Statu s: L susan with family/friends E thnicity: Maximo Marrero RN social history reviewed E&M reviewed Maximo Marrero RN physical exercise, f requency, days per week yes [employer] caffeine use, averag e drinks per day yes [employer] alcohol use, average drinks per day none [employer] number of years as a smoker 10 years or m ore [employer] smoking status Smoker [employer] FUNCTIONAL STATUS Date Observation Value Provider HRA, CV Assess/Plan, Angina (inactive) Management Plan continue current therapy Thanh Ahmedzai HRA, CV Assess/Plan, Angina (inactive) Management Plan continue current therapy Thanh Ahmedzai HRA, CV Assess/Plan, Angina (inactive) Management Plan continue current therapy Thanh Ahmedzai HRA, CV Assess/Plan, Angina (inactive) Management Plan continue current therapy Thanh Ahmedzai HRA, CV Assess/Plan, Angina (inactive) Management Plan continue current therapy Thanh Ahmedzai HRA, CV Assess/Plan, Angina (inactive) Management Plan continue current therapy Thanh Ahmedzai HRA, CV Assess/Plan, Angina (inactive) Management Plan continue current therapy Rodney Hernandez MD HRA, CV Assess/Plan, Angina (inactive) Management Plan continue current therapy Thanh Ahmedzavinita HRA, CV Assess/Plan, Angina (inactive) Management Plan continue current therapy Rodney Hernandez MD HRA, CV Assess/Plan, Angina (inactive) Management Plan continue current therapy Thanh Esquivel HRA, CV Assess/Plan, Angina (inactive) Management Plan continue current therapy Thanhnery Esquivel HRA, CV Assess/Plan, Angina (inactive) Management Plan continue current therapy Jade Fenton MD HRA, CV Assess/Plan, Angina (inactive) Management Plan continue current therapy Abhishek Phan HRA, CV Assess/Plan, Angina (inactive) Management Plan continue current therapy Farshad Lentz HRA, CV Assess/Plan, Angina (inactive) Management Plan continue current therapy Abhishek Saini HRA, CV Assess/Plan, Angina (inactive) Management Plan continue current therapy Jade Fenton MD HRA, CV Assess/Plan, Angina (inactive) Management Plan continue current therapy Jade Fenton MD HRA, CV Assess/Plan, Angina (inactive) Management Plan continue current therapy Jade Fenton MD HRA, CV Assess/Plan, Angina (inactive) Management Plan continue current therapy Jade Fenton MD HRA, CV Assess/Plan, Angina (inactive) Management Plan continue current therapy Jade Fenton MD HRA, CV Assess/Plan, Angina (inactive) Management Plan continue current therapy Jade Fenton MD HRA, CV Assess/Plan, Angina (inactive) Management Plan continue current therapy Jade Fenton MD HRA, CV Assess/Plan, Angina (inactive) Management Plan antianginal therapy Jade Fenton MD MENTAL STATUS Date Observation Value Provider assessment of judgme nt and insight E&M Alert and oriented to time, place and person. Mood and affect are normal. Jade Fenton MD assessment of judgme nt and insight E&M Alert and oriented to time, place and person. Mood and affect are normal. Jade Fenton MD assessment of judgme nt and insight E&M Alert and oriented to time, place and person. Mood and affect are normal. Maximo Marrero RN assessment of judgme nt and insight E&M Alert and oriented to time, place and person. Mood and affect are normal. Maximo Marrero RN assessment of judgme nt and insight E&M Alert and oriented to time, place and person. Mood and affect are normal. Jade Fenton MD assessment of judgme nt and insight E&M Alert and oriented to time, place and person. Mood and affect are normal. Jade Fenton MD assessment of judgme nt and insight E&M Alert and oriented to time, place and person. Mood and affect are normal. Jade Fenton MD assessment of judgme nt and insight E&M Alert and oriented to time, place and person. Mood and affect are normal. Jade Fenton MD assessment of judgme nt and insight E&M Alert and oriented to time, place and person. Mood and affect are normal. Maximo Marrero RN assessment of judgme nt and insight E&M Alert and oriented to time, place and person. Mood and affect are normal. Maximo Marrero RN FAMILY HISTORY Family Member Condition First Degree Blood Relative No Known Fam chago History INSURANCE PROVIDERS Payer name Policy type / Coverage type Newberry red republican ID [facility] [id number] [place] Medicare [id number] ADVANCE DIRECTIVES Name Date DISCUSSED - NO DECISION MADE TREATMENT PLAN Date Name Performer [id number],Jade Segovia MD [id number],Thanh Zhang i [id number],SThanh i [id number],Thanh Zhang i [id number],Thanh Zhang i [id number],Thanh Zhang i [id number],Thanh Zhang i [id number],Thanh Zhang i [id number],S, Thanh Ellis i [id number],S, Thanh Ellis i [id number],S, Thanh Ellis i [id number],S, Thanh Ellis i [id number],S, Thanh Ellis i [id number],C,V endous duplex showed venous insufficiency bilaterally. She has crhonic swelling and some numbness. We discussed support stockings vs. venography with IVUS and Venaseal. She would like to try conservative treatment with the stockings and she will let us know if she would like to proceed with further intervention. Rodney Hernandez MD [id number],C, H er updated medication list for this problem includes: Lisinopril 40 Mg Tablet (Lisinopril) ..... Take 1 tablet by mouth every day Atenolol 25 Mg Tablet (Atenolol) ..... Take 1 tablet by mouth every day Rodney Hernandez MD [id number],C,V endous duplex showed venous insufficiency bilaterally. She has crhonic swelling and some numbness. We discussed support stockings vs. venography with IVUS and Venaseal. She would like to try conservative treatment with the stockings and she will let us know if she would like to proceed with further intervention. Rodney Hernandez MD [id number],C,T he Patient was reencouraged to stop smoking. Rodney Hernandez MD [id number],C, H er updated medication list for this problem includes: Simvastatin 40 Mg Tablet (Simvastatin) ..... Take 1 tablet by mouth every day Rodney Hernandez MD [id number],C, B P today: 141/73 P rior BP: 138/75 (06/10/2022) Labs Reviewed: C reat: 0.5 (07/12/2016) C hol: 217.0 (07/12/2016) HDL: 87.0 (07/12/2016) T.0 (07/12/2016) Her updated medication list for this problem includes: Lisinopril 40 Mg Tablet (Lisinopril) ..... Take 1 tablet by mouth every day Hydrochlorothiazide 12.5 Mg Capsule (Hydrochlorothiazide) ..... 1 tablet once a day Atenolol 25 Mg Tablet (Atenolol) ..... Take 1 tablet by mouth every day Rodney Hernandez MD [id number],B, Jade Fenton MD [id number],B, Jade Fenton MD [id number],B, Jade Fenton MD [id number],S, Thanh Ahmedza i [id number],S, Thanh Ahmedza i [id number],S, Thanh Ahmedza i [id number],S, Thanh Ahmedza i [id number],S, Thanh Ahmedza i [id number],S, Thanh Ahmedza i [id number],S, Thanh Ahmedza i [id number],S, Thanh Ahmedza i [id number],S, Thanh Ahmedza i [id number],B, Thanh Ahmedza i [id number],S, Thanh Ahmedza i [id number],C,T he Patient was reencouraged to stop smoking. Radha Almeida [id number],C, H er updated medication list for this problem includes: Simvastatin 40 Mg Tablet (Simvastatin) ..... Take 1 tablet by mouth every day Radha Almeida [id number],C, B P today: 149/81 P rior BP: 126/64 (01/03/2022) Labs Reviewed: C reat: 0.5 (07/12/2016) C hol: 217.0 (07/12/2016) HDL: 87.0 (07/12/2016) T.0 (07/12/2016) Her updated medication list for this problem includes: Atenolol 50 Mg Tablet (Atenolol) ..... Take 1 tablet by mouth every day Lisinopril 40 Mg Tablet (Lisinopril) ..... Take 1 tablet by mouth every day Amlodipine 5 Mg Tablet (Amlodipine) ..... Take 1 tablet by mouth once a day Hydrochlorothiazide 12.5 Mg Capsule (Hydrochlorothiazide) ..... 1 tablet once a day Radha Maravillamagy [id number],C,P t denies any chest pain. Her updated medication list for this problem includes: Atenolol 50 Mg Tablet (Atenolol) ..... Take 1 tablet by mouth every day Lisinopril 40 Mg Tablet (Lisinopril) ..... Take 1 tablet by mouth every day Amlodipine 5 Mg Tablet (Amlodipine) ..... Take 1 tablet by mouth once a day Radha Maravillamagy [id number],C,P t complains of leg swelling. Worse in the evening after she stands. She has erythema and pigmentation in both legs, most likely venous insufficiency. Will obtain venous duplex. She had arterial duplex last year in the hospital and we will obtain the results. Depending on the results will proceed to venography with IVUS and Venaseal. Radha Elle [id number],SThanh i [id number],S, Thanh Ellis i [id number],S, Thanh Ellis i [id number],S, Thanh Ellis i [id number],S, Thanh Ellis i [id number],S, Jade Fenton MD [id number],B, Jade Fenton MD [id number],W, Jade Fenton MD [id number],C, Jade Fenton MD [id number],B, Jade Fenton MD [id number],W, Thanh isadora talamantes [id number],S, [facility] [id number],S, [facility] [id number],S, [facility] [id number],S, [facility] [id number],S, [facility] [id number],B, Jade Fenton MD [id number],S, Jade Fenton MD [id number],S, Jade Fenton MD [id number],S, Jade Fenton MD [id number],S, Jade Fenton MD [id number],S, Jade Fenton MD [id number],S, Jade Fenton MD Cardiology Jade Fenton MD Cardiology Jade Fenton MD Cardiology: H er updated medication list for this problem includes: Atenolol 25 Mg Tablet (Atenolol) ..... Take 1 tablet by mouth every day Lisinopril 40 Mg Tablet (Lisinopril) ..... Take 1 tablet by mouth every day Hydrochlorothiazide 12.5 Mg Capsule (Hydrochlorothiazide) ..... Take 1 capsule by mouth every day Jade Fenton MD Cardiology:This visi t has been a part of the consistent, comprehensive, and ongoing management of the chronic medical condition(s) listed above for the patient. BP today: 145/91 P rior BP: 139/77 (09/17/2024) Labs Reviewed: C reat: 0.5 (07/12/2016) C hol: 217.0 (07/12/2016) HDL: 87.0 (07/12/2016) LDL: 112.2 (?) (07/12/2016) T.0 (07/12/2016) Her updated medication list for this problem includes: Atenolol 25 Mg Tablet (Atenolol) ..... Take 1 tablet by mouth every day Lisinopril 40 Mg Tablet (Lisinopril) ..... Take 1 tablet by mouth every day Hydrochlorothiazide 12.5 Mg Capsule (Hydrochlorothiazide) ..... Take 1 capsule by mouth every day Jade Fenton MD Cardiology: O rders: C XR- PA/Lat (CPT-26256) Jade Fenton MD Cardiology: H er updated medication list for this problem includes: Atenolol 25 Mg Tablet (Atenolol) ..... Take 1 tablet by mouth every day Lisinopril 40 Mg Tablet (Lisinopril) ..... Take 1 tablet by mouth every day Hydrochlorothiazide 12.5 Mg Capsule (Hydrochlorothiazide) ..... Take 1 capsule by mouth every day Orders: S tress Regadenoson (CPT-01712) C omplete Echo (70800) Jade Fenton MD Cardiology: B P today: 139/77 P rior BP: 128/86 (02/26/2024) Labs Reviewed: C reat: 0.5 (07/12/2016) C hol: 217.0 (07/12/2016) HDL: 87.0 (07/12/2016) LDL: 112.2 (?) (07/12/2016) T.0 (07/12/2016) Her updated medication list for this problem includes: Atenolol 25 Mg Tablet (Atenolol) ..... Take 1 tablet by mouth every day Lisinopril 40 Mg Tablet (Lisinopril) ..... Take 1 tablet by mouth every day Hydrochlorothiazide 12.5 Mg Capsule (Hydrochlorothiazide) ..... Take 1 capsule by mouth every day Orders: S tress Regadenoson (CPT-64790) C omplete Echo (35017) Jade Fenton MD Cardiology:......... ................................. .........................Jade Fenton MD September 17, 2024 4:30 PM Her updated medication list for this problem includes: Atenolol 25 Mg Tablet (Atenolol) ..... Take 1 tablet by mouth every day Lisinopril 40 Mg Tablet (Lisinopril) ..... Take 1 tablet by mouth every day Orders: S tress Regadenoson (CPT-25114) C omplete Echo (96318) Jade Fenton MD Cardiology:Cessation reviewed Ambrocio Esquivel Cardiology:This visi t has been a part of the consistent, comprehensive, and ongoing management of the chronic medical condition(s) listed above for the patient. H er updated medication list for this problem includes: Lisinopril 40 Mg Tablet (Lisinopril) ..... Take 1 tablet by mouth every day Atenolol 25 Mg Tablet (Atenolol) ..... Take 1 tablet by mouth once a day Jade Fenton MD Cardiology: B P today: 128/86 P rior BP: 146/88 (01/25/2024) Labs Reviewed: C reat: 0.5 (07/12/2016) C hol: 217.0 (07/12/2016) HDL: 87.0 (07/12/2016) LDL: 112.2 (?) (07/12/2016) T.0 (07/12/2016) Her updated medication list for this problem includes: Lisinopril 40 Mg Tablet (Lisinopril) ..... Take 1 tablet by mouth every day Atenolol 25 Mg Tablet (Atenolol) ..... Take 1 tablet by mouth once a day Hydrochlorothiazide 12.5 Mg Capsule (Hydrochlorothiazide) ..... Take 1 capsule by mouth every day Thanh Esquivel Cardiology: H er updated medication list for this problem includes: Lisinopril 40 Mg Tablet (Lisinopril) ..... Take 1 tablet by mouth every day Atenolol 25 Mg Tablet (Atenolol) ..... Take 1 tablet by mouth once a day Thanh Esquivel Cardiology: H er updated medication list for this problem includes: Lisinopril 40 Mg Tablet (Lisinopril) ..... Take 1 tablet by mouth every day Atenolol 25 Mg Tablet (Atenolol) ..... Take 1 tablet by mouth once a day Hydrochlorothiazide 12.5 Mg Capsule (Hydrochlorothiazide) ..... Take 1 capsule by mouth every day Thanh Esquivel Cardiology Thanh Esquivel Cardiology Thanh Esquivel Cardiology Thanh Esquivel Cardiology: H er updated medication list for this problem includes: Simvastatin 40 Mg Tablet (Simvastatin) ..... Take 1 tablet by mouth once a day Thanh Esquivel Cardiology Gage Munoz MD Cardiology: H er updated medication list for this problem includes: Simvastatin 40 Mg Tablet (Simvastatin) ..... Take 1 tablet by mouth once a day Gage Munoz MD Cardiology:arrange for [place] Gage Munoz MD Cardiology:Stable. Continue medi mabel therapy. Gage Munoz MD Cardiology:encouraged compressio n wear Gage Munoz MD Cardiology:No signif icant changes D iscussed elastic bandages as compresison as she is unable to tolerate compression stockings Gage Munoz MD Telehealth:Pt wanted to discuss Venaseal procedure. We were not able to access the left side ankle level and then we accessed at the knee level. We discussed that it may occur in the other leg too, it all occurs on the size of the vein. She would like to proceed for Venaseal of right leg Rodney Hernandez MD Telehealth Rodney Hernandez MD Telehealth:Pt wanted to discuss Venaseal procedure. We were not able to access the left side ankle level and then we accessed at the knee level. We discussed that it may occur in the other leg too, it all occurs on the size of the vein. She would like to proceed for Venaseal of right leg Rodney Hernandez MD Cardiology Thanh Ahmedzai Cardiology Thanh Ahmedzai Cardiology Thanh Ahmedzai Cardiology Thanh Ahmedzai Cardiology Thanh Ahmedzai Cardiology Jade Fenton MD Cardiology Thanh Ahmedzai Cardiology Thanh Ahmedzai Cardiology Thanh Ahmedzai Cardiology Thanh Ahmedzai Cardiology Thanh Ahmedzai Cardiology Thanh Ahmedzai Cardiology Thanh Ahmedzai Cardiology Thanh Ahmedzai Cardiology Thanh Ahmedzai Cardiology Thanh Ahmedzai Cardiology Thanh Ahmedzai Cardiology Htanh Ahmedzai Cardiology:Vendous d uplex showed venous insufficiency bilaterally. She has crhonic swelling and some numbness. We discussed support stockings vs. venography with IVUS and Venaseal. She would like to try conservative treatment with the stockings and she will let us know if she would like to proceed with further intervention. Rodney Hernandez MD Cardiology: H er updated medication list for this problem includes: Lisinopril 40 Mg Tablet (Lisinopril) ..... Take 1 tablet by mouth every day Atenolol 25 Mg Tablet (Atenolol) ..... Take 1 tablet by mouth every day Rodney Hernandez MD Cardiology:Gailprudencio carrington echoex showed venous insufficiency bilaterally. She has crhonic swelling and some numbness. We discussed support stockings vs. venography with IVUS and Venaseal. She would like to try conservative treatment with the stockings and she will let us know if she would like to proceed with further intervention. Rodney Hernandez MD Cardiology:The Patie nt was reencouraged to stop smoking. Rodney Hernandez MD Cardiology: H er updated medication list for this problem includes: Simvastatin 40 Mg Tablet (Simvastatin) ..... Take 1 tablet by mouth every day Rodney Hernandez MD Cardiology: B P today: 141/73 P rior BP: 138/75 (06/10/2022) Labs Reviewed: C reat: 0.5 (07/12/2016) C hol: 217.0 (07/12/2016) HDL: 87.0 (07/12/2016) T.0 (07/12/2016) & #13;Her updated medication list for this problem includes: Lisinopril 40 Mg Tablet (Lisinopril) ..... Take 1 tablet by mouth every day Hydrochlorothiazide 12.5 Mg Capsule (Hydrochlorothiazide) ..... 1 tablet once a day Atenolol 25 Mg Tablet (Atenolol) ..... Take 1 tablet by mouth every day Rodney Hernandez MD Telehealth- f/up feb 6 at 11 15- cx nov appt Jade Fenton MD Telehealth- f/up b 6 at 11 15- cx nov appt Jade Fenton MD Telehealth- f/up feb 6 at 11 15- cx nov appt Jade Fenton MD Cardiology Thanh Esquivel Cardiology Thanh Esquivel Cardiology Thanh Ahmedzai Cardiology Thanh Ahmedzai Cardiology Thanh Ahmedzai Cardiology Thanh [facility] Card[facility]:The Patie nt was reencouraged to stop smoking. Radha Almeida Cardiology: H er updated medication list for this problem includes: Simvastatin 40 Mg Tablet (Simvastatin) ..... Take 1 tablet by mouth every day Radha Almeida Cardiology: B P today: 149/81 P rior BP: 126/64 (01/03/2022) Labs Reviewed: C reat: 0.5 (07/12/2016) C hol: 217.0 (07/12/2016) HDL: 87.0 (07/12/2016) T.0 (07/12/2016) & #13;Her updated medication list for this problem includes: Atenolol 50 Mg Tablet (Atenolol) ..... Take 1 tablet by mouth every day Lisinopril 40 Mg Tablet (Lisinopril) ..... Take 1 tablet by mouth every day Amlodipine 5 Mg Tablet (Amlodipine) ..... Take 1 tablet by mouth once a day Hydrochlorothiazide 12.5 Mg Capsule (Hydrochlorothiazide) ..... 1 tablet once a day Radha Almeida Cardiology:Pt denies any chest pain. Her updated medication list for this problem includes: Atenolol 50 Mg Tablet (Atenolol) ..... Take 1 tablet by mouth every day Lisinopril 40 Mg Tablet (Lisinopril) ..... Take 1 tablet by mouth every day Amlodipine 5 Mg Tablet (Amlodipine) ..... Take 1 tablet by mouth once a day Radha Almeida Cardiology:Pt compla ins of leg swelling. Worse in the evening after she stands. She has erythema and pigmentation in both legs, most likely venous insufficiency. Will obtain venous duplex. She had arterial duplex last year in the hospital and we will obtain the results. Depending on the results will proceed to venography with IVUS and Venaseal. Radha Maravillamagy Cardiology Thanh Ahmedzai Cardiology Thanh Ahmedzai Cardiology Thanh Ahmedzai Cardiology Thanh Ahmedzai Cardiology Thanh Ahmedzai Telehealth- in person f/up 11 am @gc office Jade Fenton MD Telehealth- in person f/up 11 am @gc office Jade Fenton MD Telehealth- in person f/up 11 am @gc office Jade Fenton MD Telehealth- in person f/up 11 am @gc office Jade Fenton MD Telehealth- in person f/up 11 am @gc office Jade Fenton MD Cardiology Thanh Ahmedzai Cardiology Thanh Ahmedzai Cardiology Thanh Ahmedzai Cardiology Thanh Ahmedzai Cardiology Thanh Ahmedzai Cardiology Thanh Ahmedzai Cardiology follow up Jade randle MD Cardiology follow up Jade randle MD Cardiology follow up Jade randle MD Cardiology follow up Jade randle MD Cardiology follow up Jade randle MD Cardiology follow up Jade randle MD Cardiology follow up Jade randle MD Cardiology Follow up Abhishek Phan Cardiology Follow up Abhishek Phan Cardiology Follow up Abhishek Phan Cardiology Follow up Abhishek Phan Cardiology - Jade Fenton MD Cardiology - Jade Fenton MD Cardiology - Jade Fenton MD Cardiology - Jade Fenton MD Cardiology Jade Fenton MD Cardiology Jade Fenton MD Cardiology Jade Fenton MD Cardiology Jade Fenton MD Cardiology Jade Fenton MD Cardiology Jade Fenton MD Cardiology Jade Fenton MD Cardiology Jade Fenton MD Cardiology Jade Fenton MD Cardiology Jade Fenton MD Cardiology Jade Fenton MD Cardiology Jade Fenton MD Cardiology Jade Fenton MD Cardiology Jade Fenton MD Cardiology Jade Fenton MD Cardiology Jade Fenton MD Cardiology Jade Fenton MD Cardiology follow up Tonjose randle MD Cardiology follow up Tonjose randle MD Cardiology follow up Tonjose randle MD Cardiology follow up Tonjose randle MD Cardiology follow up Tonjose randle MD Cardiology:Placed on Welbutrin X L 150mg. Jade Fenton MD Cardiology:Elevated. Increase lisinopril to 40mg once daily. Jade Fenton MD Cardiology:Last stress test 01/10 nml. Jade Fenton MD Cardiology Follow up Jade hussein MD Cardiology Follow up Tonjose randle MD Cardiology Follow up Tonjose randle MD Cardiology Follow up Jade randle MD Cardiology Jade Fenton MD Cardiology Jade Fenton MD Cardiology Jade Fenton MD Cardiology Jade Fenton MD Cardiology Jade Fenton MD Cardiology Jade Fenton MD Cardiology Jade Fenton MD Cardiology Jade Fenton MD Cardiology Jade Fenton MD Cardiology Jade Fenton MD Cardiology Jade Fenton MD Cardiology Jade Fenton MD follow up: H er updated medication list for this problem includes: Atenolol 50 Mg Tabs (Atenolol) ..... One tab. daily Lisinopril 20 Mg Tabs (Lisinopril) ..... One tab. daily Simvastatin 20 Mg Tabs (Simvastatin) ..... 1 tablet by mouth daily Gemfibrozil 600 Mg Tabs (Gemfibrozil) ..... 1 tablet by mouth twice daily Aspirin Ec Lo-dose Tbec (Aspirin tbec) ..... 81mg 1 tablet by mouth daily Jade Fenton MD follow up: H er updated medication list for this problem includes: Atenolol 50 Mg Tabs (Atenolol) ..... One tab. daily Lisinopril 20 Mg Tabs (Lisinopril) ..... One tab. daily Aspirin Ec Lo-dose Tbec (Aspirin tbec) ..... 81mg 1 tablet by mouth daily BP today: 121/77 P rior BP: 135/70 (06/23/2014) Labs Reviewed: C reat: 0.56 (02/11/2014) C hol: 191 (11/22/2011) HDL: 75 (11/24/2010) LDL: 107 (11/22/2011) T (11/24/2010) Jade Fenton MD follow up : B P today: 146/93 Prior BP: 150/96 (06/10/2013) H CT: 40.2 (01/22/2013) Platelets: 242 (01/22/2013) R BC: 4.08 MILLION/UL (11/24/2010) BUN: 11 (11/24/2010) Creat: 0.54 (01/22/2013) Glucose: 91 (11/24/2010) N a+: 137 (01/22/2013) K+: 4.5 (01/22/2013) Cl: 106 (11/24/2010) Calcium: 9.6 (11/24/2010) TSH: 0.425 (11/22/2011) Nuclear Stress Findings: 1. Normal myocardial perfusion imaging after vasodilator stress with Regadenoson. 2 . Normal left ventricular systolic function with a calculated ejection fraction of 50%. 3 . No obvious significant scintigraphic evidence of myocardial ischemia or scar. - GC (01/23/2013) C ardiac Cath: Patent stent of the RCA. % CX stenosis: mid 20%. N ormal left ventricular systolic function. (11/06/2007) Her updated medication list for this problem includes: Atenolol 50 Mg Tabs (Atenolol) ..... One tab. daily Lisinopril 10 Mg Tabs (Lisinopril) ..... One tab. daily Aspirin Ec Lo-dose Tbec (Aspirin tbec) ..... 81mg 1 tablet by mouth daily Jade Fenton MD follow up : B P today: 146/93 P rior BP: 150/96 (06/10/2013) Labs Reviewed: C reat: 0.54 (01/22/2013) C hol: 191 (11/22/2011) HDL: 75 (11/24/2010) LDL: 107 (11/22/2011) T (11/24/2010) Her updated medication list for this problem includes: Atenolol 50 Mg Tabs (Atenolol) ..... One tab. daily Lisinopril 10 Mg Tabs (Lisinopril) ..... One tab. daily Aspirin Ec Lo-dose Tbec (Aspirin tbec) ..... 81mg 1 tablet by mouth daily Jade Fenton MD follow up : B P today: 146/93 Prior BP: 150/96 (06/10/2013) N uclear Stress Findings: 1. Normal myocardial perfusion imaging after vasodilator stress with Regadenoson. 2 . Normal left ventricular systolic function with a calculated ejection fraction of 50%. 3 . No obvious significant scintigraphic evidence of myocardial ischemia or scar. - GC (01/23/2013) C ardiac Cath: Patent stent of the RCA. % CX stenosis: mid 20%. N ormal left ventricular systolic function. (11/06/2007) C arotid Doppler/Duplex: Normal carotid duplex examination. Vertebral flow is antegrade bilaterally. GC (04/11/2011) C HOL: 191 (11/22/2011) LDL: 107 (11/22/2011) HDL: 75 (11/24/2010) T (11/24/2010) H CT: 40.2 (01/22/2013) Platelets: 242 (01/22/2013) R BC: 4.08 MILLION/UL (11/24/2010) BUN: 11 (11/24/2010) Creat: 0.54 (01/22/2013) Glucose: 91 (11/24/2010) N a+: 137 (01/22/2013) K+: 4.5 (01/22/2013) Cl: 106 (11/24/2010) INR: 1.0 (01/25/2013) T SH: 0.425 (11/22/2011) H er updated medication list for this problem includes: Atenolol 50 Mg Tabs (Atenolol) ..... One tab. daily Lisinopril 10 Mg Tabs (Lisinopril) ..... One tab. daily Simvastatin 20 Mg Tabs (Simvastatin) ..... 1 tablet by mouth daily Gemfibrozil 600 Mg Tabs (Gemfibrozil) ..... 1 tablet by mouth twice daily Aspirin Ec Lo-dose Tbec (Aspirin tbec) ..... 81mg 1 tablet by mouth daily Jade Fenton MD follow up : H er updated medication list for this problem includes: Atenolol 50 Mg Tabs (Atenolol) ..... One tab. daily Lisinopril 10 Mg Tabs (Lisinopril) ..... One tab. daily Aspirin Ec Lo-dose Tbec (Aspirin tbec) ..... 81mg 1 tablet by mouth daily BP today: 146/93 Prior BP: 150/96 (06/10/2013) H CT: 40.2 (01/22/2013) Platelets: 242 (01/22/2013) R BC: 4.08 MILLION/UL (11/24/2010) BUN: 11 (11/24/2010) Creat: 0.54 (01/22/2013) Glucose: 91 (11/24/2010) N a+: 137 (01/22/2013) K+: 4.5 (01/22/2013) Cl: 106 (11/24/2010) Calcium: 9.6 (11/24/2010) TSH: 0.425 (11/22/2011) Nuclear Stress Findings: 1. Normal myocardial perfusion imaging after vasodilator stress with Regadenoson. 2 . Normal left ventricular systolic function with a calculated ejection fraction of 50%. 3 . No obvious significant scintigraphic evidence of myocardial ischemia or scar. - GC (01/23/2013) C ardiac Cath: Patent stent of the RCA. % CX stenosis: mid 20%. N ormal left ventricular systolic function. (11/06/2007) Jade Fenton MD follow up : H er updated medication list for this problem includes: Atenolol 50 Mg Tabs (Atenolol) ..... One tab. daily Lisinopril 10 Mg Tabs (Lisinopril) ..... One tab. daily Aspirin Ec Lo-dose Tbec (Aspirin tbec) ..... 81mg 1 tablet by mouth daily BP today: 146/93 P rior BP: 150/96 (06/10/2013) Labs Reviewed: C reat: 0.54 (01/22/2013) C hol: 191 (11/22/2011) HDL: 75 (11/24/2010) LDL: 107 (11/22/2011) T (11/24/2010) Jade Fenton MD follow up : H er updated medication list for this problem includes: Atenolol 50 Mg Tabs (Atenolol) ..... One tab. daily Lisinopril 10 Mg Tabs (Lisinopril) ..... One tab. daily Simvastatin 20 Mg Tabs (Simvastatin) ..... 1 tablet by mouth daily Gemfibrozil 600 Mg Tabs (Gemfibrozil) ..... 1 tablet by mouth twice daily Aspirin Ec Lo-dose Tbec (Aspirin tbec) ..... 81mg 1 tablet by mouth daily BP today: 146/93 Prior BP: 150/96 (06/10/2013) N uclear Stress Findings: 1. Normal myocardial perfusion imaging after vasodilator stress with Regadenoson. 2 . Normal left ventricular systolic function with a calculated ejection fraction of 50%. 3 . No obvious significant scintigraphic evidence of myocardial ischemia or scar. - GC (01/23/2013) C ardiac Cath: Patent stent of the RCA. % CX stenosis: mid 20%. N ormal left ventricular systolic function. (11/06/2007) C arotid Doppler/Duplex: Normal carotid duplex examination. Vertebral flow is antegrade bilaterally. GC (04/11/2011) C HOL: 191 (11/22/2011) LDL: 107 (11/22/2011) HDL: 75 (11/24/2010) T (11/24/2010) H CT: 40.2 (01/22/2013) Platelets: 242 (01/22/2013) R BC: 4.08 MILLION/UL (11/24/2010) BUN: 11 (11/24/2010) Creat: 0.54 (01/22/2013) Glucose: 91 (11/24/2010) N a+: 137 (01/22/2013) K+: 4.5 (01/22/2013) Cl: 106 (11/24/2010) INR: 1.0 (01/25/2013) T SH: 0.425 (11/22/2011) Jade Fenton MD follow up : H er updated medication list for this problem includes: Atenolol 50 Mg Tabs (Atenolol) ..... One tab. daily Lisinopril 10 Mg Tabs (Lisinopril) ..... One tab. daily Aspirin Ec Lo-dose Tbec (Aspirin tbec) ..... 81mg 1 tablet by mouth daily BP today: 150/96 P rior BP: 144/82 (11/26/2012) Labs Reviewed: C reat: 0.54 (01/22/2013) C hol: 191 (11/22/2011) HDL: 75 (11/24/2010) LDL: 107 (11/22/2011) T (11/24/2010) Jade Fenton MD follow up : H er updated medication list for this problem includes: Atenolol 50 Mg Tabs (Atenolol) ..... One tab. daily Lisinopril 10 Mg Tabs (Lisinopril) ..... One tab. daily Simvastatin 20 Mg Tabs (Simvastatin) ..... 1 tablet by mouth daily Gemfibrozil 600 Mg Tabs (Gemfibrozil) ..... 1 tablet by mouth twice daily Aspirin Ec Lo-dose Tbec (Aspirin tbec) ..... 81mg 1 tablet by mouth daily BP today: 150/96 Prior BP: 144/82 (11/26/2012) N uclear Stress Findings: 1. Normal myocardial perfusion imaging after vasodilator stress with Regadenoson. 2 . Normal left ventricular systolic function with a calculated ejection fraction of 50%. 3 . No obvious significant scintigraphic evidence of myocardial ischemia or scar. - GC (01/23/2013) C ardiac Cath: Patent stent of the RCA. % CX stenosis: mid 20%. N ormal left ventricular systolic function. (11/06/2007) C arotid Doppler/Duplex: Normal carotid duplex examination. Vertebral flow is antegrade bilaterally. GC (04/11/2011) C HOL: 191 (11/22/2011) LDL: 107 (11/22/2011) HDL: 75 (11/24/2010) T (11/24/2010) H CT: 40.2 (01/22/2013) Platelets: 242 (01/22/2013) R BC: 4.08 MILLION/UL (11/24/2010) BUN: 11 (11/24/2010) Creat: 0.54 (01/22/2013) Glucose: 91 (11/24/2010) N a+: 137 (01/22/2013) K+: 4.5 (01/22/2013) Cl: 106 (11/24/2010) INR: 1.0 (01/25/2013) T SH: 0.425 (11/22/2011) Jade Fenton MD follow up : H er updated medication list for this problem includes: Simvastatin 20 Mg Tabs (Simvastatin) ..... 1 tablet by mouth daily Gemfibrozil 600 Mg Tabs (Gemfibrozil) ..... 1 tablet by mouth twice daily BP today: 150/96 Prior BP: 144/82 (11/26/2012) C HOL: 191 (11/22/2011) LDL: 107 (11/22/2011) HDL: 75 (11/24/2010) T (11/24/2010) Jade Fenton MD follow up : H er updated medication list for this problem includes: Atenolol 50 Mg Tabs (Atenolol) ..... One tab. daily Lisinopril 10 Mg Tabs (Lisinopril) ..... One tab. daily Aspirin Ec Lo-dose Tbec (Aspirin tbec) ..... 81mg 1 tablet by mouth daily BP today: 150/96 P rior BP: 144/82 (11/26/2012) Labs Reviewed: C reat: 0.54 (01/22/2013) C hol: 191 (11/22/2011) HDL: 75 (11/24/2010) LDL: 107 (11/22/2011) T (11/24/2010) Jade Fenton MD 6 month follow-up: H er updated medication list for this problem includes: Atenolol 50 Mg Tabs (Atenolol) ..... One tab. daily Lisinopril 10 Mg Tabs (Lisinopril) ..... One tab. daily Simvastatin 20 Mg Tabs (Simvastatin) ..... 1 tablet by mouth daily Gemfibrozil 600 Mg Tabs (Gemfibrozil) ..... 1 tablet by mouth twice daily Aspirin Ec Lo-dose Tbec (Aspirin tbec) ..... 81mg 1 tablet by mouth daily BP today: 144/82 Prior BP: 130/74 (05/14/2012) N uclear Stress Findings: 1. Normal myocardial perfusion imaging after vasodilator stress with Regadenoson. 2 . Normal left ventricular systolic function with a calculated ejection fraction of 44%.( Please correlate with echo EF) 3 . No obvious significant scintigraphic evidence of myocardial ischemia or scar. - GC (11/15/2011) C ardiac Cath: Patent stent of the RCA. % CX stenosis: mid 20%. N ormal left ventricular systolic function. (11/06/2007) C arotid Doppler/Duplex: Normal carotid duplex examination. Vertebral flow is antegrade bilaterally. GC (04/11/2011) C HOL: 191 (11/22/2011) LDL: 107 (11/22/2011) HDL: 75 (11/24/2010) T (11/24/2010) H CT: 13.9 (11/22/2011) Platelets: 180 (11/22/2011) R BC: 4.08 MILLION/UL (11/24/2010) BUN: 11 (11/24/2010) Creat: 0.8 (11/22/2011) Glucose: 91 (11/24/2010) N a+: 140 (11/22/2011) K+: 4.4 (11/22/2011) Cl: 106 (11/24/2010) TSH: 0.425 (11/22/2011) Jade Fenton MD 6 month follow-up: H er updated medication list for this problem includes: Simvastatin 20 Mg Tabs (Simvastatin) ..... 1 tablet by mouth daily Gemfibrozil 600 Mg Tabs (Gemfibrozil) ..... 1 tablet by mouth twice daily BP today: 144/82 Prior BP: 130/74 (05/14/2012) C HOL: 191 (11/22/2011) LDL: 107 (11/22/2011) HDL: 75 (11/24/2010) T (11/24/2010) Jade Fenton MD 6 month follow-up: H er updated medication list for this problem includes: Atenolol 50 Mg Tabs (Atenolol) ..... One tab. daily Lisinopril 10 Mg Tabs (Lisinopril) ..... One tab. daily Aspirin Ec Lo-dose Tbec (Aspirin tbec) ..... 81mg 1 tablet by mouth daily Orders: E KG ([id number]) BP today: 144/82 P rior BP: 130/74 (05/14/2012) Labs Reviewed: C reat: 0.8 (11/22/2011) C hol: 191 (11/22/2011) HDL: 75 (11/24/2010) LDL: 107 (11/22/2011) T (11/24/2010) Jade Fenton MD routine: H er updated medication list for this problem includes: Atenolol 50 Mg Tabs (Atenolol) ..... One tab. daily Lisinopril 10 Mg Tabs (Lisinopril) ..... One tab. daily Simvastatin 40 Mg Tabs (Simvastatin) ..... 1 tablet by mouth daily Gemfibrozil 600 Mg Tabs (Gemfibrozil) ..... 1 tablet by mouth twice daily Aspirin Ec Lo-dose Tbec (Aspirin tbec) ..... 81mg 1 tablet by mouth daily BP today: 130/74 Prior BP: 125/69 (11/07/2011) N uclear Stress Findings: 1. Normal myocardial perfusion imaging after vasodilator stress with Regadenoson. 2 . Normal left ventricular systolic function with a calculated ejection fraction of 44%.( Please correlate with echo EF) 3 . No obvious significant scintigraphic evidence of myocardial ischemia or scar. - GC (11/15/2011) C ardiac Cath: Patent stent of the RCA. % CX stenosis: mid 20%. N ormal left ventricular systolic function. (11/06/2007) C arotid Doppler/Duplex: Normal carotid duplex examination. Vertebral flow is antegrade bilaterally. GC (04/11/2011) C HOL: 191 (11/22/2011) LDL: 107 (11/22/2011) HDL: 75 (11/24/2010) T (11/24/2010) H CT: 13.9 (11/22/2011) Platelets: 180 (11/22/2011) R BC: 4.08 MILLION/UL (11/24/2010) BUN: 11 (11/24/2010) Creat: 0.8 (11/22/2011) Glucose: 91 (11/24/2010) N a+: 140 (11/22/2011) K+: 4.4 (11/22/2011) Cl: 106 (11/24/2010) TSH: 0.425 (11/22/2011) Jade Fenton MD routine: H er updated medication list for this problem includes: Simvastatin 40 Mg Tabs (Simvastatin) ..... 1 tablet by mouth daily Gemfibrozil 600 Mg Tabs (Gemfibrozil) ..... 1 tablet by mouth twice daily BP today: 130/74 Prior BP: 125/69 (11/07/2011) C HOL: 191 (11/22/2011) LDL: 107 (11/22/2011) HDL: 75 (11/24/2010) T (11/24/2010) Jade Fenton MD routine: H er updated medication list for this problem includes: Atenolol 50 Mg Tabs (Atenolol) ..... One tab. daily Lisinopril 10 Mg Tabs (Lisinopril) ..... One tab. daily Aspirin Ec Lo-dose Tbec (Aspirin tbec) ..... 81mg 1 tablet by mouth daily BP today: 130/74 Prior BP: 125/69 (11/07/2011) H CT: 13.9 (11/22/2011) Platelets: 180 (11/22/2011) R BC: 4.08 MILLION/UL (11/24/2010) BUN: 11 (11/24/2010) Creat: 0.8 (11/22/2011) Glucose: 91 (11/24/2010) N a+: 140 (11/22/2011) K+: 4.4 (11/22/2011) Cl: 106 (11/24/2010) Calcium: 9.6 (11/24/2010) TSH: 0.425 (11/22/2011) Nuclear Stress Findings: 1. Normal myocardial perfusion imaging after vasodilator stress with Regadenoson. 2 . Normal left ventricular systolic function with a calculated ejection fraction of 44%.( Please correlate with echo EF) 3 . No obvious significant scintigraphic evidence of myocardial ischemia or scar. - GC (11/15/2011) C ardiac Cath: Patent stent of the RCA. % CX stenosis: mid 20%. N ormal left ventricular systolic function. (11/06/2007) Jade Fenton MD routine Jade Fenton MD routine: H er updated medication list for this problem includes: Atenolol 50 Mg Tabs (Atenolol) ..... One tab. daily Lisinopril 10 Mg Tabs (Lisinopril) ..... One tab. daily Aspirin Ec Lo-dose Tbec (Aspirin tbec) ..... 81mg 1 tablet by mouth daily BP today: 130/74 P rior BP: 125/69 (11/07/2011) Labs Reviewed: C reat: 0.8 (11/22/2011) C hol: 191 (11/22/2011) HDL: 75 (11/24/2010) LDL: 107 (11/22/2011) T (11/24/2010) Jade Fenton MD routine Jade Fenton MD sob on exertion : H er updated medication list for this problem includes: Simvastatin 40 Mg Tabs (Simvastatin) ..... 1 tablet by mouth daily Gemfibrozil 600 Mg Tabs (Gemfibrozil) ..... 1 tablet by mouth twice daily BP today: / Prior BP: 128/70 (05/09/2011) C HOL: 159 (11/24/2010) LDL: 73 MG/DL (CALC) (11/24/2010) HDL: 75 (11/24/2010) T (11/24/2010) Jade Fenton MD sob on exertion : H er updated medication list for this problem includes: Atenolol 50 Mg Tabs (Atenolol) ..... One tab. daily Lisinopril 10 Mg Tabs (Lisinopril) ..... One tab. daily Aspirin Ec Lo-dose Tbec (Aspirin tbec) ..... 81mg 1 tablet by mouth daily BP today: / Prior BP: 128/70 (05/09/2011) H CT: 40.8 (11/24/2010) Platelets: 177 THOUSAND/UL (11/24/2010) R BC: 4.08 MILLION/UL (11/24/2010) BUN: 11 (11/24/2010) Creat: 0.59 (11/24/2010) Glucose: 91 (11/24/2010) N a+: 140 (11/24/2010) K+: 4.9 (11/24/2010) Cl: 106 (11/24/2010) Calcium: 9.6 (11/24/2010) Nuclear Stress Findings: 1. Regadenoson mediated myocardial perfusion study 2 . Normal left ventricular systolic function with a calculated ejection fraction of 48%. 3 . No obvious significant scintigraphic evidence of myocardial ischemia or scar. GC (03/31/2010) E chocardiogram: Normal left ventricular systolic function. Normal left ventricular size. Normal left ventricular wall thickness. There is E to A wave reversal consistent with impaired LV relaxation. Normal E/E` 7.0. Left ventricular ejection fraction is estimated at 60%. There is mild enlargement of the left atrium. No significant valvular abnormalities. - (04/11/2011) C ardiac Cath: Patent stent of the RCA. % CX stenosis: mid 20%. N ormal left ventricular systolic function. (11/06/2007) Jade Fenton MD sob on exertion Jade Fenton MD sob on exertion : H er updated medication list for this problem includes: Atenolol 50 Mg Tabs (Atenolol) ..... One tab. daily Lisinopril 10 Mg Tabs (Lisinopril) ..... One tab. daily Aspirin Ec Lo-dose Tbec (Aspirin tbec) ..... 81mg 1 tablet by mouth daily Prior BP: 128/70 (05/09/2011) Labs Reviewed: C reat: 0.59 (11/24/2010) C hol: 159 (11/24/2010) HDL: 75 (11/24/2010) LDL: 73 MG/DL (CALC) (11/24/2010) T (11/24/2010) Jade Fenton MD 6 month follow-up: H er updated medication list for this problem includes: Atenolol 50 Mg Tabs (Atenolol) ..... One tab. daily Lisinopril 10 Mg Tabs (Lisinopril) ..... One tab. daily Aspirin Ec Lo-dose Tbec (Aspirin tbec) ..... 81mg 1 tablet by mouth daily BP today: 128/70 P rior BP: 124/64 (10/18/2010) Labs Reviewed: C reat: 0.59 (11/24/2010) C hol: 159 (11/24/2010) HDL: 75 (11/24/2010) LDL: 73 MG/DL (CALC) (11/24/2010) T (11/24/2010) Jade Fenton MD 6 month follow-up: H er updated medication list for this problem includes: Atenolol 50 Mg Tabs (Atenolol) ..... One tab. daily Lisinopril 10 Mg Tabs (Lisinopril) ..... One tab. daily Simvastatin 40 Mg Tabs (Simvastatin) ..... 1 tablet by mouth daily Gemfibrozil 600 Mg Tabs (Gemfibrozil) ..... 1 tablet by mouth twice daily Aspirin Ec Lo-dose Tbec (Aspirin tbec) ..... 81mg 1 tablet by mouth daily BP today: 128/70 Prior BP: 124/64 (10/18/2010) N uclear Stress Findings: 1. Regadenoson mediated myocardial perfusion study 2 . Normal left ventricular systolic function with a calculated ejection fraction of 48%. 3 . No obvious significant scintigraphic evidence of myocardial ischemia or scar. GC (03/31/2010) C ardiac Cath: Patent stent of the RCA. % CX stenosis: mid 20%. N ormal left ventricular systolic function. (11/06/2007) C arotid Doppler/Duplex: Normal carotid duplex examination. Vertebral flow is antegrade bilaterally. G C (04/11/2011) C HOL: 159 (11/24/2010) LDL: 73 MG/DL (CALC) (11/24/2010) HDL: 75 (11/24/2010) T (11/24/2010) H CT: 40.8 (11/24/2010) Platelets: 177 THOUSAND/UL (11/24/2010) R BC: 4.08 MILLION/UL (11/24/2010) BUN: 11 (11/24/2010) Creat: 0.59 (11/24/2010) Glucose: 91 (11/24/2010) N a+: 140 (11/24/2010) K+: 4.9 (11/24/2010) Cl: 106 (11/24/2010) Jade Fenton MD 6 month follow-up: H er updated medication list for this problem includes: Simvastatin 40 Mg Tabs (Simvastatin) ..... 1 tablet by mouth daily Gemfibrozil 600 Mg Tabs (Gemfibrozil) ..... 1 tablet by mouth twice daily BP today: 128/70 Prior BP: 124/64 (10/18/2010) C HOL: 159 (11/24/2010) LDL: 73 MG/DL (CALC) (11/24/2010) HDL: 75 (11/24/2010) T (11/24/2010) Jade Fenton MD 6 month follow-up: H er updated medication list for this problem includes: Atenolol 50 Mg Tabs (Atenolol) ..... One tab. daily Lisinopril 10 Mg Tabs (Lisinopril) ..... One tab. daily Aspirin Ec Lo-dose Tbec (Aspirin tbec) ..... 81mg 1 tablet by mouth daily BP today: 128/70 P rior BP: 124/64 (10/18/2010) Labs Reviewed: C reat: 0.59 (11/24/2010) C hol: 159 (11/24/2010) HDL: 75 (11/24/2010) LDL: 73 MG/DL (CALC) (11/24/2010) T (11/24/2010) Jade Fenton MD follow up: H er updated medication list for this problem includes: Atenolol 50 Mg Tabs (Atenolol) ..... One tab. daily Lisinopril 10 Mg Tabs (Lisinopril) ..... One tab. daily Aspirin Ec Lo-dose Tbec (Aspirin tbec) ..... 81mg 1 tablet by mouth daily BP today: 124/64 P rior BP: 137/78 (04/05/2010) Jade Fenton MD follow up: H er updated medication list for this problem includes: Atenolol 50 Mg Tabs (Atenolol) ..... One tab. daily Lisinopril 10 Mg Tabs (Lisinopril) ..... One tab. daily Simvastatin 40 Mg Tabs (Simvastatin) ..... 1 tablet by mouth daily Gemfibrozil 600 Mg Tabs (Gemfibrozil) ..... 1 tablet by mouth twice daily Aspirin Ec Lo-dose Tbec (Aspirin tbec) ..... 81mg 1 tablet by mouth daily BP today: 124/64 Prior BP: 137/78 (04/05/2010) N uclear Stress Findings: 1. Regadenoson mediated myocardial perfusion study 2 . Normal left ventricular systolic function with a calculated ejection fraction of 48%. 3 . No obvious significant scintigraphic evidence of myocardial ischemia or scar. GC (03/31/2010) C ardiac Cath: Patent stent of the RCA. % CX stenosis: mid 20%. N ormal left ventricular systolic function. (11/06/2007) C arotid Doppler/Duplex: normal: (01/11/2005) Jade Fenton MD follow up: H er updated medication list for this problem includes: Simvastatin 40 Mg Tabs (Simvastatin) ..... 1 tablet by mouth daily Gemfibrozil 600 Mg Tabs (Gemfibrozil) ..... 1 tablet by mouth twice daily BP today: 124/64 Prior BP: 137/78 (04/05/2010) Jade Fenton MD FU: H er updated medication list for this problem includes: Atenolol 50 Mg Tabs (Atenolol) ..... One tab. daily Lisinopril 10 Mg Tabs (Lisinopril) ..... One tab. daily Aspirin Ec Lo-dose Tbec (Aspirin tbec) ..... 81mg 1 tablet by mouth daily BP today: 137/78 P rior BP: 122/76 (09/29/2009) Jade Fenton MD FU: H er updated medication list for this problem includes: Atenolol 50 Mg Tabs (Atenolol) ..... One tab. daily Lisinopril 10 Mg Tabs (Lisinopril) ..... One tab. daily Simvastatin 40 Mg Tabs (Simvastatin) ..... 1 tablet by mouth daily Gemfibrozil 600 Mg Tabs (Gemfibrozil) ..... 1 tablet by mouth twice daily Aspirin Ec Lo-dose Tbec (Aspirin tbec) ..... 81mg 1 tablet by mouth daily BP today: 137/78 Prior BP: 122/76 (09/29/2009) N uclear Stress Findings: 1. Regadenoson mediated myocardial perfusion study 2 . Normal left ventricular systolic function with a calculated ejection fraction of 48%. 3 . No obvious significant scintigraphic evidence of myocardial ischemia or scar. GC (03/31/2010) C ardiac Cath: Patent stent of the RCA. % CX stenosis: mid 20%. N ormal left ventricular systolic function. (11/06/2007) C arotid Doppler/Duplex: normal: (01/11/2005) Jade Fenton MD FU: H er updated medication list for this problem includes: Simvastatin 40 Mg Tabs (Simvastatin) ..... 1 tablet by mouth daily Gemfibrozil 600 Mg Tabs (Gemfibrozil) ..... 1 tablet by mouth twice daily BP today: 137/78 Prior BP: 122/76 (09/29/2009) Jade Fenton MD FU Jade Fenton MD FU: H er updated medication list for this problem includes: Atenolol 50 Mg Tabs (Atenolol) ..... One tab. daily Lisinopril 10 Mg Tabs (Lisinopril) ..... One tab. daily Aspirin Ec Lo-dose Tbec (Aspirin tbec) ..... 81mg 1 tablet by mouth daily BP today: 137/78 P rior BP: 122/76 (09/29/2009) Jade Fenton MD 6 month follow-up: H er updated medication list for this problem includes: Atenolol 50 Mg Tabs (Atenolol) ..... One tab. daily Lisinopril 10 Mg Tabs (Lisinopril) ..... One tab. daily Simvastatin 40 Mg Tabs (Simvastatin) ..... 1 tablet by mouth daily Gemfibrozil 600 Mg Tabs (Gemfibrozil) ..... 1 tablet by mouth twice daily Aspirin Ec Lo-dose Tbec (Aspirin tbec) ..... 81mg 1 tablet by mouth daily BP today: 122/76 Prior BP: 118/70 (03/31/2009) N uclear Stress Findings: EF - 45%. N egative exercise EKG for cardiac ischemia. G ood exercise tolerance. Small reversible inferior and apical defect consistent with ischemia. (10/25/2007) C ardiac Cath: Patent stent of the RCA. % CX stenosis: mid 20%. N ormal left ventricular systolic function. (11/06/2007) C arotid Doppler/Duplex: normal: (01/11/2005) Jade Fenton MD 6 month follow-up: H er updated medication list for this problem includes: Atenolol 50 Mg Tabs (Atenolol) ..... One tab. daily Lisinopril 10 Mg Tabs (Lisinopril) ..... One tab. daily Aspirin Ec Lo-dose Tbec (Aspirin tbec) ..... 81mg 1 tablet by mouth daily BP today: 122/76 P rior BP: 118/70 (03/31/2009) Jade Fenton MD 6 month follow-up: H er updated medication list for this problem includes: Atenolol 50 Mg Tabs (Atenolol) ..... One tab. daily Lisinopril 10 Mg Tabs (Lisinopril) ..... One tab. daily Aspirin Ec Lo-dose Tbec (Aspirin tbec) ..... 81mg 1 tablet by mouth daily BP today: 122/76 Prior BP: 118/70 (03/31/2009) N uclear Stress Findings: EF - 45%. N egative exercise EKG for cardiac ischemia. G ood exercise tolerance. S mall reversible inferior and apical defect consistent with ischemia. (10/25/2007) E chocardiogram: The left ventricular chamber size is normal. Mild c oncentric LVH. Normal left ventricular function. LV EF is estimated at 55%. Diastolic dysfunction. (sclerotic) thickened MVL. Mildly thickened (sclerotic)AV . Minimal MR. Minimal to (1+) mild TR. GCO (09/30/2008) C ardiac Cath: Patent stent of the RCA. % CX stenosis: mid 20%. N ormal left ventricular systolic function. (11/06/2007) Jade Fenton MD 6 month follow-up: H er updated medication list for this problem includes: Simvastatin 40 Mg Tabs (Simvastatin) ..... 1 tablet by mouth daily Gemfibrozil 600 Mg Tabs (Gemfibrozil) ..... 1 tablet by mouth twice daily BP today: 122/76 Prior BP: 118/70 (03/31/2009) Jade Fenton MD 6 month follow-up Jade Carrington 6 month follow-up: H er updated medication list for this problem includes: Atenolol 50 Mg Tabs (Atenolol) ..... One tab. daily Lisinopril 10 Mg Tabs (Lisinopril) ..... One tab. daily Aspirin Ec Lo-dose Tbec (Aspirin tbec) ..... 81mg 1 tablet by mouth daily BP today: 122/76 P rior BP: 118/70 (03/31/2009) Jade Fenton MD 6 month folow=up: H er updated medication list for this problem includes: Atenolol 50 Mg Tabs (Atenolol) ..... One tab. daily Lisinopril 10 Mg Tabs (Lisinopril) ..... One tab. daily Aspirin Ec Lo-dose Tbec (Aspirin tbec) ..... 81mg 1 tablet by mouth daily BP today: 118/70 Prior BP: 143/78 (09/30/2008) N uclear Stress Findings: EF - 45%. N egative exercise EKG for cardiac ischemia. G ood exercise tolerance. S mall reversible inferior and apical defect consistent with ischemia. (10/25/2007) E chocardiogram: The left ventricular chamber size is normal. Mild c oncentric LVH. Normal left ventricular function. LV EF is estimated at 55%. Diastolic dysfunction. (sclerotic) thickened MVL. Mildly thickened (sclerotic)AV . Minimal MR. Minimal to (1+) mild TR. GCO (09/30/2008) C ardiac Cath: Patent stent of the RCA. % CX stenosis: mid 20%. N ormal left ventricular systolic function. (11/06/2007) Jade Fenton MD 6 month folow=up: H er updated medication list for this problem includes: Atenolol 50 Mg Tabs (Atenolol) ..... One tab. daily Lisinopril 10 Mg Tabs (Lisinopril) ..... One tab. daily Simvastatin 40 Mg Tabs (Simvastatin) ..... 1 tablet by mouth daily Gemfibrozil 600 Mg Tabs (Gemfibrozil) ..... 1 tablet by mouth twice daily Aspirin Ec Lo-dose Tbec (Aspirin tbec) ..... 81mg 1 tablet by mouth daily BP today: 118/70 Prior BP: 143/78 (09/30/2008) N uclear Stress Findings: EF - 45%. N egative exercise EKG for cardiac ischemia. G ood exercise tolerance. Small reversible inferior and apical defect consistent with ischemia. (10/25/2007) C ardiac Cath: Patent stent of the RCA. % CX stenosis: mid 20%. N ormal left ventricular systolic function. (11/06/2007) C arotid Doppler/Duplex: normal: (01/11/2005) Jade Fenton MD 6 month folow=up: H er updated medication list for this problem includes: Atenolol 50 Mg Tabs (Atenolol) ..... One tab. daily Lisinopril 10 Mg Tabs (Lisinopril) ..... One tab. daily Aspirin Ec Lo-dose Tbec (Aspirin tbec) ..... 81mg 1 tablet by mouth daily BP today: 118/70 Prior BP: 143/78 (09/30/2008) N uclear Stress Findings: EF - 45%. N egative exercise EKG for cardiac ischemia. G ood exercise tolerance. S mall reversible inferior and apical defect consistent with ischemia. (10/25/2007) C ardiac Cath: Patent stent of the RCA. % CX stenosis: mid 20%. N ormal left ventricular systolic function. (11/06/2007) C arotid Doppler/Duplex: normal: (01/11/2005) E chocardiogram: The left ventricular chamber size is normal. Mild c oncentric LVH. Normal left ventricular function. LV EF is estimated at 55%. Diastolic dysfunction. (sclerotic) thickened MVL. Mildly thickened (sclerotic)AV . Minimal MR. Minimal to (1+) mild TR. GCO (09/30/2008) Jade Fenton MD 6 month folow=up: H er updated medication list for this problem includes: Atenolol 50 Mg Tabs (Atenolol) ..... One tab. daily Lisinopril 10 Mg Tabs (Lisinopril) ..... One tab. daily Aspirin Ec Lo-dose Tbec (Aspirin tbec) ..... 81mg 1 tablet by mouth daily BP today: 118/70 P rior BP: 143/78 (09/30/2008) Jade Fenton MD 1 year visit with ec ho: H er updated medication list for this problem includes: Simvastatin 40 Mg Tabs (Simvastatin) ..... Once daily Gemfibrozil 600 Mg Tabs (Gemfibrozil) ..... Bid BP today: 143/78 Prior BP: / () Jade Fenton MD 1 year visit with ec ho: H er updated medication list for this problem includes: Atenolol 50 Mg Tabs (Atenolol) ..... One tab. daily Lisinopril 10 Mg Tabs (Lisinopril) ..... One tab. daily Aspirin Ec Lo-dose Tbec (Aspirin tbec) ..... 81 mg daily BP today: 143/78 Jade Fenton MD 1 year visit with ec ho: H er updated medication list for this problem includes: Atenolol 50 Mg Tabs (Atenolol) ..... One tab. daily Lisinopril 10 Mg Tabs (Lisinopril) ..... One tab. daily Aspirin Ec Lo-dose Tbec (Aspirin tbec) ..... 81 mg daily BP today: 143/78 Prior BP: / () N uclear Stress Findings: EF - 45%. N egative exercise EKG for cardiac ischemia. G ood exercise tolerance. S mall reversible inferior and apical defect consistent with ischemia. (10/25/2007) C ardiac Cath: Patent stent of the RCA. % CX stenosis: mid 20%. N ormal left ventricular systolic function. (11/06/2007) C arotid Doppler/Duplex: normal: (01/11/2005) E chocardiogram: EF - 60-65%. D iastolic dysfunction. T hickened mitral valve. T race mitral regurgitation. T race pulmonary insufficiency. M ild tricuspid regurgitation. T race pulmonary hyperetnsion with PA pressure of 32mmHg. (08/06/2007) Orders: E KG ([id number]) Jade Fenton MD 1 year visit with ec ho: H er updated medication list for this problem includes: Atenolol 50 Mg Tabs (Atenolol) ..... One tab. daily Lisinopril 10 Mg Tabs (Lisinopril) ..... One tab. daily Simvastatin 40 Mg Tabs (Simvastatin) ..... Once daily Gemfibrozil 600 Mg Tabs (Gemfibrozil) ..... Bid Aspirin Ec Lo-dose Tbec (Aspirin tbec) ..... 81 mg daily BP today: 143/78 Prior BP: / () N uclear Stress Findings: EF - 45%. N egative exercise EKG for cardiac ischemia. G ood exercise tolerance. S mall reversible inferior and apical defect consistent with ischemia. (10/25/2007) C ardiac Cath: Patent stent of the RCA. % CX stenosis: mid 20%. N ormal left ventricular systolic function. (11/06/2007) C arotid Doppler/Duplex: normal: (01/11/2005) Jade Fenton MD Date Name Complete Echo CXR- PA/Lat Stress Regadenoson Arterial Duplex Bi-L ower EX Venous Doppler Unila teral RLE Venous Doppler Unila teral LLE PROTHROMBIN TIME WIT H INR LIPID PANEL CBC (INCLUDES DIFF/P LT) BASIC METABOLIC PANE L W/EGFR Venous Doppler Bilat eral LE - Reflux Complete Echo Low Dose Lung CT Stress Regadenoson TSH, 3RD GENERATION W/REFLEX TO FT4 HEMOGLOBIN A1c LIPID PANEL COMPREHENSIVE METABO LIC PANEL W/EGFR CBC (INCLUDES DIFF/P LT) CBC (INCLUDES DIFF/P LT) LIPID PANEL COMPREHENSIVE METABO LIC PANEL W/EGFR HISTORY OF PROCEDURES Procedure Date Procedure Name Provider Procedure Notes S tatus Complex e/m visit add on Jade Fentno MD completed Complex e/m visit add on Jade Fenton MD completed EKG Jade Fenton MD completed Complex e/m visit add on Jade Fenton MD completed EKG Jade Fenton MD completed EKG Rodney Hernandez MD completed Counseling LDCT Jade Fenton MD comp leted EKG Jade Fenton MD completed Regadenoson, 4 units Jade Fenton MD completed Cardiolite, 2 units Jade Fenton MD completed SPECT Images Jade Fenton MD complet ed Stress EKG Jade Fenton MD completed EKG Jade Fenton MD completed EKG Jade Fenton MD completed ePrescribe - Check t his box if eRx is used Jade Fenton MD completed SNOMED-CT: 995257548 [id number] Current Medications Documented Jade Fenton MD completed SNOMED-CT: 91112400 Physical Exam, Performed: Pulse Exam of Foot Jade Fenton MD completed EKG Jade Fenton MD completed SNOMED-CT: 134326096 430251 Current Medications Documented Jade Fenton MD completed SNOMED-CT: 41078823 Physical Exam, Performed: Pulse Exam of Foot Jade Fenton MD completed SNOMED-CT: 217375964 779955 Current Medications Documented Jade Fenton MD completed Stress EKG Blue Pham MD complet ed Regadenoson, 4 units Jade Fenton MD completed Cardiolite, 2 units Jade Fenton MD completed SPECT Images Blue Pham MD compl eted SNOMED-CT: 69910295 Physical Exam, Performed: Pulse Exam of Foot Jade Fenton MD completed SNOMED-CT: 963944813 151296 Current Medications Documented Jade Fenton MD completed EKG Jade Fenton MD completed SNOMED-CT: 924582328 612037 Current Medications Documented Jade Fenton MD completed EKG Jade Fenton MD completed EKG Jade Fenton MD completed EKG Jade Fenton MD completed EKG Jade Fenton MD completed
--- OUTSIDE RECORDS SUMMARY | 2024-12-12 00:40 | XMS_ITS | Clinical Summary ---
Author Organization [facility] Address [address] [place] [address] Care Team Providers Care Cornetist Name Role Phone Unavailable Primary Care Provider Unavailabl e Social History Tobacco Use Types Packs/Day Years Used Date Smoking Tobacco: Never Assessed Comments Unknown Sex and Gender Information Value Date Recorded Sex Assigned at Not on file Legal Sex Female 7:25 AM CDT Gender Identity Not on file Sexual Orientation Not on file Plan of Treatment Health Maintenance Due Date Last Done Comments DTaP, Tdap and Td Vaccines ( 1 - Tdap) 1962 Zoster Vaccines (1 of 2) 1993 Dexa Scan (General) 2008 Pneumococcal Vaccine: 50+ Ye ars (1 of 1 - PCV) 2008 RSV Immunization or 60+ Years (1 - 1-dose 75+ series) 2018 COVID-19 Vaccine ( - 2023-2 5 season) 2024 Meningococcal B Vaccine Aged Out No l onger eligible based on patient's age to complete this topic Meningococcal Vaccine Aged Out No mohan edson eligible based on patient's age to complete this topic RSV Immunizations Under 20 Months Aged Out No longer eligible based on patient's age to complete this topic
--- OUTSIDE RECORDS SUMMARY | 2024-12-12 00:40 | XMS_ITS | Clinical Summary ---
Author Organization [facility] [address] [place] [phone] Care Team Providers Care Utility Service Worker Name Role Phone Leydi Chambers MD Primary Care Provide r Allergies Active Allergy Reactions Criticality Noted Date Comments Clopidogrel Other (See comments) Low 10/27/2021 Medications amLODIPine (NORVASC) 5 mg tablet Take 5 mg by mouth daily Active atenoloL (TENORMIN) 50 mg tablet Take 50 mg by mouth daily Active hydroCHLOROthia zide (HYDRODIURIL) 12.5 mg tablet Take 12.5 mg by mouth daily Active lisinopriL (PRINIVIL,ZESTR IL) 40 mg tablet Take 40 mg by mouth daily Active simvastatin (ZOCOR) 40 mg tablet Take 40 mg by mouth nightly Active omega-3 fatty acids-fish oil 300-1,000 mg capsule Take 2 g by mouth daily Active aspirin 81 mg enteric coated tablet Take 81 mg by mouth daily Active Active Problems No known active problems Social History Tobacco Use Types Packs/Day Years Used Date Smoking Tobacco: Never Assessed Personal Safety Answer Date Recorded Getting School Help Needed Not on file 08/08 Comments Unknown Sex and Gender Information Value Date Recorded Sex Assigned at Not on file 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 Gender Identity Not on file Sexual Orientation Not on file Last Filed Vital Signs Vital Sign Reading Time Taken Comments Blood Pressure 136/72 03/30/2023 2:07 PM CDT Pulse 82 03/30/2023 2:07 PM CDT Temperature - - Respiratory Rate 18 03/30/2023 2:07 PM CDT Oxygen Saturation 95% 03/30/2023 2:07 PM CDT Inhaled Oxygen Concentration - - Weight 77.1 kg (170 lb) 03/30/2023 2:07 PM CDT Height 160 cm (5' 3) 03/30/2023 2:07 PM CDT Body Mass Index 30.11 03/30/2023 2:07 PM CDT Plan of Treatment Health Maintenance Due Date Last Done Comments Depression Screening 1943 Fall Risk Assessment 1945 Osteoporosis Screening-Bone Density Scan 1943 Hepatitis B Screening 1961 Zoster Vaccine (1 of 2) 1993 Well Visit 65+ 2008 Pneumococcal vaccine 65+ (2 of 2 - PCV) 05/22/2008 05/22/2007 Covid-19 Vaccine (2023-2 5 season) 2024 07/02/2021, 10/29/2020, 10/01/2020 Influenza Vaccine (#1) 2024 , 06/29/2020, 06/09/2020, Additional history exists DTaP/Tdap/Td Vaccine (2 - Td or Tdap) 03/04/2026 03/04/2016 Insurance MEDICARE [facility] BLUE [facility] CHOICE OOS MEDICARE [facility] CHOICE OOS Member Subscriber Plan / Payer ( fective 2008-Present) Name:Leatha Kaba Relation to Subscriber:Self Name:Leatha Kaba Payer ID:[id number] (NAIC) Type:[employer] Address: [address] MEDICARE [facility] Care Teams Utility Service Worker Relationship Specialty Start Date End Date Leydi Chambers MD [address] [facility] [address] [place] [address] PCP - General Internal Medicine 10/08/21
--- OUTSIDE RECORDS SUMMARY | 2024-12-12 00:40 | XMS_ITS | Referral Summary ---
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
--- OUTSIDE RECORDS SUMMARY | 2024-12-12 00:40 | XMS_ITS | Clinical Summary ---
Author Organization [facility] Address [address] [place] [address] Care Team Providers Care Family Reunification Specialist Name Role Phone Unavailable Primary Care Provider Unavailabl e Source Comments [facility],non-owned Affiliates and Associated Physician Practices is amultiple site organization consisting of ambulatory clinics and hospital sitesin [place], [place], [place] and [place]. This disclosure is being madepursuant to the Care Everywhere program and may not contain all information available regarding this patient. Last updated 18.[facility] [employer] Allergies Active Allergy Reactions Criticality Noted Date Comments Clopidogrel Urticaria Medium 06/09/2020 Immunizations Immunization Administration Dates Next Due INFLUENZA VACCINE, HIGH-DOSE , QUADR. (FLUZONE HIGH-DOSE QUADRIVALENT; 65Y+), 0.7 ML (HD-IIV4) 06/09/2020 Social History Tobacco Use Types Packs/Day Years Used Date Smoking Tobacco: Never Assessed Comments Unknown Sex and Gender Information Value Date Recorded Sex Assigned at Not on file Legal Sex Female 10:17 AM CDT Gender Identity Not on file Sexual Orientation Not on file Plan of Treatment Health Maintenance Due Date Last Done Comments BONE DENSITY TESTING 1945 MEDICARE AWV 12 MONTHS 1943 DTAP/TDAP/TD VACCINES (1 - Tdap) 1962 PNEUMOCOCCAL VACCINE 50+ (1 of 1 - PCV) 1993 ZOSTER VACCINE (1 of 2) 1993 Respiratory Syncytial Virus (RSV) Vaccine Pt: or over 60 yrs (1 - 1-dose 75+ series) 2018 COVID-19 VACCINE ( - season) 2024 07/02/2021, 10/29/2020, 10/01/2020 DEPRESSION SCREENING 08/28/2024 INFLUENZA VACCINE (Season Ended) 2025 06/29/2020, 06/09/2020, 08/16/2019, Additional history exists HEPATITIS B VACCINE Aged Out No longe r eligible based on patient's age to complete this topic HIB VACCINE Aged Out No longer eligi ble based on patient's age to complete this topic HPV VACCINE Aged Out No longer eligi ble based on patient's age to complete this topic MENINGOCOCCAL (Group B) VACCINE SHARED DECISION-MAKING Aged Out No longer eligible based on patient's age to complete this topic MENINGOCOCCAL GROUPS A/C/Y/W VACCINE Aged Out No longer eligible based on patient's age to complete this topic Insurance MEDICARE [facility] MEDICARE [facility]
[2025-01-23 09:45] VITALS: BMI 32.5
--- OUTSIDE RECORDS SUMMARY | 2025-01-30 01:51 | XMS_ITS | Data Portability ---
Author Organization [facility] [employer], Main Office Address [address] [place] [address] Care Team Providers Care Step Finisher Name Role Phone NICOLAS CHAMBERS Primary Care Provider JADE IVAN Stator Winder ABHISHEK PATEL Wharf Operator Assessment Encounter Date Assessment Date Assessment LastModified by Organization Details LastModified Time 07/11/2024 07/11/2024 09/27/2023: TSH 0.198L Not available [...] 48 minutes. [email or web address] Not available 11/12/2024 12:52:05 12/25/2024 12/25/2024 I have reconciled the patient's medications post their discharge from inpatient facility. 09/27/2023: TSH 0.198L Not available 12/26/2024 19:14:21 Plan of Treatment Reminders Order Date Submit Date Provider Last Modified By Organization Details Last Modified Time Details Appointments Follow Up 15 2024 10:00A M Nicolas herrera MD Not available Not available Not available Lab lipid panel, serum 2024 025 [facility] (Lab), [address] [place], [address], 12/26/2024 08:05:36 CBC w/ auto diff 2024 025 [facility] (Lab), [address] [place], [address], 12/26/2024 08:05:37 CMP, serum or plasma 2024 025 [facility] (Lab), [address] [place], [address], 12/26/2024 08:05:37 TSH, serum or plasma 2024 025 [facility] (Lab), [address] [place], [address], 12/26/2024 08:05:36 vitamin D, 25-hydrox y, total, serum 2024 025 [facility] (Lab), [address] [place], [address], 12/26/2024 08:05:37 vitamin D3, 25-hydrox y, serum 2024 025 [facility] (Lab), [address] [place], [address], 12/26/2024 08:05:37 culture, sputum 2024 025 [facility] (Lab), [address] [place], [address], 11/17/2024 08:38:30 alpha-1-a ntitrypsi n (aat) phenotype , serum 2024 025 [facility] (Lab), [address] [place], [address], 11/20/2024 12:49:26 BNP (B-type natriuret ic peptide), serum or plasma 2024 025 [facility] (Lab), [address] [place], [address], 11/18/2024 17:05:59 ige, total, serum [address] (Lab), [address] [place], [address], 11/26/2024 12:03:08 tb (M tuberculo sis), ifn-gamma silvia, blood [address] (Lab), [address] [place], [address], 11/26/2024 12:03:08 [address] s 1+2+3+4, serum [address] (Lab), [address] [place], [address], 11/26/2024 12:03:08 respirato ry allergen panel, [facility] A, serum [address] (Lab), [address] [place], [address], 11/26/2024 12:03:09 respirato ry allergen panel - [facility] b [address] (Lab), [address] [place], [address], 11/26/2024 12:03:09 eosinophi ls, quant, blood [address] (Lab), [address] [place], [address], 11/26/2024 12:03:09 lipid panel, serum 2023 024 [facility] (Lab), [address] [place], [address], 12/06/2024 10:23:53 CBC w/ auto diff 2023 024 [facility] (Lab), [address] [place], [address], 12/06/2024 10:23:52 CMP, serum or plasma 2023 024 [facility] (Lab), [address] [place], [address], 12/06/2024 10:23:54 TSH, serum or plasma 2023 024 [facility] (Lab), [address] [place], [address], 12/06/2024 10:23:55 vitamin D, 25-hydrox y, total, serum [address] (Lab), [address] [place], [address], 01/07/2025 11:09:24 vitamin D3, 25-hydrox y, serum 2023 024 [facility] (Lab), [address] [place], [address], 12/06/2024 10:23:54 Referral gastroent erologist referral - Please call patient to schedule an appointme nt. Thank you. 2024 025 IZABEL jacobs MD, [address], [address], [place], [address], 01/01/2025 11:11:18 cardiolog ist referral - Please call patient to schedule an appointme nt. Thank you. 2024 025 [place], [address] [facility], [address], [place], [address], 01/01/2025 09:52:12 pulmonolo gist referral - Please call patient to schedule an appointme nt. Thank you. 2024 025 [email or web address] Michoacano Zavala MD, [address] [place], [address], 11/12/2024 09:31:21 gastroent erologist referral - Please call patient to schedule. 2023 024 [email or web address] Андрей Mackay MD, [address] [facility] [address], [address], [place], [address], 11/13/2024 08:02:06 cardiolog ist referral 2023 024 [email or web address] [place], [address], [address], [address], 07/15/2024 12:43:19 Procedures None recorded. Surgeries None recorded. Imaging US, thyroid [address] ([facility]), [address] [place], [address], 12/26/2024 09:42:47 LDCT, chest, for lung cancer screening [address] ([facility]), [address] [place], [address], 12/26/2024 09:44:24 DEXA, axial skeleton [address] ([facility]), [address] [place], [address], 12/26/2024 09:42:26 DEXA, axial skeleton [address] ([facility]), [address] [place], [address], 07/15/2024 10:50:51 Medication Orders esomepraz ole magnesium 40 mg capsule,d elayed release 2024 025 [email or web address] [id number], [address], 12/25/2024 16:11:42 Airsupra 90 mcg-80 mcg/actua tion HFA aerosol inhaler 2024 025 [email or web address] [id number], [address], 12/25/2024 16:11:12 tramadol 50 mg tablet 2023 024 [email or web address] [address], [address], 12/25/2024 16:12:38 Patient TargetsNo targets recorded. Patient Instructions Encounter Date Encounter Id Patient Instructions Last Modified By Organization Details Last Modified Time 11/12/2024 [id number] complete PFT w/ post bronchodilator spirometry* - Please call patient to schedule. FRANKIE [id number] w/ Medicare. KIRA Not available 12/02/2024 11:19:04 12/25/2024 [id number] Thank you for yo ur visit to our office today. We would like to request that you reach out to your referring or previous provider and request that they send us a Summary of Care in electronic form, so that we may have it on file in your medical record. At your visit, we had the medical records we needed to provide you with the best possible care; however, for insurance purposes, an electronic Summary of Care is beneficial. Thank you for your assistance in obtaining this information and we look forward to providing continued care to you. Please review your medication list from the Summary of Care for this visit. If there are any differences from what you are currently taking at home, please call us to discuss. julisa Not available 12/25/2024 16:05:13 Homebound Status : Required Home Health Services: Durable Medical Equipment needed: Billing Guidelines CPT code 35359- Transitional Care Management services with moderate medical decision complexity (kmxn-vd-zhfq visit within 14 days of discharge). CPT code 05329- Transitional Care Management services with high medical decision complexity (dloh-pc-ewja visit within 7 days of discharge). julisa Not available 12/25/2024 16:05:13 Reason for Referral Stator Winder Referral for Co ronary arteriosclerosis Referring Physician: Nicolas Chambers Internal Medicine, Encounter Date: 07/11/2024 Assistant Football Coach Referral for Esophageal mass Please call patient to schedule. Referring Physician: Nicolas Chambers Internal Medicine, Encounter Date: 07/11/2024 Referral Agent Referral for C hronic obstructive pulmonary disease Please call patient to schedule an appointment. Thank you. Referring Physician: Nicolas Chambers Internal Medicine, Encounter Date: 11/07/2024 Stator Winder Referral for Co ronary arteriosclerosis Please call patient to schedule an appointment. Thank you. Referring Physician: Nicolas Chambers Internal Medicine, Encounter Date: 12/25/2024 Assistant Football Coach Referral for Esophageal mass Please call patient to schedule an appointment. Thank you. Referring Physician: Nicolas Chambers Internal Medicine, Encounter Date: 12/25/2024 Results Created Date Observation Date Name Description Value Unit Range Abnormal Flag Note LastModifiedBy Organization Detail LastModifiedTime 07/11/20 24 07/11/2024 CBC/C OMPLE TE BLD COUNT W/DIF F white blood cells 6.0 x10'3 /uL 4.2-10 .8 Not Available [facility] (Lab) [address] [place], [address], 07/11/2024 10:41:28 07/11/20 24 07/11/2024 CBC/C OMPLE TE BLD COUNT W/DIF F red blood cells 4.46 x10'6 /uL 3.80-5 .20 Not Available [facility] (Lab) [address] [place], [address], 07/11/2024 10:41:28 07/11/20 24 07/11/2024 CBC/C OMPLE TE BLD COUNT W/DIF F hemoglobin 15.1 g/dL 12.0-1 5.6 Not Available [facility] (Lab) [address] [place], [address], 07/11/2024 10:41:28 07/11/20 24 07/11/2024 CBC/C OMPLE TE BLD COUNT W/DIF F hematocrit 43.9 % 35.7-4 5.7 Not Available [facility] (Lab) [address] [place], [address], 07/11/2024 10:41:28 07/11/20 24 07/11/2024 CBC/C OMPLE TE BLD COUNT W/DIF F mean red cell volume 98.4 fL 82.0-9 9.0 Not Available [facility] (Lab) [address] [place], [address], 07/11/2024 10:41:28 07/11/20 24 07/11/2024 CBC/C OMPLE TE BLD COUNT W/DIF F mean red cell hemoglobin 33.9 pg 27.0-3 3.0 high Not Available [facility] (Lab) [address] [place], [address], 07/11/2024 10:41:28 07/11/20 24 07/11/2024 CBC/C OMPLE TE BLD COUNT W/DIF F mean RBC HGB concentratio n 34.4 g/dL 31.0-3 6.0 Not Available [facility] (Lab) [address] [place], [address], 07/11/2024 10:41:28 07/11/20 24 07/11/2024 CBC/C OMPLE TE BLD COUNT W/DIF F red cell distribution width 12.2 % 11.8-1 5.5 Not Available [facility] (Lab) [address] [place], [address], 07/11/2024 10:41:28 07/11/20 24 07/11/2024 CBC/C OMPLE TE BLD COUNT W/DIF F platelets 194 x10'3 /uL 150-40 0 Not Available [facility] (Lab) [address] [place], [address], 07/11/2024 10:41:28 07/11/20 24 07/11/2024 CBC/C OMPLE TE BLD COUNT W/DIF F mean platelet volume 11.4 fL 9.0-12 .4 Not Available [facility] (Lab) [address] [place], [address], 07/11/2024 10:41:28 07/11/20 24 07/11/2024 CBC/C OMPLE TE BLD COUNT W/DIF F neutrophils 62.6 % 39.0-7 2.0 Not Available [facility] (Lab) [address] [place], [address], 07/11/2024 10:41:28 07/11/20 24 07/11/2024 CBC/C OMPLE TE BLD COUNT W/DIF F lymphocytes 27.7 % 16.0-4 7.0 Not Available [facility] (Lab) [address] [place], [address], 07/11/2024 10:41:28 07/11/20 24 07/11/2024 CBC/C OMPLE TE BLD COUNT W/DIF F monocytes 5.8 % 5.0-12 .0 Not Available [facility] (Lab) [address] [place], [address], 07/11/2024 10:41:28 07/11/20 24 07/11/2024 CBC/C OMPLE TE BLD COUNT W/DIF F eosinophils 3.3 % 1.0-7. 0 Not Available [facility] (Lab) [address] [place], [address], 07/11/2024 10:41:28 07/11/20 24 07/11/2024 CBC/C OMPLE TE BLD COUNT W/DIF F basophils 0.3 % 0.0-2. 0 Not Available [facility] (Lab) [address] [place], [address], 07/11/2024 10:41:28 07/11/20 24 07/11/2024 CBC/C OMPLE TE BLD COUNT W/DIF F immature granulocytes 0.3 % 0.00-0 .50 Not Available [facility] (Lab) [address] [place], [address], 07/11/2024 10:41:28 07/11/20 24 07/11/2024 CBC/C OMPLE TE BLD COUNT W/DIF F neutrophils, absolute count 3.75 x10'3 /uL 1.5-8. 0 Not Available [facility] (Lab) [address] [place], [address], 07/11/2024 10:41:28 07/11/20 24 07/11/2024 CBC/C OMPLE TE BLD COUNT W/DIF F lymphocytes, absolute count 1.66 x10'3 /uL 1.07-3 .43 Not Available [facility] (Lab) [address] [place], [address], 07/11/2024 10:41:28 07/11/20 24 07/11/2024 CBC/C OMPLE TE BLD COUNT W/DIF F monocytes, absolute count 0.35 x10'3 /uL 0.29-0 .99 Not Available [facility] (Lab) [address] [place], [address], 07/11/2024 10:41:28 07/11/20 24 07/11/2024 CBC/C OMPLE TE BLD COUNT W/DIF F eosinophils, absolute count 0.20 x10'3 /uL 0.02-0 .53 Not Available [facility] (Lab) [address] [place], [address], 07/11/2024 10:41:28 07/11/20 24 07/11/2024 CBC/C OMPLE TE BLD COUNT W/DIF F basophils, absolute count 0.02 x10'3 /uL 0.01-0 .08 Not Available [facility] (Lab) [address] [place], [address], 07/11/2024 10:41:28 07/11/20 24 07/11/2024 CBC/C OMPLE TE BLD COUNT W/DIF F immature granulocytes ,absolute 0.02 x10'3 /uL 0.00-0 .05 Not Available [facility] (Lab) [address] [place], [address], 07/11/2024 10:41:28 07/11/20 24 07/11/2024 CBC/C OMPLE TE BLD COUNT W/DIF F nucleated red blood cells 0.0 % -0 Not Available [facility] (Lab) [address] [place], [address], 07/11/2024 10:41:28 07/11/20 24 07/11/2024 CBC/C OMPLE TE BLD COUNT W/DIF F NRBC# 0.00 x10'3 /uL Not Available [facility] (Lab) [address] [place], [address], 07/11/2024 10:41:28 07/11/20 24 07/11/2024 LIPID PANEL cholesterol 186 mg/dL 140-19 9 NIH DARREN NSUS RECOM MENDA TION FOR ALEX STERO L: ADULT CHILD LOW RISK: <200 <170 BORDE RLINE : <200- 239 ----- HIGH RISK: >240 >200 Not Available [facility] (Lab) [address] [place], [address], 07/11/2024 11:33:30 07/11/20 24 07/11/2024 LIPID PANEL triglyceride s 72 mg/dL 0-150 NIH DARREN NSUS REPOR T RECOM MENDA TION FOR TRIGL YCERI MIKEL: ADULT CHILD LOW RISK: <150 ----- BODER LINE: 150-1 99 ----- HIGH RISK: >200 ----- Not Available [facility] (Lab) [address] [place], [address], 07/11/2024 11:33:30 07/11/20 24 07/11/2024 LIPID PANEL HDL cholesterol 89 mg/dL 40- Not Available [facility] (Lab) [address] [place], [address], 07/11/2024 11:33:30 07/11/20 24 07/11/2024 LIPID PANEL LDL cholesterol, calculated 83 mg/dL 0-130 NIH DARREN NSUS REPOR T RECOM MENDA TIONS FOR LDL: ADULT CHILD LOW RISK <130 <110 (OPTI MAL LDL) <100 ----- JORDAN RLINE : 130-1 59 ----- HIGH RISK: >160 >130 A TRIGL YCERI DE RESUL T >400 INVAL IDATE S THE CALCU LATIO N FOR LDL FRACT IONAT ION - THE LDL RESUL T WILL NOT BE REPOR ANGELIQUE. Not Available [facility] (Lab) [address] [place], [address], 07/11/2024 11:33:30 07/11/20 24 07/11/2024 COMPR EHENS ADELINE METAB OLIC PANEL sodium 133 mmol/ L 137-14 5 low Not Available [facility] (Lab) [address] [place], [address], 07/11/2024 11:33:33 07/11/20 24 07/11/2024 COMPR EHENS ADELINE METAB OLIC PANEL potassium 4.0 mmol/ L 3.5-5. 1 Not Available [facility] (Lab) [address] [place], [address], 07/11/2024 11:33:33 07/11/20 24 07/11/2024 COMPR EHENS ADELINE METAB OLIC PANEL chloride 100 mmol/ L 98-107 Not Available [facility] (Lab) [address] [place], [address], 07/11/2024 11:33:33 07/11/20 24 07/11/2024 COMPR EHENS ADELINE METAB OLIC PANEL carbon dioxide 29 mmol/ L 22-30 Not Available [facility] (Lab) [address] [place], [address], 07/11/2024 11:33:33 07/11/20 24 07/11/2024 COMPR EHENS ADELINE METAB OLIC PANEL anion gap 8.0 mmol/ L 14-22 low Not Available [facility] (Lab) [address] [place], [address], 07/11/2024 11:33:33 07/11/20 24 07/11/2024 COMPR EHENS ADELINE METAB OLIC PANEL glucose 98 mg/dL 70-99 Not Available [facility] (Lab) [address] [place], [address], 07/11/2024 11:33:33 07/11/20 24 07/11/2024 COMPR EHENS ADELINE METAB OLIC PANEL BUN 15 mg/dL 8-19 Not Available [facility] (Lab) [address] [place], [address], 07/11/2024 11:33:33 07/11/20 24 07/11/2024 COMPR EHENS ADELINE METAB OLIC PANEL creatinine 0.52 mg/dL 0.66-1 .25 low Not Available [facility] (Lab) [address] [place], [address], 07/11/2024 11:33:33 07/11/20 24 07/11/2024 COMPR EHENS ADELINE METAB OLIC PANEL GFR >60 Refer ence Range : [place] ge GFR Healt hy Adult : >60 [...] calcu lator is avail able on the [facility] websi te: [email or web address] :[email or web address] [email or web address] [email or web address] [email or web address]/pr ofess ional s/kdo qi/gf r_cal culat or Not Available [facility] (Lab) [address] [place], [address], 07/11/2024 11:33:33 07/11/20 24 07/11/2024 COMPR EHENS ADELINE METAB OLIC PANEL alkaline phosphatase 64 U/L 38-126 Not Available [facility] (Lab) [address] [place], [address], 07/11/2024 11:33:33 07/11/20 24 07/11/2024 COMPR EHENS ADELINE METAB OLIC PANEL alanine aminotransfe rase 20 U/L 0-35 Not Available [facility] (Lab) [address] [place], [address], 07/11/2024 11:33:33 07/11/20 24 07/11/2024 COMPR EHENS ADELINE METAB OLIC PANEL aspartate aminotransfe rase 25 U/L 15-37 Not Available [facility] (Lab) [address] [place], [address], 07/11/2024 11:33:33 07/11/20 24 07/11/2024 COMPR EHENS ADELINE METAB OLIC PANEL bilirubin, total 0.70 mg/dL 0.20-1 .30 Not Available [facility] (Lab) [address] [place], [address], 07/11/2024 11:33:33 07/11/20 24 07/11/2024 COMPR EHENS ADELINE METAB OLIC PANEL calcium 10.1 mg/dL 8.4-10 .2 Not Available [facility] (Lab) [address] [place], [address], 07/11/2024 11:33:33 07/11/20 24 07/11/2024 COMPR EHENS ADELINE METAB OLIC PANEL total protein 6.8 g/dL 6.3-8. 2 Not Available [facility] (Lab) [address] [place], [address], 07/11/2024 11:33:33 07/11/20 24 07/11/2024 COMPR EHENS ADELINE METAB OLIC PANEL albumin 4.2 g/dL 3.0-4. 4 Not Available [facility] (Lab) [address] [place], [address], 07/11/2024 11:33:33 07/11/20 24 07/11/2024 COMPR EHENS ADELINE METAB OLIC PANEL globulin 2.6 g/dL 2.6-4. 2 Not Available [facility] (Lab) [address] [place], [address], 07/11/2024 11:33:33 07/11/20 24 07/11/2024 COMPR EHENS ADELINE METAB OLIC PANEL A/G ratio 1.6 ratio 1.0-2. 0 Not Available [facility] (Lab) [address] [place], [address], 07/11/2024 11:33:33 07/11/20 24 07/11/2024 VITAM IN D 25-HY DROXY [id number] 35.4 NG/mL 30-100 Vitam in D Statu s: Defic ient: <20 ng/mL Insuf ficie nt: 20-29 ng/mL Suffi cient : 30-10 0 ng/mL Not Available [facility] (Lab) [address] [place], [address], 07/11/2024 11:46:37 07/11/20 24 07/11/2024 TSH W/REF ASHLEY FT4 TSH with reflex free T4 0.355 uIU/m L 0.465- 4.680 low Not Available [facility] (Lab) [address] [place], [address], 07/11/2024 11:57:32 07/11/20 24 07/11/2024 T4 FREE free T4 1.43 NG/dL 0.78-2 .19 Not Available [facility] (Lab) [address] [place], [address], 07/11/2024 12:30:17 08/28/19 25 08/28/2024 XR, chest , 2 view No observ ation record ed. [email or web address] [facility] [address] [place], [address], 11/04/2024 10:58:17 09/17/19 25 09/17/2024 XR, chest , 2 view No observ ation record ed. [email or web address] [facility] [address] [place], [address], 11/04/2024 10:59:59 12/03/19 25 11/28/2024 compl ete PFT w/ post [facility] hodil ator lisa metry * No observ ation record ed. [email or web address] [facility] ([facility] [address] [place], [address], 12/04/2024 09:21:24 12/14/19 25 12/13/2024 imagi ng/di agnos tic resul t No observ ation record ed. [address] [facility], [place], [address], 12/13/2024 14:57:02 12/14/19 25 12/13/2024 imagi ng/di agnos tic resul t No observ ation record ed. [address] [address], [place], [address], 12/13/2024 16:53:43 12/15/19 25 12/14/2024 imagi ng/di agnos tic resul t No observ ation record ed. [address] [address], [place], [address], 12/14/2024 15:15:10 12/17/19 25 12/16/2024 imagi ng/di agnos tic resul t No observ ation record ed. [address] [address], [place], [address], 12/16/2024 10:52:21 01/09/20 25 01/08/2025 US, thyro id No observ ation record ed. [facility] [address] [place], [address], 01/08/2025 14:42:03 Result Notes None recorded. 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 2022 Not Available [facility] 3 07:03:27 Mild chronic obstructi ve pulmonary disease 369338243 Active 2022 Not Available [facility] 3 07:03:27 CT of chest abnormal 22803039574 766830 Active 2022 Not Available [facility] 3 07:03:27 Acute bronchiti s 64364448 Active 2022 Not Available [facility] 3 07:03:27 Skin lesion 00808084 Active 2022 Not Available [facility] 3 07:03:28 Open wound of right ankle 24644805275 420868 Active 2022 Not Available [facility] 3 07:03:27 Lung mass 038888690 Active 2022 Not Available [facility] 3 07:03:27 Edema of lower extremity 686788876 Active 2022 Not Available [facility] 3 07:03:27 Onychomyc osis 221550159 Active 2022 Not Available [facility] 3 07:03:27 Pain of left ankle joint 93622400204 838308 Active 2022 Not Available [facility] 3 07:03:27 Acute urinary tract infection 703367312 Active 2022 Not Available [facility] 3 07:03:27 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 Not Available [facility] 3 07:03:28 Pain in toe 230745445 Active 2022 Not Available [facility] 3 07:03:27 Unable to cut own toenails 258810544 Active 2022 Not Available [facility] 3 07:03:27 Abdominal pain 85665250 Active 2022 Not Available [facility] 3 07:03:27 Gallstone 429853267 Active 2022 Not Available [facility] 3 07:03:27 Cholelith iasis without obstructi on 65085432 Active 2022 Not Available [facility] 3 07:03:28 Bursitis of olecranon of left elbow 33982843358 9101 Active 2022 Nicolas calix MD [address], [address], [place], [address] , [place] [facility] 3 11:27:57 Occult blood detected in feces 57747697 Active 2023 Marisela Rivera MA null, [place] [facility] 4 17:12:56 Pain in toe 097309778 Active 2023 Abhishek Patel DPM [address], [address], [place], [address] , [place] [facility] 4 13:34:06 Low back pain 496289918 Active 2023 Nicolas calix MD [address], [address], [place], [address] , [place] [facility] 4 12:44:52 Disorder of eye 374284263 Active 2023 Jessi Whitney null, [place] [facility] 4 11:33:12 Arthritis 0124247 Active 2023 Jessi Whitney null, [place] [facility] 4 11:33:28 CT of abdomen abnormal 38432578997 383096 Active 2023 CELSO Palomares null, [place] [facility] 4 14:47:32 Hypothyro idism 43870727 Active 2023 Travis Alba CMA null, [place] [facility] 4 10:05:23 Cough 83819819 Active 2023 Travis Alba CMA null, [facility] 4 17:11:58 Insomnia 692622073 Active 2024 Nicolas calix MD [address], [address], [place], [address] , [facility] 5 18:27:24 Cigarette smoker 34345013 Active 2024 Nicolas calix MD [address] [facility] [address], [address], [place], [address] , [facility] 5 15:30:38 Dyspnea on exertion 77002250 Active 2024 Charlee Gomez NP [address], 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 Not Available [facility] 3 07:03:27 Vitamin D deficienc y 60775382 Active 2021 Not Available [employer] 3 07:03:27 Onychomyc osis of toenails 921714606 Active 2017 Not Available [employer] 3 07:03:27 Eczema 09004507 Active 2021 Not Available [employer] 3 07:03:27 Coronary arteriosc lerosis 49595995 Active Not Available [facility] 3 07:03:27 Hyperlipi demia 91005516 Active 2021 Not Available [facility] 3 07:03:27 Essential hypertens ion 69943032 Active Not Available [facility] 3 07:03:28 Tinea pedis 4205719 Completed 201802/18/2020 Not Available [facility] 3 04:52:31 Osteoporo sis 92611078 Active 2021 Not Available [facility] 3 07:03:28 Smoker 08398179 Active Not Available [facility] 3 07:03:28 Notes:PFT 11/04/21 FEV1 1.69 [...] Name and Address Organization Details Recorded Time 12/26/19 25 Transitional_Ca re_Management completed Miladis Manning MA [employer] 12/25/2024 16:05:15 08/01/20 24 Nail Debridement completed Abhishek Patel DPM [address] [address], [place], [address], [facility] [employer] 08/01/2024 16:30:01 03/28/20 24 Nail Debridement completed Abhishek Patel DPM [address], [address], [place], [address], [employer] [facility] [email or web address] [facility] 03/28/2024 13:59:13 01/04/20 24 Medicare Wellness CPT Code, Initial completed Ariel RobinsPAVAN [employer] [facility] [employer] 01/04/2024 13:04:53 10/12/19 24 Nail Debridement completed Abhishek Patel DPM [address], [place], [address], [employer] [facility] [email or web address] [facility] 10/12/2023 13:33:53 05/04/20 23 Nail Debridement completed Abhishek Patel DPM [address], [place], [address], [employer] [facility] [email or web address] [facility] 05/04/2023 17:38:45 Cardiac Stent Placement completed Not Available [facility] 10/26/2022 04:42:09 replacement of bilateral knee joints completed Jessi Whitney [employer] [facility] [employer] 03/27/2024 11:34:13 Imaging Results None recorded. Procedure Notes None recorded. Medical Equipment None Reported. Allergies Allergen ID Allergen Name Allergen Category Reaction Reaction Severity Criticality Documentation Date Start Date Code Code System Note Provider Name and Address Organization Details Recorded Time 9112 Plavix medicatio n rash Not available Not available 10/26/2022 71140 2 RxNorm Not Available [facility] 3 05:07:50 Medications Name Sig Start Date Stop [...] completed Not Available Not Available Not Available methocarb tank 500 mg tablet TAKE 1 TABLET BY MOUTH THREE TIMES A DAY active Not Available Not Available No t Available terbinafi ne HCl 1 % topical [...] PLEASE SEE ATTACHED FOR DETAILED DIRECTIO NS 12/25 completed Not Available Not Available Not Available triamcino lone acetonide 0.1 % topical [...] 1 CAPSULE BY MOUTH EVERY DAY NEEDED 12/25 completed Not Available Not Available Not Available triamcino lone acetonide 0.1 % topical [...] Not Available Not Michaelle ilable Not Available fiber active Not Available Not Availa ble Not Available varenicli ne tartrate 1 mg tablet TAKE 1 TABLET BY MOUTH ONCE A DAY DIRECTED 12/28 completed Not Available Not Available Not Available Chantix 05/03 completed 09/22/[address] Ivan [facility] and f/u in 6 months Not Available [...] a day by oral route. 05/03 completed DARCY started this Dr Ivan 03/09/20 21 Not Available Not Available Not Available Airsupra 90 mcg-80 mcg/actua tion HFA aerosol inhaler Two inhalati ons every 20 minutes as needed for up to 3 doses (6 inhalati ons total) 12/25 completed Not Available Not Available Not Available Vitals Date Recorded Body height Body mass index (BMI) Body weight Heart rate Oxygen saturation Oxygen saturation in Arterial blood by Pulse oximetry Body temperature Systolic blood pressure Diastolic blood pressure Provider Name and Address Organization Details Last Updated DateTime 5 160.02 cm 30.8 kg/m2 27764.0 7 g 69 /min 96 % 96 % 97.7 [degF] 114 mm[Hg] 64 mm[Hg] CELSO Palomares [facility] [email or web address] [facility] 5 14:57:54 Date Recorded Body height Body mass index (BMI) Body weight Body temperature Heart rate Oxygen saturation Oxygen saturation in Arterial blood by Pulse oximetry Systolic blood pressure Diastolic blood pressure Provider Name and Address Organization Details Last Updated DateTime 5 160.02 cm 31 kg/m2 75015.6 6 g 96.6 [degF] 57 /min 93 % 93 % 116 mm[Hg] 68 mm[Hg] Rachael Noel MA [facility] [employer] 5 11:56:25 Date Recorded Body height Body mass index (BMI) Body weight Body temperature Heart rate Oxygen saturation Oxygen saturation in Arterial blood by Pulse oximetry Systolic blood pressure Diastolic blood pressure Provider Name and Address Organization Details Last Updated DateTime 5 160.02 cm 29.8 kg/m2 46207.5 2 g 97.1 [degF] 66 /min 93 % 93 % 120 mm[Hg] 82 mm[Hg] Miladis Manning MA [employer] [facility] [employer] 5 16:10:26 Date Recorded Body height Body mass index (BMI) Body weight Body temperature Heart rate Oxygen saturation Oxygen saturation in Arterial blood by Pulse oximetry Systolic blood pressure Diastolic blood pressure Provider Name and Address Organization Details Last Updated DateTime 4 160.02 cm 29.4 kg/m2 84122.3 3 g 97.6 [degF] 102 /min 93 % 93 % 138 mm[Hg] 80 mm[Hg] Rachael Noel MA [facility] [employer] 4 11:29:18 Date Recorded Body height Body mass index (BMI) Body weight Heart rate Respiratory rate Oxygen saturation Oxygen saturation in Arterial blood by Pulse oximetry Systolic blood pressure Diastolic blood pressure Provider Name and Address Organization Details Last Updated DateTime 4 160.02 cm 29.4 kg/m2 31405.3 3 g 65 /min 14 /min 98 % 98 % 172 mm[Hg] 92 mm[Hg] Sherlyn Castellon CA - [facility] 4 11:40:45 Social History Question Answer Notes LastModified by Organization Details LastModified Time Tobacco Smoking Status Current Every Day Smoker Not Available [employer] 10/26/2022 04:22:06 Do You Have An Advance Directive? Yes MIGRATION.030 [id number] Information not available 10/26/2022 Do You Wear A Helmet When Biking? No Does Not Bike [email or web address] Information not available 01/04/2024 Are You Blind Or Do You Have Difficulty Seeing? Yes MIGRATION.030 354963 Information not available 10/26/2022 What Is Your Level Of Caffeine Consumption? Heavy MIGRATION.030 667419 Information not available 10/26/2022 In The 14 Days Before Symptom Onset, Have You Had Close Contact With A Laboratory-confi rmed COVID-19 While That Case Was Ill? No MIGRATION.030 270349 Information not available 10/26/2022 In The 14 Days Before Symptom Onset, Have You Had Close Contact With A Person Who Is Under Investigation For COVID-19 While That Person Was Ill? No MIGRATION.030 591375 Information not available 10/26/2022 Are You Deaf Or Do You Have Serious Difficulty Hearing? No MIGRATION.030 490039 Information not available 10/26/2022 What Type Of Diet Are You Following? REGULAR MIGRATION.030 583685 Information not available 10/26/2022 What Is The Highest Grade Or Level Of School You Have Completed Or The Highest Degree You Have Received? [id number] MIGRATION.300026 Information not available 10/26/2022 Do You Have An Electrostatic Air Filter? No Information not available 11/12/2024 Have There Been Any Changes To Your Family Or Social Situation? No MIGRATION.030 613448 Information not available 10/26/2022 What Is The Fluoride Status Of Your Home? Unknown MIGRATION.0301 242159 Information not available 10/26/2022 Are There Any Guns Present In Your Home? Yes [email or web address] Information not available 01/04/2024 Do You Have A Humidifier? Yes Information not available 11/12/2024 Do You Use Insect Repellent Routinely? No MIGRATION.0301 [id number] Information not available 10/26/2022 Where Do You Live? SingleLevelHouse MIGRATION.0301 725459 Information not available 10/26/2022 Presence Of Domestic Violence No [email or web address] Information not available 01/04/2024 Are You Able To Care For Yourself? Yes [email or web address] Information not available 01/04/2024 Are You Blind Or Do Yo Have Difficulty Seeing? No [email or web address] Information not available 01/04/2024 Are You Deaf Or Do You Have Serious Difficulty Hearing? No [email or web address] Information not available 01/04/2024 General Stress Level? Moderate [email or web address] Information not available 01/04/2024 Live Alone Of With Others? 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 No Information not available 11/12/2024 What Was The Date Of Your Most Recent Tobacco Screening? 12/25/2024 [email or web address] Information not available 12/25/2024 How Many Children Do You Have? 3 [email or web address] Information not available 01/04/2024 Do You Have Any Pets? No MIGRATION.0301 [id number] Information not available 10/26/2022 What Is Your Relationship Status? MIGRATION.0301 764238 Information not available 10/26/2022 Do You Use Your Seat Belt Or Car Seat Routinely? Yes MIGRATION.0301 765484 Information not available 10/26/2022 Do You Have Smoke And Carbon Monoxide Detectors In Your Home? Yes MIGRATION.0301 535786 Information not available 10/26/2022 At What Age Did You Start Smoking Tobacco? 17 MIGRATION.0301 953110 Information not available 10/26/2022 Are You Passively Exposed To Smoke? Yes MIGRATION.0301 276933 Information not available 10/26/2022 Are There Any Smokers In Your House? Yes MIGRATION.0301 243519 Information not available 10/26/2022 How Much Tobacco Do You Smoke? 0.5 PPD Down Fom 1ppd Information not available 11/07/2024 Do You Use Sunscreen Routinely? Yes MIGRATION.0301 469256 Information not available 10/26/2022 Has Tobacco Cessation Counseling Been Provided? Yes Information not available 01/04/2024 On What Date Was Tobacco Cessation Counseling Provided? 01/04/2024 [email or web address] Information not available 01/04/2024 How Many Years Have You Smoked Tobacco? 60 Information not available 01/04/2024 Have You Recently Traveled Abroad? No MIGRATION.0301 538600 Information not available 10/26/2022 Do You Have Difficulty Walking Or Climbing Stairs? No MIGRATION.0301 653396 Information not available 10/26/2022 Do You Have Any Dietary Restrictions? No MIGRATION.0301 369932 Information not available 10/26/2022 Sex: Female Functional Status Question Answer Note LastModified by Organizat ion Details LastModified Time Do you or have you ever used smokeless tobacco? Never used smokeless tobacco Information not available 11/07/2024 Are you currently employed? No [email or web address] Information not available 01/04/2024 Do you have transportation difficulties? No MIGRATION.749445 8293 Information not available 10/26/2022 Are you able to care for yourself? Yes MIGRATION.707595 4550 Information not available 10/26/2022 Do you have difficulty dressing or bathing? No MIGRATION.698276 9885 Information not available 10/26/2022 Do you or have you ever used e-cigarettes or vape? Current user of electronic cigarettes Information not available 11/07/2024 What is your exercise level? None MIGRATION.877832 7765 Information not available 10/26/2022 Do you use any illicit or recreational drugs? No MIGRATION.575564 8054 Information not available 10/26/2022 Do you or have you ever used any other forms of tobacco or nicotine? Yes Information not available 11/07/2024 What is your level of alcohol consumption? None [email or web address] Information not available 01/04/2024 Are you able to walk? YESWOREST MIGRATION.678595 4133 Information not available 10/26/2022 Do you have difficulty doing errands alone? No MIGRATION.567005 6165 Information not available 10/26/2022 What is your occupation? n/a MIGRATION.896783 1456 Information not available 10/26/2022 Mental Status Question Answer Note LastModified by Organizat ion Details LastModified Time Do you feel stressed (tense, restless, nervous, or anxious, or unable to sleep at night)? [id number] MIGRATION.97331838 26 Information not available 10/26/2022 Do you have difficulty concentrating, remembering or making decisions? No MIGRATION.99755325 26 Information not available 10/26/2022 Family History Relationship Description Onset Age of this Age Resolved Age Notes LastModified by Organization Details LastModified Time Father Heart disease [email or web address] Not available 02/2023 16:52:03 Medical History Condition Response NERVE DISEASE N BLINDNESS N RHEUMATIC FEVER N KIDNEY STONES N BLADDER PROBLEMS N MRSA N OTHER # 1 Y POLIO N LUNG DISEASE/DISORDER N HISTORY OF DRUG ABUSE N COPD Y RADIATION / CHEMOTHERAPY N Other # 2 Y BLOOD DISEASES N [...] HAVE YOU BEEN HOSPITALIZED OR SEEN IN [facility] IN THE PAST YEAR ? N ATHEROSCLEROSIS [...] PULMONARY EMBOLISM N AUTOIMMUNE DISEASE N Gynecological History Statement/Question Response How many live births 3 Date of Last Pap Current Control Method Menopause Date of Last Mammogram Date of LMP Obstetrics History GPAL:G 3 P 3 0 0 3 Type Value Multiple Births 0 Full Term 3 Induced 0 Spontaneous 0 Premature 0 Living 3 Ectopics 0 Total 3 Immunizations Vaccine Type Date Status Note Provider Nam e and Address Organization Details Recorded Time Influenza, high-dose, quadrivalent, PF 0 completed Maddie Landa RMA null, [facility] 11/07/2024 14:54:55 Influenza, adjuvanted, quadrivalent, PF 2 completed Maddie Landa RMA null, [facility] 11/07/2024 14:54:55 Influenza, adjuvanted, quadrivalent, PF 1 completed [facility] 14:54:56 RSV, bivalent, protein subunit RSVpreF, diluent reconstituted, 0.5 mL, PF 4 completed [facility]07[facility]24 14:55:11 COVID-19, mRNA, LNP-S, PF, bertha-sucrose, 30 mcg/0.3 mL 4 completed [facility]/07[facility]24 14:55:11 Influenza, high-dose, trivalent, PF 2 completed Not Available [facility] 07/03/2023 07:03:28 Influenza, high-dose, trivalent, PF 9 completed Maddie Landa RMA null, [facility] 11/07/2024 14:54:56 Influenza, high-dose, trivalent, PF 8 completed Maddie Landa RMA null, [facility] [employer] [facility] 11/07/2024 14:54:56 pneumococcal polysaccharide PPV23 7 completed Not Available [facility] 07/03/2023 07:03:28 COVID-19, mRNA, LNP-S, PF, 100 mcg/0.5mL dose or 50 mcg/0.25mL dose 1 completed Maddie Landa RMA null, [employer] [facility] [employer] [facility] 11/07/2024 14:54:56 COVID-19, mRNA, LNP-S, PF, 100 mcg/0.5mL dose or 50 mcg/0.25mL dose 1 completed Maddie Landa RMA null, [employer] [facility] [employer] [facility] 11/07/2024 14:54:56 COVID-19, mRNA, LNP-S, PF, 100 mcg/0.5mL dose or 50 mcg/0.25mL dose 1 completed Maddie Landa RMA null, [employer] [facility] [employer] [facility] 11/07/2024 14:54:56 Influenza, high-dose, trivalent, PF 0 completed Maddie Landa RMA null, [employer] [facility] [employer] [facility] 11/07/2024 14:54:56 Influenza, high-dose, trivalent, PF 9 completed Not Available [facility] 07/03/2023 07:03:28 Influenza, high-dose, trivalent, PF 8 completed Not Available [facility] 07/03/2023 07:03:28 Tdap 6 completed Not Available [facility] 07/03/2023 07:03:28 Influenza, high-dose, trivalent, PF 7 completed Not Available [facility] 07/03/2023 07:03:28 Influenza, split virus, trivalent, PF 3 completed Maddie Landa RMA null, [employer] [facility] [employer] [facility] 11/07/2024 14:54:56 Past Encounters Encounter ID Performer Location Encounter Start Date Encounter Closed Date Diagnosis/Indication Diagnosis SNOMED-CT Code Diagnosis ICD10 Code Diagnosis Note [id number] Abhishek Patel DPM [facility] [place] [address] [address] 02/09/2021 00:00:00 02/09/2021 15:11:47 [id number] Victor Hugo medeiros MD [facility] General [facility] [address] [facility], [facility] [address] [place] [address] 04/20/2021 00:00:00 04/20/2021 13:26:11 [id number] Victor Hugo medeiros MD [facility] General Surgery [address] [address] 05/04/2021 00:00:00 05/04/2021 13:15:37 [id number] Abhishek Patel DPM [facility] [place] [address] [address] 06/17/2021 00:00:00 06/17/2021 12:16:46 [id number] Abhishek Patel DPM [facility] [place] [address] [address] 10/04/2021 00:00:00 10/05/2021 15:45:00 [id number] Abhishek Patel DPM [facility] [place] [address] [address] 10/14/2021 00:00:00 10/14/2021 13:11:31 [id number] MD ELIANA [facility] Internal Med [address] [facility], [facility] [address] [place] [address] 12/28/2021 00:00:00 02/17/2022 14:00:22 [id number] Abhishek Patel DPM [facility] [place] [address] [place] [address] 02/17/2022 00:00:00 02/17/2022 14:34:30 [id number] Nicolas calix MD [facility] Internal Med [facility] [address] [facility] [address] [address] 05/03/2022 00:00:00 05/03/2022 12:56:02 [id number] Abhishek Patel DPM [facility] [place] [address] [place] [address] 05/30/2022 00:00:00 05/30/2022 11:23:19 [id number] Nicolas calix MD [facility] Internal Med [facility] [address] [facility], [address] [address] 08/10/2022 00:00:00 08/10/2022 11:27:05 [id number] Abhishek Patel DPM [facility] Podiatry [place] [address] [address] 10/11/2022 00:00:00 10/11/2022 13:06:37 [id number] Nicolas calix MD [facility] Internal Med [facility] [address] [facility], [address] [address] 02/07/2023 10:55:01 02/07/2023 12:04:15 Screening - NAD [id number] Z13.9 C-scope: Cologuard 06/26/18,C ologuard 01/17/2022 : [...] understand ing of the above Skin lesion 14939046 L98 [address] Mccartney and diagnosed with actinic keratosis, no surgery or procedure was done Coronary arteriosclerosis 17671432 I25.10 ECHO 09/28/2021 : EF 60%PFT 11/04/[address] Eliceo TAVERAS 03/14/2022 On amlodipine 5mg dailyOn HCTZOn atenolol 50mg dailyOn lisinopril 40mg dailyGet labs Hyperlipidemia 80913255 E78.5 On simvastati n 40mg dailyGet labs Smoker 46687679 F17.200 Declines any imaging Does wellNow on chantix, given by Dr Eliceo TAVERAS Open wound of right ankle 6865977186 1418257 S91.001A S/p insect biteDr Patel, next OV 10/03/2022 Vitamin D deficiency 347 68715 E55.9 COVID-19 583748153 U07.1 +ve in 08/19/2021 Does well now Chronic ob structive pulmonary disease 98503658 J44.9 XRay Chest: 12/04/2021 : [facility] ER: EmphysemaN eeds to see Dr Sally borges, declined see case 01/04/2022 Lung mass 109653735 R91. 8 LDCT 09/28/2021 : Unclear if [...] one year Edema of l ower extremity 075372424 R60.0 Eats a lot of TV dinners and chips, advised to cut back, and elevate her legsShe is to see Dr Hernandez Onychomycosis 576799188 B35.[address] Patel next 06/23/2022 Eruption noted, refill her triamcinol one, add nystatin Thyroid nodule 214890025 E04.1 US thyroid 01/26/2022 : 1.8cm nodule, L lobe ENT Dr Ravinder Gusman 02/15/2022 : Bx to be doneBx 03/02/2022 : NegUS thyroid ordered 02/07/2023 Pain of le ft ankle joint 6171852844 7988563 M25.572 S/p xrays 04/28/2022 Dr Patel 05/30/2022 , next 10/03/2022 Eczema 35917112 L30.9 Not satisfied with care with Dr Patel, will refer to Dr Thomas Neuropathy 596533664 G62 .9 C/o N/T in both her feet, states that she is to see Dr Hernandez, agreeable to start on gabapentin , all side effects explained Allergic rhinitis 424120 04 J30.9 Advised to use flonase and zyrtec, she does have flonase at homeFeels her cough is d/t her allergies Screening mammography 24 172193 Z12.31 [id number] Michoacano Zavala MD [facility] Pulmonolo gy [address] [address] 02/22/2023 13:58:49 02/22/2023 15:21:24 Dyspnea on exertion 83412063 R06.09 R05.9 T78.40XS D89.9 J84.9 J47.9 Interstiti al lung disease 728498414 J84.9 Mild chron ic obstructive pulmonary disease 994772452 J44.9 Smoker 86050059 F17.218 F17.219 Z87.823 [id number] Abhishek Patel DPM [facility] Podiatry [address] [place] [address] 05/04/2023 16:45:07 05/04/2023 17:50:28 Dystrophia unguium 85964397 L60.3 Nails 1 through 10 were debrided with sharp mechanical debridemen t without incident. Nails were debrided and greater than 50% length and thickness where needed. Pain in toe 683467701 M7 9.674 M79.675 secondary to above Unable to cut own toenails 951813249 Z74.1 [id number] Nicolas calix MD [facility] Internal Med [place] [address] [facility] y , [facility] [address] 05/29/2023 11:50:52 05/29/2023 13:05:18 Abdominal pain 89227367 R10.[address] abd/pelvis , may need [...] that, ER if her symptoms worsen Gallstone 485117408 K80. 20 [id number] Victor Hugo medeiros MD [facility] General Surgery [address] [place] [address] 06/01/2023 11:24:24 06/01/2023 16:08:07 Abdominal pain 39683876 R10.9 Cholelithi asis without obstruction 66691826 K80.20 [id number] Victor Hugo medeiros MD [facility] General Surgery [address] [place] [address] 1 06/15/2023 11:33:01 06/28/2023 13:53:39 Gallstone 531750141 K80.20 Ileal Gallstone [id number] Victor Hugo medeiros MD [facility] General Surgery [address] [facility] [place] [address] 06/29/2023 11:38:48 06/29/2023 17:18:00 [id number] Nicolas calix MD [facility] Internal Med [facility] [address] [facility] [address] [address] 08/08/2023 10:57:57 08/08/2023 11:28:50 Abdominal pain 32788547 R10.[address] abd/pelvis , may need [...] Did see Dr Mccartney and f/u PRN Nery [id number] K80. [address] Mccartney 06/29/2023 , f/u PRN Screening - NAD 42147267 3 Z13.9 C-scope: Cologuard 06/26/18,C ologuard 01/17/2022 [...] understand ing of the above Skin lesion 44391562 L98 [address] Mccartney and diagnosed with actinic keratosis, no surgery or procedure was done Coronary arteriosclerosis 23743978 I25.10 ECHO 09/28/2021 : EF 60%PFT 11/04/[address] Ivan [facility] 07/24/2023 Dr Hernandez [facility] 03/14/2022 On amlodipine 5mg dailyOn HCTZOn atenolol 50mg dailyOn lisinopril 40mg dailyGet labs Hyperlipidemia 54592279 E78.5 On simvastati n 40mg dailyGet labs Smoker 97319366 F17.200 Declines any imaging Does wellNow on chantix, given by Dr Ivan [facility] Open wound of right ankle 9123502187 1323004 S91.001A S/p insect biteDr Ellen Vitamin D deficiency 347 97989 E55.9 COVID-19 632836284 U07.1 +ve in 08/19/2021 Does well now Chronic ob structive pulmonary disease 46469172 J44.9 XRay Chest: 12/04/2021 : [facility]: Emphysema Needs to see Dr Zavala pulmonary, declined see case 01/04/2022 PFT 04/12/2023 : Moderate obstructio n, declines referral Lung mass 453926254 R91. 8 LDCT 09/28/2021 : Unclear if [...] case 02/23/2023 Edema of l ower extremity 795961730 R60.0 Eats a lot of TV dinners and chips, advised to cut back, and elevate her legsShe is to see Dr Hernandez Onychomycosis 789614003 B35.[address] Patel, next 08/31/2023 Eruption noted, refill her triamcinol one, add nystatin Thyroid nodule 494950190 E04.1 US thyroid 01/26/2022 : 1.8cm nodule, L lobe ENT Dr Ravinder Gusman 02/15/2022 : Bx to be doneBx 03/02/2022 : NegUS thyroid ordered 02/07/2023 Pain of le ft ankle joint 8698219102 2334430 M25.572 S/p xrays 04/28/2022 Dr Patel 05/30/2022 , next 10/03/2022 Eczema 58707139 L30.9 Not satisfied with care with Dr Patel, will refer to Dr Thomas Neuropathy [id number] G62 .9 C/o N/T in both her feet, states that she is to see Dr Hernandez, agreeable to start on gabapentin , all side effects explained Allergic rhinitis 335257 04 J30.9 Advised to use flonase and zyrtec, she does have flonase at homeFeels her cough is d/t her allergies Screening mammography 24 270839 Z12.31 Bursitis o f olecranon of left elbow 3665600517 36749 M70.22 Non tender, declines any referrals, 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 Nails were debrided and greater than 50% length and thickness where needed. Pain in toe 853422208 M7 9.674 M79.675 secondary to above [id number] Nicolas calix MD [facility] Internal Med [facility] 2043 [facility], [address] [address] 01/04/2024 11:57:38 01/04/2024 12:45:12 Screening - NAD 000438782 Z13.9 C-scope: Cologuard 06/26/18,C ologuard 01/17/2022 : [...] understand ing of the above Abdominal pain 89290039 R10.[address] abd/pelvis , may need [...] see Dr Mccartney and f/u PRN Gallstone 495035101 K80. 20 Dr Mccartney 06/29/2023 , f/u PRN Skin lesion 74266248 L98 .[address] Mccartney and diagnosed with actinic keratosis, no surgery or procedure was done Coronary arteriosclerosis 34380418 I25.10 ECHO 09/28/2021 : EF 60%PFT 11/04/[address] Ivan SL 07/24/2023 Dr Hernandez SL 03/14/2022 Dr Hernandez SL 09/15/2023 Not on amlodipine 5mg dailyOn HCTZ 12.5mg daiyOn atenolol 50mg dailyOn lisinopril 40mg dailyGet labs Hyperlipidemia 87609335 E78.5 On simvastati n 40mg dailyGet labs Smoker 02732550 F17.200 Declines any imaging Does wellNow on chantix, given by Dr [facility] Open wound of right ankle [id number] 2799160 S91.001A S/p insect biteDr Ellen Vitamin D deficiency 347 75641 E55.9 COVID-19 599937132 U07.1 +ve in 08/19/2021 Does well now Chronic ob structive pulmonary disease 42932041 J44.9 XRay Chest: 12/04/2021 : [facility] ER: Emphysema Needs to see Dr Zavala pulmonary, declined see case 01/04/2022 PFT 04/12/2023 : Moderate obstructio n, declines referralGe t CT Chest Lung mass 061390219 R91. 8 LDCT 09/28/2021 : Unclear if [...] case 02/23/2023 Edema of l ower extremity 387083118 R60.0 Eats a lot of TV dinners and chips, advised to cut back, and elevate her legsShe is to see Dr Hernandez Onychomycosis 268764884 B35.[address] Patel, next 08/31/2023 Eruption noted, refill her triamcinol one, add nystatin Thyroid nodule 305405830 E04.1 US thyroid 01/26/2022 : 1.8cm nodule, L lobeUS thyroid 12/18/2023 : Next in one year ENT Dr Ravinder Gusman 02/15/2022 : Bx to be doneBx 03/02/2022 : Neg Pain of le ft ankle joint 9473112963 7395843 M25.572 S/p xrays 04/28/2022 Dr Patel 05/30/2022 , next 10/03/2022 Eczema 03576449 L30.9 Not satisfied with care with Dr Patel, will refer to Dr Thomas Neuropathy 666004704 G62 .9 C/o N/T in both her feet, states that she is to see Dr Hernandez, agreeable to start on gabapentin , all side effects explained Allergic rhinitis 828145 04 J30.9 Advised to use flonase and zyrtec, she does have flonase at homeFeels her cough is d/t her allergies Bursitis o f olecranon of left elbow 1096850428 87180 M70.22 Non tender, declines any referrals, 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 [address] [place] [address] 03/28/2024 11:03:59 03/29/2024 08:05:27 Pain in toe 729009326 M79.674 M79.675 secondary to above Dystrophia unguium 25198 009 L60.3 Nails 1 through 10 were debrided with sharp mechanical debridemen t without incident. Nails were debrided and greater than 50% length and thickness where needed. [id number] Nicolas calix MD [facility] Internal Med [facility] 2043 [facility] [address] [place] [address] 05/16/2024 12:01:18 05/16/2024 12:59:43 Abdominal pain 11548102 R10.[address] abd/pelvis , may need [...] to see Dr Mccartney Screening - NAD 57729545 3 Z13.9 C-scope: Cologuard 06/26/18,C ologuard 01/17/2022 [...] her understand ing of the above Gallstone 497680783 K80. 20 [address] Mccartney 06/29/2023 , f/u PRNSee case 05/14/2024 , will get US liver again, may need to see G Surgery Skin lesion 01748550 L98 .[address] Mccartney and diagnosed with actinic keratosis, no surgery or procedure was done Coronary arteriosclerosis 97763727 I25.10 ECHO 09/28/2021 : EF 60%PFT 11/04/[address] Ivan SL 07/24/2023 Dr Hernandez SL 03/14/2022 Dr Hernandez SL 09/15/2023 Not on amlodipine 5mg dailyOn HCTZ 12.5mg daiyOn atenolol 50mg dailyOn lisinopril 40mg dailyGet labs Hyperlipidemia 07247789 E78.5 On simvastati n 40mg dailyGet labs Smoker 02548516 F17.200 Declines any imaging Does wellNow on chantix, given by Dr Ivan SLCan do nicotine gumLDCT 02/07/2024 Open wound of right ankle 1882552347 8548987 S91.001A S/p insect biteDr Ellen Vitamin D deficiency 347 23460 E55.9 COVID-19 849555900 U07.1 +ve in 08/19/2021 Does well now Chronic ob structive pulmonary disease 91265040 J44.9 On albuterol, renewed 05/16/2024 XRay Chest: 12/04/2021 : [facility] ER: Emphysema Needs to see Dr Zavala pulmonary, declined see case 01/04/2022 PFT 04/12/2023 : Moderate obstructio n, declines referralLD CT 02/07/2024 Lung mass 876903029 R91. 8 LDCT 09/28/2021 : Unclear if [...] case 02/23/2023 Edema of l ower extremity 823447056 R60.0 Eats a lot of TV dinners and chips, advised to cut back, and elevate her legsShe is to see Dr Hernandez Onychomycosis 693688869 B35.[address] Patel, next 08/31/2023 Eruption noted, refill her triamcinol one, add nystatin Thyroid nodule 610800172 E04.1 US thyroid 01/26/2022 : 1.8cm nodule, L lobeUS thyroid 12/18/2023 : Next in one year ENT Dr Ravinder Gusman 02/15/2022 : Bx to be doneBx 03/02/2022 : Neg Pain of le ft ankle joint 8772991512 1804683 M25.572 S/p xrays 04/28/2022 Dr Patel 05/30/2022 , next 10/03/2022 Eczema 55126726 L30.9 Not satisfied with care with Dr Patel, will refer to Dr Thomas Neuropathy 074103199 G62 .9 C/o N/T in both her feet, states that she is to see Dr Hernandez, agreeable to start on gabapentin , all side effects explained Allergic rhinitis 443896 04 J30.9 Advised to use flonase and zyrtec, she does have flonase at homeFeels her cough is d/t her allergies Bursitis o f olecranon of left elbow 9251811345 88436 M70.22 Non tender, declines any referrals, 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 15 [address]43 [facility], [facility] [address] [place] [address] 07/11/2024 10:54:28 07/11/2024 12:01:37 Abdominal pain 46307118 R10.[address] abd/pelvis , may need [...] needs to see GI Screening - NAD 32610066 3 Z13.9 C-scope: Cologuard 06/26/18,C ologuard 01/17/2022 [...] her understand ing of the above Gallstone 848004474 K80. [address] Mccartney 06/29/2023 , f/u PRNSee case 05/14/2024 , will get US liver again, may need to see G Surgery Skin lesion 63187065 L98 [address] Mccartney and diagnosed with actinic keratosis, no surgery or procedure was done Coronary arteriosclerosis 71045795 I25.10 ECHO 09/28/2021 : EF 60%PFT 11/04/[address] Ivan SL 07/24/2023 Dr Hernandez SL 03/14/2022 Dr Hernandez SL 09/15/2023 Not on amlodipine 5mg dailyOn HCTZ 12.5mg daiyOn atenolol 50mg dailyOn lisinopril 40mg dailyGet labs Hyperlipidemia 12891124 E78.5 On simvastati n 40mg dailyGet labs Smoker 55012970 F17.200 Declines any imaging Does wellNow on chantix, given by Dr Ivan SLCan do nicotine gumLDCT 02/07/2024 Open wound of right ankle 6532366413 8994124 S91.001A S/p insect biteDr Ellen Vitamin D deficiency 347 24073 E55.9 COVID-19 834241047 U07.1 +ve in 08/19/2021 Does well now Chronic ob structive pulmonary disease 32959337 J44.9 On albuterol, renewed 05/16/2024 XRay Chest: 12/04/2021 : [facility] ER: Emphysema Needs to see Dr Zavala pulmonary, declined see case 01/04/2022 PFT 04/12/2023 : Moderate obstructio n, declines referralLD CT 02/07/2024 Lung mass 804893780 R91. 8 LDCT 09/28/2021 : Unclear if [...] case 02/23/2023 Edema of l ower extremity 391252181 R60.0 Eats a lot of TV dinners and chips, advised to cut back, and elevate her legsShe is to see Dr Hernandez Onychomycosis 764208931 B35.[address] Patel, next 08/31/2023 Eruption noted, refill her triamcinol one, add nystatin Thyroid nodule 371740239 E04.1 US thyroid 01/26/2022 : 1.8cm nodule, L lobeUS thyroid 12/18/2023 : Next in one year ENT Dr Ravinder Gusman 02/15/2022 : Bx to be doneBx 03/02/2022 : Neg Pain of le ft ankle joint 8251679580 0022614 M25.572 S/p xrays 04/28/2022 Dr Patel, next apt 08/01/2024 Eczema 57592587 L30.9 Not satisfied with care with Dr Patel, will refer to Dr Thomas Neuropathy 159990475 G62 .9 C/o N/T in both her feet, states that she is to see Dr Hernandez, agreeable to start on gabapentin , all side effects explained Allergic rhinitis 029331 04 J30.9 Advised to use flonase and zyrtec, she does have flonase at homeFeels her cough is d/t her allergies Bursitis o f olecranon of left elbow 0455786540 49427 M70.22 Non tender, declines any referrals, 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 printing assistant, want to 'leave it alone', notify if worse or any symptoms, she is agreeable to that Screening for osteoporosis 795610614 Z13.820 Low back pain 598363869 M54.50 Feels that she needs to be [...] of bowel or bladder control Esophageal mass 65156804 [address] Benson 03/30/2024 CT C/A/P 06/06/2024 Needs to see GI referred but she states that she will 'think' about it [id number] Abhishek Patel DPM [facility] [place] [address] [facility] [address] [place] [address] 08/01/2024 11:29:42 08/23/2024 14:38:09 Dystrophia unguium 92532477 L60.3 Nails 1 through 10 were debrided with sharp mechanical debridemen t without incident. Nails were debrided and greater than 50% length and thickness where needed. Pain in toe 476107710 M7 9.674 M79.675 secondary to above Unable to cut own toenails 590211598 Z74.1 [id number] Nicolas calix MD [facility] Internal Med [facility] 20[address] [facility] [address] [place] [address] 11/07/2024 14:46:41 11/07/2024 15:43:55 Abdominal pain 73202527 R10.[address] abd/pelvis , may need [...] for EGD as per her history in [facility] t on nexium 40mg daily and see if this will helpShe has not wanted any CT A/P today Chronic ob structive pulmonary disease 31904297 J44.9 On albuterol, renewed 05/16/2024 XRay Chest: 12/04/2021 : [facility] ER: Emphysema Needs to see Dr Sally borges, declined see case 01/04/2022 PFT 04/12/2023 : Moderate obstructio n, declines referralLD CT 02/07/2024 OV 11/07/2024 :Has noted a cough, is agreeable to see pulmonary now, referred to Dr Shepherd give airsupra instead of albuterol Lung mass 201035916 R91. 8 LDCT 09/28/2021 : Unclear if [...] Has an apt with GI Esophageal mass 12582536 [address] Benson 03/30/2024 CT C/A/P 06/06/2024 Needs to see GI referred but she states that she will 'think' about it OV 11/07/2024 : Now has a GI apt on 12/12/2024 Cigarette smoker 0272814 7 F17.210 1 PPD and also vapesAdvis ed to quit!Get a referral to Dr Zavala pulmonary [id number] Charlee Gomez, ESTEPHANIA [facility] Pulmonolo gy [address] [place] [address] 11/12/2024 11:27:18 11/15/2024 14:57:48 Chronic obstructive pulmonary disease 52875628 J44.9 J43.9 Use Albuterol inhaler as neededCAT- [...] use of Albuterol- severe symptoms ER Bronchiectasis 71998123 J47.9 Dyspnea on exertion 6084 5006 R06.09 Lab work todayCAT-2 4Mmrc-3PFT for baselineAw are to use Albuterol inhaler as needed-ok to use when sobEncoura ge patient to remain activefoll ow-up once testing is complete-s ooner for any changes in breathing and increase use of inhaler Smoker 81365294 F17.200 Patient is a smoker and has been counseled to quit. We discussed the many reasons to quit smoking. We discussed the various methods of smoking cessation, .Total time with patient counseling patient * minutes. [id number] Nicolas calix MD [facility] [address] [place] [address] 12/25/2024 15:24:04 12/25/2024 16:51:21 Transition of care 7082441431 105 Z75.8 Abdominal pain 98858379 R10.[address] abd/pelvis , may need [...] needs to see GI Screening - NAD 70632593 3 Z13.9 C-scope: Cologuard 06/26/18,C ologuard 01/17/2022 [...] her understand ing of the above Gallstone 365712827 K80. 20 [address] Mccartney 06/29/2023 , f/u PRNSee case 05/14/2024 , will get US liver again, may need to see G Surgery Skin lesion 19252289 L98 [address] Mccartney and diagnosed with actinic keratosis, no surgery or procedure was done Coronary arteriosclerosis 72299524 I25.10 ECHO 09/28/2021 : EF 60%PFT 11/04/[address] Ivan [facility] 07/24/2023 Dr Hernandez [facility] 03/14/2022 Dr Hernandez [facility] 09/15/2023 Not on amlodipine 5mg dailyOn HCTZ 12.5mg daiyOn atenolol 50mg dailyOn lisinopril 40mg dailyGet labs Hyperlipidemia 33599971 E78.5 On simvastati n 40mg dailyGet labs Smoker 80926068 F17.200 Declines any imaging Does wellNow on chantix, given by Dr Ivan [facility] do nicotine gumLDCT 02/07/2024 Open wound of right ankle 7860559721 6243512 S91.001A S/p insect biteDr Patel Vitamin D deficiency 347 44687 E55.9 COVID-19 997437140 U07.1 +ve in 08/19/2021 Does well now Chronic ob structive pulmonary disease 31264992 J44.9 On albuterol, renewed 05/16/2024 XRay Chest: 12/04/2021 : [facility] ER: Emphysema Needs to see Dr Zavala pulmonary, declined see case 01/04/2022 PFT 04/12/2023 : Moderate obstructio n, declines referralLD CT 02/07/2024 Lung mass 927192695 R91. 8 LDCT 09/28/2021 : Unclear if [...] case 02/23/2023 Edema of l ower extremity 061833855 R60.0 Eats a lot of TV dinners and chips, advised to cut back, and elevate her legs Onychomycosis 125668031 B35.[address] Patel, next 08/31/2023 Eruption noted, refill her triamcinol one, add nystatin Thyroid nodule 635759588 E04.1 US thyroid 01/26/2022 : 1.8cm nodule, L lobeUS thyroid 12/18/2023 : Next in one year ENT Dr Ravinder Gusman 02/15/2022 : Bx to be doneBx 03/02/2022 : Neg Pain of le ft ankle joint 2173164137 6875003 M25.572 S/p xrays 04/28/2022 Dr Patel, next apt 08/01/2024 Eczema 67902710 L30.9 Not satisfied with care with Dr Patel, will refer to Dr Thomas Neuropathy 983418733 G62 .9 C/o N/T in both her feet, states that she is to see Dr Hernandez, agreeable to start on gabapentin , all side effects explained Allergic rhinitis 939162 04 J30.9 Advised to use flonase and zyrtec, she does have flonase at homeFeels her cough is d/t her allergies Bursitis o f olecranon of left elbow 8117100900 20013 M70.22 Non tender, declines any referrals, 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 printing assistant, want to 'leave it alone', notify if worse or any symptoms, she is agreeable to that Screening for osteoporosis 542831979 Z13.820 Low back pain 524132783 M54.50 Feels that she needs to be [...] of bowel or bladder control Esophageal mass 38423607 [address] Benson 03/30/2024 CT C/A/P 06/06/2024 Needs to see GI referred but she states that she will 'think' about it Health Concerns Section Related Observation LastModified by Organization Detai ls LastModified Time None Recorded Concern Status LastModified by Organization Details LastModified Time None Recorded Advance Directives Directive Y: Payers Encounter Date Sequence Insurance Name Policy Number Policy Sy Covered Member ID Sy Member ID Guarantor Name 07/11/2024 1 [place] Leatha Gary Sendy [id number] Leatha Ethal Sendy 07/11/2024 2 [place] [id number] Leatha E Sendy [id number] Leatha Ethal Sendy 08/01/2024 1 [place] Le[place] E Sendy [id number] Leatha Ethal Sendy 08/01/2024 2 [place] [id number] Leatha E Sendy [id number] Leatha Ethal Sendy 11/07/2024 1 [place] Le[place] E Sendy [id number] 65 Leatha Ethal Sendy 11/07/2024 2 [place] [id number] Leatha E Sendy [id number] Leatha Ethal Sendy 11/12/2024 1 [place] Leatha E Sendy [id number] Leatha Ethal Sendy 11/12/2024 2 [place] [id number] Leatha E Sendy [id number] Leatha Ethal Sendy 12/25/2024 1 [place] Leatha E Sendy [id number] 65 Leatha Ethal Sendy 12/25/2024 2 [place] [id number] Leatha E Sendy [id number] Leatha Ethal Sendy Notes Date Note Type Note Provider Name and Address Organization Details Recorded Time 07/11/2024 text/html 03/30/17Here to establish carePast Hx:HTNHLDReviewed [...] N/T in elo feetShe also sees a window framer now for foot nail fungusShagry also has some pain in the right [...] f/u apt, she is doing well today Nicolas Chambers MD [address], [address], [place], [address], [employer] 07/15/2024 19:20:03 08/01/2024 text/html . Patient is a 79-year-old female she returns for routine foot care she denies any new complaints and would like her nails cut as she has difficulty cutting them in her nails are painful. Abhishek Patel DPM [address], [place], [address], [employer] 08/01/2024 16:30:30 11/07/2024 text/html 03/30/17Here to establish [...] N/T in elo feetShe also sees a window framer now for foot nail fungusShgary also has some pain in the right [...] states that her appetite is now normal Nicolas Chambers MD [address] [place] [address], [facility] [address], [place], [address], [facility] [employer] 12/06/2024 10:29:32 11/12/2024 text/html COPDReported bypatient.Severity:use s [...] frothy;cough looseNotes:1/2 ppd 60 yearslast pft-03/2020 Charlee Gomez, SALES AND MERCHANDISING ASSOCIATE [address], [facility] [address], [place], [address], [place] [employer] 11/12/2024 15:10:36 12/25/2024 text/html 03/30/17Here to establish carePast Hx:HTNHLDReviewed social, [...] N/T in elo feetShe also sees a window framer now for foot nail fungusShe also has [...] states that her appetite is now normal OV 12/25/2024: Here for her f/u apt, she is s/p hospital d/c and feels well today Nicolas Chambers MD [address], [facility] [address], [place], [address], [place] [facility] [employer] [facility] 12/26/2024 19:14:40 OBGyn Episode No OBEpisode recorded.
--- OUTSIDE RECORDS SUMMARY | 2025-01-30 01:51 | XMS_ITS | Clinical Summary ---
Author Organization [facility] Physician Of [facility] [address] [place] [address] Care Team Providers Care Marriage And Family Social Worker Name Role Phone Leydi Chambers MD [...] Active Active Problems No known active problems Encounters Date Type Department Care Team Description 12/18/2024 Orders Only [facility] Medical [facility] Cardiology [address] [place] [address] Hero Duke MD from Last 3 Months Social History Tobacco Use Types Packs/Day Years Used Date Smoking Tobacco: Never Assessed Personal Safety Answer Date Recorded Getting School Help Needed Not on file 08/08 Comments Unknown Sex and Gender Information Value Date Recorded Sex Assigned at Not on file Legal Sex Female 5:46 AM [employer] Gender Identity Not on file Sexual Orientation [...] 2 - PCV) 05/22/2008 05/22/2007 Covid-19 Vaccine (4 - 2023-2 5 season) 2024 07/02/2021, 10/29/2020, 10/01/2020 Influenza Vaccine (Season Ended) 2025 08/11/2021, 06/29/2020, 06/09/2020, Additional history exists DTaP/Tdap/Td Vaccine (2 - Td or Tdap) 03/04/2026 03/04/2016 Procedures Procedure Name Priority Date/Time Associated Diagnosis Comments CARDIOLOGY DOCUMENT SCAN Routine 12/16/2024 5:02 PM CDT CARDIOLOGY DOCUMENT SCAN Routine 12/15/2024 5:00 PM CDT CARDIOLOGY DOCUMENT SCAN Routine 12/14/2024 4:56 PM CDT from Last 3 Months Results * Cardiology Document Scan (12/16/2024 5:02 PM CDT) Anatomical Region Laterality Modality Other us Martha Gonzalez NP CV CARDIAC SERVICES PROCEDUR ES Final Result * Cardiology Document Scan (12/15/2024 5:00 PM CDT) Anatomical Region Laterality Modality Other us Hero Duke MD CV CARDIAC SERVICES PROCEDU RES Final Result * Cardiology Document Scan (12/14/2024 4:56 PM CDT) Anatomical Region Laterality Modality Other us Hero Duke MD CV CARDIAC SERVICES PROCEDU RES Final Result from Last 3 Months [place] [address] [facility] [place] [address] BLUE [employer] OOS Care Teams Marriage And Family Social Worker Relationship Specialty Start Date End Date Leydi Chambers MD [address] [facility] [address] [place] [address] PCP - General Internal Medicine 10/08/21
--- OUTSIDE RECORDS SUMMARY | 2025-01-30 01:51 | XMS_ITS | Referral Summary ---
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[employer] Gender Identity Not on file Sexual Orientation [...] CDT Plan of Treatment Not on file Procedures Procedure Name Priority Date/Time Associated Diagnosis Comments CARDIOLOGY DOCUMENT SCAN Routine 12/16/2024 5:02 PM CDT CARDIOLOGY DOCUMENT SCAN Routine 12/15/2024 5:00 PM CDT CARDIOLOGY DOCUMENT SCAN Routine 12/14/2024 4:56 PM CDT from Last 3 Months Results * Cardiology Document Scan (12/16/2024 5:02 PM CDT) Anatomical Region Laterality Modality Other Martha Gonzalez NP CV CARDIAC SERVICES PROCEDUR ES Final Result * Cardiology Document Scan (12/15/2024 5:00 PM CDT) Anatomical Region Laterality Modality Other Hero Duke MD CV CARDIAC SERVICES PROCEDU RES Final Result * Cardiology Document Scan (12/14/2024 4:56 PM CDT) Anatomical Region Laterality Modality Other Hero Duke MD CV CARDIAC SERVICES PROCEDU RES Final Result from Last 3 Months Insurance MEDICARE [facility] CHOICE OOS MEDICARE [facility] CHOICE OOS Care Teams Supervisor [employer] Relationship Specialty Start Date End Date Leydi Chambers MD [address] [place] [address] PCP - General Internal Medicine 10/08/21
--- OUTSIDE RECORDS SUMMARY | 2025-01-30 01:52 | XMS_ITS | CONTINUITY OF CARE DOCUMENT ---
Author Name lena paredes Address Unknown Organization [facility] Address [address] [place] [address] Phone [phone] Care Team Providers Care Mechanical Service Representative Name Role Phone Eliceo SIMPSON, Jade Unavailable FRED TELLO MD Unavailable FRED TELLO MD Unavailable PROBLEMS Condition Status Date Provider Notes HTN--echo ef nl, stress test nl, 09/2024 active Thanh Moraangelazavinita CHEST PAIN-01/07 NUC EF 52 completed - [...] active Jade Fenton MD ARTHRITIS active Jade Fenotn MD Shortness of breath active Jade Fenton MD SARS-associated coronavirus--07/2021 active Jade Fenton MD Lung mass, - being worked up completed 202 09/29/03 - Jade Fenton MD Leg edema, bilateral active Radha bhatti Venous insufficiency active Rodney Hernandez MD Mass,esophagus ? seen on CT - work up in progress completed - Jade Fenton MD Cardiology examination active Thanh Ahmedzai Cough active Thanh Ahmedzai Atrial fibrillation, paroxys mal- 11% on holter 12/2024 active Jade Fenton MD ENCOUNTERS Date Type Provider Location Encounter Diag nosis 7 - 7 In-person encounter Office Visit Jade Fenton MD [facility] 6 - 6 In-person encounter Office Visit Jade Fenton MD [facility] Atrial fibrillation, paroxysmal- 11% on holter 12/2024 4 - 4 In-person encounter Office Visit Jade Fenton MD [facility] HTN--echo ef nl, stress test nl, 09/2024 1 - 1 In-person encounter Office Visit Jade Fenton MD [facility] Cough 1 - 1 In-person encounter Office Visit Jade Fenton MD [facility] Mass,esophagus ? seen on CT - work up in progressCardiology examination 0 - 0 In-person encounter Office Visit Gage Munoz MD [facility] 7 - 7 In-person encounter Office Visit Jade Fenton MD [facility] HTN--echo ef nl, stress test nl, 09/2024 1 - 1 In-person encounter Office Visit Jade Fenton MD [facility] Mass,esophagus ? seen on CT - work up in progress 1 - 1 In-person encounter Office Visit Jade Fenton MD [facility] 5 - 1 In-person encounter Office Visit Rodney Hernandez MD [facility] Venous insufficiency 4 - 4 In-person encounter Office Visit Jade Fenton MD [facility] 8 - 8 In-person encounter Office Visit Rodney Hernandez MD [facility] Leg edema, bilateral 9 - 9 In-person encounter Office Visit Jade Fenton MD [facility] Lung mass, - being worked up 1 - 1 In-person encounter Office Visit Jade Fenton MD [facility] HTN--echo ef nl, stress test nl, 09/2024Shortness of breathSARS-associated coronavirus--07/2021 3 - 3 In-person encounter Office Visit Jade Fenton MD [facility] CAD -03/10 Patent stent RCA, 20% lesion LAD EF of 60%, Nl stress nuc 04/2020LEG PAIN- [place]nl [place] below the knee 01/2021 6 - 6 In-person encounter Office Visit Jade Fenton MD [facility] 8 - 8 In-person encounter Office Visit Jade Fenton MD [facility] 8 - 8 In-person encounter Office Visit Jade Fenton MD [facility] 8 - 8 In-person encounter Office Visit Jade Fenton MD [facility] 7 - 7 In-person encounter Office Visit Jade Fenton MD [facility] 6 - 6 In-person encounter Office Visit Jade Fenton MD [facility] 9 - 9 In-person encounter Office Visit Jade Fenton MD [facility] COPDARTHRITIS 7 - 7 In-person encounter Office Visit Jade Fenton MD [facility] 2 - 2 In-person encounter Office Visit Jade Fentno MD [facility] 4 - 4 In-person encounter Office Visit Jade Fenton MD [facility] HYPERCHOLESTEROLEMIAHyperlipidemia 9 - 9 In-person encounter Office Visit Jade Fenton MD [facility] BRADYCARDIA, SINUS 0 - 0 In-person encounter Office Visit Jade Fenton MD [facility] 5 - 5 In-person encounter Office Visit Jade Fenton MD [facility] 7 - 7 In-person encounter Office Visit Jade Fenton MD [facility] HTN--echo ef nl, stress test nl, 5CHEST PAIN-01/07 NUC EF 52CAD -03/10 Patent stent RCA, 20% lesion LAD EF of 60%, Nl stress nuc 04/2020HTN-12/30 CAROTID NEG 5 - 5 In-person encounter Office Visit Jade Fenton MD [facility] 4 - 4 In-person encounter Office Visit Jade Fenton MD [facility] 1 - 1 In-person encounter Office Visit Jade Fenton MD [facility] 7 - 7 In-person encounter Office Visit Jade Fenton MD [facility] 2 - 2 In-person encounter Office Visit Jade Fenton MD [facility] 2 - 2 In-person encounter Office Visit Jade Fenton MD [facility] 1 - 2 In-person encounter Office Visit Jade Fenton MD [facility] 9 - 9 In-person encounter Office Visit Jade Fenton MD [facility] 2 - 2 In-person encounter Office Visit Jade Fenton MD [facility] 4 - 4 In-person encounter Office Visit Jade Fenton MD [facility] HTN--echo ef nl, stress test nl, 5CHEST PAIN-01/07 NUC EF 52CAD -03/10 Patent stent RCA, 20% lesion LAD EF of 60%, Nl stress nuc 04/2020TOBACCO ABUSELEG PAIN- Abnl [place] below the knee 01/2021 3 - 3 In-person encounter Office Visit Jade Fenton MD [facility] HYPERCHOLESTEROLEMIA VITAL SIGNS Date Observation Value Provider Body Mass Index (Ratio) 29.83 kg/m2 Dexter Fenton MD blood pressure, diastolic 77 mm[Hg] [facility], systolic 144 mm[Hg] vinita [facility] saturation, oximetry 96 % [facility] pulse rate 56 /min [facility] respiratory rate E&M 12 /min [facility] weight E&M 170 [lb_av] [facility] height E&M 63.3 [in_i] [facility] blood pressure, cuff size regular [facility] Body Mass Index (Ratio) 30.14 kg/m2 Dexter Fenton MD blood pressure, diastolic 58 mm[Hg] Jai Gillis blood pressure, systolic 138 mm[Hg] Marta tammie Gillis pulse rate 75 /min Meli Gillis respiratory rate E&M 16 /min Meli Gillis oxygen saturation, oximetry 94 % Meli Gillis weight E&M 171.8 [lb_av] Melitammie Gillis blood pressure, cuff size regular Jai Gillis height E&M 63.3 [in_i] Meli Gillis Body Mass Index (Ratio) 30.35 kg/m2 Dexter Fenton MD blood pressure, diastolic 91 mm[Hg] Nidia Medley blood pressure, systolic 145 mm[Hg] Josette Medley blood pressure, cuff size regular Nidia Medley pulse rate 81 /min Trinidad zhang oxygen saturation, oximetry 96 % Trinidad Medley weight E&M 173 [lb_av] Trinidad zhang height E&M 63.3 [in_i] Trinidad zhang Body Mass Index (Ratio) 30.18 kg/m2 Dexter Fenton MD blood pressure, diastolic 77 mm[Hg] Rahel stern Carey blood pressure, systolic 139 mm[Hg] Nay videsrazia Carey oxygen saturation, oximetry 94 % [facility] pulse rate 58 /min [facility] respiratory rate E&M 12 /min [facility] weight E&M 172 [lb_av] [facility] height E&M 63.3 [in_i] [facility] blood pressure, cuff size regular An jarred Carey Body Mass Index (Ratio) 30.11 kg/m2 Dexter Fenton MD blood pressure, diastolic 86 mm[Hg] Fatoumata nkLog blood pressure, systolic 128 mm[Hg] Kelly og blood pressure, cuff size regular Shaheen Hancock blood pressure, diastolic 86 mm[Hg] Ta bitha Hancock blood pressure, systolic 128 mm[Hg] Tab itha Hancock oxygen saturation, oximetry 94 % Becka Hancock pulse rate 70 /min Becka Hancock weight E&M 171.6 [lb_av] Becka Hancock height E&M 63.3 [in_i] Becka Hancock respiratory rate E&M 12 /min Becka Hancock Body Mass Index (Ratio) 29.83 kg/m2 Kemar Munoz MD blood pressure, cuff size regular rret blood pressure, diastolic 88 mm[Hg] Ja rret blood pressure, systolic 146 mm[Hg] Jar ret pulse rate 72 /min Michael respiratory rate E&M 16 /min Michael oxygen saturation, oximetry 95 % Michael weight E&M 170 [lb_av] Michael height E&M 63.3 [in_i] Michael Body Mass Index (Ratio) 30.35 kg/m2 Dexter Fenton MD blood pressure, cuff size regular [facility] blood pressure, diastolic 87 mm[Hg] [facility] blood pressure, systolic 158 mm[Hg] Jar pulse rate 84 /min Michael respiratory rate E&M 16 /min Michael oxygen saturation, oximetry 95 % Michael weight E&M 173 [lb_av] Michael height E&M 63.3 [in_i] Michael y Body Mass Index (Ratio) 30.53 kg/m2 Dexter Fenton MD oxygen saturation, oximetry 96 % Thanhnery Esquivel pulse rate 63 /min Thanh Morganmedzavintia blood pressure, diastolic 89 mm[Hg] Ri az Morganmedzavinita blood pressure, systolic 168 mm[Hg] Rocío z Morganmedzai weight E&M 174 [lb_av] Thanh Morganmedzai Body Mass Index (Ratio) 28.95 kg/m2 Dexter Fenton MD blood pressure, diastolic 76 mm[Hg] Mi leobardo Delgado blood pressure, systolic 140 mm[Hg] Jude helle Delgado oxygen saturation, oximetry 98 % Loni Delgado pulse rate 60 /min Loni carrington blood pressure, cuff size large Marina booth Delgado respiratory rate E&M 16 /min Fariba gary Delgado weight E&M 165 [lb_av] Ines Puhse height E&M 63.3 [in_i] Loni carrington Body Mass Index (Ratio) 29.33 kg/m2 Rodney Hernandez MD blood pressure, cuff size regular Tr acbrien Lively blood pressure, diastolic 73 mm[Hg] Tr acy Lively blood pressure, systolic 141 mm[Hg] Tra cy Lively oxygen saturation, oximetry 94 % Merle Lively pulse rate 59 /min Merle Lively weight E&M 167.2 [lb_av] Merle Lively height E&M 63.3 [in_i] Merle Lively Body Mass Index (Ratio) 29.30 kg/m2 Dexter Fenton MD blood pressure, diastolic 75 mm[Hg] Mi leobardo Danny blood pressure, systolic 138 mm[Hg] Jude helle [place] oxygen saturation, oximetry 97 % Loni Delgado pulse rate 76 /min Loni carrington weight E&M 167 [lb_av] Loni carrington respiratory rate E&M 16 /min Fariba gary Delgado blood pressure, cuff size large Marina booth Delgado height E&M 63.3 [in_i] Loni carrington Body Mass Index (Ratio) 29.90 kg/m2 Eda Almeida blood pressure, diastolic 81 mm[Hg] Fatoumata nkLogic blood pressure, systolic 149 mm[Hg] Kelly kLogic blood pressure, cuff size large Shaheen michael Van blood pressure, diastolic 81 mm[Hg] Shaheen michael Van blood pressure, systolic 149 mm[Hg] Ziegler larissa Van weight E&M 170.4 [lb_av] Yasmine Sterling respiratory rate E&M 18 /min Yasmine Sterling oxygen saturation, oximetry 96 % [facility] pulse rate 83 /min [facility] height E&M 63.3 [in_i] [facility] Body Mass Index (Ratio) 30.00 kg/m2 Dexter Fenton MD blood pressure, diastolic 64 mm[Hg] Yumiko Pires blood pressure, systolic 126 mm[Hg] Warren Pires oxygen saturation, oximetry 98 % Jonna Pires pulse rate 54 /min Jonna figueredo respiratory rate E&M 16 /min Jeannette Pires weight E&M 171 [lb_av] Jonna figueredo blood pressure, cuff size regular Yumiko Pires height E&M 63.3 [in_i] Jonna Aguilera terell Body Mass Index (Ratio) 29.48 kg/m2 Dexter Fenton MD blood pressure, cuff size large Tr tomas Greene blood pressure, diastolic 80 mm[Hg] Tr tomas Greene blood pressure, systolic 140 mm[Hg] Ranjeet Greene oxygen saturation, oximetry 96 % Christian Greene respiratory rate E&M 18 /min Christian Greene pulse rate 84 /min Christian Greene weight E&M 168 [lb_av] Christian Greene height E&M 63.3 [in_i] Tryangeline Greene Body Mass Index (Ratio) 29.12 kg/m2 Dexter Fenton MD blood pressure, diastolic 78 mm[Hg] Fatoumata nkLogic blood pressure, systolic 130 mm[Hg] Kelly kLogic blood pressure, cuff size regular Cy ntanupama Fenton blood pressure, diastolic 78 mm[Hg] Cy ntanupama Fenton blood pressure, systolic 130 mm[Hg] Aure brown Fenton pulse rate 56 /min Sarahbrown [place] l oxygen saturation, oximetry 95 % Sarah Fenton respiratory rate E&M 16 /min Sarahbrown Fenton weight E&M 166 [lb_av] Sarah Ravindrabel l height E&M 63.3 [in_i] Sarah Campbel l Body Mass Index (Ratio) 28.77 kg/m2 Dexter Fenton MD blood pressure, cuff size regular Ke rri Bibinfoctavioer blood pressure, diastolic 80 mm[Hg] Ke rri Sanjayuenenfelder blood pressure, systolic 110 mm[Hg] Rebeca ri Damarinenfoctavioer oxygen saturation, oximetry 96 % Samara Damarinenfdonna respiratory rate E&M 16 /min Samara G ruenenfelder pulse rate 57 /min Samara Gruenenfe lder weight E&M 164 [lb_av] Samara Damarinehenrike lder height E&M 63.3 [in_i] Samara Damarinenfe lder Body Mass Index (Ratio) 28.42 kg/m2 Dexter Fenton MD blood pressure, diastolic 66 mm[Hg] To david Romero blood pressure, systolic 134 mm[Hg] Ton [facility] oxygen saturation, oximetry 95 % [facility] respiratory rate E&M 16 /min [facility] pulse rate 57 /min [facility] weight E&M 162 [lb_av] [facility] height E&M 63.3 [in_i] [facility] Body Mass Index (Ratio) 28.60 kg/m2 Dexter Fenton MD blood pressure, diastolic 74 mm[Hg] To [facility] blood pressure, systolic 129 mm[Hg] [facility] oxygen saturation, oximetry 96 % [facility] pulse rate 64 /min [facility] respiratory rate E&M 16 /min [facility] weight E&M 163 [lb_av] [facility] height E&M 63.3 [in_i] [facility] Body Mass Index (Ratio) 29.48 kg/m2 Dexter Fenton MD blood pressure, diastolic 85 mm[Hg] To gloria Fenton MD blood pressure, systolic 153 mm[Hg] Kojo Fenton MD oxygen saturation, oximetry 95 % [facility] respiratory rate E&M 16 /min [facility] pulse rate 60 /min [facility] weight E&M 168 [lb_av] [facility] height E&M 63.3 [in_i] [facility] Body Mass Index (Ratio) 29.83 kg/m2 [...] Fenton MD oxygen saturation, oximetry 96 % [facility] blood pressure, diastolic 74 mm[Hg] astity Jacquelin blood pressure, systolic 142 mm[Hg] Vandana stity Jacquelin respiratory rate E&M 16 /min Chastit y Jacquelin pulse rate 65 /min [facility] Jacquelin weight E&M 168 [lb_av] [facility] Jacquelin height E&M 63.3 [in_i] [facility] Jacquelin Body Mass Index (Ratio) 30.53 kg/m2 Dexter Fenton MD blood pressure, diastolic 84 mm[Hg] Da tammie Marlen blood pressure, systolic 138 mm[Hg] Dac ia Mralen oxygen saturation, oximetry 96 % Cee Marlen [...] Janes chauhan weight E&M 86.8 [lb_av] Janes Osmani gissel height E&M 63.3 [in_i] Janes Lopeze gissel Body Mass Index (Ratio) 32.98 kg/m2 Dexter Fenton MD blood pressure, cuff size regular Ke dacia Topete blood pressure, diastolic 94 mm[Hg] Miguel Angel Topete blood pressure, systolic 157 mm[Hg] Rebeca Topete oxygen saturation, oximetry 94 % Samara Topete respiratory rate E&M 16 /min Samara Keller gabriel pulse rate 54 /min Samara Orozco karoer weight E&M 188 [lb_av] Samara Orozco karoer height E&M 63.3 [in_i] Samara Orozco karo blood pressure, resting Yes Nury pacheco Solomon height E&M 63.3 [in_i] Ines Solomon blood pressure, diastolic 79 mm[Hg] Quinn oreilly Murphy blood pressure, systolic 167 mm[Hg] Carmenza abel Murphy pulse rate 62 /min Faye Freemanby oxygen saturation, oximetry 96 % Faye Freemanby respiratory rate E&M 16 /min Faye Freemanby Body Mass Index (Ratio) 33.16 kg/m2 Fran olvera Murphy weight E&M 189.0 [lb_av] Faye Katya blood pressure, diastolic 79 mm[Hg] Aleksandra Parr blood pressure, systolic 141 mm[Hg] Alesia Parr pulse rate 58 /min Janes chauhan oxygen saturation, oximetry 95 % Janes Parr respiratory rate E&M 16 /min Leticia Parr Body Mass Index (Ratio) 32.21 kg/m2 Nadia Parr weight E&M 183.6 [lb_av] Janes monsivais Body Mass Index (Ratio) 32.81 kg/m2 Anea bertha Gamboa blood pressure, diastolic 77 mm[Hg] An ludy Gamboa blood pressure, systolic 121 mm[Hg] Janelle Gamboa pulse rate 80 /min Marycruz Gamboa oxygen saturation, oximetry 94 % Marycruz Gamb[place] respiratory rate E&M 16 /min Adami leatha Gamboa weight E&M 187 [lb_av] Marycruz Gamboa blood pressure, diastolic 70 mm[Hg] An ludy [facility] blood pressure, systolic 135 mm[Hg] Ane bartolo Gamboa Body Mass Index (Ratio) 34.21 kg/m2 Asher stone [facility] pulse rate 72 /min Adamis Cooper oxygen saturation, oximetry 97 % Marycruz Gamboa respiratory rate E&M 16 /min Harriet Gamboa weight E&M 195 [lb_av] Marycruz Gamboa Body Mass Index (Ratio) 33.11 kg/m2 Priscila Carvalho blood pressure, tolic, second observation 93 mm[Hg] Margueritecate Carvalho blood pressure, syst olic, second observation 146 mm[Hg] Margueritecate Carvalho blood pressure, diastolic 93 mm[Hg] Na trish Carvalho blood pressure, systolic 146 mm[Hg] Loida Carvalho pulse rate 69 /min Marguerite Carvalho oxygen saturation, oximetry 97 % Marguerite Carvalho respiratory rate E&M 16 /min Marguerite Carvalho weight E&M 188 [lb_av] Marguerite Carvalho Body Mass Index (Ratio) 32.05 kg/m2 Priscila lie Carvalho blood pressure, diastolic 96 mm[Hg] Na [...] seph [place] blood pressure, systolic 128 mm[Hg] Adrrell eph [place] pulse rate 71 /min Todd [place] oxygen saturation, oximetry 95 % Todd [place] respiratory rate E&M 20 /min Todd [place] weight E&M 177 [lb_av] Todd [place] blood pressure, diastolic 64 mm[Hg] Aleksandra mccarthy [place] blood pressure, systolic 124 mm[Hg] Alesia piña [place] pulse rate 76 /min Celestina [place] oxygen saturation, oximetry 93 % Celestina [place] respiratory rate E&M 18 /min Celestina [place] weight E&M 174 [lb_av] Celestina [place]as [...] Darrell eph [place] pulse rate 64 /min [facility], [facility]ximetry 97 % [facility] rate E&M 16 /min [facility] weight E&M 186 [lb_av] [facility] ALLERGIES Allergy Name Onset Date Reaction Criticality [...] - 1.2 urea nitrogen, blood 13.0 mg/dL Link[facility] 8.0 - 23.0 blood glucose, random 87.0 mg/dL [facility] 74.0 - 99.0 red blood cell distribution width, size density 45.8 fL [facility] - immature granulocytes, percentage of total cells, blood 0.2 % [facility] - nucleated red blood cells as percent of blood leukocytes 0.0 % [facility] - red blood cell (erythrocyte) count, per high power field 0.0 10*3/UL [facility] eosinophils as percent of blood leukocytes 4.4 % [facility] - neutrophils as percent of blood leukocytes 59.0 % [facility] Absolute Neutrophils 3.5 CELLS/UL [facility] 1.5 - 7.8 basophils as percent of blood leukocytes 0.5 % [facility] Absolute Basophils 0.0 CELLS/UL [facility] 0.0 [...] as % of total hemoglobin 5.7 % [facility] 4.0 - 5.6 High platelet count 230 10*3/mm3 [facility] hematocrit, blood 38.4 % [facility] international normalized ratio (INR) 1.0 [facility] Merlin blood glucose, random 93 mg/dL [facility] creatinine, serum 0.56 mg/dL [facility] urea nitrogen, blood 20 mg/dL [facility] potassium, serum 4.8 mmol/L [facility] sodium, serum 137 mmol/L [facility] international normalized ratio (INR) 1.0 Bettye Boyer platelet count 242 10*3/mm3 [facility] hematocrit, blood 40.2 % Bettye Boyer creatinine, serum 0.54 mg/dL [facility] potassium, serum 4.5 mmol/L [facility] sodium, serum 137 mmol/L [facility] lipoprotein, beta, serum, point, quantitative, calculated 107 mg/dL [facility] cholesterol, serum 191 mg/dL [facility] thyroid stimulating hormone, serum 0.425 u[IU]/mL [facility] alanine aminotransferase (SGPT), serum 35 1/L [facility] aspartate aminotransferase (SGOT), serum 31 1/L [facility] creatinine, serum 0.8 mg/dL [facility] potassium, serum 4.4 mmol/L [facility] sodium, serum 140 mmol/L [facility] platelet count 180 10*3/mm3 [facility] hematocrit, blood 13.9 % [facility] basophils as percent of blood leukocytes [...] Normal Absolute Neutrophil count 2615 cells/mcL LinkLog[facility] ([id number]) Normal platelet count 177 THOUSAND/ UL [facility] [...] Status Instructions Dates Provider Indications Com ments Eliquis 5 mg tablet active Take 1 table t by mouth twice daily 01/21 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 20 mg tablet active Take 1 tablet by mouth once daily in the morning 12/31 Thanh Marroquinzai Medrol (Dalia) 4 mg tablets,dose pack completed As per package instructions 09/17 - 12/31 Thanh Ahmedzai simvastatin 40 mg tablet active TAKE 1 TABLET BY MOUTH EVERY DAY 09/17 Brianna Ruple atenolol 25 mg tablet active TAKE 1 TABLET BY MOUTH EVERY DAY Brianna Ruple atenolol 25 mg tablet completed Take 1 tablet by mouth once a day - Samara Topete hydrochlorothiazide 12.5 mg capsule completed TAKE 1 CAPSULE BY MOUTH EVERY DAY 10/24 - 12/31 Thanh Ahmedzai simvastatin 40 mg tablet completed Take 1 tablet by mouth once a day 03/30 - 09/17 Brianna Mcmillan lisinopril 40 mg tablet active TAKE 1 TABLET BY MOUTH EVERY DAY 10/10 Thanh Ellisvinita simvastatin 40 mg tablet completed TAKE 1 TABLET BY MOUTH EVERY DAY 12/09 - 03/30 Samara Topete varenicline 1 mg tablet completed Take 1 tablet by mouth once a day as directed 09/07 - 09/02 Thanh Morganangelasamvinita atenolol 25 mg tablet completed TAKE 1 TABLET BY MOUTH EVERY DAY - Samara Topete lisinopril 20 mg tablet completed TAKE 1 TABLET BY MOUTH EVERY DAY - 10/10 Tara Avery Xarelto 2.5 mg tablet completed 1 tablet by mouth twice a day 03/09 - 12/31 Thanh Ellisvinita amlodipine 5 mg tablet completed Take 1 [...] once a day 12/20 - 12/09 Thanh Morgandawson [employer] MAXIMUM TABLET completed as directed 09/10 [...] Topete SOCIAL HISTORY Date Observation Value Provider personal history of marijuana use no Radha Ventimiglia [facility] drug use no Radha Ventimig doc [facility] alcohol use no Radha Ventimig doc [facility] passive cigarette sm janet exposure yes Radha Ventimiglia [facility] smoking/tobacco cess ation, patient education and counseling yes Radha Ventimiglia [facility] chewing tobacco use no Radha V entimiglia [facility] cigar use no 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 smoking, date started 1962 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 smoking history, tot al pack/year 60 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 smoking history, tot al pack/day 1 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 cigarette use yes Radhavanessa Rosalesmi glia [employer] SALES ASSISTANT smoking status Current every da y smoker Radha Rosalesmiglia [facility] smoking history, tot al pack/year 60 Jade Fenton MD drug use none Thanh Ahmedzai alcohol use no Thanh Morganmedzai passive cigarette sm janet exposure yes Thanh Morganmedzai smoking/tobacco cess ation, patient education and counseling yes Thanh Ahmedzai chewing tobacco use no Thanh Ahmeg edzai cigar use no Thanh Ahmedzai number of years as a smoker 60 a Thanh Carazai smoking, date started 1962 Thanh Elmore saraedzai smoking history, tot al pack/year 51 Thanh Morganmedzai smoking history, tot al pack/day 1 Thanh Morganmedzai cigarette use yes Thanh Morganmedzai smoking status Current every da y smoker Thanh Morganmedzai drug use none Thanh Ahmedzai alcohol use no Thanh Ahmedzai passive cigarette sm janet exposure yes Thanh Ahmedzai smoking/tobacco cess ation, patient education and counseling yes Thanh Ahmedzai chewing tobacco use no Thanh Ahm edzai cigar use no Thanh Ahmedzai number of years as a smoker 60 a Thanh Ahmedzai smoking, date started 1962 Thanh Elmore poppy smoking history, tot al pack/year 51 Thanh Esquivel smoking history, tot al pack/day 1 Thanh Ellisi cigarette use yes Thanh Esquivel smoking status Current every da y smoker Thanh Esquivel drug use none Thanh Esquivel alcohol use no Thanh Ellisi passive cigarette sm janet exposure yes Thanh Esquivel smoking/tobacco cess ation, patient education and counseling yes Thanh Ellisi chewing tobacco use no Thanh butterfieldi cigar use no Thanh Esquivel number of years as a smoker 58 a Thanh Esquivel smoking, date started 1962 Thanh Elmore poppy smoking history, tot al pack/year 53 Thanh Esquivel smoking history, tot al pack/day 1 Thanh Esquivel cigarette use yes Thanh Esquivel smoking status Current every da y smoker Thanh Esquivel drug use none Thanh Esquivel alcohol use no Thanh Esquivel passive cigarette sm janet exposure yes Thanh Esquivel smoking/tobacco cess ation, patient education and counseling yes Thanh Ellisi chewing tobacco use no Thanh Mae edzai cigar use no Thanh Ellisi number of years as a smoker 60 a Thanh Ellisi smoking, date started 1962 Thanh Elmore scouti smoking history, tot al pack/year 53 Thanh Ellisi smoking history, tot al pack/day 1 Thanh Ellisi cigarette use yes Thanh Esquivel smoking status Current every da y smoker Thanh Esquivel drug use none Gage Munoz MD alcohol use no Gage Munoz MD passive cigarette sm janet exposure yes Gage Munoz MD smoking/tobacco cess ation, patient education and counseling yes Gage Munoz MD chewing tobacco use no Gage pagan MD cigar use no Gage Munoz MD number of years as a smoker 60 a Gage Munoz MD smoking, date started 1962 Gage Munoz MD smoking history, tot al pack/year 53 Gage Munoz MD smoking history, tot al pack/day 1 Gage Munoz MD cigarette use yes Gage Carrington smoking status Current every da y smoker Gage Munoz MD drug use none Thanh Esquivel [...] yes Thanh Esquivel smoking status Current every da y smoker Thanh Esquivel social history reviewed E&M revi ewed - no changes required Thanh Ellisi social history E&M Marital Statu s: Iveth davis with family/friends E thnicity: Smoking History: P danis currently smokes every day. P danis has been counseled to quit. Thanh Esquivel seatbelt usage 100 % Loni Castle and Exercise counseling yes Loni Delgado physical exercise, frequency, days per week yes Loni Delgado caffeine [...] Loni Green nd smoking status Current every da y smoker Loni Delgado social history reviewed E&M revi ewed - no changes required Jade Fenton MD social history reviewed E&M revi ewed - no changes required Rodney Hernandez MD seatbelt usage 100 % Loni Castle and Exercise counseling yes Loni Delgado physical exercise, frequency, days per week yes Loni Delgado caffeine use, averag e drinks per day 5+ Loni Delgado passive cigarette sm janet exposure yes Loni Delgado smoking/tobacco cess ation, patient education and counseling yes Loni Delgado chewing tobacco use no Loni Delgado cigar use no Loni carrington number of years as a smoker 60 a oLni Delgado smoking, date started 1963 Rajiv Sheppard smoking history, tot al pack/year 53 Loni Delgdao smoking history, tot al pack/day 1 Loni Delgado cigarette use yes Loni Green nd smoking status Current every da y smoker Loni Delgado social history reviewed E&M revi ewed [...] 1 Yasmine Vipin cigarette use yes Yasmine Lew smoking status Current every da y smoker Yasmine Lew Exercise counseling yes Grant Pires social [...] yes Christian zhang smoking status Current every da y smoker Christian Greene social history E&M Marital Statu s: L susan with family/friends E thnicity: Smoking History: P atient currently smokes every day. P atient has been counseled to quit. Jade Fenton MD social history reviewed E&M revi ewed - no changes required Jade Fenton MD seatbelt usage 100 % Sarah Simba busby physical exercise, frequency, days per week yes Sarah Eliceo caffeine use, averag e drinks per day 5+ Sarah Eliceo passive cigarette sm janet exposure yes Sarah Eliceo smoking/tobacco cess ation, patient education and counseling yes Sarah Eliceo chewing tobacco use no Sarah Eliceo cigar use no Sarah garcia number of years as a smoker 10 years or m ore Sarah Fenton smoking, date started 1964 Aurerosa elmore Eliceo smoking history, tot al pack/year 53 Sarah Eliceo smoking history, tot al pack/day 1 Sarah Eliceo cigarette use yes Sarah Enciso ll smoking status Current every da y smoker Sarah Eliceo social history E&M Marital Statu s: Iveth davis with family/friends E thnicity: Smoking History: P danis currently smokes every day. P atkaitlin has been counseled to quit. Abhishek Phan social history reviewed E&M mejia ortiz - no changes required Abhishek Phan seatbelt usage 100 % Samara moon physical exercise, frequency, days per week yes Samara Topete caffeine [...] 1 Samara Topete cigarette use yes Samara thompson smoking status Current every da y smoker Samara Topete social history E&M Marital Statu s: L susan with family/friends E thnicity: Smoking History: P danis currently smokes every day. P danis has been counseled to quit. Farshad Lentz social history reviewed E&M revi ewed - no changes required Farshad Lentz seatbelt usage 100 % [facility] physical exercise, frequency, days per week yes [facility] caffeine use, averag e drinks per day 5+ [facility] passive cigarette sm janet exposure yes [facility] smoking/tobacco cess ation, patient education and counseling yes [facility] chewing tobacco use no [facility] cigar use no [facility] number of years as a smoker 10 years or m ore [facility] smoking, date started 1962 [facility] smoking history, tot al pack/year 53 [facility] smoking history, tot al pack/day 1 [facility] cigarette use yes [facility] smoking status Current every da y smoker [facility] social history E&M Marital Statu s: L susan with family/friends E thnicity: Smoking History: P danis currently smokes every day. P danis has been counseled to quit. Jade Fenton MD social history reviewed E&M revi ewed - no changes required Abhishek Saini seatbelt usage 100 % [facility], frequency, days per week yes [facility] caffeine use, averag e drinks per day 5+ [facility] passive cigarette sm janet exposure yes [facility] smoking/tobacco cess ation, patient education and counseling yes [facility] chewing tobacco use [facility] number of years as a smoker 10 years or m ore [facility] smoking, date started 1962 [facility] smoking history, tot al pack/year 53 [facility] smoking history, tot al pack/day 1 [facility] cigarette use yes [facility] smoking status Current every da y smoker [facility] social history E&M Marital Statu s: L susan with family/friends E thnicity: Smoking History: P atkaitlin currently smokes every day. P danis has been counseled to quit. Jade Fenton MD seatbelt usage 100 % Jade Fenton MD physical exercise, frequency, days per week yes Jade Fenton MD [...] yes Jade Carrington smoking status Current every da y smoker Jade Fenton MD social history reviewed E&M revi ewed - no changes required Jade Fenton MD social history reviewed E&M revi ewed - no changes required Jade Fenton MD social history E&M Marital Statu s: L susan with family/friends E thnicity: Smoking History: Colten moscoso currently smokes every day. Colten moscoso has been counseled to quit. Jade Fenton MD social history reviewed E&M mejia ortiz - no changes required Jade Fenton MD seatbelt usage 100 % [facility] physical exercise, frequency, days per week yes [facility] alcohol use, average drinks per day none [facility] alcohol use no [facility] caffeine use, averag e drinks per day 5+ [facility] drug use none [facility] smoking/tobacco cess ation, patient education and counseling yes [facility] passive cigarette sm janet exposure yes [facility] chewing tobacco use no [facility] cigar use no [facility] number of years as a smoker 10 years or m ore [facility] smoking, date started 1965 [facility] smoking history, tot al pack/year 53 [facility] smoking history, tot al pack/day 1 [facility] cigarette use yes [facility] smoking status Current every da y smoker [facility] Underweight no Jade Fenton MD seatbelt usage 100 % Cee Marlen physical exercise, frequency, days per week yes Cee Marlen alcohol [...] yes Cee Marlen smoking status Current every da y smoker Ceecruz Gee Underweight yes Jade Fenton MD number of grandchildren Jade Fenton MD T ben Fenton MD social history reviewed E&M revi ewed - no changes required Jade Fenton MD seatbelt usage 100 % Janes Nix physical exercise, frequency, days per week yes Janes Parr alcohol use, average drinks per day none Janes Parr alcohol use no Janes chauhan caffeine use, averag e drinks per day 5+ Janes Parr drug use none JanesJoellen chauhan smoking/tobacco cess ation, patient education and counseling yes Janes Parr passive cigarette sm janet exposure yes Janes Parr chewing tobacco use no Sybil Parr cigar use no Janes Lopeze gissel number of years as a smoker 10 years or m ore Janes Parr smoking, date started 1964 Rosamaria Parr smoking history, tot al pack/year 53 Janes Lopezenson smoking history, tot al pack/day 1 Janes Parr cigarette use yes Janes monsivais smoking status Current every da y smoker Janesangelica Parr social history reviewed E&M revi ewed - no changes required Jade Fenton MD seatbelt usage 100 % Samara moon physical exercise, frequency, days per week yes Samara Topete alcohol use, average drinks per day none Samara Topete alcohol use no Samara barker caffeine use, averag e drinks per day 5+ Samara Topete drug use none Samara huddleston smoking/tobacco cess ation, patient education and counseling yes Samara Topete passive cigarette sm janet exposure yes Samara Topete chewing tobacco use no Samara pineda cigar use no Samara huddleston number of years as a smoker 10 years or m ore Samara Topete smoking, date started 1962 Samara Topete smoking history, tot al pack/year 53 Samara Topete smoking history, tot al pack/day 1 Samara Topete cigarette use yes Samara thompson smoking status Current every da y smoker Samara Damaridruoctavionorm smoking history, tot al pack/year 53 Sorin Mattson RN seatbelt usage 100 % Ines dominguez physical exercise, frequency, days per week yes Ines Solomon alcohol use, average drinks per day none [...] smoker 10 years or m ore Ines Solomon smoking, date started 1962 Ivonne Solomon smoking history, tot al pack/year 51 Ines Solomon smoking history, tot al pack/day 1 Ines Solomon cigarette use yes Ines Solomon smoking status Current every da y smoker Ines Solomon social history reviewed E&M revi ewed - no changes required Ines Solomon social history reviewed E&M revi ewed - no changes required Jade Fenton MD number of grandchildren Jade Ortega MD Quinn Aldana social history reviewed E&M revi ewed - no changes required Jade Fenton MD seatbelt usage 100 % Janes Cornejoterell physical exercise, frequency, days per week yes Janes Parr alcohol use, average drinks per day none Janes Parr alcohol use no Janes Keen jacintoadrian caffeine use, averag e drinks per day 5+ Janes Lopezenson drug use none Janes Keen gissel smoking/tobacco cess ation, patient education and counseling yes Janes Keshav passive cigarette sm janet exposure yes Janes Parr chewing tobacco use no NadiaClaire dominguez Keshav cigar use no Janes Keen jacintoadrian number of years as a smoker 10 years or m ore Janes Keshav smoking, date started 1963 Rosamaria Parr smoking history, tot al pack/year 51 Janes Lopezenson smoking history, tot al pack/day 1 Janes Lopezenson cigarette use yes Janes John loi smoking status Current every da y smoker Janes Parr smoking/tobacco cess ation, patient education and counseling yes Jade Fenton MD social history reviewed E&M revi ewed - no changes required Marycruz Gamboa smoking status Current every da y smoker Marycruz Gamboa social history reviewed E&M revi ewed [...] yes Jade Fenton MD drug use none Jaed Fenton MD social history reviewed E&M reviewed Jade Fenton MD caffeine use, averag e drinks per day 5+ Todd Manaco passive cigarette sm [facility]et exposure [facility], [facility] 100 % Maximo Marrero RN [...] Jim reardon RN smoking status current every da y smoker Maximo Marrero RN social history reviewed E&M [...] E&M reviewed Maximo Marrero RN physical exercise, frequency, days per week yes [employer] caffeine use, averag e drinks per day yes [employer] alcohol use, average drinks per day none [employer] number of years as a smoker 10 years or m ore [employer] smoking status Smoker [employer] FUNCTIONAL STATUS Date Observation Value Provider HRA, CV Assess/Plan, Angina (inactive) Management Plan continue current therapy 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 HRA, CV Assess/Plan, Angina (inactive) Management Plan [...] Payer name Policy type / Coverage type Logan red libertarian ID [facility] [id number] [place] MED[place] Medicare [id number] ADVANCE DIRECTIVES Name Date DISCUSSED - NO DECISION MADE TREATMENT PLAN Date Name Performer [id number],Jade Segovia MD [id number],Thanh Zhang i [id number],Thanh Zhang i [id number],Thanh Zhang i [id number],Thanh Zhang i [id number],S, Thanh Ellis i [id number],S, Thanh Ellis i [id number],S, Thanh Ellis i [id number],S, Thanh Ellis i [id number],S, Thanh Ellis i [id number],S, Thanh Ellis i [id number],S, Thanh Ellis i [id number],S, Thanh Ellis i [id number],C,V endous duplex showed venous insufficiency bilaterally. She has crhonic swelling and some numbness. We discussed support stockings vs. venography with IVUS and Venaseal. She would like to try conservative treatment with the stockings and she will let us know if she would like to proceed with further intervention. Rodney Hernandez MD [id number],C, H er updated medication list for this problem includes: Lisinopril 40 Mg Tablet (Lisinopril) ..... Take 1 tablet by mouth every day Atenolol 25 Mg Tablet (Atenolol) ..... Take 1 tablet by mouth every day Rodney Hernandez MD [id number],C,V endous duplex showed venous insufficiency bilaterally. She has crhonic swelling and some numbness. We discussed support stockings vs. venography with IVUS and Venaseal. She would like to try conservative treatment with the stockings and she will let us know if she would like to proceed with further intervention. Rodney Hernandez MD [id number],C,T he Patient was reencouraged to stop smoking. Rodney Hernandez MD [id number],C, H er updated medication list for this problem includes: Simvastatin 40 Mg Tablet (Simvastatin) ..... Take 1 tablet by mouth every day Rodney Hernandez MD [id number],C, B P today: 141/73 P rior BP: [...] by mouth every day Rodney Hernandez MD [id number],BJade MD [id number],B, Jade Fenton MD [id number],B, Jade Fenton MD [id number],S, Thanh Ahmedza i [id number],S, Thanh Ahmedza i [id number],S, Thanh Ahmedza i [id number],S, Thanh Ahmedza i [id number],S, Thanh Ahmedza i [id number],S, Thanh Ahmedza i [id number],S, Thanh Ahmedza i [id number],S, Thanh Ahmedza i [id number],S, Thanh Ahmedza i [id number],B, Thanh Ahmedza i [id number],S, Thanh Ahmedza i [id number],C,T he Patient was reencouraged to stop smoking. Radha Jacobsmeyer [id number],C, H er updated medication list for this problem includes: Simvastatin 40 Mg Tablet (Simvastatin) ..... Take 1 tablet by mouth every day Radha Almeida [id number],C, B P today: 149/81 P rior BP: [...] 1 tablet once a day Radha Almeida [id number],C,P t denies any chest pain. Her updated medication list for this problem includes: Atenolol 50 Mg Tablet (Atenolol) ..... Take 1 tablet by mouth every day Lisinopril 40 Mg Tablet (Lisinopril) ..... Take 1 tablet by mouth every day Amlodipine 5 Mg Tablet (Amlodipine) ..... Take 1 tablet by mouth once a day Radha Almeida [id number],C,P t complains of leg swelling. Worse in the evening after she stands. She has erythema and pigmentation in both legs, most likely venous insufficiency. Will obtain venous duplex. She had arterial duplex last year in the hospital and we will obtain the results. Depending on the results will proceed to venography with IVUS and Venaseal. Radha Almeida [id number],Thanh Zhang i [id number],Thanh Zhang medza i [id number],S, Thanh medza i [id number],S, Thanh medza i [id number],S, [id number], Jade Fenton MD [id number],B, Jade Fenton MD [id number],W, Jade Fenton MD [id number],C, Jade Fenton MD [id number],B, Jade Fenton MD [id number],W, [facility] [id number],S, [facility] [id number],S, [facility] [id number],S, [facility] [id number],S, [facility] [id number],S, [facility] [id number],B, Jade Fenton MD [id number],S, Jade Fenton MD [id number],S, Jade Fenton MD [id number],S, Jade Fenton MD [id number],S, Jade Fenton MD [id number],S, Jade Fenton MD [id number],SJade MD Cardiology:11% afib burden on tele monitor W ill begin Eliquis for AC 5 mg BID R isk/benefits of thearpy discussed and understanding verbalized H er updated medication list for this problem includes: Lisinopril 40 Mg Tablet (Lisinopril) ..... Take 1 tablet by mouth every day Atenolol 25 Mg Tablet (Atenolol) ..... Take 1 tablet by mouth every day T his visit has been a part of the consistent, comprehensive, and ongoing management of the chronic medical condition(s) listed above for the patient. Jade Fenton MD Cardiology: H er updated medication list for this problem includes: Simvastatin 40 Mg Tablet (Simvastatin) ..... Take 1 tablet by mouth every day [facility] Cardiology [facility] Cardiology:no new ch est pain or worsening SOB H er updated medication list for this problem includes: Lisinopril 40 Mg Tablet (Lisinopril) ..... Take 1 tablet by mouth every day Atenolol 25 Mg Tablet (Atenolol) ..... Take 1 tablet by mouth every day [facility] Cardiology:has improved with las ix will continue [facility] Cardiology:BP contro lled c ontinue present medication regimen H er updated medication list for this problem includes: Furosemide 20 Mg Tablet (Furosemide) ..... Take 1 tablet by mouth once daily in the morning Lisinopril 40 Mg Tablet (Lisinopril) ..... Take 1 tablet by mouth every day Atenolol 25 Mg Tablet (Atenolol) ..... Take 1 tablet by mouth every day [facility] Cardiology:11% afib burden on tele monitor W ill begin Eliquis for AC 5 mg BID R isk/benefits of thearpy discussed and understanding verbalized H er updated medication list for this problem includes: Lisinopril 40 Mg Tablet (Lisinopril) ..... Take 1 tablet by mouth every day Atenolol 25 Mg Tablet (Atenolol) ..... Take 1 tablet by mouth every day [facility] Cardiology aJde Fenton MD Cardiology: H er updated medication list for this problem includes: Simvastatin 40 Mg Tablet (Simvastatin) ..... Take 1 tablet by mouth every day Jade Fenton MD Cardiology: T he following medications were removed from the medication list: Hydrochlorothiazide 12.5 Mg Capsule (Hydrochlorothiazide) ..... Take 1 capsule by mouth every day Her updated medication list for this problem includes: Furosemide 20 Mg Tablet (Furosemide) ..... Take 1 tablet by mouth once daily in the morning Lisinopril 40 Mg Tablet (Lisinopril) ..... Take 1 tablet by mouth every day Atenolol 25 Mg Tablet (Atenolol) ..... Take 1 tablet by mouth every day Jade Fenton MD Cardiology:This visi t has been a part of the consistent, comprehensive, and ongoing management of the chronic medical condition(s) listed above for the patient. Her updated medication list for this problem includes: Lisinopril 40 Mg Tablet (Lisinopril) ..... Take 1 tablet by mouth every day Atenolol 25 Mg Tablet (Atenolol) ..... Take 1 tablet by mouth every day Jade Fenton MD Cardiology Jade Fenton MD [...] MD Cardiology: O rders: C XR- PA/Lat (CPT-36245) Jade Fenton MD Cardiology: H er updated medication list for this problem includes: Atenolol 25 Mg Tablet (Atenolol) ..... Take 1 tablet by mouth every day Lisinopril 40 Mg Tablet (Lisinopril) ..... Take 1 tablet by mouth every day Hydrochlorothiazide 12.5 Mg Capsule (Hydrochlorothiazide) ..... Take 1 capsule by mouth every day Orders: Leatha moore Regadenoson (CPT-[id number]) C omplete Echo (83011) Jade Fenton MD Cardiology: B P today: [...] mouth every day Orders: S tress Regadenoson (CPT-96384) C omplete Echo (34171) Jade Fenton MD Cardiology:......... ............................... ...........................Jade eFnton MD September 17, 2024 4:30 PM Her updated medication list for this problem includes: Atenolol 25 Mg Tablet (Atenolol) ..... Take 1 tablet by mouth every day Lisinopril 40 Mg Tablet (Lisinopril) ..... Take 1 tablet by mouth every day Orders: S tress Regadenoson (CPT-[id number]) C omplete Echo (48647) Jade Fenton MD Cardiology:Cessation reviewed Ambrocio Esquivel [...] Ahmedzai Cardiology Thanh Ahmedzai Cardiology Thanh Ahmedzai Cardiology:Hannah dodgeex showed venous insufficiency bilaterally. She has crhonic [...] by mouth every day Rodney Hernandez MD Cardiology:Hannah dodgeex showed venous insufficiency bilaterally. She has crhonic swelling and some numbness. We discussed support stockings vs. venography with IVUS and Venaseal. She would like to try conservative treatment with the stockings and she will let us know if she would like to proceed with further intervention. Rodney Hernandez MD Cardiology:The Baylee nt was reencouraged to stop smoking. Rodney [...] nov appt Jade Fenton MD Cardiology Thanh Ahmedzai Cardiology Thanh Ahmedzai Cardiology Thanh Ahmedzai Cardiology Thanh Ahmedzai Cardiology Thanh Ahmedzai Cardiology Thanh Ahmedzai Telehealth Thanh Ahmedzai Telehealth Thanh Ahmedzai Telehealth Thanh Ahmedzai Telehealth Thanh Ahmedzai Telehealth Thanh Ahmedzai Cardiology:The Patie nt was reencouraged to stop smoking. Radha Elle Cardiology: H er updated medication list for this problem includes: Simvastatin 40 Mg Tablet (Simvastatin) ..... Take 1 tablet by mouth every day Radha Elle Cardiology: B P today: 149/81 P rior [...] ..... 1 tablet once a day Radha Elle Cardiology:Pt denies any chest pain. Her updated [...] to venography with IVUS and Venaseal. Radha Almeida Cardiology Thanh Esquivel Cardiology Thanh Esquivel Cardiology Thanh Esquivel Cardiology Thanh Esquivel Cardiology Thanh Ahmedzai Telehealth- in person f/up [...] Jade randle MD Cardiology follow up Jade arndle MD Cardiology follow up Jade randle MD Cardiology follow up Jade randle MD Cardiology follow up Jade randle MD Cardiology follow up Jade randle MD Cardiology Follow up Abhishek Charit Cardiology Follow up Abhishek Nacht Cardiology Follow up Abhishek Charit Cardiology Follow up Abhishek Charit Cardiology - Jade Fenton MD Cardiology - [...] Cardiology Jade Fenton MD Cardiology follow up Jade randle MD Cardiology follow up Toniya Ricardo randle MD Cardiology follow up Toniya Ricardo randle MD Cardiology follow up Toniya Ricardo randle MD Cardiology follow up Tonipeewee randle MD Cardiology:Placed on Welbutrin X L 150mg. Jade Fenton MD Cardiology:Elevated. Increase lisinopril to 40mg once daily. Jade Fenton MD Cardiology:Last stress test 01/10 nml. Jade Fenton MD Cardiology Follow up Jade randle MD Cardiology Follow up Jade randle MD Cardiology Follow up Kojoipeewee randle MD Cardiology Follow up Jade randle MD Cardiology Jade Fenton MD Cardiology Jade Fentno MD Cardiology Jade Fenton MD Cardiology Jade [...] tablet by mouth daily Orders: E KG (CPT-[id number]) BP today: 144/82 P rior BP: 130/74 [...] scintigraphic evidence of myocardial ischemia or scar. (03/31/2010) E chocardiogram: Normal left ventricular systolic [...] pressure of 32mmHg. (08/06/2007) Orders: E KG ([id number]) Jade Fenton MD 1 year visit with [...] normal: (01/11/2005) Jade Fenton MD Date Name Monitor - Telemetry (Mobile Cardiac) Complete Echo CXR- PA/Lat Stress Regadenoson Arterial [...] Jade Fenton MD comp leted EKG Jade Fneton MD completed Regadenoson, 4 units Jade Fenton MD completed Cardiolite, 2 units Jade Fenton MD completed SPECT Images Jade Fenton MD complet ed Stress EKG Jade Fenton MD completed EKG Jade Fenton MD completed EKG Jade Fenton MD completed ePrescribe - Check t his box if eRx is used Jade Fenton MD completed SNOMED-CT: 838492896 [id number] Current Medications Documented Jade Fenton MD completed SNOMED-CT: 32642812 Physical Exam, Performed: Pulse Exam of Foot Jade Fenton MD completed EKG Jade Fenton MD completed SNOMED-CT: 806878799 156216 Current Medications Documented Jade Fenton MD completed SNOMED-CT: 03634156 Physical Exam, Performed: Pulse Exam of Foot Jade Fenton MD completed SNOMED-CT: 234802487 104856 Current Medications Documented Jade Fenton MD completed Stress EKG Blue Pham MD complet ed Regadenoson, 4 units Jade Fenton MD completed Cardiolite, 2 units Jade Fenton MD completed SPECT Images Blue Pham MD compl eted SNOMED-CT: 48462301 Physical Exam, Performed: Pulse Exam of Foot Jade Fenton MD completed SNOMED-CT: 551773658 048840 Current Medications Documented Jade Fenton MD completed EKG Jade Fenton MD completed SNOMED-CT: 188127486 111340 Current Medications Documented Jade Fenton MD completed EKG Jade Fenton MD completed EKG Jade Fenton MD completed EKG Jade Fenton MD completed EKG Jade Fenton MD completed
--- OUTSIDE RECORDS SUMMARY | 2025-01-30 01:52 | XMS_ITS | Clinical Summary ---
Author Organization [facility] Address [address] [place] [address] Care Team Providers Care Publication Manager Name Role Phone Unavailable Primary Care Provider Unavailabl e Source Comments [facility],non-owned Affiliates and Associated Physician Practices is amultiple site organization consisting of ambulatory clinics and hospital sitesin [place], [place], [place] and [place]. This disclosure is being madepursuant to the Care Everywhere program and may not contain all information available regarding this patient. Last updated 18.[facility] [employer] Allergies Active Allergy Reactions Criticality Noted Date [...] age to complete this topic Insurance MEDICARE [facility] MEDICARE [facility]
[2025-01-30 11:53] VITALS: BP 156/81; PULSE 60; RESP 20; TEMP 36.1; O2SAT 94; BMI 31.8
[2025-01-30] MEDS: LACTATED RINGERS 1,000 ML 150 ML IV CONT (11:57)
[2025-01-30] MEDS: SIMETHICONE ORAL SUSPENSION 20 MG/0.3 ML 30 ML BOTTLE 1.8 ML PO (12:05)
--- NOTE | 2025-01-30 12:08 | P.PNAN_ITS ---
Anes - Initial Pre Proc Eval Procedure: Operation Date: 01/30/25 13:15 Proposed Procedures p Esophagogastroduodenoscopy - Cholo Mills MD Date/Time: 01/30/25 12:08 Surgeon: Cholo Mills MD Pre Op Diagnosis: Abnormal findings on diagnostic imaging of other p Patient Data Age: 79 Gender: F Height: 1.55 m Weight: 76.3 kg Last Vital Signs Temp 97 F L 01/30/25 11:53 Pulse 60 01/30/25 11:53 Resp 20 01/30/25 11:53 BP 156/81 H 01/30/25 11:53 Pulse Ox 94 01/30/25 11:53 O2 Del Method Room Air 01/30/25 11:53 Allergies Allergy/AdvReac Type Severity Reaction Status Date / Time clopidogrel (From Plavix) Allergy Mild Rash Verified 01/30/25 11:52 Home Medications ?Medication ?Instructions ?Recorded ?Confirmed ?Type albuterol sulfate 90 mcg/actuation 1 inh inhalation Q4-6H PRN 09/30/24 12/13/24 History breath activated powder inhaler shortness of breath atenolol 25 mg tablet 25 mg PO DAILY 09/30/24 01/30/25 History cetirizine 10 mg capsule 10 mg PO DAILY PRN allergic 09/30/24 12/13/24 History symptoms ergocalciferol (vitamin D2) 50 mcg 50 mcg PO DAILY 09/30/24 01/30/25 History (2,000 unit) capsule hydrochlorothiazide 12.5 mg capsule 12.5 mg PO DAILY 09/30/24 01/30/25 History lisinopril 40 mg tablet 40 mg PO DAILY 09/30/24 01/30/25 History psyllium husk 0.4 gram capsule 0.4 g PO DAILY 09/30/24 01/30/25 History (Daily Fiber) simvastatin 40 mg tablet 40 mg PO DAILY 09/30/24 01/30/25 History aspirin 81 mg tablet,delayed 81 mg PO DAILY 12/03/24 01/30/25 History release (Adult Low Dose Aspirin) furosemide 20 mg tablet 20 mg PO DAILY 01/23/25 01/30/25 History trazodone 50 mg tablet 50 mg PO HS PRN insomnia 01/23/25 01/23/25 History Patient hx anesthesia problems: none Family hx anesthesia problems: none Results Review: All pre-operative results and documents have been reviewed as part of the pre- operative evaluation. [facility] Past Medical History Medical History Atrial fibrillation CAD (coronary artery disease) Hypertension Hyperlipidemia Hyperthyroidism COPD (chronic obstructive pulmonary disease) Surgical History Surgical History History of coronary artery stent placement Family History Family History Father Heart disease Social History Social History Smoking packs per day: 0.5 Smoking cigarettes per day: 10.0 Years smoked: 60 Smoking pack-years: 30.00 Smoking status: Current every day smoker Tobacco type: cigarettes Alcohol intake: never Substance use: never Substance use type: does not use Do You Feel Safe in your Home?: Yes Lack of Transportation: No Lack of Food: Never True Current Housing: I Have Housing Concerned About Future Housing: No Difficulty Paying Gas/Electric Bills: No Difficulty Paying for Meds: No Currently Unemployed: No Education: Decline to Answer Difficulty w/ Childcare or Family Care: No Living arrangements: with family Spiritual care concerns: No Anes - Eval Final PreProcedure Day of Procedure 01/30/25 12:08 Patient weight: obese Lungs: normal air movement Airway: Mallampati scale class II Neurological: alert and oriented Last oral intake: >/= 8 hours ASA classification: IV Emergent: no Anesthetic plan: proceed Anesthesia type and monitoring: general GIVS and standard monitoring Results Review: All pre-operative results and documents have been reviewed as part of the pre- operative evaluation. Hospitalized 1-2 months ago for sob but also had pneumonia and int afib w RVR, now controlled on b yared. Pt also had ECHO w nml LVEF. Now for EGD for noted esophageal thickening. Informed Consent: The patient's anesthetic plan and its attendant risks and benefits were discussed with the patient/family/POA. Questions were solicited and answers provided to the satisfaction of the patient/family/POA.
--- NOTE | 2025-01-30 12:12 | PM.IMHP ---
H&P: HPI History of Present Illness Date/Time: 01/30/25 12:12 Chief Complaint: abnormal imaging study Narrative: the patient was admitted in November this year for an exacerbation of dyspnea, having an underlying diagnosis of atrial fibrillation. He her chest x-ray showed a widened mediastinum leading to rule out esophageal pathology. She apparently has a hiatal hernia but denies heartburn or dysphagia. Review of Systems Review of Systems: All systems reviewed & are unremarkable except as noted in HPI and below PMFSH Past Medical History Medical History Atrial fibrillation CAD (coronary artery disease) Hypertension Hyperlipidemia Hyperthyroidism COPD (chronic obstructive pulmonary disease) Surgical History Surgical History History of coronary artery stent placement Family History Family History Father Heart disease Social History Social History Smoking packs per day: 0.5 Smoking cigarettes per day: 10.0 Years smoked: 60 Smoking pack-years: 30.00 Smoking status: Current every day smoker Tobacco type: cigarettes Alcohol intake: never Substance use: never Substance use type: does not use Do You Feel Safe in your Home?: Yes Lack of Transportation: No Lack of Food: Never True Current Housing: I Have Housing Concerned About Future Housing: No Difficulty Paying Gas/Electric Bills: No Difficulty Paying for Meds: No Currently Unemployed: No Education: Decline to Answer Difficulty w/ Childcare or Family Care: No Living arrangements: with family Spiritual care concerns: No Meds Home Medications and Allergies Home Medications ?Medication ?Instructions ?Recorded ?Confirmed ?Type albuterol sulfate 90 mcg/actuation 1 inh inhalation Q4-6H PRN 09/30/24 12/13/24 History breath activated powder inhaler shortness of breath atenolol 25 mg tablet 25 mg PO DAILY 09/30/24 01/30/25 History cetirizine 10 mg capsule 10 mg PO DAILY PRN allergic 09/30/24 12/13/24 History symptoms ergocalciferol (vitamin D2) 50 mcg 50 mcg PO DAILY 09/30/24 01/30/25 History (2,000 unit) capsule hydrochlorothiazide 12.5 mg capsule 12.5 mg PO DAILY 09/30/24 01/30/25 History lisinopril 40 mg tablet 40 mg PO DAILY 09/30/24 01/30/25 History psyllium husk 0.4 gram capsule 0.4 g PO DAILY 09/30/24 01/30/25 History (Daily Fiber) simvastatin 40 mg tablet 40 mg PO DAILY 09/30/24 01/30/25 History aspirin 81 mg tablet,delayed 81 mg PO DAILY 12/03/24 01/30/25 History release (Adult Low Dose Aspirin) furosemide 20 mg tablet 20 mg PO DAILY 01/23/25 01/30/25 History trazodone 50 mg tablet 50 mg PO HS PRN insomnia 01/23/25 01/23/25 History Allergies Allergy/AdvReac Type Severity Reaction Status Date / Time clopidogrel (From Plavix) Allergy Mild Rash Verified 01/30/25 11:52 Vital Signs Vital Signs - 24 hr 01/30/25 11:53 Temperature 97 F L Pulse Rate 60 Respiratory Rate 20 Blood Pressure 156/81 H Pulse Oximetry 94 Oxygen Delivery Room Air Exam Const: General: cooperative and healthy appearing Resp: Effort & Inspection: normal respiratory effort and able to speak in complete sentences Auscultation: clear to auscultation bilaterally Cardio: Rate: regular rate Rhythm: regular rhythm GI: Inspection: normal to inspection GI Palp: No No hepatosplenomegaly present Auscultation: normal bowel sounds Rectal Exam: deferred Skin: General skin exam: normal color Psych: Appearance: grossly normal Mental Status: mental status grossly normal Assessment and Plan Assessment and plan (1) Hiatal hernia: Code(s): K44.9 - Diaphragmatic hernia without obstruction or gangrene Status: Acute Assessment and Plan: The patient is deemed a good candidate for the procedure. Consent signed. Will proceed.
[2025-01-30 12:22] VITALS: BP 140/75; PULSE 62; RESP 23; O2SAT 97
--- NOTE | 2025-01-30 12:22 | S_PTH ---
PATIENT: Leatha Kaba LOC: [facility] Mata#:[id number] AGE/SX: 79/F ROOM: RE01/30/[address]: Cholo Mills MD : 1945 BED: DIS: 01/30/2025 SPEC #: [id number] RECD: 01/30/25 13:06 STATUS: KANDIS REDulce #: [id number] DANIEL: 01/30/25 12:[address]: Cholo Mills DEPT: [facility] Surgical RECD BY: Natacha Avalos ENTERED: 01/30/25 13:07 SP TYPE: Surgical OTHR DR: Nicolas ChambersMD Tissues: A - Gastric Biopsy B - Gastric Biopsy Procedures: Hematoxylin and Eosin Stain Gross and Microscopic Level 4
[2025-01-30 12:32] VITALS: BP 148/79; PULSE 61; RESP 16; O2SAT 96
[2025-01-30 12:42] VITALS: BP 149/78; PULSE 58; RESP 21; O2SAT 95
== END 2025-01-30 12:51 | disposition home or self-care (01) ==
PROVIDERS: PCP Internal Medicine; Referring Provider Nurse Practitioner Family; Visit Provider Internal Medicine Gastroenterology
PROC: 0DJ08ZZ Inspection of Upper Intestinal Tract, Via Natural or Artificial Opening Endoscopic (ICD-10-PCS; CPT 43239; principal; 2025-01-30 13:15)
DX: R93.3 Abnormal findings on diagnostic imaging of other parts of digestive tract (principal); K44.9 Diaphragmatic hernia without obstruction or gangrene; K31.89 Other diseases of stomach and duodenum; K21.9 Gastro-esophageal reflux disease without esophagitis; K29.51 Unspecified chronic gastritis with bleeding; I10 Essential (primary) hypertension; E78.5 Hyperlipidemia, unspecified; I25.10 Atherosclerotic heart disease of native coronary artery without angina pectoris; J44.9 Chronic obstructive pulmonary disease, unspecified; I48.91 Unspecified atrial fibrillation; E05.90 Thyrotoxicosis, unspecified without thyrotoxic crisis or storm; F17.210 Nicotine dependence, cigarettes, uncomplicated; E66.9 Obesity, unspecified; Z68.31 Body mass index [BMI] 31.0-31.9, adult; Z79.51 Long term (current) use of inhaled steroids; Z79.82 Long term (current) use of aspirin; Z95.5 Presence of coronary angioplasty implant and graft; Z82.49 Family history of ischemic heart disease and other diseases of the circulatory system
CPT/HCPCS: 43239; 88305; J2704; J7120

== ENCOUNTER 2025-03-22 14:51 | Emergency (ER) | payer MEDICARE, SELFPAY ==
--- NOTE | ~2025-03-22 | CT_ITS ---
EXAMINATION: CT abdomen pelvis wo con DATE: 03/22/2025 17:07 INDICATION: abdominal pain w/ tenderness TECHNIQUE: Computed tomography (CT) of the abdomen and pelvis was performed without intravenous contr ast. Automated exposure control and iterative reconstruction technique were employed. The dose-length product was 207.95 mGy-cm. COMPARISON: 05/29/2023. FINDINGS: Lower thorax: Coronary artery, aortic valve, and mitral calcification. Mild cardiomegaly. Emphysemato us change. Mild dilation of the descending thoracic aorta measuring up to 3.2 cm. Liver: Normal. Biliary/Gallbladder: Distended gallbladder. Multiple gallstones. Suggestive of mild inflammatory huber ge and pericholecystic fluid. No bile duct dilation. Pancreas: Mild atrophy. Spleen: Normal. Adrenals:Stable bilateral hypodensities, likely adenomas. Kidneys: No obstructing calcification. No hydronephrosis. Indeterminate density 12 mm exophytic right midpole lesion. Multiple subcentimeter hypodense indeterminate density renal lesions, too small to c haracterize. GI tract: Moderate hiatal hernia. Focal inflammatory changes at the distal ileum. No small or large b owel dilation. Appendix not visualized. Diverticulosis without diverticulitis. Mesentery/Peritoneum: No ascites, mass, or free air. Retroperitoneum: No mass. Atherosclerotic calcifications of intra-abdominal arterial vessels. Pelvis: Pelvic organs are within normal limits. Soft Tissues: Small uncomplicated fat-containing umbilical and bilateral inguinal hernias Bones: No acute osseous finding. Mild height loss at L3. Stable grade 1 anterolisthesis at L4-5. Sta ble additional multilevel height loss in the lower thoracic and lumbar spine. Severe central canal st enosis at L3-4 and L4-5 secondary to degenerative changes. IMPRESSION: Mild descending thoracic aortic ectasia. Distended gallbladder with multiple large gallstones. Suggestion of mild inflammatory change and flui d, consider cholecystitis in the differential. Indeterminate 12 mm right midpole lesion. Consider nonemergent but timely CT or MRI without and with contrast for further evaluation. Focal inflammatory changes at the distal ileum. May represent ileitis or Meckel's diverticulitis. Mild height loss at L3, new since the 2022 study, may represent acute or chronic compression deformit y. Reviewed, dictated and finalized at location K. IMPRESSION: Mild descending thoracic aortic ectasia. Distended gallbladder with multiple large gallstones. Suggestion of mild inflam matory change and fluid, consider cholecystitis in the differential. Indeterminate 12 mm right midpole lesion. Consider nonemergent but timely CT or MRI without and with contrast for further evaluation. Focal inflammatory changes at the distal ileum. May represent ileitis or Meckel 's diverticulitis. Mild height loss at L3, new since the 2022 study, may represent acute or chroni c compression deformity.
--- OUTSIDE RECORDS SUMMARY | 2025-03-22 14:54 | XMS_ITS | Clinical Summary ---
Author Organization [facility] Address [address] [place] [id number] Care Team Providers Care Print Developer Automatic Name Role Phone Unavailable Primary Care Provider [...] Td Vaccines ( 1 - Tdap) 1962 Pneumococcal Vaccine: 50+ Ye ars (1 of 1 - PCV) 1993 Zoster Vaccines (1 of 2) 1993 Dexa Scan (General) 2008 RSV Immunization or 60+ Years (1 - 1-dose 75+ series) 2018 COVID-19 Vaccine (2023-2 5 season) 2024 Meningococcal B Vaccine Aged Out No l onger eligible based on patient's age to complete this topic Meningococcal Vaccine Aged Out No mohan edson eligible based on patient's age to complete this topic RSV Immunizations Under 20 Months Aged Out No longer eligible based on patient's age to complete this topic
--- OUTSIDE RECORDS SUMMARY | 2025-03-22 14:54 | XMS_ITS | Referral Summary ---
Author Organization [facility] [address] [place] [id number] Care Team Providers Care Pressure Welder Name Role Phone Leydi Chambers MD Primary [...] on file Legal Sex Female 5:46 AM [employer] SAL[employer] Gender Identity Not on file Sexual Orientation [...] of Treatment Not on file Insurance MEDICARE [facility] CHOICE OOS MEDICARE [facility] CHOICE OOS Care Teams Pressure Welder Relationship Specialty Start Date End Date Leydi Chambers MD [address] [address] PCP - General Internal Medicine 10/08/21
--- OUTSIDE RECORDS SUMMARY | 2025-03-22 14:54 | XMS_ITS | Clinical Summary ---
Author Organization [facility] Address [address] [place] [address] Care Team Providers Care Methods Analyst Name Role Phone Unavailable Primary Care Provider Unavailabl e Source Comments [facility],non-owned Affiliates and Associated Physician Practices is amultiple site organization consisting of ambulatory clinics and hospital sitesin [place], [place], [place] and [place]. This disclosure is being madepursuant to the Care Everywhere program and may not contain all information available regarding this patient. Last updated 18.[facility] [employer] Allergies Active Allergy Reactions Criticality Noted Date [...] 10/29/2020, 10/01/2020 DEPRESSION SCREENING 08/28/2024 INFLUENZA VACCINE (#1) 2025 , 06/09/2020, 08/16/2019, Additional history exists HEPATITIS B [...] to complete this topic Insurance MEDICARE [facility] SELF PAY NO INSURANCE Member Subscriber Plan / Payer (Ef fective for All Dates) Name:Leatha Lainez Member ID:Not on file Relation to Subscriber:Not on file Name:LEATHA LAINEZ Subscriber ID:Not on file (Home) Address: [address] [place] [id number] Payer ID:Not on file Group ID:Not on file Type:Self Pay Address: [place], [place] MEDICARE ANTHEM
--- OUTSIDE RECORDS SUMMARY | 2025-03-22 14:54 | XMS_ITS | Data Portability ---
Author Organization [facility], Main Office Address [address] [place] [address] Care Team Providers Care Napper Fixer Name Role Phone FRED CHAMBERS Primary Care Provider JADE IVAN Set Up And Charger DANNI PATEL Grave Cleaner Assessment Encounter Date Assessment Date Assessment LastModified [...] Appointments Follow Up 15 2024 10:00A M Fred herrera MD Not available Not available Not available Lab lipid panel, serum 2024 04 025 [facility] (Lab), [address] [place], [address], 02/17/2025 16:19:09 CBC w/ auto diff 2024 025 [facility] (Lab), [address] [place], [address], 02/17/2025 15:23:58 CMP, serum or plasma 2024 025 [facility] (Lab), [address] [place], [address], 02/17/2025 16:19:29 TSH, serum or plasma 2024 025 [facility] (Lab), [address] [place], [address], 02/17/2025 16:43:06 vitamin D, 25-hydrox y, total, serum 2024 025 [facility] (Lab), [address] [place], [address], 12/26/2024 08:05:37 vitamin D3, 25-hydrox y, serum 2024 025 [facility] (Lab), [address] [place], [address], 02/17/2025 16:28:59 culture, sputum 2024 025 [facility] (Lab), [address] [place], [address], 11/17/2024 08:38:30 alpha-1-a ntitrypsi n (aat) phenotype , serum 2024 025 [facility] (Lab), [address] [place], [address], 11/20/2024 12:49:26 BNP (B-type natriuret ic peptide), serum or plasma 2024 025 [facility] (Lab), [address] [place], [address], 11/18/2024 17:05:59 ige, total, serum [address] (Lab), [address] [place], [address], 11/26/2024 12:03:08 tb (M tuberculo sis), ifn-gamma silvia, blood [address] (Lab), [address] [place], [address], 11/26/2024 12:03:08 [address] s 1+2+3+4, serum [address] (Lab), [address] [place], [address], 11/26/2024 12:03:08 respirato ry allergen panel, [facility] A, serum [address] (Lab), [address] [place], [address], 11/26/2024 12:03:09 respirato ry allergen panel - [facility] b [address] (Lab), [address] [place], [address], 11/26/2024 12:03:09 eosinophi ls, quant, blood [address] (Lab), [address] [place], [address], 11/26/2024 12:03:09 lipid panel, serum 2023 024 [facility] (Lab), [address] [place], [address], 12/06/2024 10:23:53 CBC w/ auto diff 2023 024 [facility] (Lab), [address] [place], [address], 12/06/2024 10:23:52 CMP, serum or plasma 2023 024 [facility] (Lab), [address] [place], [address], 12/06/2024 10:23:54 TSH, serum or plasma 2023 024 [facility] (Lab), [address] [place], [address], 12/06/2024 10:23:55 vitamin D, 25-hydrox y, total, serum [address] (Lab), [address] [place], [address], 01/07/2025 11:09:24 vitamin D3, 25-hydrox y, serum 2023 024 [facility] (Lab), [address] [place], [address], 12/06/2024 10:23:54 Referral gastroent erologist referral - Please call patient to schedule an appointme nt. Thank you. 2024 025 IZABEL jacobs MD, [address], [address], [place], [address], 01/01/2025 11:11:18 cardiolog ist referral - Please call patient to schedule an appointme nt. Thank you. 2024 025 [place], [address], [address], [place], [address], 01/01/2025 09:52:12 pulmonolo gist referral - Please call patient to schedule an appointme nt. Thank you. 2024 025 [email or web address] Michoacano Zavala MD, [address] [place], [address], 02/10/2025 10:08:02 gastroent erologist referral - Please call patient to schedule. 2023 024 [email or web address] Андрей Mackay MD, [address] [facility] [address], [address], [place], [address], 11/13/2024 08:02:06 cardiolog ist referral 2023 024 [email or web address] [place], [address], [address], [place], [address], 07/15/2024 12:43:19 Procedures None recorded. Surgeries None recorded. Imaging US, thyroid [address] ([facility]), [address] [place], [address], 12/26/2024 09:42:47 LDCT, chest, for lung cancer screening [address] ([facility]), [address] [place], [address], 12/26/2024 09:44:24 DEXA, axial skeleton [address] ([facility]), [address] [place], [address], 12/26/2024 09:42:26 DEXA, axial skeleton [address] ([facility]), [address] [place], [address], 07/15/2024 10:50:51 Medication Orders esomepraz ole magnesium 40 mg capsule,d elayed release 2024 025 [email or web address] [id number], [address], 12/25/2024 16:11:42 Airsupra 90 mcg-80 mcg/actua tion HFA aerosol inhaler 2024 025 [email or web address] [address], [address], 12/25/2024 16:11:12 tramadol 50 mg tablet 2023 024 [email or web address] [address], [address], 12/25/2024 16:12:38 Patient TargetsNo targets recorded. Patient Instructions Encounter Date Encounter Id Patient Instructions Last Modified By Organization Details Last Modified Time 11/12/2024 [id number] complete PFT w/ post bronchodilator spirometry* - Please call patient to schedule. FRANKIE [id number] w/ Medicare. KIRA Not available 12/02/2024 11:19:04 12/25/2024 [id number] Thank you for yo ur visit to [...] Medical Equipment needed: Billing Guidelines CPT code 84000- Transitional Care Management services with moderate medical decision complexity (zwtj-ep-vipn visit within 14 days of discharge). CPT code 02472- Transitional Care Management services with high medical decision complexity (dmsk-sa-eluu visit within 7 days of discharge). julisa Not available 12/25/2024 16:05:13 Reason for Referral Set Up And Charger Referral for Co ronary arteriosclerosis Referring Physician: Fred Chambers Internal Medicine, Encounter Date: 07/11/2024 Gre Tutor Referral for Esophageal mass Please call patient to schedule. Referring Physician: Fred Chambers Internal Medicine, Encounter Date: 07/11/2024 Miter Sawyer Referral for C hronic obstructive pulmonary disease Please call patient to schedule an appointment. Thank you. Referring Physician: Fred Chambers Internal Medicine, Encounter Date: 11/07/2024 Set Up And Charger Referral for Co ronary arteriosclerosis Please call patient to schedule an appointment. Thank you. Referring Physician: Fred Chambers Internal [facility], Encounter Date: 12/25/2024 Gre Tutor Referral for Esophageal mass Please call patient to schedule an appointment. Thank you. Referring Physician: Fred Chambers Internal Medicine, Encounter Date: 12/25/2024 Results Created Date Observation Date Name Description Value Unit Range Abnormal Flag Note LastModifiedBy Organization Detail LastModifiedTime 07/11/20 24 07/11/2024 CBC/C OMPLE TE BLD COUNT W/DIF F white blood cells 6.0 x10'3 /uL 4.2-10 .8 Not Available [facility] (Lab) [address] [place], [address], 07/11/2024 10:41:28 07/11/20 24 07/11/2024 CBC/C OMPLE TE BLD COUNT W/DIF F red blood cells 4.46 x10'6 /uL 3.80-5 .20 Not Available [facility] (Lab) [address] [place], [address], 07/11/2024 10:41:28 07/11/20 24 07/11/2024 CBC/C OMPLE TE BLD COUNT W/DIF F hemoglobin 15.1 g/dL 12.0-1 5.6 Not Available [facility] (Lab) [address] [place], [address], 07/11/2024 10:41:28 07/11/20 24 07/11/2024 CBC/C OMPLE TE BLD COUNT W/DIF F hematocrit 43.9 % 35.7-4 5.7 Not Available [facility] (Lab) [address] [place], [address], 07/11/2024 10:41:28 07/11/20 24 07/11/2024 CBC/C OMPLE TE BLD COUNT W/DIF F mean red cell volume 98.4 fL 82.0-9 9.0 Not Available [facility] (Lab) [address] [place], [address], 07/11/2024 10:41:28 07/11/20 24 07/11/2024 CBC/C OMPLE TE BLD COUNT W/DIF F mean red cell hemoglobin 33.9 pg 27.0-3 3.0 high Not Available [facility] (Lab) [address] [place], [address], 07/11/2024 10:41:28 07/11/20 24 07/11/2024 CBC/C OMPLE TE BLD COUNT W/DIF F mean RBC HGB concentratio n 34.4 g/dL 31.0-3 6.0 Not Available [facility] (Lab) [address] [place], [address], 07/11/2024 10:41:28 07/11/20 24 07/11/2024 CBC/C OMPLE TE BLD COUNT W/DIF F red cell distribution width 12.2 % 11.8-1 5.5 Not Available [facility] (Lab) [address] [place], [address], 07/11/2024 10:41:28 07/11/20 24 07/11/2024 CBC/C OMPLE TE BLD COUNT W/DIF F platelets 194 x10'3 /uL 150-40 0 Not Available [facility] (Lab) [address] [place], [address], 07/11/2024 10:41:28 07/11/20 24 07/11/2024 CBC/C OMPLE TE BLD COUNT W/DIF F mean platelet volume 11.4 fL 9.0-12 .4 Not Available [facility] (Lab) [address] [place], [address], 07/11/2024 10:41:28 07/11/20 24 07/11/2024 CBC/C OMPLE TE BLD COUNT W/DIF F neutrophils 62.6 % 39.0-7 2.0 Not Available [facility] (Lab) [address] [place], [address], 07/11/2024 10:41:28 07/11/20 24 07/11/2024 CBC/C OMPLE TE BLD COUNT W/DIF F lymphocytes 27.7 % 16.0-4 7.0 Not Available [facility] (Lab) [address] [place], [address], 07/11/2024 10:41:28 07/11/20 24 07/11/2024 CBC/C OMPLE TE BLD COUNT W/DIF F monocytes 5.8 % 5.0-12 .0 Not Available [facility] (Lab) [address] [place], [address], 07/11/2024 10:41:28 07/11/20 24 07/11/2024 CBC/C OMPLE TE BLD COUNT W/DIF F eosinophils 3.3 % 1.0-7. 0 Not Available [facility] (Lab) [address] [place], [address], 07/11/2024 10:41:28 07/11/20 24 07/11/2024 CBC/C OMPLE TE BLD COUNT W/DIF F basophils 0.3 % 0.0-2. 0 Not Available [facility] (Lab) [address] [place], [address], 07/11/2024 10:41:28 07/11/20 24 07/11/2024 CBC/C OMPLE TE BLD COUNT W/DIF F immature granulocytes 0.3 % 0.00-0 .50 Not Available [facility] (Lab) [address] [place], [address], 07/11/2024 10:41:28 07/11/20 24 07/11/2024 CBC/C OMPLE TE BLD COUNT W/DIF F neutrophils, absolute count 3.75 x10'3 /uL 1.5-8. 0 Not Available [facility] (Lab) [address] [place], [address], 07/11/2024 10:41:28 07/11/20 24 07/11/2024 CBC/C OMPLE TE BLD COUNT W/DIF F lymphocytes, absolute count 1.66 x10'3 /uL 1.07-3 .43 Not Available [facility] (Lab) [address] [place], [address], 07/11/2024 10:41:28 07/11/20 24 07/11/2024 CBC/C OMPLE TE BLD COUNT W/DIF F monocytes, absolute count 0.35 x10'3 /uL 0.29-0 .99 Not Available [facility] (Lab) [address] [place], [address], 07/11/2024 10:41:28 07/11/20 24 07/11/2024 CBC/C OMPLE TE BLD COUNT W/DIF F eosinophils, absolute count 0.20 x10'3 /uL 0.02-0 .53 Not Available [facility] (Lab) [address] [place], [address], 07/11/2024 10:41:28 07/11/20 24 07/11/2024 CBC/C OMPLE TE BLD COUNT W/DIF F basophils, absolute count 0.02 x10'3 /uL 0.01-0 .08 Not Available [facility] (Lab) [address] [place], [address], 07/11/2024 10:41:28 07/11/20 24 07/11/2024 CBC/C OMPLE TE BLD COUNT W/DIF F immature granulocytes ,absolute 0.02 x10'3 /uL 0.00-0 .05 Not Available [facility] (Lab) [address] [place], [address], 07/11/2024 10:41:28 07/11/20 24 07/11/2024 CBC/C OMPLE TE BLD COUNT W/DIF F nucleated red blood cells 0.0 % -0 Not Available [facility] (Lab) [address] [place], [address], 07/11/2024 10:41:28 07/11/20 24 07/11/2024 CBC/C OMPLE TE BLD COUNT W/DIF F NRBC# 0.00 x10'3 /uL Not Available [facility] (Lab) [address] [place], [address], 07/11/2024 10:41:28 07/11/20 24 07/11/2024 LIPID PANEL cholesterol 186 mg/dL 140-19 9 [facility] DARREN NSUS RECOM MENDA TION FOR ALEX STERO L: ADULT CHILD LOW RISK: <200 <170 BORDE RLINE : <200- 239 ----- HIGH RISK: >240 >200 Not Available [facility] (Lab) [address] [place], [address], 07/11/2024 11:33:30 07/11/20 24 07/11/2024 LIPID PANEL triglyceride s 72 mg/dL 0-150 [facility] DARREN NSUS REPOR T RECOM MENDA TION FOR TRIGL YCERI MIKEL: ADULT CHILD LOW RISK: <150 ----- BODER LINE: 150-1 99 ----- HIGH RISK: >200 ----- Not Available [facility] (Lab) [address] [place], [address], 07/11/2024 11:33:30 07/11/20 24 07/11/2024 LIPID PANEL HDL cholesterol 89 mg/dL 40- Not Available [facility] (Lab) [address] [place], [address], 07/11/2024 11:33:30 07/11/20 24 07/11/2024 LIPID PANEL [...] WILL NOT BE REPOR ANGELIQUE. Not Available [facility] (Lab) [address] [place], [address], 07/11/2024 11:33:30 07/11/20 24 07/11/2024 COMPR EHENS ADELINE METAB OLIC PANEL sodium 133 mmol/ L 137-14 5 low Not Available [facility] (Lab) [address] [place], [address], 07/11/2024 11:33:33 07/11/20 24 07/11/2024 COMPR EHENS ADELINE METAB OLIC PANEL potassium 4.0 mmol/ L 3.5-5. 1 Not Available [facility] (Lab) [address] [place], [address], 07/11/2024 11:33:33 07/11/20 24 07/11/2024 COMPR EHENS ADELINE METAB OLIC PANEL chloride 100 mmol/ L 98-107 Not Available [facility] (Lab) [address] [place], [address], 07/11/2024 11:33:33 07/11/20 24 07/11/2024 COMPR EHENS ADELINE METAB OLIC PANEL carbon dioxide 29 mmol/ L 22-30 Not Available [facility] (Lab) [address] [place], [address], 07/11/2024 11:33:33 07/11/20 24 07/11/2024 COMPR EHENS ADELINE METAB OLIC PANEL anion gap 8.0 mmol/ L 14-22 low Not Available [facility] (Lab) [address] [place], [address], 07/11/2024 11:33:33 07/11/20 24 07/11/2024 COMPR EHENS ADELINE METAB OLIC PANEL glucose 98 mg/dL 70-99 Not Available [facility] (Lab) [address] [place], [address], 07/11/2024 11:33:33 07/11/20 24 07/11/2024 COMPR EHENS ADELINE METAB OLIC PANEL BUN 15 mg/dL 8-19 Not Available [facility] (Lab) [address] [place], [address], 07/11/2024 11:33:33 07/11/20 24 07/11/2024 COMPR EHENS ADELINE METAB OLIC PANEL creatinine 0.52 mg/dL 0.66-1 .25 low Not Available [facility] (Lab) [address] [place], [address], 07/11/2024 11:33:33 07/11/20 24 07/11/2024 COMPR EHENS ADELINE METAB OLIC PANEL GFR >60 Refer ence Range : [place] ge GFR Healt hy Adult : >60 [...] calcu lator is avail able on the [facility] websi te: [email or web address] :[email or web address]/pr [email or web address] ional s/kdo qi/gf r_cal culat or Not Available [facility] (Lab) [address] [place], [address], 07/11/2024 11:33:33 07/11/20 24 07/11/2024 COMPR EHENS ADELINE METAB OLIC PANEL alkaline phosphatase 64 U/L 38-126 Not Available [facility] (Lab) [address] [place], [address], 07/11/2024 11:33:33 07/11/20 24 07/11/2024 COMPR EHENS ADELINE METAB OLIC PANEL alanine aminotransfe rase 20 U/L 0-35 Not Available [facility] (Lab) [address] [place], [address], 07/11/2024 11:33:33 07/11/20 24 07/11/2024 COMPR EHENS ADELINE METAB OLIC PANEL aspartate aminotransfe rase 25 U/L 15-37 Not Available [facility] (Lab) [address] [place], [address], 07/11/2024 11:33:33 07/11/20 24 07/11/2024 COMPR EHENS ADELINE METAB OLIC PANEL bilirubin, total 0.70 mg/dL 0.20-1 .30 Not Available [facility] (Lab) [address] [place], [address], 07/11/2024 11:33:33 07/11/20 24 07/11/2024 COMPR EHENS ADELINE METAB OLIC PANEL calcium 10.1 mg/dL 8.4-10 .2 Not Available [facility] (Lab) [address] [place], [address], 07/11/2024 11:33:33 07/11/20 24 07/11/2024 COMPR EHENS ADELINE METAB OLIC PANEL total protein 6.8 g/dL 6.3-8. 2 Not Available [facility] (Lab) [address] [place], [address], 07/11/2024 11:33:33 07/11/20 24 07/11/2024 COMPR EHENS ADELINE METAB OLIC PANEL albumin 4.2 g/dL 3.0-4. 4 Not Available [facility] (Lab) [address] [place], [address], 07/11/2024 11:33:33 07/11/20 24 07/11/2024 COMPR EHENS ADELINE METAB OLIC PANEL globulin 2.6 g/dL 2.6-4. 2 Not Available [facility] (Lab) [address] [place], [address], 07/11/2024 11:33:33 07/11/20 24 07/11/2024 COMPR EHENS ADELINE METAB OLIC PANEL A/G ratio 1.6 ratio 1.0-2. 0 Not Available [facility] (Lab) [address] [place], [address], 07/11/2024 11:33:33 07/11/20 24 07/11/2024 VITAM IN D 25-HY DROXY [id number] 35.4 NG/mL 30-100 Vitam in D Statu s: Defic ient: <20 ng/mL Insuf ficie nt: 20-29 ng/mL Suffi cient : 30-10 0 ng/mL Not Available [facility] (Lab) [address] [place], [address], 07/11/2024 11:46:37 07/11/20 24 07/11/2024 TSH W/REF ASHLEY FT4 TSH with reflex free T4 0.355 uIU/m L 0.465- 4.680 low Not Available [facility] (Lab) [address] [place], [address], 07/11/2024 11:57:32 07/11/20 24 07/11/2024 T4 FREE free T4 1.43 NG/dL 0.78-2 .19 Not Available [facility] (Lab) [address] [place], [address], 07/11/2024 12:30:17 08/28/19 25 08/28/2024 XR, chest , 2 view No observ ation record ed. [email or web address] [facility] [address] [place], [address], 11/04/2024 10:58:17 09/17/19 25 09/17/2024 XR, chest , 2 view No observ ation record ed. [facility] [address] [place], [address], 11/04/2024 10:59:59 12/03/19 25 11/28/2024 compl ete PFT w/ post bron hodil ator lisa metry * No observ ation record ed. [email or web address] [facility] ([facility]) [address] [place], [address], 12/04/2024 09:21:24 12/14/19 25 12/13/2024 imagi ng/di agnos tic resul t No observ ation record ed. [address] [facility], [place], [address], 12/13/2024 14:57:02 12/14/19 25 12/13/2024 imagi ng/di agnos tic resul t No observ ation record ed. [address] [address], [place], [address], 12/13/2024 16:53:43 12/15/19 25 12/14/2024 imagi ng/di agnos tic resul t No observ ation record ed. [address] [address], [place], [address], 12/14/2024 15:15:10 12/17/19 25 12/16/2024 imagi ng/di agnos tic resul t No observ ation record ed. [address] [address], [place], [address], 12/16/2024 10:52:21 01/09/20 25 01/08/2025 US, thyro id No observ ation record ed. [facility] [address] [place], [address], 01/08/2025 14:42:03 02/25/20 25 02/24/2025 XR, lumba r spine [facility] [address] [place] [address] [phone] Patibarbara t Name: VAZQUEZ LAINEZ Access ion #: [id number] Sex: F : 1944 9 Dictat ed By: Chris pina Attend ing Physic suzanne: CRISTIAN SALGADO ng Physic suzanne: ARMIDA AGUIRRE Exam Date: 2024 12:58 PM Exam Name: XR L SPINE Admitt ing Diagno sis(es ): Examin ation: XR L SPINE Clinic al Indica tion: Acute low back pain. Pt picked up a heavy object months ago and then felt pain to lower back. Pain to right side lower back and tailbo ne x months . Pain does not radiat e down extrem ities. Denies previo us surgic al hx. Compar sari: None. Techni que: Two views of the lumbar spine were obtain ed. Findin gs: There is normal alignm ent. There is partia l collap se of L3 and L5 verteb rich. Minera lizati on is decrea sed. Verteb ral body height s are preser lydia. Modera te multil evel degene rative disc diseas e and facet joint osteoa rthrit is is noted. Obliqu e views are withou t defini te bony neural forami nal stenos is. Bilate ral pars intera rticul mariel appear intact . Visual ized parasp inal soft tissue s are unrema rkable . Grade II anteri or listhe sis of L4 is seen over L5. Two periph erally calcif ied lesion s in right parave rtebra l region - larges t measur ing 26 mm. Impres pamela: 1. There is partia l collap se of L3 and L5 verteb rich. 2. Modera te lumbar spondy lotic change s. 3. Grade II anteri or listhe sis of L4 is seen over L5. 4. Two periph erally calcif ied lesion s in right parave rtebra l region - larges t measur ing 26 mm. It appear s indete rminat e in nature . Electr onical ly Signed Page 1 [facility] [address] [facility] [address] Patien t Name: VAZQUEZ LAINEZ Access ion #: [id number] Sex: F : 1944 9 Dictat ed By: Chris pina Attend ing Physic suzanne: ARMIDA AGUIRRE Physic suzanne: SEDRICKBRITTANY MACIASJJ Ramírez Exam Date: 2024 12:58 PM Exam Name: XR L SPINE Admitt ing Diagno sis(es ): 025 14:34 Sunday Strong onical ly Signed by: Chris pina at 2024 14:34: 00 PM Page 2 INTERFACE [facility] (Imaging) [address] [place], [address], 02/24/2025 15:35:42 02/25/20 25 02/24/2025 imagvinita mann/wendie sofia tic resul t No observ ation record ed. [facility] [address] [place], [address], 02/24/2025 15:38:13 Result Notes Documentation Provider Name and Address Organization Details Recorded Time Xr, Lumbar Spine : [facility] [address] [place] [address] Patient Name: GOPI LAINEZ Sex: F : 1945 Dictated By: Chris Valdez Attending Physician: OMER IBARRA Ordering Physician: FRED CHAMBERS Exam Date: 02/24/2025 12:58 PM Exam Name: XR L SPINE Admitting Diagnosis(es): Examination: XR L SPINE Clinical Indication: Acute low back pain. Pt picked up a heavy object months ago and then felt pain to lower back. Pain to right side lower back and tailbone x months. Pain does not radiate down extremities. Denies previous surgical hx. Comparison: None. Technique: Two views of the lumbar spine were obtained. Findings: There is normal alignment. There is partial collapse of L3 and L5 vertebrae. Mineralization is decreased. Vertebral body heights are preserved. Moderate multilevel degenerative disc disease and facet joint osteoarthritis is noted. Oblique views are without definite bony neural foraminal stenosis. Bilateral pars interarticularis appear intact. Visualized paraspinal soft tissues are unremarkable. Grade II anterior listhesis of L4 is seen over L5. Two peripherally calcified lesions in right paravertebral region- largest measuring 26 mm. Impression: 1. There is partial collapse of L3 and L5 vertebrae. 2. Moderate lumbar spondylotic changes. 3. Grade II anterior listhesis of L4 is seen over L5. 4. Two peripherally calcified lesions in right paravertebral region- largest measuring 26 mm. It appears indeterminate in nature. Electronically Signed Page [address] [place] [address] Patient Name: GOPI LAINEZ Sex: F : 1945 Dictated By: Chris Valdez Attending Physician: FRED CHAMBERS Ordering Physician: FRED CHAMBERS Exam Date: 02/24/2025 12:58 PM Exam Name: XR L SPINE Admitting Diagnosis(es): 02/24/2025 14:34 Courtney Perez Page 2 Not Available [facility] 02/24/2025 15:35:42 Problems Name Problem SNOMED Code Status Onset Date Resolution Date Notes Provider Name and Address Organization Details Recorded Time Chronic obstructi ve pulmonary disease 89310343 Active Not Available [facility] 3 07:03:27 Coronary arteriosc lerosis 34591413 Active Not Available [facility] 3 07:03:27 Essential hypertens ion 54371230 Active Not Available [facility] 3 07:03:28 Smoker 58000156 Active Not Available [facility] 3 07:03:28 Hammer toe 769932920 Active 2017 Not Available [facility] 3 07:03:27 Onychomyc osis of toenails 330551610 Active 2017 Not Available [facility] 3 07:03:27 Tinea pedis 0383892 Completed 201802/18/2020 Not Available [facility] 3 04:52:31 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 Not Available [facility] 3 07:03:27 Vitamin D deficienc y 46934117 Active 2021 Not Available [facility] 3 07:03:27 Hyperlipi demia 04934398 Active 2021 Not Available [facility] 3 07:03:27 Osteoporo sis 69111124 Active 2021 Not Available [facility] 3 07:03:28 Thyroid nodule 488245596 Active 2021 Not Available [facility] 3 07:03:27 Eczema 37129568 Active 2021 Not Available [facility] 3 07:03:27 Localized , 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 669072666 Active 2021 Not Available [facility] 3 07:03:27 Allergic rhinitis 66611181 Active 2022 Not Available [facility] 3 07:03:28 COVID-19 904933565 Active 2022 Not Available [facility] 3 07:03:28 Neuropath y 111944477 Active 2022 Not Available [facility] 3 07:03:27 Esophagea l mass 894364400 Active 2022 Not Available [facility] 3 07:03:27 Bronchiec tasis 92164152 Active 2022 Not Available [facility] 3 07:03:27 Interstit ial lung disease 510543232 Active 2022 Not Available [facility] 3 07:03:27 Mild chronic obstructi ve pulmonary disease 252455365 Active 2022 Not Available [facility] 3 07:03:27 CT of chest abnormal 95582301923 755147 Active 2022 Not Available [facility] 3 07:03:27 Acute bronchiti s 57673151 Active 2022 Not Available [facility] 3 07:03:27 Skin lesion 00333692 Active 07/12/ 2023 Not Available [facility] 3 07:03:28 Open wound of right ankle 30056112626 100353 Active 2022 Not Available [facility] 3 07:03:27 Lung mass 477905067 Active 2022 Not Available [facility] 3 07:03:27 Edema of lower extremity 696138921 Active 2022 Not Available [facility] 3 07:03:27 Onychomyc osis 478409584 Active 2022 Not Available [facility] 3 07:03:27 Pain of left ankle joint 73502908187 252981 Active 2022 Not Available [facility] 3 07:03:27 Acute urinary tract infection 319268156 Active 2022 Not Available [facility] 3 07:03:27 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 Not Available [facility] 3 07:03:28 Pain in toe 482202732 Active 2022 Not Available [facility] 3 07:03:27 Unable to cut own toenails 519458900 Active 2022 Not Available [facility] 3 07:03:27 Abdominal pain 37736553 Active 2022 Not Available [facility] 3 07:03:27 Gallstone 696505765 Active 2022 Not Available [facility] 3 07:03:27 Cholelith iasis without obstructi on 10337647 Active 2022 Not Available [facility] 3 07:03:28 Bursitis of olecranon of left elbow 52908806594 9101 Active 2022 Fred calix MD [address] [place] [address], [address] , [facility] 3 11:27:57 Occult blood detected in feces 08760966 Active 2023 Marisela Rivera MA null, [place] [facility] 4 17:12:56 Pain in toe 549890710 Active 2023 Danni Patel DPM [address], [address], [place], [address] , [facility] 4 13:34:06 Low back pain 338158176 Active 2023 Maddie Landa RMA null, [facility] 5 12:50:24 Disorder of eye 795875075 Active 2023 Jessi Whitney null, [facility] 4 11:33:12 Arthritis 9414235 Active 2023 Jessi Whitney null, [facility] 4 11:33:28 CT of abdomen abnormal 60464285232 915170 Active 2023 Maddie Landa RMA null, [facility] 4 14:47:32 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 Travis Alba 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 ATTENDANT null, [facility] 4 10:05:23 Cough 76312955 Active 2023 Travis Alba DOG POUND ATTENDANT null, [facility] 4 17:11:58 Insomnia 536219444 Active 2024 Fred calix MD [address], [address], [place], [address] , [facility] 5 18:27:24 Cigarette smoker 35347054 Active 2024 Fred calix MD [address], [place], [address] , [facility] 5 15:30:38 Dyspnea on exertion 87217520 Active 2024 Charlee Gomez NP [address], [place], [address] , [facility] 5 12:12:44 Acute low back pain 735515028 Active 2024 Rachael Noel MA null, [facility] [employer] [facility] 5 14:49:54 Backache 699977621 Active 2024 CELSO Palomares null, [facility] [employer] [facility] 5 14:12:05 Notes:PFT 11/04/21 FEV1 1.69 L (91%), BD 170 mL = 11% PFT 04/12/23 FEV1 1.35 L (72%), BD 110 mL = 9% PFT 11/04/21 FEV1 1.23 L (74%), BD 40 mL = 3% Medical History: COVID infection 07/2021 Rhinosinusitis Eosinophils 180/uL Nicotine use Mild COPD ILD with traction bronchiectasis Bilateral thyroid nodules Hyperthyroidism Hyperlipidemia Hypertension EF 60% Mild RVE Mild RICH Mild TR RVSP 28 mmHg CAD Esophageal [...] 25 Transitional_Ca re_Management completed Miladis Manning MA [facility] [employer] [facility] 12/25/2024 16:05:15 08/01/20 24 Nail Debridement completed Danni Patel DPM [address], [address], [place], [address], [facility] [employer] [facility] 08/01/2024 16:30:01 03/28/20 24 Nail Debridement completed Danni Patel DPM [address], [place], [address], [facility] [employer] [facility] 03/28/2024 13:59:13 01/04/20 24 Medicare Wellness CPT Code, Initial completed Ariel Robins LPN [facility] [employer] [facility] 01/04/2024 13:04:53 10/12/19 24 Nail Debridement completed Danni Patel DPM [address], [place], [address], [employer] [facility] [employer] [facility] 10/12/2023 13:33:53 05/04/20 23 Nail Debridement completed Danni Patel DPM [address], [place], [address], [employer] [facility] [employer] [facility] 05/04/2023 17:38:45 Cardiac Stent Placement completed Not Available [facility] 10/26/2022 04:42:09 replacement of bilateral knee joints completed Jessi Whitney [employer] [facility] [employer] 03/27/2024 11:34:13 Imaging Results None recorded. Procedure Notes None recorded. Medical Equipment None Reported. Allergies Allergen ID Allergen Name Allergen Category Reaction Reaction Severity Criticality Documentation Date Start Date Code Code System Note Provider Name and Address Organization Details Recorded Time 91 Plavix medicatio n rash Not available Not available 10/26/2022 12053 2 RxNorm Not Available [facility] 05:07:50 Medications Name Sig Start Date Stop [...] 1 TABLET BY MOUTH EVERY DAY NEEDED active Not Available Not Available No t Available azithromy fausto 250 mg tablet TAKE 2 [...] Not Available No t Available amoxicill in 875 mg tablet Take 1 tablet twice a day by oral route for 7 days. 2022 active Not Available Not Available Not Avai lable famotidin e 20 mg tablet active Not [...] Not Available Not Available No t Available furosemid e 20 mg tablet TAKE 1 TABLET BY MOUTH EVERY MORNING active Not Available Not Available No t [...] completed 09/22/[address] Ivan [facility] and f/u in 6 months Not Available [...] active Not Available Not Available Not Available Eliquis 5 mg tablet TAKE 1 TABLET BY MOUTH TWICE A DAY active Not Available Not Available No t Available Xarelto 2.5 mg tablet Take 1 tablet twice a day by oral route. 05/03 completed [facility] started this Dr Ivan 03/09/20 Not Available Not Available Not Available [employer] [...] blood by Pulse oximetry Body temperature Systolic And Diastolic Provider Name and Address Organization Details Last Updated DateTime 5 160.02 cm 30.8 kg/m2 67974.0 7 g 69 /min 96 % 96 % 97.7 [degF] 114/64 mm[Hg] CELSO Palomares [facility] [employer] [facility] 5 14:57:54 Date Recorded Body height Body mass index (BMI) Body weight Body temperature Heart rate Oxygen saturation Oxygen saturation in Arterial blood by Pulse oximetry Systolic And Diastolic Provider Name and Address Organization Details Last Updated DateTime 5 160.02 cm 31 kg/m2 53965.6 6 g 96.6 [degF] 57 /min 93 % 93 % 116/68 mm[Hg] Rachael Noel MA [facility] [employer] [facility] 5 11:56:25 Date Recorded Body height Body mass index (BMI) Body weight Body temperature Heart rate Oxygen saturation Oxygen saturation in Arterial blood by Pulse oximetry Pain severity - 0-10 verbal numeric rating [Score] - Reported Systolic And Diastolic Provider Name and Address Organization Details Last Updated DateTime 5 160.02 cm 29.8 kg/m2 89444.5 2 g 97.1 [degF] 66 /min 93 % 93 % 0 120/82 mm[Hg] Miladis Manning MA [facility] [employer] [facility] 5 16:10:26 Date Recorded Body height Body mass index (BMI) Body weight Body temperature Heart rate Oxygen saturation Oxygen saturation in Arterial blood by Pulse oximetry Systolic And Diastolic Provider Name and Address Organization Details Last Updated DateTime 4 160.02 cm 29.4 kg/m2 60146.3 3 g 97.6 [degF] 102 /min 93 % 93 % 138/80 mm[Hg] Rachael Noel MA [facility] [employer] [facility] 4 11:29:18 Date Recorded Body height Body mass index (BMI) Body weight Heart rate Respiratory rate Oxygen saturation Oxygen saturation in Arterial blood by Pulse oximetry Systolic And Diastolic Provider Name and Address Organization Details Last Updated DateTime 4 160.02 cm 29.4 kg/m2 62498.3 3 g 65 /min 14 /min 98 % 98 % 172/92 mm[Hg] Sherlyn GREENE [place] [employer] [facility] 4 11:40:45 Social History Question Answer Notes LastModified by Organization Details LastModified Time Tobacco Smoking Status Current Every Day Smoker Not Available [facility] 10/26/2022 04:22:06 Do You Have An Advance Directive? Yes MIGRATION.030 [id number] Information not available 10/26/2022 Do You Wear A Helmet When Biking? No Does Not Bike [email or web address] Information not available 01/04/2024 Are You Blind Or Do You Have Difficulty Seeing? Yes MIGRATION.030 309004 Information not available 10/26/2022 What Is Your Level Of Caffeine Consumption? Heavy MIGRATION.030 674179 Information not available 10/26/2022 In The 14 Days Before Symptom Onset, Have You Had Close Contact With A Laboratory-confi rmed COVID-19 While That Case Was Ill? No MIGRATION.030 490153 Information not available 10/26/2022 In The 14 Days Before Symptom Onset, Have You Had Close Contact With A Person Who Is Under Investigation For COVID-19 While That Person Was Ill? No MIGRATION.030 271329 Information not available 10/26/2022 Are You Deaf Or Do You Have Serious Difficulty Hearing? No MIGRATION.030 102865 Information not available 10/26/2022 What Type Of Diet Are You Following? REGULAR MIGRATION.300 995151 Information not available 10/26/2022 What Is The Highest Grade Or Level Of School You Have Completed Or The Highest Degree You Have Received? DT84370-1 MIGRATION.300 084490 Information not available 10/26/2022 Do You Have An Electrostatic Air Filter? No Information not available 11/12/2024 Have There Been Any Changes To Your Family Or Social Situation? No MIGRATION.030 994644 Information not available 10/26/2022 What Is The Fluoride Status Of Your Home? Unknown MIGRATION.030 460897 Information not available 10/26/2022 Are There Any Guns Present In Your Home? Yes [email or web address] Information not available 01/04/2024 Do You Have A Humidifier? Yes Information not available 11/12/2024 Do You Use Insect Repellent Routinely? No MIGRATION.0301 370410 Information not available 10/26/2022 Where Do You Live? SingleLevelHouse MIGRATION.0301 393521 Information not available 10/26/2022 Presence Of Domestic Violence No [email or web address] Information not available 01/04/2024 Are You Able To Care For Yourself? Yes [email or web address] Information not available 01/04/2024 Are You Blind Or Do Yo Have Difficulty Seeing? No [email or web address] Information not available 01/04/2024 Are You Deaf Or Do You Have Serious Difficulty Hearing? No Information not available 01/04/2024 General Stress Level? Moderate [email or web address] Information not available 01/04/2024 Live Alone Of With Others? Alone Information not available 01/04/2024 Do You Have A Medical Power Of Parts Control Clerk? Yes MIGRATION.0301 [id number] Information not available 10/26/2022 Do You Have Moisture Problems In Your Home? No Information not available 11/12/2024 What Was The Date Of Your Most Recent Tobacco Screening? 12/25/2024 [email or web address] Information not available 12/25/2024 How Many Children Do You Have? 3 [email or web address] Information not available 01/04/2024 Do You Have Any Pets? No MIGRATION.0301 780411 Information not available 10/26/2022 What Is Your Relationship Status? MIGRATION.0301 678344 Information not available 10/26/2022 Do You Use Your Seat Belt Or Car Seat Routinely? Yes MIGRATION.0301 588548 Information not available 10/26/2022 Do You Have Smoke And Carbon Monoxide Detectors In Your Home? Yes MIGRATION.0301 572400 Information not available 10/26/2022 At What Age Did You Start Smoking Tobacco? 17 MIGRATION.0301 614190 Information not available 10/26/2022 Are You Passively Exposed To Smoke? Yes MIGRATION.0301 053702 Information not available 10/26/2022 Are There Any Smokers In Your House? Yes MIGRATION.0301 287515 Information not available 10/26/2022 How Much Tobacco Do You Smoke? 0.5 PPD Down Fom [email or web address] Information not available 11/07/2024 Do You Use Sunscreen Routinely? Yes MIGRATION.0301 631198 Information not available 10/26/2022 Has Tobacco Cessation Counseling Been Provided? Yes [email or web address] Information not available 01/04/2024 On What Date Was Tobacco Cessation Counseling Provided? 01/04/2024 [email or web address] Information not available 01/04/2024 How Many Years Have You Smoked Tobacco? 60 [email or web address] Information not available 01/04/2024 Have You Recently Traveled Abroad? No MIGRATION.0301 092381 Information not available 10/26/2022 Do You Have Difficulty Walking Or Climbing Stairs? No MIGRATION.0301 326904 Information not available 10/26/2022 Do You Have Any Dietary Restrictions? No MIGRATION.0301 874583 Information not available 10/26/2022 Sex: Female Functional Status Question Answer Note LastModified by Organizat ion Details LastModified Time Do you or have you ever used smokeless tobacco? Never used smokeless tobacco Information not available 11/07/2024 Are you currently employed? No [email or web address] Information not available 01/04/2024 Do you have transportation difficulties? No MIGRATION.857704 1533 Information not available 10/26/2022 Are you able to care for yourself independently? Yes MIGRATION.506748 1474 Information not available 10/26/2022 Do you have difficulty dressing, bathing, grooming, or toileting? No MIGRATION.260068 8235 Information not available 10/26/2022 Do you or have you ever used e-cigarettes or vape? Current user of electronic cigarettes Information not available 11/07/2024 What is your exercise level? None MIGRATION.766250 8242 Information not available 10/26/2022 Do you use any illicit or recreational drugs? No MIGRATION.815131 1236 Information not available 10/26/2022 Do you or have you ever used any other forms of tobacco or nicotine? Yes Information not available 11/07/2024 What is your level of alcohol consumption? None [email or web address] Information not available 01/04/2024 Are you able to walk? YESWOREST MIGRATION.907839 9110 Information not available 10/26/2022 Do you have difficulty doing errands alone? No MIGRATION.232914 4636 Information not available 10/26/2022 What is your occupation? n/a MIGRATION.064080 3888 Information not available 10/26/2022 Mental Status Question Answer Note LastModified by Organizat ion Details LastModified Time Do you feel stressed (tense, restless, nervous, or anxious, or unable to sleep at night)? [id number] MIGRATION.04311420 26 Information not available 10/26/2022 Do you have difficulty concentrating, remembering or making decisions? No MIGRATION.70972013 26 Information not available 10/26/2022 Family History Relationship Description Onset Age of this Age Resolved Age Notes LastModified by Organization Details LastModified Time Father Heart disease [email or web address] Not available 02/2023 16:52:03 Medical History Condition [...] INSOMNIA N HIGH CHOLESTEROL / HYPERLIPIDEMIA Y HYPERTHYROIDISM N EYE PROBLEMS Y EDEMA N CHRONIC PAIN SYNDROME N HYPOTHYROIDISM N CONSTIPATION N CAROTID BLOCKAGE N BACK / NECK PROBLEMS N HAVE YOU BEEN HOSPITALIZED OR SEEN IN [facility] IN THE PAST YEAR ? N ATHEROSCLEROSIS N BREAST PROBLEMS N DIALYSIS N ECZEMA Y OSTEOPOROSIS Y ARTHRITIS Y APPENDICITIS N DIABETES, TYPE N BAD TEETH N ENT N HEARTBURN / REFLUX N AUTISM SPECTRUM DISORDER (ASD) N HEPATITIS / LIVER DISEASE N GOUT N SLEEP DISORDER N ALZHEIMER'S DISEASE N Brain Problems N HERPES N DEMENTIA N SEIZURES/EPILEPSY N HEADACHES/MIGRAINES N VASCULAR DISEASE N PACEMAKER N Blood Disorder N DIZZINESS N KIDNEY DISEASE N HEART DISEASE/HEART PROBLEMS N MULTIPLE SCLEROSIS N CARDIAC ARRHYTHMIA N CANCER: SPECIFY N Gall Stones N ATRIAL FIBRILLATION N PULMONARY EMBOLISM N AUTOIMMUNE DISEASE N [...] quadrivalent, PF 0 completed [facility] 14:54:55 Influenza, adjuvanted, quadrivalent, PF 2 completed [facility]/07/2024 14:54:55 Influenza, adjuvanted, quadrivalent, PF 1 completed [facility] 11/07/2024 14:54:56 RSV, bivalent, protein subunit RSVpreF, diluent reconstituted, 0.5 mL, PF 4 completed [facility] 11/07/2024 14:55:11 COVID-19, mRNA, LNP-S, PF, bertha-sucrose, 30 mcg/0.3 mL 4 completed Maddie Landa RMRamírez [facility] 11/07/2024 14:55:11 Influenza, high-dose, trivalent, PF 2 completed Not Available [facility] 07/03/2023 07:03:28 Influenza, high-dose, trivalent, PF 9 completed NAHUM [facility] 11/07/2024 14:54:56 Influenza, high-dose, trivalent, PF 8 completed [facility] 11/07/2024 14:54:56 pneumococcal polysaccharide PPV23 7 completed Not Available [facility] 07/03/2023 07:03:28 COVID-19, mRNA, LNP-S, PF, 100 mcg/0.5mL dose or 50 mcg/0.25mL dose 1 completed Maddie Landa RMA null, [place] [facility] 11/07/2024 14:54:56 COVID-19, mRNA, LNP-S, PF, 100 mcg/0.5mL dose or 50 mcg/0.25mL dose 1 completed Maddie Landa RMA null, [place] [facility] 11/07/2024 14:54:56 COVID-19, mRNA, LNP-S, PF, 100 mcg/0.5mL dose or 50 mcg/0.25mL dose 1 completed Maddie Landa RMA null, [place] - [facility] [employer] [facility] 11/07/2024 14:54:56 Influenza, high-dose, trivalent, PF 0 completed Maddie Landa RMA null, [place] [facility] 11/07/2024 14:54:56 Influenza, high-dose, trivalent, PF 9 completed Not Available [facility] 07/03/2023 07:03:28 Influenza, high-dose, trivalent, PF 8 completed Not Available [facility] 07/03/2023 07:03:28 Tdap 6 completed Not Available [facility] 07/03/2023 07:03:28 Influenza, high-dose, trivalent, PF 7 completed Not Available [facility] 07/03/2023 07:03:28 Influenza, split virus, trivalent, PF 3 completed Maddie Landa RMA null, [facility] 11/07/2024 14:54:56 Past Encounters Encounter ID Performer Location Encounter Start Date Encounter Closed Date Diagnosis/Indication Diagnosis SNOMED-CT Code Diagnosis ICD10 Code Diagnosis Note [id number] Danni Patel DPM [facility] [place] [address] [address] 02/09/2021 00:00:00 02/09/2021 15:11:47 [id number] Victor Hugo medeiros MD [facility] General Surgery [address] [address] 04/20/2021 00:00:00 04/20/2021 13:26:11 [id number] Victor Hugo medeiros MD [facility] General Surgery [address] [address] 05/04/2021 00:00:00 05/04/2021 13:15:37 [id number] Danni Patel DPM [facility] [place] [address] [place] [address] 06/17/2021 00:00:00 06/17/2021 12:16:46 [id number] Danni Patel DPM [facility] [place] [address] [address] 10/04/2021 00:00:00 10/05/2021 15:45:00 [id number] Danni Patel DPM [facility] [place] [address] [place] [address] 10/14/2021 00:00:00 10/14/2021 13:11:31 [id number] Fred calix MD [facility] Internal Med [facility] [address] [address] 12/28/2021 00:00:00 02/17/2022 14:00:22 [id number] REED Dunham[facility] [place] [address] [place] [address] 02/17/2022 00:00:00 02/17/2022 14:34:30 [id number] MD RAMONA Tate[facility] Internal Med [facility] [address] [address] 05/03/2022 00:00:00 05/03/2022 12:56:02 [id number] Danni Patel DPM [facility] [place] [address] [address] 05/30/2022 00:00:00 05/30/2022 11:23:19 [id number] Fred calix MD [facility] Med [facility] 2043 [facility], [address] [address] 08/10/2022 00:00:00 08/10/2022 11:27:05 [id number] Danni Patel DPM [facility] [place] [address] [address] 10/11/2022 00:00:00 10/11/2022 13:06:37 [id number] Fred calix MD [facility] Internal Med [facility] 2043 [facility], [address] [address] 02/07/2023 10:55:01 02/07/2023 12:04:15 Screening - NAD 735591930 Z13.9 C-scope: Cologuard 06/26/18,C ologuard 01/17/2022 : [...] understand ing of the above Skin lesion 93014465 L98 [address] Mccartney and diagnosed with actinic keratosis, no surgery or procedure was done Coronary arteriosclerosis 21435387 I25.10 ECHO 09/28/2021 : EF 60%PFT 11/04/[address] Eliceo PETERSONHVDr Mary TAVERAS 03/14/2022 On amlodipine 5mg dailyOn HCTZOn atenolol 50mg dailyOn lisinopril 40mg dailyGet labs Hyperlipidemia 66595669 E78.5 On simvastati n 40mg dailyGet labs Smoker 01460250 F17.200 Declines any imaging Does wellNow on chantix, given by Dr Eliceo PETERSON Open wound of right ankle 6828195508 2144179 S91.001A S/p insect biteDr Patel, next OV 10/03/2022 Vitamin D deficiency 347 78038 E55.9 COVID-19 112200316 U07.1 +ve in 08/19/2021 Does well now Chronic ob structive pulmonary disease 55651579 J44.9 XRay Chest: 12/04/2021 : [facility] ER: EmphysemaN eeds to see Dr Zavala pulmonary, declined see case 01/04/2022 Lung mass 135704139 R91. 8 LDCT 09/28/2021 : Unclear if [...] one year Edema of l ower extremity 620086333 R60.0 Eats a lot of TV dinners and chips, advised to cut back, and elevate her legsShe is to see Dr Hernandez Onychomycosis 785725978 B35.[address] Patel next 06/23/2022 Eruption noted, refill her triamcinol one, add nystatin Thyroid nodule 530140267 E04.1 US thyroid 01/26/2022 : 1.8cm nodule, L lobe ENT Dr Ravinder Gusman 02/15/2022 : Bx to be doneBx 03/02/2022 : NegUS thyroid ordered 02/07/2023 Pain of le ft ankle joint 6301238670 7873858 M25.572 S/p xrays 04/28/2022 Dr Patel 05/30/2022 , next 10/03/2022 Eczema 96013362 L30.9 Not satisfied with care with Dr Patel, will refer to Dr Thomas Neuropathy 177034831 G62 .9 C/o N/T in both her feet, states that she is to see Dr Hernandez, agreeable to start on gabapentin , all side effects explained Allergic rhinitis 675963 04 J30.9 Advised to use flonase and zyrtec, she does have flonase at homeFeels her cough is d/t her allergies Screening mammography 24 116275 Z12.31 [id number] Michoacano Zavala MD S_[facility] Pulmonolo gy [place] [address] 02/22/2023 13:58:49 02/22/2023 15:21:24 Dyspnea on exertion 90387472 R06.09 R05.9 T78.40XS D89.9 J84.9 J47.9 Interstiti al lung disease 582956375 J84.9 Mild chron ic obstructive pulmonary disease 084840769 J44.9 Smoker 91155796 F17.218 F17.219 Z87.190 [id number] Danni Patel DPM [facility] Pod[facility]ry [address] [address] 05/04/2023 16:45:07 05/04/2023 17:50:28 Dystrophia unguium 50649546 L60.3 Nails 1 through 10 were debrided with sharp mechanical debridemen t without incident. Nails were debrided and greater than 50% length and thickness where needed. Pain in toe 124393239 M7 9.674 M79.675 secondary to above Unable to cut own toenails 637075188 Z74.1 [id number] Fred calix MD [facility] Internal Med Martha palacio [address] [facility] [place] [address] 05/29/2023 11:50:52 05/29/2023 13:05:18 Abdominal pain 70343777 R10.[address] abd/pelvis , may need [...] that, ER if her symptoms worsen Gallstone 272978564 K80. 20 [id number] Victor Hugo medeiros MD [facility] General Surgery [address] [place] [address] 06/01/2023 11:24:24 06/01/2023 16:08:07 Abdominal pain 82226309 R10.9 Cholelithi asis without obstruction 35569342 K80.20 [id number] Victor Hugo medeiros MD [facility] General Surgery [address] [place] [address] 1 06/15/2023 11:33:01 06/28/2023 13:53:39 Gallstone [id number] K80.20 Ileal Gallstone [id number] Victor Hugo medeiros MD [facility] General Surgery [address] [place] [address] 1 06/29/2023 11:38:48 06/29/2023 17:18:00 [id number] Fred calix MD [facility] Internal Med [facility] [address] [address] 08/08/2023 10:57:57 08/08/2023 11:28:50 Abdominal pain 30784287 R10.[address] abd/pelvis , may need [...] see Dr Mccartney and f/u PRN Gallstone [id number] K80. 20 Dr Mccartney 06/29/2023 , f/u PRN Screening - NAD [id number] 3 Z13.9 C-scope: Cologuard 06/26/18,C ologuard 01/17/2022 [...] understand ing of the above Skin lesion 05426568 L98 [address] Mccartney and diagnosed with actinic keratosis, no surgery or procedure was done Coronary arteriosclerosis 30032073 I25.10 ECHO 09/28/2021 : EF 60%PFT 11/04/[address] Ivan [facility] 07/24/2023 Dr Hernandez [facility] 03/14/2022 On amlodipine 5mg dailyOn HCTZOn atenolol 50mg dailyOn lisinopril 40mg dailyGet labs Hyperlipidemia 85762751 E78.5 On simvastati n 40mg dailyGet labs Smoker 69996781 F17.200 Declines any imaging Does wellNow on chantix, given by Dr Ivan [facility] Open wound of right ankle 7842626346 4841916 S91.001A S/p insect biteDr Ellen Vitamin D deficiency 347 98695 E55.9 COVID-19 918801830 U07.1 +ve in 08/19/2021 Does well now Chronic ob structive pulmonary disease 68627689 J44.9 XRay Chest: 12/04/2021 : [facility] ER: Emphysema Needs to see Dr Zavala pulmonary, declined see case 01/04/2022 PFT 04/12/2023 : Moderate obstructio n, declines referral Lung mass 620609281 R91. 8 LDCT 09/28/2021 : Unclear if [...] case 02/23/2023 Edema of l ower extremity 224379493 R60.0 Eats a lot of TV dinners and chips, advised to cut back, and elevate her legsShe is to see Dr Hernandez Onychomycosis 077387101 B35.[address] Patel, next 08/31/2023 Eruption noted, refill her triamcinol one, add nystatin Thyroid nodule 235055355 E04.1 US thyroid 01/26/2022 : 1.8cm nodule, L lobe ENT Dr Ravinder Gusman 02/15/2022 : Bx to be doneBx 03/02/2022 : NegUS thyroid ordered 02/07/2023 Pain of le ft ankle joint 4789351689 8983844 M25.572 S/p xrays 04/28/2022 Dr Patel 05/30/2022 , next 10/03/2022 Eczema 58615285 L30.9 Not satisfied with care with Dr Patel, will refer to Dr Thomas Neuropathy 997088808 G62 .9 C/o N/T in both her feet, states that she is to see Dr Hernandez, agreeable to start on gabapentin , all side effects explained Allergic rhinitis 181029 04 J30.9 Advised to use flonase and zyrtec, she does have flonase at homeFeels her cough is d/t her allergies Screening mammography 24 008282 Z12.31 Bursitis o f olecranon of left elbow 9809937922 98342 M70.22 Non tender, declines any referrals, 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 health information managers, want to 'leave it alone', notify if worse or any symptoms, she is agreeable to that [id number] Danni Patel DPM [facility] [place] [address] [address] 10/12/2023 11:02:23 10/12/2023 13:55:45 Dystrophia unguium 45511703 L60.3 Nails 1 through 10 were debrided with sharp mechanical debridemen t without incident. Nails were debrided and greater than 50% length and thickness where needed. Pain in toe 837480907 M7 9.674 M79.675 secondary to above [id number] Fred calix MD [facility] Internal Med [facility] [address] [facility] [address] [address] 01/04/2024 11:57:38 01/04/2024 12:45:12 Screening - NAD 480919645 Z13.9 C-scope: Cologuard 06/26/18,C ologuard 01/17/2022 : [...] understand ing of the above Abdominal pain 67468432 R10.[address] abd/pelvis , may need [...] see Dr Mccartney and f/u PRN Gallstone [id number] K80. [address] Mccartney 06/29/2023 , f/u PRN Skin lesion 32069149 L98 [address] Mccartney and diagnosed with actinic keratosis, no surgery or procedure was done Coronary arteriosclerosis 52739794 I25.10 ECHO 09/28/2021 : EF 60%PFT 11/04/[address] Ivan SL 07/24/2023 Dr Hernandez SL 03/14/2022 Dr Hernandez SL 09/15/2023 Not on amlodipine 5mg dailyOn HCTZ 12.5mg daiyOn atenolol 50mg dailyOn lisinopril 40mg dailyGet labs Hyperlipidemia 25472569 E78.5 On simvastati n 40mg dailyGet labs Smoker 50468771 F17.200 Declines any imaging Does wellNow on chantix, given by Dr [facility] Open wound of right ankle 7521844880 8308536 S91.001A S/p insect biteDr Ellen Vitamin D deficiency 347 13144 E55.9 COVID-19 287130291 U07.1 +ve in 08/19/2021 Does well now Chronic ob structive pulmonary disease 11255420 J44.9 XRay Chest: 12/04/2021 : [facility] ER: Emphysema Needs to see Dr Zavala pulmonary, declined see case 01/04/2022 PFT 04/12/2023 : Moderate obstructio n, declines referralGe t CT Chest Lung mass 513520714 R91. 8 LDCT 09/28/2021 : Unclear if [...] case 02/23/2023 Edema of l ower extremity 575990655 R60.0 Eats a lot of TV dinners and chips, advised to cut back, and elevate her legsShe is to see Dr Hernandez Onychomycosis 218226171 B35.[address] Patel, next 08/31/2023 Eruption noted, refill her triamcinol one, add nystatin Thyroid nodule 572944842 E04.1 US thyroid 01/26/2022 : 1.8cm nodule, L lobeUS thyroid 12/18/2023 : Next in one year ENT Dr Ravinder Gusman 02/15/2022 : Bx to be doneBx 03/02/2022 : Neg Pain of le ft ankle joint 7995843512 4034605 M25.572 S/p xrays 04/28/2022 Dr Patel 05/30/2022 , next 10/03/2022 Eczema 39460123 L30.9 Not satisfied with care with Dr Patel, will refer to Dr Thomas Neuropathy 718184693 G62 .9 C/o N/T in both her feet, states that she is to see Dr Hernandez, agreeable to start on gabapentin , all side effects explained Allergic rhinitis 342508 04 J30.9 Advised to use flonase and zyrtec, she does have flonase at homeFeels her cough is d/t her allergies Bursitis o f olecranon of left elbow 4236279120 88931 M70.22 Non tender, declines any referrals, 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 health information managers, want to 'leave it alone', notify if worse or any symptoms, she is agreeable to that Screening for osteoporosis 551205027 Z13.820 Low back pain 003138450 M54.50 Feels that she needs to be [...] explained to her Adult heal th examination 532138606 Z00.00 Screening for disorder 775153414 Z13.9 [id number] Danni Patel DPM [facility] [place] [address] [facility] [address] [place] [address] 03/28/2024 11:03:59 03/29/2024 08:05:27 Pain in toe 927366271 M79.674 M79.675 secondary to above Dystrophia unguium 77433 009 L60.3 Nails 1 through 10 were debrided with sharp mechanical debridemen t without incident. Nails were debrided and greater than 50% length and thickness where needed. [id number] Fred calix MD [facility] Internal Med [facility] [address] [facility] [address] [place] [address] 05/16/2024 12:01:18 05/16/2024 12:59:43 Abdominal pain 85090221 R10.[address] abd/pelvis , may need [...] to see Dr Mccartney Screening - NAD 18588381 3 Z13.9 C-scope: Cologuard 06/26/18,C ologuard 01/17/2022 [...] her understand ing of the above Gallstone 834674978 K80. [address] Mccartney 06/29/2023 , f/u PRNSee case 05/14/2024 , will get US liver again, may need to see G Surgery Skin lesion 88730312 L98 [address] Mccartney and diagnosed with actinic keratosis, no surgery or procedure was done Coronary arteriosclerosis 22439123 I25.10 ECHO 09/28/2021 : EF 60%PFT 11/04/[address] Ivan SL 07/24/2023 Dr Hernandez SL 03/14/2022 Dr Hernandez SL 09/15/2023 Not on amlodipine 5mg dailyOn HCTZ 12.5mg daiyOn atenolol 50mg dailyOn lisinopril 40mg dailyGet labs Hyperlipidemia 96150660 E78.5 On simvastati n 40mg dailyGet labs Smoker 38835733 F17.200 Declines any imaging Does wellNow on chantix, given by Dr Ivan [facility] do nicotine gumLDCT 02/07/2024 Open wound of right ankle 9372985138 4624735 S91.001A S/p insect biteDr Ellen Vitamin D deficiency 347 10536 E55.9 COVID-19 373425220 U07.1 +ve in 08/19/2021 Does well now Chronic ob structive pulmonary disease 48619445 J44.9 On albuterol, renewed 05/16/2024 XRay Chest: 12/04/2021 : [facility] ER: Emphysema Needs to see Dr Zavala pulmonary, declined see case 01/04/2022 PFT 04/12/2023 : Moderate obstructio n, declines referralLD CT 02/07/2024 Lung mass 018919772 R91. 8 LDCT 09/28/2021 : Unclear if [...] case 02/23/2023 Edema of l ower extremity 449598982 R60.0 Eats a lot of TV dinners and chips, advised to cut back, and elevate her legsShe is to see Dr Hernandez Onychomycosis 413760868 B35.[address] Patel, next 08/31/2023 Eruption noted, refill her triamcinol one, add nystatin Thyroid nodule 809175002 E04.1 US thyroid 01/26/2022 : 1.8cm nodule, L lobeUS thyroid 12/18/2023 : Next in one year ENT Dr Ravinder Gusman 02/15/2022 : Bx to be doneBx 03/02/2022 : Neg Pain of le ft ankle joint 6690139900 2164254 M25.572 S/p xrays 04/28/2022 Dr Patel 05/30/2022 , next 10/03/2022 Eczema 41667491 L30.9 Not satisfied with care with Dr Patel, will refer to Dr Thomas Neuropathy 844482037 G62 .9 C/o N/T in both her feet, states that she is to see Dr Hernandez, agreeable to start on gabapentin , all side effects explained Allergic rhinitis 711370 04 J30.9 Advised to use flonase and zyrtec, she does have flonase at homeFeels her cough is d/t her allergies Bursitis o f olecranon of left elbow 4435805384 60873 M70.22 Non tender, declines any referrals, 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 health information managers, want to 'leave it alone', notify if worse or any symptoms, she is agreeable to that Screening for osteoporosis 037303388 Z13.820 Low back pain 572484217 M54.50 Feels that she needs to be [...] can do flexerill as needed Esophageal mass 33205554 [address] Benson 03/30/[address] chest [id number] Fred calix MD [facility] Internal Med [address] [facility] [address] [place] [address] 07/11/2024 10:54:28 07/11/2024 12:01:37 Abdominal pain 69549550 R10.[address] abd/pelvis , may need [...] needs to see GI Screening - NAD 80188535 3 Z13.9 C-scope: Cologuard 06/26/18,C ologuard 01/17/2022 [...] her understand ing of the above Gallstone 039100316 K80. [address] Mccartney 06/29/2023 , f/u PRNSee case 05/14/2024 , will get US liver again, may need to see G Surgery Skin lesion 01349743 L98 [address] Mccartney and diagnosed with actinic keratosis, no surgery or procedure was done Coronary arteriosclerosis 02230559 I25.10 ECHO 09/28/2021 : EF 60%PFT 11/04/[address] Ivan SL 07/24/2023 Dr Hernandez SL 03/14/2022 Dr Hernandez [facility] 09/15/2023 Not on amlodipine 5mg dailyOn HCTZ 12.5mg daiyOn atenolol 50mg dailyOn lisinopril 40mg dailyGet labs Hyperlipidemia 64211702 E78.5 On simvastati n 40mg dailyGet labs Smoker 75190105 F17.200 Declines any imaging Does wellNow on chantix, given by Dr Ivan SLCan do nicotine gumLDCT 02/07/2024 Open wound of right ankle 9877479579 8224043 S91.001A S/p insect biteDr Ellen Vitamin D deficiency 347 46488 E55.9 COVID-19 808242459 U07.1 +ve in 08/19/2021 Does well now Chronic ob structive pulmonary disease 68820759 J44.9 On albuterol, renewed 05/16/2024 XRay Chest: 12/04/2021 : [facility] ER: Emphysema Needs to see Dr Sally borges, declined see case 01/04/2022 PFT 04/12/2023 : Moderate obstructio n, declines referralLD CT 02/07/2024 Lung mass 928749296 R91. 8 LDCT 09/28/2021 : Unclear if [...] case 02/23/2023 Edema of l ower extremity 646936590 R60.0 Eats a lot of TV dinners and chips, advised to cut back, and elevate her legsShe is to see Dr Hernandez Onychomycosis 479137244 B35.[address] Patel, next 08/31/2023 Eruption noted, refill her triamcinol one, add nystatin Thyroid nodule 328757993 E04.1 thyroid 01/26/2022 : 1.8cm nodule, L lobeUS thyroid 12/18/2023 : Next in one year ENT Dr Ravinder Gusman 02/15/2022 : Bx to be doneBx 03/02/2022 : Neg Pain of le ft ankle joint 6127137781 2517093 M25.572 S/p xrays 04/28/2022 Dr Patel, next apt 08/01/2024 Eczema 71443461 L30.9 Not satisfied with care with Dr Patel, will refer to Dr Thomas Neuropathy 840611178 G62 .9 C/o N/T in both her feet, states that she is to see Dr Hernandez, agreeable to start on gabapentin , all side effects explained Allergic rhinitis 204507 04 J30.9 Advised to use flonase and zyrtec, she does have flonase at homeFeels her cough is d/t her allergies Bursitis o f olecranon of left elbow 0741068855 29292 M70.22 Non tender, declines any referrals, 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 health information managers, want to 'leave it alone', notify if worse or any symptoms, she is agreeable to that Screening for osteoporosis 347379354 Z13.820 Low back pain 814264644 M54.50 Feels that she needs to be [...] of bowel or bladder control Esophageal mass 60806653 [address] Benson 03/30/2024 CT C/A/P 06/06/2024 Needs to see GI referred but she states that she will 'think' about it [id number] Danni Patel DPM [facility] [place] [address] [facility] [address] [place] [address] 08/01/2024 11:29:42 08/23/2024 14:38:09 Dystrophia unguium 38036280 L60.3 Nails 1 through 10 were debrided with sharp mechanical debridemen t without incident. Nails were debrided and greater than 50% length and thickness where needed. Pain in toe 408072495 M7 9.674 M79.675 secondary to above Unable to cut own toenails 309240105 Z74.1 [id number] Fred calix MD [facility] Internal Med [place] [address] [facility] [address] [place] [address] 11/07/2024 14:46:41 11/07/2024 15:43:55 Abdominal pain 22056146 R10.[address] abd/pelvis , may need [...] for EGD as per her history in [facility] on nexium 40mg daily and see if this will helpShe has not wanted any CT A/P today Chronic ob structive pulmonary disease 91385131 J44.9 On albuterol, renewed 05/16/2024 XRay Chest: 12/04/2021 : [facility] ER: Emphysema Needs to see Dr Sally borges, declined see case 01/04/2022 PFT 04/12/2023 : Moderate obstructio n, declines referralLD CT 02/07/2024 OV 11/07/2024 :Has noted a cough, is agreeable to see pulmonary now, referred to Dr Shepherd give airsupra instead of albuterol Lung mass 048738727 R91. 8 LDCT 09/28/2021 : Unclear if [...] Has an apt with GI Esophageal mass 64253332 [address] Benson 03/30/2024 CT C/A/P 06/06/2024 Needs to see GI referred but she states that she will 'think' about it OV 11/07/2024 : Now has a GI apt on 12/12/2024 Cigarette smoker 3226917 7 F17.210 1 PPD and also vapesAdvis ed to quit!Get a referral to Dr Zavala pulmonary [id number] Charlee Gomez NP [facility] Pulmonolo gy [place] [address] [facility] [address] [place] [address] 11/12/2024 11:27:18 11/15/2024 14:57:48 Chronic obstructive pulmonary disease 92021112 J44.9 J43.9 Use Albuterol inhaler as neededCAT- 24PFT orderRevie wed labs from last year-no eosinophil s, no severe allergies, Alpha 1 negative and CXR negativeDu e to hx of smoking will consider Lung scan-does not want to do right nowEncoura ge to maintain vaccines when dueF/u with PMD for any new labsF/u with me in 3 months-gabe garcia call if needs Albuterol (has some at home)Aware to call if any changes in symptoms or increase in use of Albuterol- severe symptoms ER Bronchiectasis 60412564 J47.9 Dyspnea on exertion 6084 5006 R06.09 Lab work todayCAT-2 4Mmrc-3PFT for baselineAw are to use Albuterol inhaler as needed-ok to use when sobEncoura ge patient to remain activefoll ow-up once testing is complete-s ooner for any changes in breathing and increase use of inhaler Smoker 35769683 F17.200 Patient is a smoker and has been counseled to quit. We discussed the many reasons to quit smoking. We discussed the various methods of smoking cessation, .Total time with patient counseling patient * minutes. [id number] Fred calix MD [facility] Primary Care [facility] [address] [facility] [address] [place] [address] 12/25/2024 15:24:04 12/25/2024 16:51:21 Transition of care 0161778502 105 Z75.8 Abdominal pain 28217956 R10.[address] abd/pelvis , may need [...] needs to see GI Screening - NAD 05887394 3 Z13.9 C-scope: Cologuard 06/26/18,C ologuard 01/17/2022 [...] her understand ing of the above Gallstone 966328870 K80. 20 [address] Mccartney 06/29/2023 , f/u PRNSee case 05/14/2024 , will get US liver again, may need to see G Surgery Skin lesion 41164716 L98 [address] Mccartney and diagnosed with actinic keratosis, no surgery or procedure was done Coronary arteriosclerosis 79499960 I25.10 ECHO 09/28/2021 : EF 60%PFT 11/04/[address] Ivan SL 07/24/2023 Dr Hernandez SL 03/14/2022 Dr Hernandez SL 09/15/2023 Not on amlodipine 5mg dailyOn HCTZ 12.5mg daiyOn atenolol 50mg dailyOn lisinopril 40mg dailyGet labs Hyperlipidemia 20443760 E78.5 On simvastati n 40mg dailyGet labs Smoker 41529319 F17.200 Declines any imaging Does wellNow on chantix, given by Dr Ivan SLHVCan do nicotine gumLDCT 02/07/2024 Open wound of right ankle 8567310331 6741647 S91.001A S/p insect biteDr Patel Vitamin D deficiency 347 68077 E55.9 COVID-19 312473534 U07.1 +ve in 08/19/2021 Does well now Chronic ob structive pulmonary disease 73066247 J44.9 On albuterol, renewed 05/16/2024 XRay Chest: 12/04/2021 : [facility] ER: Emphysema Needs to see Dr Zavala pulmonary, declined see case 01/04/2022 PFT 04/12/2023 : Moderate obstructio n, declines referralLD CT 02/07/2024 Lung mass 190681606 R91. 8 LDCT 09/28/2021 : Unclear if [...] case 02/23/2023 Edema of l ower extremity 675724679 R60.0 Eats a lot of TV dinners and chips, advised to cut back, and elevate her legs Onychomycosis 731585517 B35.[address] Patel, next 08/31/2023 Eruption noted, refill her triamcinol one, add nystatin Thyroid nodule 798528415 E04.1 US thyroid 01/26/2022 : 1.8cm nodule, L lobeUS thyroid 12/18/2023 : Next in one year ENT Dr Ravinder Gusman 02/15/2022 : Bx to be doneBx 03/02/2022 : Neg Pain of le ft ankle joint 7836574050 2147127 M25.572 S/p xrays 04/28/2022 Dr Patel, next apt 08/01/2024 Eczema 68181067 L30.9 Not satisfied with care with Dr Patel, will refer to Dr Thomas Neuropathy 857089661 G62 .9 C/o N/T in both her feet, states that she is to see Dr Hernandez, agreeable to start on gabapentin , all side effects explained Allergic rhinitis 735591 04 J30.9 Advised to use flonase and zyrtec, she does have flonase at homeFeels her cough is d/t her allergies Bursitis o f olecranon of left elbow 3053836826 00027 M70.22 Non tender, declines any referrals, 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 health information managers, want to 'leave it alone', notify if worse or any symptoms, she is agreeable to that Screening for osteoporosis 340111857 Z13.820 Low back pain 599674552 M54.50 Feels that she needs to be [...] of bowel or bladder control Esophageal mass 56173275 [address] Benson 03/30/2024 CT C/A/P 06/06/2024 Needs to see GI referred but she states that she will 'think' about it Health Concerns Section Related Observation LastModified by Organization Detai ls LastModified Time None Recorded Concern Status LastModified by Organization Details LastModified Time None Recorded Advance Directives Directive Y: Payers Insurance Date Sequence Insurance Name Policy Number Policy Sy Covered Member ID Sy Member ID Guarantor Name 03/22/2025 2 [place] [id number] Gopi Lainez [id number] Gopi Lainez 03/22/2025 1 [place] Gopi Lainez [id number] Gopi Lainez 03/28/2024 2 [place] [id number] Gopi Lainez [id number] Gopi Lainez Notes Date Note Type Note Provider Name and Address Organization Details Recorded Time 4 text/html 03/30/17Here to establish carePast Hx:HTNHLDReviewed social, [...] N/T in elo feetShe also sees a political organizer now for foot nail fungusShe also has [...] 12/14/18OV 01/23/2020:Here for her routine aptShe feels Wayne did do the labsShe does have some [...] f/u apt, she is doing well today MD [address]ani [address], [place], [address], [employer] 07/15/2024 19:20:03 4 text/html . Patient is a 79-year-old female she returns for routine foot care she denies any new complaints and would like her nails cut as she has difficulty cutting them in her nails are painful. Danni Patel DPM [address], [address], [place], [address], [facility] [employer] [facility] [employer] [facility] 08/01/2024 16:30:30 5 text/html 03/30/17Here to establish carePast Hx:HTNHLDReviewed social, [...] N/T in elo feetShe also sees a political organizer now for foot nail fungusShe also has [...] 12/14/18OV 01/23/2020:Here for her routine aptShe feels Wayne did do the labsShe does have some [...] normal Fred Chambers MD [address], [facility] [address], [place], [address], [facility] [employer] [facility] 12/06/2024 10:29:32 5 text/html COPDReported by PatientHPIFor associated symptoms, patient reportsdyspnea exertional,decrease in exercise capacity,fatigue,coughin g up sputum clear / white and frothy, andcough loosebut reportsno snoring,no excessive daytime sleepiness,no arousals from sleep,no decrease in exercise capacity,no coughing up sputum,no fever,no wheezing,no weight loss, andno depression. For severity, patient reportsuses nebulizer/inhaler an average of 7 times/week lately. For onset/timing, patient reportschronic: slowly much worse. For context, patient reportscigarette smokingandrecurrent bronchopulmonary infections. For modifying factors, patient reportsrelieved with bronchodilator,worse with cigarette smoking,worse in a supine position, andworse with exertion.1/2 ppd 60 yearslast pft-03/2020 Charlee Gomez NP [address], [facility] [address], [place], [address], [facility] [employer] [facility] 11/12/2024 15:10:36 5 text/html 03/30/17Here to establish carePast Hx:HTNHLDReviewed social, [...] N/T in elo feetShe also sees a political organizer now for foot nail fungusRoxy also has some pain in the right [...] s/p hospital d/c and feels well today Fred Chambers MD [address] [facility], [facility] [address], [place], [address], [place] [employer] 12/26/2024 19:14:40 OBGyn Episode No OBEpisode recorded.
--- OUTSIDE RECORDS SUMMARY | 2025-03-22 14:54 | XMS_ITS | Clinical Summary ---
Author Organization 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 CHOICE OOS MEDICARE [facility] CHOICE OOS Care Teams Tie Man Relationship Specialty Start Date End Date Leydi Chambers MD [address] [phone] PCP - General Internal Medicine 10/08/21
[2025-03-22 14:55] VITALS: BP 129/77; PULSE 88; RESP 18; TEMP 36.8; O2SAT 94
[2025-03-22 16:36] VITALS: BP 137/40; PULSE 94; RESP 16; O2SAT 95
[2025-03-22 16:44] LABS: Hematocrit 41.7 % (37.0-47.0); Hemoglobin 14.0 g/dL (12.0-15.0); Immature Granulocyte Percent A 0.4 % (0-0.5); Lymphocytes Absolute Auto 1.28 K/mm3 (0.9-3.2); Mean Corpuscular HGB Conc 33.6 g/dl (32-36); Mean Corpuscular Hemoglobin 32.6 pg (26-34); Mean Corpuscular Volume 97.0 fl (80-100); Nucleated Red Blood Cells Absolute Auto 0.000 K/mm3 (0.0-0.012); Nucleated Red Blood Cells Perc 0.0 % (0.0-0.2); Platelet Count Result 182 k/mm3 (150-375); Red Blood Count 4.30 M/mm3 (4.2-5.4); White Blood Count 11.7 K/mm3 (4.5-10.0)
--- NOTE | 2025-03-22 16:59 | ED_ITS ---
HPI - Abdominal Pain General Chief Complaint: Abdominal Pain Stated Complaint: abdominal pain Time Seen by Provider: 03/22/25 16:17 Source: patient, family and RN notes reviewed Mode of arrival: ambulatory Limitations: no limitations History of Present Illness HPI narrative: 79 y/o WF in the ED for lower abd pain and possible dark stools X1 day. Pt states she has been having lower abd pain across lower abd. Pt states having normal BMs daily, thinks it may be dark, but is unsure as she is legally blind. Pt endorses eliquis usage and wanted to make sure it was all ok. Pt denies fevers, chills, CP, SOB, weakness, dizziness, N/V/D. Pt denies hematuria or dysuria. Pt has taken nothing for abd pain, states nothing makes pain better or worse. Patient brought a sample of stool in a plastic bag for ED staff to review. Related Data Home Medications ?Medication ?Instructions ?Recorded ?Confirmed ?Last Taken ?Type albuterol sulfate 90 mcg/actuation 1 inh inhalation Q4-6H PRN 09/30/24 12/13/24 12/13/24 15:30 History breath activated powder inhaler shortness of breath 1 inh atenolol 25 mg tablet 25 mg PO DAILY 09/30/24 01/30/25 01/30/25 History cetirizine 10 mg capsule 10 mg PO DAILY PRN allergic 09/30/24 12/13/24 12/12/24 09:00 History symptoms 10 mg ergocalciferol (vitamin D2) 50 mcg 50 mcg PO DAILY 09/30/24 01/30/25 01/29/25 History (2,000 unit) capsule hydrochlorothiazide 12.5 mg capsule 12.5 mg PO DAILY 09/30/24 01/30/25 01/29/25 History lisinopril 40 mg tablet 40 mg PO DAILY 09/30/24 01/30/25 01/29/25 History psyllium husk 0.4 gram capsule 0.4 g PO DAILY 09/30/24 01/30/25 01/29/25 History (Daily Fiber) simvastatin 40 mg tablet 40 mg PO DAILY 09/30/24 01/30/25 01/29/25 History aspirin 81 mg tablet,delayed 81 mg PO DAILY 12/03/24 01/30/25 01/30/25 History release (Adult Low Dose Aspirin) furosemide 20 mg tablet 20 mg PO DAILY 01/23/25 01/30/25 01/29/25 History trazodone 50 mg tablet 50 mg PO HS PRN insomnia 01/23/25 01/23/25 Unknown History Allergies Allergy/AdvReac Type Severity Reaction Status Date / Time clopidogrel (From Plavix) Allergy Mild Rash Verified 03/22/25 16:37 Review of Systems 2 Review of Systems: CONSTITUTIONAL: Denies fever, chills, or sweats. EYES: Denies visual changes, redness, or discharge. ENT: Denies rhinorrhea, congestion, sore throat, or otalgia. CARDIOVASCULAR: Denies chest pain, palpitations, or edema. RESPIRATORY: Denies cough or dyspnea. GASTROINTESTINAL: Endorses lower abdominal pain. Denies nausea, vomiting, or diarrhea. GENITOURINARY: Denies dysuria or hematuria. SKIN: Denies rash or itching. MUSCULOSKELETAL: Denies back pain, joint pain, or myalgia. NEUROLOGIC: Denies headache, numbness, or weakness. PSYCHIATRIC: Denies anxiety or depression. [facility] Past Medical History Medical History Atrial fibrillation CAD (coronary artery disease) Hypertension Hyperlipidemia Hyperthyroidism COPD (chronic obstructive pulmonary disease) Surgical History Surgical History History of coronary artery stent placement Family History Family History Father Heart disease Social History Social History Smoking packs per day: 0.5 Smoking cigarettes per day: 10.0 Years smoked: 60 Smoking pack-years: 30.00 Smoking status: Current every day smoker Tobacco type: cigarettes Alcohol intake: never Substance use: never Substance use type: does not use Do You Feel Safe in your Home?: Yes Lack of Transportation: No Lack of Food: Never True Current Housing: I Have Housing Concerned About Future Housing: No Difficulty Paying Gas/Electric Bills: No Difficulty Paying for Meds: No Currently Unemployed: No Education: Decline to Answer Difficulty w/ Childcare or Family Care: No Living arrangements: with family Spiritual care concerns: No Exam 2 Narrative: GENERAL: Well-appearing, well-nourished, and in no acute distress. HEAD: Normocephalic, atraumatic. EYES: EOMI ENT: Nares clear, no rhinorrhea or epistaxis. Mucous membranes moist. NECK: Supple. CHEST: Clear to auscultation. No respiratory distress. HEART: Regular rate and rhythm. No murmur heard. Normal peripheral pulses. ABDOMEN: Soft, slight tenderness w/ palpation of the lower and, nondistended, normal active bowel sounds. Negative Banks's sign. BACK: No CVA tenderness EXTREMITIES: Normal range of motion. No edema. SKIN: Warm, dry, no rash. NEURO: No focal deficits. Alert and oriented x3. PSYCH: Normal mood and affect. Course Vital Signs Vital signs: Vital Signs Temperature 36.8 C 03/22/25 14:55 Pulse Rate 88 03/22/25 14:55 Respiratory Rate 18 03/22/25 14:55 Blood Pressure 129/77 03/22/25 14:55 Pulse Oximetry 94 03/22/25 14:55 Oxygen Delivery Room Air 03/22/25 14:55 Temperature 36.8 C 03/22/25 14:55 Pulse Rate 94 03/22/25 16:36 Respiratory Rate 16 03/22/25 16:36 Blood Pressure 137/40 L 03/22/25 16:36 Pulse Oximetry 95 03/22/25 16:36 Oxygen Delivery Room Air 03/22/25 14:55 MDM - Abdominal Pain MDM Narrative Medical decision making narrative: HPI: 79 y/o WF in the ED for lower abd pain and possible dark stools X1 day. Pt states she has been having lower abd pain across lower abd. Pt states having normal BMs daily, thinks it may be dark, but is unsure as she is legally blind. Pt endorses eliquis usage and wanted to make sure it was all ok. Pt denies fevers, chills, CP, SOB, weakness, dizziness, N/V/D. Pt denies hematuria or dysuria. Pt has taken nothing for abd pain, states nothing makes pain better or worse. Patient brought a sample of stool in a plastic bag for ED staff to review. My Plan Labs Ordered: CBC, CMP, Lipase, U/A, fecal occult Imaging Ordered: CT abd/pelvis Medications Ordered: Results: Fecal occult negative blood, CBC shows a white count of 11.7 which appears to be chronic, no evidence of anemia, CMP shows a sodium of 129 which appears to be chronic. CT shows 12 mm right midpole lesion, will follow up with primary care. Diagnosis: Diverticulitis Risks: Consults: None Patient has no right upper quadrant pain, negative LFTs billy, negative Banks sign on exam. Pt has no s/s of bleeding on hemocult or w/ CBC. Offered admission of patient but declined. Patient to be released with p.o. antibiotics and close follow-up with primary care Differential Diagnosis Differential diagnosis: Likely abdominal pain, acute appendicitis, constipation, diverticulitis, gastroenteritis and small bowel obstruction Medical Records Attestation: I reviewed the patient's medical records. Lab Data Attestation: I reviewed the patient's lab results. 03/22/25 16:36 03/22/25 16:36 Labs: Lab Results 03/22/25 03/22/25 Range/Units 16:36 16:38 WBC 11.7 H (4.5-10.0) K/mm3 RBC 4.30 (4.2-5.4) M/mm3 Hgb 14.0 (12.0-15.0) g/dL Hct 41.7 (37.0-47.0) % MCV 97.0 (80-100) fl MCH 32.6 (26-34) pg MCHC 33.6 (32-36) g/dl RDW 12.6 (11.5-14.5) % Plt Count 182 (150-375) k/mm3 MPV 11.8 H (7.4-10.4) fl Immature Gran % (Auto) 0.4 (0-0.5) % Neut % (Auto) 82.3 H (45.5-73.1) % Lymph % (Auto) 11.0 L (18.3-44.2) % [place] % (Auto) 5.7 (2.6-8.5) % Eos % (Auto) 0.5 (0-4.4) % Baso % (Auto) 0.1 L (0.2-1.2) % Lymph # (Auto) 1.28 (0.9-3.2) K/mm3 [place] # (Auto) 0.7 H (0.1-0.6) K/mm3 Eos # (Auto) 0.1 (0-0.3) K/mm3 Baso # (Auto) 0.0 (0.0-0.1) K/mm3 Abs Immat Gran (auto) 0.05 H (0.00-0.031) K/mm3 Absolute Neuts (auto) 9.6 H (1.3-6.7) K/mm3 Absolute Nucleated RBC 0.000 (0.0-0.012) K/mm3 Nucleated RBC % 0.0 (0.0-0.2) % Sodium 129 L (137-145) mmol/L Potassium 3.8 (3.4-5.0) mmol/L Chloride 97 L (98-107) mmol/L Carbon Dioxide 28 (22-30) mmol/L Anion Gap 4 (4-12) mmol/L BUN 16 D (7-17) mg/dL Creatinine 0.54 L (0.7-1.0) mg/dL Estim Creat Clear Calc 68 ml/min Estimated GFR > 60 (59 - ) Glucose 120 H (65-110) mg/dL Calcium 9.5 (8.4-10.2) mg/dL Total Bilirubin 1.0 (0.2-1.3) mg/dL AST 25 (14-36) U/L ALT 16 (6-35) U/L Alkaline Phosphatase 67 (38-126) U/L Total Protein 7.3 (6.3-8.2) g/dL Albumin 4.1 (3.5-5.1) g/dL Lipase 39 (23-300) U/L Urine Color Dark yellow (Yellow) Urine Appearance Clear (Clear) Urine pH 5.5 (5.0-9.0) Ur Specific Gary 1.032 (1.001-1.035) Urine Protein Trace (Negative) mg/dL Urine Glucose (UA) Negative (Negative) mg/dL Urine Ketones 1+ H (Negative) mg/dL Ur Blood (Man) Negative (Negative) Urine Nitrate Negative (Negative) Urine Bilirubin 1+ H (Negative) Urine Urobilinogen 2.0 H (<2.0) mg/dL Add Ur Microanalysis Reviewed Leukocyte Esterase Rfl Negative (Negative) JASON/UL Urine RBC 3-5 H (0-2) /hpf Urine WBC 0-5 (0-3) /hpf Ur Squamous Epith Cells None seen (Few) /hpf Urine Bacteria None seen /hpf Urine Casts 0-2 Imaging Data Radiologist's impression: ITS Impressions Abdomen/Pelvis CT 03/22/25 17:15 IMPRESSION: Mild descending thoracic aortic ectasia. Distended gallbladder with multiple large gallstones. Suggestion of mild inflammatory change and fluid, consider cholecystitis in the differential. Indeterminate 12 mm right midpole lesion. Consider nonemergent but timely CT or MRI without and with contrast for further evaluation. Focal inflammatory changes at the distal ileum. May represent ileitis or Meckel's diverticulitis. Mild height loss at L3, new since the 2022 study, may represent acute or chronic compression deformity. ITS Impressions Abdomen/Pelvis CT 03/22/25 17:15 IMPRESSION: Mild descending thoracic aortic ectasia. Distended gallbladder with multiple large gallstones. Suggestion of mild inflammatory change and fluid, consider cholecystitis in the differential. Indeterminate 12 mm right midpole lesion. Consider nonemergent but timely CT or MRI without and with contrast for further evaluation. Focal inflammatory changes at the distal ileum. May represent ileitis or Meckel's diverticulitis. Mild height loss at L3, new since the 2022 study, may represent acute or chronic compression deformity. Discharge Plan Discharge Clinical Impression: Diverticulitis Patient Disposition: Home Condition: Stable Instructions: Antibiotic Form, Diverticulitis (ED) Additional Instructions: Take antibiotics as prescribed. Please return to the ER with any worsening symptoms. ?Follow-up with primary care provider as soon as possible. ?Take all medications as prescribed, including regularly scheduled medications. Return to the emergency room if signs and symptoms of bleeding, nausea, vomiting, worsening abdominal pain, fevers, chills. Patient Language: Ukrainian Prescriptions: New amoxicillin-pot clavulanate 875-125 mg tablet 1 tablet PO Q12H Qty: 15 0RF No Action albuterol sulfate 90 mcg/actuation aerosol powdr breath activated 1 inh inhalation Q4-6H PRN (Reason: shortness of breath) atenolol 25 mg tablet 25 mg PO DAILY cetirizine 10 mg capsule 10 mg PO DAILY PRN (Reason: allergic symptoms) hydrochlorothiazide 12.5 mg capsule 12.5 mg PO DAILY Patient Comments: Pt states she takes this Monday, Monday, and Monday lisinopril 40 mg tablet 40 mg PO DAILY simvastatin 40 mg tablet 40 mg PO DAILY ergocalciferol (vitamin D2) 50 mcg (2,000 unit) capsule 50 mcg PO DAILY psyllium husk [Daily Fiber] 0.4 gram capsule 0.4 g PO DAILY aspirin [Adult Low Dose Aspirin] 81 mg tablet,delayed release (DR/EC) 81 mg PO DAILY furosemide 20 mg tablet 20 mg PO DAILY trazodone 50 mg tablet 50 mg PO HS PRN (Reason: insomnia) Follow-up/Referrals: Trish,MD Nicolas [Primary Care Provider] - 3 Days
[2025-03-22 17:06] LABS: Alanine Aminotransferase 16 U/L (6-35); Albumin Level 4.1 g/dL (3.5-5.1); Alkaline Phosphatase 67 U/L (38-126); Anion Gap 4 mmol/L (4-12); Aspartate Amino Transferase 25 U/L (14-36); Bilirubin,Total 1.0 mg/dL (0.2-1.3); Blood Urea Nitrogen 16 mg/dL (7-17); Calcium 9.5 mg/dL (8.4-10.2); Carbon Dioxide 28 mmol/L (22-30); Chloride 97 mmol/L (98-107); Estimated CRCL calculation 68 ml/min; Estimated Glomerular Filt Rate > 60; Glucose 120 mg/dL (65-110); Lipase 39 U/L (23-300); Potassium 3.8 mmol/L (3.4-5.0); Sodium 129 mmol/L (137-145); Total Protein 7.3 g/dL (6.3-8.2)
--- OUTSIDE RECORDS SUMMARY | 2025-03-22 17:17 | XMS_ITS | Referral Summary ---
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
--- OUTSIDE RECORDS SUMMARY | 2025-03-22 17:17 | XMS_ITS | Clinical Summary ---
Author Organization [facility] Address [address] [place] [id number] Care Team Providers Care Primary Care Physician Name Role Phone Unavailable Primary Care Provider [...]
--- OUTSIDE RECORDS SUMMARY | 2025-03-22 17:17 | XMS_ITS | Clinical Summary ---
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 Gender Identity Not on file Sexual Orientation [...] Td or Tdap) 03/04/2026 03/04/2016 Insurance MEDICARE [facility] Address: [address] [place] [address] BLUE [facility] CHOICE OOS MEDICARE [facility] CHOICE OOS Member Subscriber Plan / Payer ( fective 2024-Present) Name:Leatha Kaba Relation to Subscriber:Self Name:Leatha Kaba Payer ID:[id number] ([facility]) Type:[employer] Address: [address] [place] [address] Care Teams Brusher Tender Relationship Specialty Start Date End Date Leydi Chambers MD [address] [place] [place] [id number] PCP - General Internal Medicine 10/08/21
--- OUTSIDE RECORDS SUMMARY | 2025-03-22 17:17 | XMS_ITS | Clinical Summary ---
Author Organization [facility] Address [address] [place] [address] Care Team Providers Care Animal Trainer Supervisor Name Role Phone Unavailable Primary Care Provider Unavailabl e Source Comments [facility],non-owned Affiliates and Associated Physician Practices is amultiple site organization consisting of ambulatory clinics and hospital sitesin [place], [place], [place] and [place]. This disclosure is being madepursuant to the Care Everywhere program and may not contain all information available regarding this patient. Last updated 18.[facility] Allergies Active Allergy Reactions Criticality Noted Date [...] complete this topic Insurance MEDICARE [facility] SELF PAY NO INSURANCE Member Subscriber Plan / Payer (Ef fective for All Dates) Name:Leatha Lainez Member ID:Not on file Relation to Subscriber:Not on file Name:LEATHA LAINEZ Subscriber ID:Not on file (Home) Address: [address] [place] [id number] Payer ID:Not on file Group ID:Not on file Type:Self Pay Address: [place], [place] MEDICARE ANTHEM
[2025-03-22 17:46] LABS: Add Urine Microscopic? YES; Appearance Urine Clear (Clear); Glucose Urine UA Negative (Negative); Leukocyte Esterase Ur Negative LEU/UL (Negative); Need Manual Microscopic Reviewed; Nitrate Urine Negative (Negative); Non Pathogenic Casts 0-2; Specific Grav Ur 1.032 (1.001-1.035)
== END 2025-03-22 18:26 | disposition home or self-care (01) ==
PROVIDERS: Emergency Medicine; Emergency Provider Registered Nurse Emergency; PCP Internal Medicine
DX: K57.32 Diverticulitis of large intestine without perforation or abscess without bleeding (principal); H54.8 Legal blindness, as defined in USA; Z79.01 Long term (current) use of anticoagulants; F17.210 Nicotine dependence, cigarettes, uncomplicated
CPT/HCPCS: 36415; 74176; 80053; 81001; 83690; 85025; 99284